=== PATIENT | female | born 1980 | race Caucasian/White ===

== ENCOUNTER 2019-12-29 12:13 | Emergency (ER) | payer OTHER, SELFPAY ==
[2019-12-29 12:30] VITALS: BP 132/90; PULSE 103; RESP 16; TEMP 37.4; O2SAT 98
--- NOTE | 2019-12-29 13:23 | ED.GENADULT ---
HPI - General Adult General Chief complaint: Upper Respiratory Infection Stated complaint: Body Aches/Sore Throat/Cough/Chills Time Seen by Provider: 12/29/19 13:23 Source: patient Mode of arrival: ambulatory Limitations: no limitations History of Present Illness HPI narrative: 39-year-old female patient presents to the [facility] care with complaints of cold symptoms that started this morning. Patient states that she did not get a flu shot this year. 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 Patient denies any fevers that she is aware of but states that she is just woke up today not feeling well with some body aches and a cough as well as a sore throat when to come and get it checked out. Patient denies taking anything for symptoms so far. Related Data Home Medications Medication Instructions Recorded Confirmed No Home Medications 12/29/19 12/29/19 Allergies Allergy/AdvReac Type Severity Reaction Status Date / Time meperidine Allergy Unknown Verified 04/13/16 08:19 Penicillins Allergy Unknown Verified 04/13/16 08:19 prednisone Allergy Unknown HIVES Verified 08/19/18 14:23 Sulfa (Sulfonamide Allergy Unknown Unknown Verified 08/19/18 14:23 Antibiotics) Review of Systems Review of Systems: Narrative: CONSTITUTIONAL: Denies fever, positive body aches, chills, began sweats. EYES: Denies visual changes, redness, or discharge. ENT: Positive rhinorrhea, congestion, sore throat, denies otalgia. CARDIOVASCULAR: Denies chest pain, palpitations, or edema. RESPIRATORY: Denies cough or dyspnea. GASTROINTESTINAL: Denies abdominal pain, nausea, vomiting, or diarrhea. GENITOURINARY: Denies dysuria or hematuria. SKIN: Denies rash or itching. MUSCULOSKELETAL: Denies back pain, joint pain, or myalgia. NEUROLOGIC: Denies headache, numbness, or weakness. PSYCHIATRIC: Denies anxiety or depression. [facility] Family History Family History Other Family history of cardiovascular disease Family history of kidney disease Family history of primary malignant neoplasm of liver Malignant neoplasm of prostate Social History Social History Smoking status: Never smoker Alcohol intake: never Comments At the time of my signature I agree with nursing past medical history, surgical, social, and family history. There is no relevant family history pertinent to the presenting complaint. Exam Narrative: Exam Narrative: GENERAL: Well-appearing, well-nourished, and in no acute distress. HEAD: Normocephalic, atraumatic. No tenderness noted to frontal and maxillary sinuses on palpation. EYES: PERRLA and EOMI. ENT: Nares with erythema and edema noted bilaterally, no rhinorrhea or epistaxis. Mucous membranes moist. Posterior pharynx with erythema and some slight swelling but no tonsil enlargement. No exudates or lesions. Bilateral TMs are clear no erythema or foreign bodies in the canal. NECK: Supple. No lymphadenopathy CHEST: Clear to auscultation. No respiratory distress. HEART: Regular rate and rhythm. No murmur heard. Normal peripheral pulses. ABDOMEN: Soft, nontender, nondistended, normal active bowel sounds. EXTREMITIES: Normal range of motion. No edema. SKIN: Warm, dry, no rash. NEURO: No focal deficits. Alert and oriented x3. Course Reevaluation(s) Reevaluation #1: Notify patient she is negative today for influenza and strep. Discussed with her this is most likely some type of virus that is causing her symptoms. Discussed with her that she can take [id number] Tylenol, ibuprofen, cough syrup and get plenty of rest and increase her fluids. Patient verbalized understanding denies any other questions or concerns at this time. Date: 12/29/19 Time: 13:49 Vital Signs Vital signs: Vital Signs Temperature 37.4 C 12/29/19 12:30 Pulse Rate 103 H 02
== END 2019-12-29 14:00 | disposition home or self-care (01) ==
PROVIDERS: Emergency Provider Nurse Practitioner Family; PCP Internal Medicine Nephrology
DX: J06.9 Acute upper respiratory infection, unspecified (principal); J02.9 Acute pharyngitis, unspecified; R05 Cough
CPT/HCPCS: 87081; 87804; 87880; 99213; G0463

== ENCOUNTER 2020-03-26 09:08 | Outpatient (CLI) | payer OTHER, SELFPAY ==
[2020-03-26 09:56] LABS: Basophils Percent Auto 0.4 % (0.2-1.2); Eosinophils Absolute Auto 0.1 K/mm3 (0-0.3); Eosinophils Percent Auto 1.5 % (0-4.4); Hematocrit 38.1 % (37.0-47.0); Hemoglobin 12.1 g/dL (12.0-15.0); Immature Granulocyte Absolute 0.07 K/mm3 (0.00-0.031); Immature Granulocyte Percent A 0.8 % (0-0.5); Lymphocytes Absolute Auto 2.35 K/mm3 (0.9-3.2); Lymphocytes Percent Auto 25.3 % (18.3-44.2); Mean Corpuscular HGB Conc 31.8 g/dl (32-36); Mean Corpuscular Hemoglobin 24.6 pg (26-34); Mean Corpuscular Volume 77.6 fl (80-100); Mean Platelet Volume 10.4 fl (7.4-10.4); Monocytes Absolute Auto 0.9 K/mm3 (0.1-0.6); Monocytes Percent Auto 9.6 % (2.6-8.5); Neutrophils Absolute Auto 5.8 K/mm3 (1.3-6.7); Neutrophils Percent Auto 62.4 % (45.5-73.1); Platelet Count Result 321 k/mm3 (150-375); Red Blood Count 4.91 M/mm3 (4.2-5.4); Red Cell Distribution Width 15.4 % (11.5-14.5); White Blood Count 9.3 K/mm3 (4.5-10.0)
[2020-03-26 10:04] LABS: Hemoglobin A1C 6.2 % (<5.7)
[2020-03-26 10:08] LABS: Add Urine Microscopic? YES; Appearance Urine Clear (Clear); Bilirubin Urine Negative (Negative); Blood Urine Negative (Negative); Color Urine Yellow (Yellow); Glucose Urine UA Negative (Negative); Ketones Urine Negative (Negative); Leukocyte Esterase Ur Trace LEU/UL (Negative); Mucus Urine Rare /lpf; Nitrate Urine Negative (Negative); Protein Urine Negative (Negative); RBC Urine 0-2 /hpf (0-2); Squamous Epithelial Cell Urine Moderate /hpf (Few); Urobilinogen Urine Negative mg/dL (<2.0); WBC Urine 0-3 /hpf
[2020-03-26 10:47] LABS: Free T4 Free Thyroxine 0.79 ng/mL (0.78-2.19)
== END 2020-03-26 09:09 | disposition home or self-care (01) ==
PROVIDERS: PCP Internal Medicine Nephrology; Visit Provider Internal Medicine Nephrology
DX: E78.5 Hyperlipidemia, unspecified (principal); D63.1 Anemia in chronic kidney disease; E11.9 Type 2 diabetes mellitus without complications; N39.0 Urinary tract infection, site not specified; E55.9 Vitamin D deficiency, unspecified; E66.01 Morbid (severe) obesity due to excess calories; E04.1 Nontoxic single thyroid nodule
CPT/HCPCS: 36415; 81001; 82306; 83036; 84439; 85025

== ENCOUNTER 2020-05-08 13:12 | Emergency (ER) | payer OTHER, SELFPAY ==
[2020-05-08 13:24] VITALS: BP 142/89; PULSE 111; RESP 16; TEMP 37.3; O2SAT 98
--- NOTE | 2020-05-08 13:32 | ED.EXTPRO ---
HPI - Extremity Problem General Chief complaint: Extremity Problem,Nontraumatic Stated complaint: left leg pain Time Seen by Provider: 05/08/20 13:33 Source: patient Mode of arrival: ambulatory Limitations: no limitations History of Present Illness HPI Narrative: Maribell Rosas is a 39 yo female with R calf tightness and pain after walking- denies any injury, family hx of PE. 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 EYES: Denies visual changes, redness, discharge. ENT: Denies rhinorrhea, congestion, sore throat, otalgia. CARDIOVASCULAR: Denies chest pain, palpitations, edema. RESPIRATORY: Denies dyspnea, wheezing, cough GASTROINTESTINAL: Denies abdominal pain, nausea, vomiting, diarrhea. GENITOURINARY: Denies dysuria, hematuria, abnormal discharge SKIN: Denies rash or itching. NEUROLOGIC: Denies numbness, or focal weakness. PSYCHIATRIC: Denies anxiety or depression. Left calf pain PMFSH Family History Family History (Updated 05/08/20 @ 13:42 by Josy Leiva CNP) Other Family history of cardiovascular disease Family history of kidney disease Family history of primary malignant neoplasm of liver Malignant neoplasm of prostate Pulmonary emboli Social History Social History Smoking status: Never smoker Alcohol intake: never Gender identity (if verbalized by the patient): Female Comments At time of signature, I agree with nursing past medical, surgical, social and family history. There is no relevant family history pertinent to the presenting complaint. Patients BP is elevated, should follow up with pcp within 1 week Exam Narrative: Exam Narrative: GENERAL: This is a well-nourished, well-developed patient, in mild distress. HEAD: normocephalic, atraumatic. EYES: PERRL. Sclera clear/white. Vision is grossly intact. EARS: External ears normal. Hearing grossly intact. NOSE: External nose normal without nasal discharge, nares without redness, no rhinorrhea. THROAT: Mucous membranes moist, NECK: Neck supple, non-tender CARDIOVASCULAR: Regular rate and rhythm without murmurs, gallops, or rubs. RESPIRATORY: Clear to auscultation. Breath sounds equal bilaterally. No wheezes, rales, or rhonchi. GASTROINTESTINAL: Abdomen soft, non-tender, SKIN: warm, intact with no suspicious lesions or rash, good texture and turgor. NEURO: awake, alert, and oriented to person, place and time. There were no obvious focal neurologic abnormalities. Steady gait EXTREMITIES: Normal range of motion. L calf tenderness, no increased swelling on L but pt states is tight BACK: Nontender without deformity Course Course Emergency Course: needs vascular doppler - referred to [facility] Vital Signs Vital signs: Vital Signs Temperature 99.2 F 05/08/20 13:24 Pulse Rate 111 H 05/08/20 13:24 Respiratory Rate 16 05/08/20 13:24 Blood Pressure 142/89 H 05/08/20 13:24 Pulse Oximetry 98 05/08/20 13:24 Temperature 99.2 F 05/08/20 13:24 Pulse Rate 111 H 05/08/20 13:24 Respiratory Rate 16 05/08/20 13:24 Blood Pressure 142/89 H 05/08/20 13:24 Pulse Oximetry 98 05/08/20 13:24 MDM - Extremity (Nontraumatic) Differential Diagnosis Differential diagnosis: Likely cellulitis, deep vein thrombosis of lower extremity and other Discharge Pl
== END 2020-05-08 13:50 | disposition short-term general hospital (02) ==
PROVIDERS: Emergency Provider Nurse Practitioner; PCP Internal Medicine Nephrology
DX: M79.662 Pain in left lower leg (principal)
CPT/HCPCS: 99212; G0463

== ENCOUNTER 2020-05-08 14:10 | Emergency (ER) | payer OTHER, SELFPAY ==
--- NOTE | ~2020-05-08 | US_ITS ---
EXAMINATION: US venous doppler [facility] DATE: 05/08/2020 15:41 INDICATION: Left lower limb pain TECHNIQUE: Byrd scale images without and with compression and Doppler images of the left lower extrem ity veins were obtained. COMPARISON: None FINDINGS: The left common femoral vein, profunda femoral vein, femoral vein, popliteal vein, peroneal trunk, posterior tibial veins, and greater saphenous vein are patent. IMPRESSION: 1. Patent left lower extremity veins. No evidence of deep venous thrombosis. Reviewed, dictated and finalized at location A.
[2020-05-08 14:31] VITALS: BP 128/84; PULSE 100; RESP 18; TEMP 37.2; O2SAT 100
--- NOTE | 2020-05-08 14:58 | ED.GENADULT ---
HPI - General Adult General Chief complaint: Extremity Problem,Nontraumatic Stated complaint: r/o DVT sent from [facility] Time Seen by Provider: 05/08/20 14:43 Source: patient Mode of arrival: ambulatory Limitations: no limitations History of Present Illness HPI narrative: 39-year-old female patient presents to the [facility] with complaints of left calf pain since Tuesday. Patient states that she was walking into the holes and states that the pain came out all of a sudden. Denies any injury that she is aware of. Patient states that she feels that her left calf is more swollen than the right one. Patient states she has been taking ibuprofen as well as using muscle rub and it has not gotten any better. Patient states she was seen at the [facility] today and they recommended to have her come over for a Doppler to rule out blood clot. Patient states that they did not x-ray at the time. Patient denies any chest pain or shortness of breath. Denies any history of blood clots before in the past Related Data Home Medications Medication Instructions Recorded Confirmed No Home Medications 05/08/20 05/08/20 Allergies Allergy/AdvReac Type Severity Reaction Status Date / Time meperidine Allergy Mild Hives Verified 05/08/20 14:36 Penicillins Allergy Unknown Hives Verified 05/08/20 14:36 prednisone Allergy Unknown HIVES Verified 05/08/20 14:36 Sulfa (Sulfonamide Allergy Unknown Hives Verified 05/08/20 14:36 Antibiotics) Review of Systems Review of Systems: Narrative: CONSTITUTIONAL: Denies fever, chills, or sweats. EYES: Denies visual changes, redness, or discharge. ENT: Denies rhinorrhea, congestion, sore throat, or otalgia. CARDIOVASCULAR: Denies chest pain, palpitations, or edema. RESPIRATORY: Denies cough or dyspnea. GASTROINTESTINAL: Denies abdominal pain, nausea, vomiting, or diarrhea. GENITOURINARY: Denies dysuria or hematuria. SKIN: Denies rash or itching. MUSCULOSKELETAL: Denies back pain, joint pain, or myalgia. Positive left calf pain x4 to 5 days NEUROLOGIC: Denies headache, numbness, or weakness. PSYCHIATRIC: Denies anxiety or depression. [facility] Family History Family History Other Family history of cardiovascular disease Family history of kidney disease Family history of primary malignant neoplasm of liver Malignant neoplasm of prostate Pulmonary emboli Social History Social History Smoking status: Never smoker Alcohol intake: never Gender identity (if verbalized by the patient): Female Comments At the time of my signature I agree with nursing past medical history, surgical, social, and family history. There is no relevant family history pertinent to the presenting complaint. Exam Narrative: Exam Narrative: GENERAL: Well-appearing, well-nourished, and in no acute distress. HEAD: Normocephalic, atraumatic. EYES: PERRLA and EOMI. ENT: Nares clear, no rhinorrhea or epistaxis. Mucous membranes moist. NECK: Supple. No lymphadenopathy CHEST: Clear to auscultation. No respiratory distress. HEART: Regular rate and rhythm. No murmur heard. Normal peripheral pulses. ABDOMEN: Soft, nontender, nondistended, normal active bowel sounds. EXTREMITIES: Normal range of motion. Patient has very slight swelling noted to the left calf area as compared to the right calf.. There is no obvious warmth noted. No discoloration. It is tender on palpation to the left calf area. SKIN: Warm, dry, no rash. NEURO: No focal deficits. Alert and oriented x3. Course Reevaluation(s) Reevaluation #1: Reevaluated patient after her Doppler had resulted. Discussed with her that that her Doppler is negative for any deep vein thrombosis to the left leg. Discussed with her that her blood work all looks good too. Discussed with her we will go ahead and discharge her and she can follow-up with her primary do
[2020-05-08 15:20] LABS: Basophils Absolute Auto 0.1 K/mm3 (0.0-0.1); Basophils Percent Auto 0.5 % (0.2-1.2); Eosinophils Absolute Auto 0.1 K/mm3 (0-0.3); Eosinophils Percent Auto 1.4 % (0-4.4); Hematocrit 33.5 % (37.0-47.0); Hemoglobin 10.9 g/dL (12.0-15.0); Immature Granulocyte Absolute 0.04 K/mm3 (0.00-0.031); Immature Granulocyte Percent A 0.4 % (0-0.5); Lymphocytes Absolute Auto 2.24 K/mm3 (0.9-3.2); Mean Corpuscular HGB Conc 32.5 g/dl (32-36); Mean Corpuscular Hemoglobin 24.8 pg (26-34); Mean Corpuscular Volume 76.1 fl (80-100); Mean Platelet Volume 9.9 fl (7.4-10.4); Monocytes Absolute Auto 0.7 K/mm3 (0.1-0.6); Monocytes Percent Auto 7.2 % (2.6-8.5); Neutrophils Absolute Auto 6.2 K/mm3 (1.3-6.7); Neutrophils Percent Auto 66.5 % (45.5-73.1); Platelet Count Result 305 k/mm3 (150-375); Red Cell Distribution Width 15.3 % (11.5-14.5); White Blood Count 9.4 K/mm3 (4.5-10.0)
[2020-05-08 15:26] LABS: INR 1.2; Prothrombin Time 14.5 Seconds (11.1-14.7)
[2020-05-08 15:27] LABS: Partial Thromboplastin Time 30.2 SECONDS (22.3-36.8)
[2020-05-08 15:29] LABS: Alanine Aminotransferase 24 U/L (4-35); Albumin Level 4.6 g/dL (3.5-5.1); Alkaline Phosphatase 62 U/L (38-126); Aspartate Amino Transferase 23 U/L (14-36); Bilirubin,Total < 0.1 mg/dL (0.2-1.3); Blood Urea Nitrogen 11 mg/dL (7-17); Calcium 9.5 mg/dL (8.4-10.2); Carbon Dioxide 27 mmol/L (22-30); Chloride 102 mmol/L (98-107); Estimated CRCL calculation 108 ml/min; Estimated Glomerular Filt Rate > 60; Glucose 132 mg/dL (65-105); Potassium 3.6 mmol/L (3.4-5.0); Sodium 137 mmol/L (137-145)
--- NOTE | 2020-05-08 16:12 | PC.NURSE ---
Patient found to not be in room at time of discharge, patient left ED without discharge instructions or follow up care instructions.
== END 2020-05-08 16:12 | disposition home or self-care (01) ==
PROVIDERS: Emergency Provider Nurse Practitioner Family; PCP Internal Medicine Nephrology
DX: S86.912A Strain of unspecified muscle(s) and tendon(s) at lower leg level, left leg, initial encounter (principal); X58.XXXA Exposure to other specified factors, initial encounter
CPT/HCPCS: 36415; 80053; 85025; 85610; 85730; 93971; 99284

== ENCOUNTER 2020-12-20 07:50 | Outpatient (CLI) | payer OTHER, SELFPAY ==
[2020-12-20 08:22] LABS: Basophils Percent Auto 0.5 % (0.2-1.2); Eosinophils Absolute Auto 0.1 K/mm3 (0-0.3); Eosinophils Percent Auto 1.4 % (0-4.4); Hematocrit 34.9 % (37.0-47.0); Hemoglobin 10.7 g/dL (12.0-15.0); Immature Granulocyte Absolute 0.03 K/mm3 (0.00-0.031); Immature Granulocyte Percent A 0.4 % (0-0.5); Lymphocytes Absolute Auto 2.32 K/mm3 (0.9-3.2); Lymphocytes Percent Auto 27.6 % (18.3-44.2); Mean Corpuscular HGB Conc 30.7 g/dl (32-36); Mean Corpuscular Hemoglobin 21.9 pg (26-34); Mean Corpuscular Volume 71.4 fl (80-100); Mean Platelet Volume 9.7 fl (7.4-10.4); Monocytes Absolute Auto 0.7 K/mm3 (0.1-0.6); Monocytes Percent Auto 8.3 % (2.6-8.5); Neutrophils Absolute Auto 5.2 K/mm3 (1.3-6.7); Neutrophils Percent Auto 61.8 % (45.5-73.1); Platelet Count Result 313 k/mm3 (150-375); Red Blood Count 4.89 M/mm3 (4.2-5.4); Red Cell Distribution Width 18.6 % (11.5-14.5); White Blood Count 8.4 K/mm3 (4.5-10.0)
[2020-12-20 08:55] LABS: Creatinine Urine 174.2 mg/dL
[2020-12-20 08:57] LABS: MALB Creatinine Ratio 8.3 mg/g (0-30); Microalbumin Urine Random 14.4 mg/L (0-16.7)
[2020-12-20 09:10] LABS: Vitamin D 25 Hydroxy 43.2 ng/mL
[2020-12-20 12:13] LABS: Alanine Aminotransferase 20 U/L (4-35); Albumin Level 4.5 g/dL (3.5-5.1); Alkaline Phosphatase 61 U/L (38-126); Anion Gap 7 mmol/L (8-16); Aspartate Amino Transferase 23 U/L (14-36); Bilirubin,Total 0.3 mg/dL (0.2-1.3); Blood Urea Nitrogen 16 mg/dL (7-17); Calcium 9.1 mg/dL (8.4-10.2); Carbon Dioxide 28 mmol/L (22-30); Chloride 107 mmol/L (98-107); Cholesterol 125 mg/dL (0-200); Estimated Glomerular Filt Rate > 60; Glucose 111 mg/dL (65-105); HDL Direct 43 mg/dL; Potassium 4.5 mmol/L (3.4-5.0); Sodium 142 mmol/L (137-145); Triglycerides 77 mg/dL (<150)
[2020-12-20 12:26] LABS: LDL Cholesterol Direct 60 mg/dL
[2020-12-20 12:45] LABS: Thyroid Stimulating Hormone 0.778 uIU/mL (0.465-4.680); Total Triiodothyronine (T3) 1.17 NG/ML (0.97-1.69)
[2020-12-20 13:38] LABS: Folic Acid > 20.0 ng/mL (2.76->20)
[2020-12-20 13:56] LABS: Hemoglobin A1C 5.7 % (<5.7)
[2020-12-20 15:18] LABS: Iron 28 ug/dL (37-170)
[2020-12-20 15:36] LABS: Free T4 Free Thyroxine 0.83 ng/mL (0.78-2.19)
[2020-12-20 15:55] LABS: Ferritin 6.92 ng/mL (6.24-137)
[2020-12-20 16:42] LABS: Percent Iron Saturation 7 % (20-50)
== END 2020-12-20 07:51 | disposition home or self-care (01) ==
LOC: ANHLAB 07:53
PROVIDERS: PCP Internal Medicine Nephrology; Visit Provider Internal Medicine Nephrology
DX: D63.1 Anemia in chronic kidney disease (principal); D50.9 Iron deficiency anemia, unspecified; E04.1 Nontoxic single thyroid nodule; E78.5 Hyperlipidemia, unspecified; E11.9 Type 2 diabetes mellitus without complications
CPT/HCPCS: 36415; 80053; 80061; 82043; 82306; 82607; 82728; 82746; 83036; 83540; 83550; 83735; 84439; 84443; 84480; 85025

== ENCOUNTER 2021-01-14 16:16 | Outpatient (CLI) | payer OTHER, SELFPAY ==
--- NOTE | ~2021-01-14 | MM_ITS ---
EXAMINATION: MM screening zoltan BI w nilo HISTORY: Screening TECHNIQUE: Craniocaudal and mediolateral oblique 3-D tomosynthesis images were obtained and synthetic 2-D images were generated. CAD analysis was submitted and interpreted. COMPARISON: 06/21/2019 BREAST PARENCHYMAL COMPOSITION: The breasts are heterogeneously dense, which may obscure small masses . FINDINGS: There are developing bilateral breast masses which are obscured by fibroglandular tissue. T here are scattered benign-appearing bilateral breast calcifications. IMPRESSION: 1. Developing bilateral breast masses. 2. Additional mammographic views and possible breast ultrasound are recommended. BI-RADS Category 0: Incomplete: Needs additional imaging evaluation. Reviewed, dictated and finalized at location A. ENT RELATIONS COORDINATOR IMPRESSION: 1. Developing bilateral breast masses. 2. Additional mammographic views and possible breast ultrasound are recommended . BI-RADS Category 0: Incomplete: Needs additional imaging evaluation.
== END 2021-01-14 16:17 | disposition home or self-care (01) ==
LOC: ANHIMG 16:19
PROVIDERS: PCP Internal Medicine Nephrology; Visit Provider Obstetrics & Gynecology
DX: Z12.31 Encounter for screening mammogram for malignant neoplasm of breast (principal); R92.8 Other abnormal and inconclusive findings on diagnostic imaging of breast
CPT/HCPCS: 77063; 77067

== ENCOUNTER 2021-02-09 11:16 | Outpatient (CLI) | payer OTHER, SELFPAY ==
--- NOTE | ~2021-02-09 | MMUS_ITS ---
EXAMINATION: MM diagnostic mammo BI, US breast BI limited HISTORY: Possible breast masses on screening mammogram TECHNIQUE: Additional 3-D tomosynthesis images of the breasts were performed and synthetic 2-D images were generated. CAD analysis was submitted and interpreted. High resolution limited bilateral breast ultrasound was performed. COMPARISON: 01/14/2021, 06/21/2019 FINDINGS: MAMMOGRAPHIC FINDINGS: Right breast: There is 11 mm an obscured low density mass in the middle third of the upper outer quad rant of the breast at the 10:00 location 6 cm from the nipple. Left breast: There is an approximately 10 mm oval, obscured, equal density mass in the middle third o f the upper breast at the 12:00 location 10 cm from the nipple. ULTRASOUND: Right breast: There is an approximately 11 mm oval, parallel, hypoechoic mass at the 10:00 location 7 cm from the nipple with posterior acoustic enhancement and no internal vascularity. Left breast: There is a 1.4 x 0.7 cm oval, parallel, complex cystic and solid mass with no posterior features or internal vascularity at the 12:00 location 5 cm from the nipple which could reflect a clu ster of microcysts. IMPRESSION: 1. Probably benign bilateral breast masses. 2. Recommend 6 month follow-up bilateral diagnostic mammogram and ultrasound. BI-RADS category 3, probably benign findings. Reviewed, dictated and finalized at location A. IMPRESSION: 1. Probably benign bilateral breast masses. 2. Recommend 6 month follow-up bilateral diagnostic mammogram and ultrasound. BI-RADS category 3, probably benign findings.
== END 2021-02-09 11:17 | disposition home or self-care (01) ==
LOC: ANHIMG 11:17
PROVIDERS: PCP Internal Medicine Nephrology; Visit Provider Obstetrics & Gynecology
DX: R92.8 Other abnormal and inconclusive findings on diagnostic imaging of breast (principal)
CPT/HCPCS: 76642; 77066

== ENCOUNTER 2021-07-12 11:19 | Emergency (ER) | payer OTHER, SELFPAY ==
--- NOTE | 2021-07-12 11:20 | ED.EAR ---
HPI - Ear Problem General Chief complaint: Ear Stated complaint: ear pain Time Seen by Provider: 07/12/21 11:21 Source: patient and RN notes reviewed History of Present Illness HPI Narrative: Patient is a 41-year-old female who presents to the urgent care with complaints of bilateral ear pain and intermittent dizziness. Patient currently denies of any dizziness. States that she was sitting in scientology and started to feel dizzy with bilateral ear pain and jitteriness . Patient states that she did eat this morning as well as drink a glass of orange juice. Patient denies of any sick contacts and denies of any other upper respiratory complaints. Patient has not taken anything for her symptoms. Patient was able to drive herself to the facility. No other acute complaints. No acute distress noted. Patient read the plan of care. Some parts of this dictation were generated by voice recognition software and may contain typographical and/or grammatical inaccuracies. Related Data Home Medications Medication Instructions Recorded Confirmed No Home Medications 05/08/20 07/12/21 Allergies Allergy/AdvReac Type Severity Reaction Status Date / Time meperidine Allergy Mild Hives Verified 07/12/21 11:29 Penicillins Allergy Unknown Hives Verified 07/12/21 11:29 prednisone Allergy Unknown HIVES Verified 07/12/21 11:29 Sulfa (Sulfonamide Allergy Unknown Hives Verified 07/12/21 11:29 Antibiotics) Review of Systems Review of Systems: CONSTITUTIONAL: Denies fever, chills, or sweats. EYES: Denies visual changes, redness, or discharge. ENT: Denies rhinorrhea, congestion, sore throat. Reports bilateral otalgia CARDIOVASCULAR: Denies chest pain, palpitations, or edema. RESPIRATORY: Denies cough or dyspnea. GASTROINTESTINAL: Denies abdominal pain, nausea, vomiting, or diarrhea. GENITOURINARY: Denies dysuria or hematuria. SKIN: Denies rash or itching. MUSCULOSKELETAL: Denies back pain, joint pain, or myalgia. NEUROLOGIC: Denies headache, numbness, or weakness. Reports of a bout of dizziness All other systems reviewed are negative, except as documented in HPI. [facility] Family History Family History Other Family history of cardiovascular disease Family history of kidney disease Family history of primary malignant neoplasm of liver Malignant neoplasm of prostate Pulmonary emboli Social History Social History Smoking status: Never smoker Alcohol intake: never Gender identity (if verbalized by the patient): Female Comments At the time of my signature, I reviewed and agree with the nursing past medical, surgical, social, and family history. There is no relevant family history pertinent to the patient complaint. Exam Narrative: GENERAL: This is a well-nourished, well-developed patient, in no apparent distress. HEAD: normocephalic, atraumatic. EYES: PERRL. Sclera clear/white. Vision is grossly intact. EARS: External ears normal, auditory canals clear and without drainage, TMs normal without perforation. Hearing grossly intact. NOSE: External nose normal with no obvious nasal discharge, nares without redness, no rhinorrhea. THROAT: Mucous membranes moist, posterior pharynx clear. NECK: Neck supple CARDIOVASCULAR: Regular rate and rhythm without murmurs, gallops, or rubs. RESPIRATORY: Clear to auscultation. Breath sounds equal bilaterally. No wheezes, rales, or rhonchi. SKIN: warm, intact with no suspicious lesions or rash, good texture and turgor. NEURO: awake, alert, and oriented to person, place and time. There were no obvious focal neurologic abnormalities. No neurological defects noted EXTREMITIES: No clubbing, cyanosis, or edema. Course Vital Signs Vital signs: Vital Signs Temperature 98.0 F 07/12/21 11:29 Pulse Rate 104 H 07/12/21 11:29 Respiratory Rate 18 07/12/21 11:29 Blood Pressure 136/88 07/12/21
[2021-07-12 11:29] VITALS: BP 136/88; PULSE 104; RESP 18; TEMP 36.7; O2SAT 100
== END 2021-07-12 11:50 | disposition home or self-care (01) ==
PROVIDERS: Emergency Provider Nurse Practitioner Family; PCP Internal Medicine Nephrology
DX: H92.03 Otalgia, bilateral (principal)
CPT/HCPCS: 99211; G0463

== ENCOUNTER 2021-07-18 08:06 | Outpatient (CLI) | payer OTHER, SELFPAY ==
[2021-07-18 08:57] LABS: Basophils Percent Auto 0.5 % (0.2-1.2); Eosinophils Absolute Auto 0.1 K/mm3 (0-0.3); Eosinophils Percent Auto 1.6 % (0-4.4); Hematocrit 32.4 % (37.0-47.0); Hemoglobin 9.7 g/dL (12.0-15.0); Immature Granulocyte Absolute 0.05 K/mm3 (0.00-0.031); Immature Granulocyte Percent A 0.6 % (0-0.5); Lymphocytes Absolute Auto 2.28 K/mm3 (0.9-3.2); Lymphocytes Percent Auto 27.9 % (18.3-44.2); Mean Corpuscular HGB Conc 29.9 g/dl (32-36); Mean Corpuscular Hemoglobin 20.9 pg (26-34); Mean Corpuscular Volume 69.7 fl (80-100); Mean Platelet Volume 9.9 fl (7.4-10.4); Monocytes Absolute Auto 0.7 K/mm3 (0.1-0.6); Monocytes Percent Auto 8.7 % (2.6-8.5); Neutrophils Percent Auto 60.7 % (45.5-73.1); Platelet Count Result 333 k/mm3 (150-375); Red Blood Count 4.65 M/mm3 (4.2-5.4); Red Cell Distribution Width 18.2 % (11.5-14.5); White Blood Count 8.2 K/mm3 (4.5-10.0)
[2021-07-18 09:08] LABS: Alanine Aminotransferase 20 U/L (4-35); Albumin Level 4.4 g/dL (3.5-5.1); Alkaline Phosphatase 62 U/L (38-126); Anion Gap 7 mmol/L (8-16); Aspartate Amino Transferase 21 U/L (14-36); Bilirubin,Total 0.2 mg/dL (0.2-1.3); Blood Urea Nitrogen 12 mg/dL (7-17); Calcium 9.2 mg/dL (8.4-10.2); Carbon Dioxide 26 mmol/L (22-30); Chloride 105 mmol/L (98-107); Estimated Glomerular Filt Rate > 60; Glucose 121 mg/dL (65-110); Sodium 138 mmol/L (137-145)
[2021-07-18 09:57] LABS: Iron 19 ug/dL (37-170)
[2021-07-18 10:07] LABS: Percent Iron Saturation 5 % (20-50)
== END 2021-07-18 08:07 | disposition home or self-care (01) ==
PROVIDERS: PCP Internal Medicine Nephrology; Visit Provider Internal Medicine Nephrology
DX: N18.9 Chronic kidney disease, unspecified (principal); D63.1 Anemia in chronic kidney disease; D50.9 Iron deficiency anemia, unspecified; E66.01 Morbid (severe) obesity due to excess calories; E04.1 Nontoxic single thyroid nodule
CPT/HCPCS: 36415; 80053; 82728; 83036; 83540; 83550; 85025

== ENCOUNTER 2021-10-07 09:03 | Outpatient (CLI) | payer OTHER, SELFPAY ==
[2021-10-07 09:45] LABS: Hematocrit 38.9 % (37.0-47.0); Hemoglobin 12.8 g/dL (12.0-15.0); Immature Reticulocyte Fraction 7.9 % (3.0-15.9); Mean Corpuscular HGB Conc 32.9 g/dl (32-36); Mean Corpuscular Volume 79.1 fl (80-100); Mean Platelet Volume 9.7 fl (7.4-10.4); Platelet Count Result 264 k/mm3 (150-375); Red Blood Count 4.92 M/mm3 (4.2-5.4); Red Cell Distribution Width 18.9 % (11.5-14.5); Reticulocyte Hemoglobin Conten 32.1 pg (28.2-35.7); Reticulocyte Percent 1.56 % (0.7-4.3); Reticulocytes Absolute 0.08 B/L (32.2-175.7); White Blood Count 8.7 K/mm3 (4.5-10.0)
[2021-10-07 10:03] LABS: Iron 44 ug/dL (37-170)
[2021-10-07 10:13] LABS: Percent Iron Saturation 11 % (20-50)
[2021-10-07 11:11] LABS: Folic Acid 18.8 ng/mL (2.76->20); Vitamin B12 > 1000.0 pg/mL (239-931)
== END 2021-10-07 09:04 | disposition home or self-care (01) ==
LOC: ANHLAB 09:06
PROVIDERS: PCP Internal Medicine Nephrology; Visit Provider Internal Medicine Nephrology
DX: C73 Malignant neoplasm of thyroid gland (principal); D50.9 Iron deficiency anemia, unspecified
CPT/HCPCS: 36415; 82607; 82728; 82746; 83540; 83550; 84443; 85027; 85046

== ENCOUNTER 2021-10-16 06:32 | Emergency (ER) | payer OTHER, SELFPAY ==
--- NOTE | ~2021-10-16 | XR_ITS ---
XR chest 1V portable 10/16/2021 08:32 Indication: Shortness of breath. Covid Infection. Procedure: AP portable chest Comparison: 04/28/2011 Findings: Patchy bilateral airspace disease, compatible with pneumonia. No pleural effusion or pneumo thorax. Heart size normal. No acute osseous abnormality. Impression: 1: Patchy bilateral airspace disease, compatible with pneumonia. Reviewed, dictated and finalized at location A. [employer] Impression: 1: Patchy bilateral airspace disease, compatible with pneumonia.
[2021-10-16 06:45] VITALS: BP 120/71; PULSE 119; RESP 17; TEMP 37.4; O2SAT 95
[2021-10-16 08:29] LABS: Alveolar/Arterial O2 Gradient 45.4 mmHg; Base Excess ABG -0.1 mEq/l (+/-2.0); Fractional Inspired Oxygen 21 %; HCO3 ABG 23.3 mEq/l (22.0-26.0); Oxygen Saturation ABG 93.6 % (95.0-100.0); Oxyhemoglobin 91.8 % THb (90.0-100.0); PCO2 ABG 33.8 mmHg (35.0-45.0); PO2 ABG 63.9 mmHg (80.0-100.0); PO2 FiO2 Ratio Arterial Blood 3.04 %; Total Hemoglobin 11.6 g/dL (12.0-18.0); pH ABG 7.457 (7.350-7.450)
[2021-10-16 08:30] LABS: Device ROOM AIR; Modified Allen's Test Pass; Site Drawn LEFT RADIAL
[2021-10-16 09:08] VITALS: BP 88/64; PULSE 80; RESP 23; O2SAT 93
[2021-10-16] MEDS: SODIUM CHLORIDE 0.9% IV 1,000 ML 999 ML IV CONT (09:11)
[2021-10-16 09:19] LABS: Hematocrit 34.3 % (37.0-47.0); Hemoglobin 11.3 g/dL (12.0-15.0); Immature Granulocyte Absolute 0.02 K/mm3 (0.00-0.031); Immature Granulocyte Percent A 0.5 % (0-0.5); Lymphocytes Percent Auto 18.5 % (18.3-44.2); Mean Corpuscular HGB Conc 32.9 g/dl (32-36); Mean Corpuscular Hemoglobin 25.7 pg (26-34); Mean Corpuscular Volume 78.1 fl (80-100); Mean Platelet Volume 10.1 fl (7.4-10.4); Monocytes Absolute Auto 0.3 K/mm3 (0.1-0.6); Monocytes Percent Auto 6.5 % (2.6-8.5); Neutrophils Absolute Auto 3.2 K/mm3 (1.3-6.7); Neutrophils Percent Auto 74.5 % (45.5-73.1); Platelet Count Result 186 k/mm3 (150-375); Red Blood Count 4.39 M/mm3 (4.2-5.4); Red Cell Distribution Width 18.1 % (11.5-14.5); White Blood Count 4.3 K/mm3 (4.5-10.0)
[2021-10-16] MEDS: ONDANSETRON INJ 4 MG/2 ML VIAL IV PUSH (09:24)
--- NOTE | 2021-10-16 09:40 | ED.NAVMDI ---
HPI - Nausea/Vomiting/Diarrhea General Chief complaint: Nausea/Vomiting/Diarrhea Stated complaint: Covid +, SOB, N/V Time Seen by Provider: 10/16/21 07:53 Source: patient and RN notes reviewed Mode of arrival: ambulatory Limitations: no limitations History of Present Illness HPI Narrative: Patient started having Covid symptoms 7 days ago, tested positive for COVID-19 5 days ago. Currently complaining of poor appetite, nausea, shortness of breath with exertion. Patient is not vaccinated for COVID-19. Related Data Allergies Allergy/AdvReac Type Severity Reaction Status Date / Time meperidine Allergy Mild Hives Verified 10/16/21 06:48 Penicillins Allergy Unknown Hives Verified 10/16/21 06:48 prednisone Allergy Unknown HIVES Verified 10/16/21 06:48 Sulfa (Sulfonamide Allergy Unknown Hives Verified 10/16/21 06:48 Antibiotics) Review of Systems Review of Systems: CONSTITUTIONAL: Denies fever, chills, or sweats. EYES: Denies visual changes, redness, or discharge. ENT: Denies rhinorrhea, congestion, sore throat, or otalgia. CARDIOVASCULAR: Denies chest pain, palpitations, or edema. RESPIRATORY: Denies cough or dyspnea. GASTROINTESTINAL: Denies abdominal pain, nausea, vomiting, or diarrhea. GENITOURINARY: Denies dysuria or hematuria. SKIN: Denies rash or itching. MUSCULOSKELETAL: Denies back pain, joint pain, or myalgia. NEUROLOGIC: Denies headache, numbness, or weakness. PSYCHIATRIC: Denies anxiety or depression. [facility] Family History Family History Other Family history of cardiovascular disease Family history of kidney disease Family history of primary malignant neoplasm of liver Malignant neoplasm of prostate Pulmonary emboli Social History Social History Smoking status: Never smoker Alcohol intake: never Gender identity (if verbalized by the patient): Female Exam Narrative: General appearance: Well-developed, well-nourished Skin: Normal color Head: Normocephalic, nontraumatic Eyes: Clear conjunctiva ENT: Oropharynx normal, ears normal, nose normal Neck: Supple, nontender Chest and respiratory: Airway patent, no respiratory distress, no accessory muscle use Heart: Regular rate/rhythm Abdomen: Soft, nontender, no organomegaly, quiet bowel sounds Vascular: Normal peripheral pulses, normal capillary refill. Musculoskeletal: Normal range of motion, nontender back Neurologic: Alert and oriented ?3, SCRAP PILER is normal as tested, no gross motor deficit Course Course Emergency Course: Stable, Consultations Consultation #1: DR RAMOS Patient is not qualified to be admitted, her saturation is 93.6, although having bilateral basal pneumonia which is consistent with Covid infection. Patient can go home and can return if her symptoms are worsening. Date: 10/16/21 Time: 10:01 Vital Signs Vital signs: Vital Signs Temperature 37.4 C 10/16/21 06:45 Pulse Rate 119 H 10/16/21 06:45 Respiratory Rate 17 10/16/21 06:45 Blood Pressure 120/71 10/16/21 06:45 Pulse Oximetry 95 10/16/21 06:45 Temperature 37.4 C 10/16/21 06:45 Pulse Rate 80 10/16/21 09:08 Respiratory Rate 23 H 10/16/21 09:08 Blood Pressure 88/64 L 10/16/21 09:08 Pulse Oximetry 93 10/16/21 09:08 MDM - Nausea/Vomiting/Diarrhea MDM Narrative Medical decision making narrative: Covid infection Work-up showed slight hypoxia, patient has not qualified to be admitted for remdesivir and dexamethasone treatment. Patient is allergic to prednisone. Patient will be discharged on Kerri Alamoon, to follow-up with her family physician. Discussed with
[2021-10-16 10:07] LABS: Alanine Aminotransferase 19 U/L (4-35); Albumin Level 4.1 g/dL (3.5-5.1); Alkaline Phosphatase 47 U/L (38-126); Anion Gap 8 mmol/L (8-16); Aspartate Amino Transferase 28 U/L (14-36); Bilirubin,Total 0.2 mg/dL (0.2-1.3); Blood Urea Nitrogen 13 mg/dL (7-17); Calcium 8.2 mg/dL (8.4-10.2); Carbon Dioxide 27 mmol/L (22-30); Chloride 98 mmol/L (98-107); Estimated CRCL calculation 110 ml/min; Estimated Glomerular Filt Rate > 60; Glucose 102 mg/dL (65-110); Potassium 4.2 mmol/L (3.4-5.0); Sodium 133 mmol/L (137-145)
[2021-10-16 10:30] LABS: Alanine Aminotransferase 18 U/L (4-35); Estimated CRCL calculation 110 ml/min; Estimated Glomerular Filt Rate > 60
[2021-10-16 10:31] LABS: Prothrombin Time 13.3 Seconds (11.1-14.7)
[2021-10-16 11:08] VITALS: BP 114/56; PULSE 88; RESP 20; O2SAT 98
== END 2021-10-16 11:10 | disposition home or self-care (01) ==
PROVIDERS: Emergency Provider Emergency Medicine; PCP Internal Medicine Nephrology
DX: U07.1 COVID-19 (principal); J12.82 Pneumonia due to coronavirus disease 2019; A08.39 Other viral enteritis
CPT/HCPCS: 36415; 36600; 71045; 80053; 82565; 82805; 84460; 85025; 85610; 96361; 96374; 99284; J2405; J7030

== ENCOUNTER 2022-02-13 08:25 | Outpatient (CLI) | payer OTHER, SELFPAY ==
[2022-02-13 08:59] LABS: Basophils Percent Auto 0.4 % (0.2-1.2); Eosinophils Absolute Auto 0.2 K/mm3 (0-0.3); Eosinophils Percent Auto 1.8 % (0-4.4); Hematocrit 39.1 % (37.0-47.0); Hemoglobin 12.3 g/dL (12.0-15.0); Immature Granulocyte Absolute 0.04 K/mm3 (0.00-0.031); Immature Granulocyte Percent A 0.5 % (0-0.5); Immature Reticulocyte Fraction 12.3 % (3.0-15.9); Lymphocytes Absolute Auto 2.68 K/mm3 (0.9-3.2); Lymphocytes Percent Auto 31.8 % (18.3-44.2); Mean Corpuscular HGB Conc 31.5 g/dl (32-36); Mean Corpuscular Hemoglobin 24.8 pg (26-34); Mean Platelet Volume 9.7 fl (7.4-10.4); Monocytes Absolute Auto 0.8 K/mm3 (0.1-0.6); Monocytes Percent Auto 8.9 % (2.6-8.5); Neutrophils Absolute Auto 4.8 K/mm3 (1.3-6.7); Neutrophils Percent Auto 56.6 % (45.5-73.1); Platelet Count Result 270 k/mm3 (150-375); Red Blood Count 4.95 M/mm3 (4.2-5.4); Red Cell Distribution Width 17.5 % (11.5-14.5); Reticulocyte Hemoglobin Conten 31.1 pg (28.2-35.7); Reticulocyte Percent 2.21 % (0.7-4.3); Reticulocytes Absolute 0.11 B/L (32.2-175.7); White Blood Count 8.4 K/mm3 (4.5-10.0)
[2022-02-13 09:20] LABS: Add Urine Microscopic? YES; Appearance Urine Clear (Clear); Bilirubin Urine Negative (Negative); Blood Urine Negative (Negative); Color Urine Straw (Yellow); Glucose Urine UA Negative (Negative); Ketones Urine Negative (Negative); Leukocyte Esterase Ur 1+ LEU/UL (NEGATIVE); Mucus Urine Rare /lpf; Nitrate Urine Negative (Negative); Protein Urine Negative (Negative); RBC Urine 0-2 /hpf (0-2); Specific Grav Ur 1.011 (1.001-1.035); Squamous Epithelial Cell Urine Few /hpf (Few); Urobilinogen Urine Negative mg/dL (<2.0)
[2022-02-13 09:29] LABS: Alanine Aminotransferase 27 U/L (4-35); Albumin Level 4.6 g/dL (3.5-5.1); Alkaline Phosphatase 59 U/L (38-126); Anion Gap 7 mmol/L (8-16); Aspartate Amino Transferase 27 U/L (14-36); Bilirubin,Total 0.2 mg/dL (0.2-1.3); Blood Urea Nitrogen 13 mg/dL (7-17); Calcium 8.9 mg/dL (8.4-10.2); Carbon Dioxide 28 mmol/L (22-30); Chloride 103 mmol/L (98-107); Cholesterol 126 mg/dL (0-200); Estimated Glomerular Filt Rate > 60; Glucose 124 mg/dL (65-110); HDL Direct 37 mg/dL; Sodium 138 mmol/L (137-145); Triglycerides 164 mg/dL (<150)
[2022-02-13 09:45] LABS: LDL Cholesterol Direct 52 mg/dL
[2022-02-13 09:47] LABS: Hemoglobin A1C 5.7 % (<5.7)
[2022-02-13 09:58] LABS: Vitamin D 25 Hydroxy 48.9 ng/mL
[2022-02-13 10:01] LABS: Iron 60 ug/dL (37-170)
[2022-02-13 10:12] LABS: Percent Iron Saturation 16 % (20-50)
[2022-02-17 06:35] LABS: FSH 2.5 mIU/mL (***); Progesterone 6.3 ng/mL (***)
[2022-02-18 20:27] LABS: Estradiol, Ultrasensitive 117 pg/mL
== END 2022-02-13 08:26 | disposition home or self-care (01) ==
PROVIDERS: PCP Internal Medicine Nephrology; Referring Provider Internal Medicine Nephrology; Visit Provider Obstetrics & Gynecology
DX: C73 Malignant neoplasm of thyroid gland (principal); Z86.2 Personal history of diseases of the blood and blood-forming organs and certain disorders involving the immune mechanism
CPT/HCPCS: 36415; 80053; 80061; 81001; 82306; 82607; 82670; 82728; 83001; 83036; 83540; 83550; 83735; 84100; 84144; 84443; 85025; 85046

== ENCOUNTER 2022-10-06 09:07 | Outpatient (CLI) | payer OTHER, SELFPAY ==
[2022-10-06 09:36] LABS: Hemoglobin 12.5 g/dL (12.0-15.0); Mean Corpuscular HGB Conc 32.9 g/dl (32-36); Mean Corpuscular Hemoglobin 27.5 pg (26-34); Mean Corpuscular Volume 83.7 fl (80-100); Mean Platelet Volume 9.9 fl (7.4-10.4); Platelet Count Result 244 k/mm3 (150-375); Red Blood Count 4.54 M/mm3 (4.2-5.4); Red Cell Distribution Width 13.2 % (11.5-14.5)
[2022-10-06 09:46] LABS: Creatine Kinase 46 U/L (30-135)
[2022-10-06 09:56] LABS: Iron 39 ug/dL (37-170)
[2022-10-06 10:07] LABS: Percent Iron Saturation 8 % (20-50)
[2022-10-06 10:15] LABS: Free T4 Free Thyroxine 0.79 ng/mL (0.78-2.19)
[2022-10-06 10:28] LABS: Hepatitis B Surface Antigen Negative (Negative)
[2022-10-06 10:34] LABS: Ferritin 9.02 ng/mL (6.24-137)
[2022-10-06 10:45] LABS: Hepatitis B Surface Anti Res Negative; Hepatitis C Virus Antibody Negative (Negative)
[2022-10-11 07:42] LABS: NIL 0.06
[2022-10-11 07:43] LABS: Quantiferon TB Plus, 1T Negative
== END 2022-10-06 09:08 | disposition home or self-care (01) ==
LOC: ANHLAB 09:10
PROVIDERS: PCP Internal Medicine Nephrology; Visit Provider Internal Medicine Nephrology
DX: Z86.2 Personal history of diseases of the blood and blood-forming organs and certain disorders involving the immune mechanism (principal); C73 Malignant neoplasm of thyroid gland; R55 Syncope and collapse; R53.83 Other fatigue
CPT/HCPCS: 36415; 82550; 82728; 83540; 83550; 84439; 84443; 85027; 86038; 86480; 86706; 86803; 87340

== ENCOUNTER 2022-11-12 16:07 | Emergency (ER) | payer OTHER, SELFPAY ==
[2022-11-12 16:14] VITALS: BP 141/87; PULSE 103; RESP 20; TEMP 37.6; O2SAT 100
--- NOTE | 2022-11-12 16:36 | ED.EAR ---
HPI - Ear Problem General Chief complaint: Ear Stated complaint: Both Ears Irritation Time Seen by Provider: 11/12/22 16:36 Source: patient Mode of arrival: ambulatory Limitations: no limitations History of Present Illness HPI Narrative: 42-year-old female presents with complaint of irritation to both ears, worse to left ear. Also reports itching to bilateral ear canals. Reports history of several ear problems. Is not able to see her ENT until January. Her primary care physician was also not able to get her in for an appointment. Afebrile. Reports mild nausea. No vomiting or dizziness. All systems reviewed and negative except as noted above. Related Data Home Medications Medication Instructions Recorded Confirmed ferrous sulfate 325 mg (65 mg 325 mg PO DAILY 07/06/22 07/06/22 iron) tablet Allergies Allergy/AdvReac Type Severity Reaction Status Date / Time meperidine Allergy Mild Hives Verified 11/12/22 16:09 Penicillins Allergy Unknown Hives Verified 11/12/22 16:09 prednisone Allergy Unknown HIVES Verified 11/12/22 16:09 Sulfa (Sulfonamide Allergy Unknown Hives Verified 11/12/22 16:09 Antibiotics) Review of Systems Review of Systems: CONSTITUTIONAL: Denies fever, chills, or sweats. EYES: Denies visual changes, redness, or discharge. ENT: Denies rhinorrhea, congestion, sore throat . Reports bilateral ear pain, ear itching. CARDIOVASCULAR: Denies chest pain, palpitations, or edema. RESPIRATORY: Denies cough or dyspnea. GASTROINTESTINAL: Denies abdominal pain, nausea, vomiting, or diarrhea. GENITOURINARY: Denies dysuria or hematuria. SKIN: Denies rash or itching. MUSCULOSKELETAL: Denies back pain, joint pain, or myalgia. NEUROLOGIC: Denies headache, numbness, or weakness. PSYCHIATRIC: Denies anxiety or depression. All other systems reviewed are negative, except as documented in HPI. [facility] Past Medical History Medical History (Updated 11/12/22 @ 16:48 by Debbie Serrano NP) [place] Iron infusions when needed / Taking iron POTS (postural orthostatic tachycardia syndrome) Screening mammogram, encounter for Family History Family History Father Family history of primary malignant neoplasm of liver Carcinoma of colon Malignant tumor of stomach Mother Diabetes mellitus Family history of cardiovascular disease Hypertension Renal failure syndrome Other Malignant neoplasm of prostate Pulmonary emboli Social History Social History (Updated 07/06/22 @ 15:45 by Latoya Domínguez [facility]) Smoking status: Never smoker Alcohol intake: never Substance use: never Substance use type: does not use Additional living arrangements comments: 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 There is no relevant family history pertinent to the presenting complaint. Exam Narrative: GENERAL: This is a well-nourished, well-developed patient, in no apparent distress. HEAD: normocephalic, atraumatic. EYES: PERRL. Sclera clear/white. Vision is grossly intact. EARS:, auditory canals clear and without drainage, Fluid to left TM with mild erythema. No perforation. There is erythema and scaling rate at opening to bilateral ear canals consistent with eczema. NOSE: External nose normal with no obvious nasal discharge, nares without redness, no rhinorrhea. NECK: Neck supple, non-tender without lymphadenopathy, masses or thyromegaly. CARDIOVASCULAR: Regular rate and rhythm without murmurs, gallops, or rubs. RESPIRATORY: Clear to auscultation. Breath sounds equal bilaterally. No wheezes, rales, or rhonchi. SKIN: warm, Dry, intact with no suspicious lesions or rash, good texture and turgor. JERMAINE
== END 2022-11-12 16:50 | disposition home or self-care (01) ==
PROVIDERS: Emergency Provider Nurse Practitioner Family; PCP Internal Medicine Nephrology
DX: H65.02 Acute serous otitis media, left ear (principal); L30.9 Dermatitis, unspecified; D64.9 Anemia, unspecified
CPT/HCPCS: 99213; G0463

== ENCOUNTER 2022-11-17 15:50 | Outpatient (CLI) | payer OTHER, SELFPAY ==
--- NOTE | ~2022-11-17 | MM_ITS ---
EXAMINATION: MM screening [facility] BI w nilo HISTORY: Screening mammogram TECHNIQUE: Craniocaudal and mediolateral oblique 3-D tomosynthesis images were obtained and synthetic 2-D images were generated. CAD analysis was submitted and interpreted. COMPARISON: 02/09/2021, 01/14/2021, 06/21/2019 BREAST PARENCHYMAL COMPOSITION: The breasts are heterogeneously dense, which may obscure small masses . FINDINGS: No suspicious mass, calcification, or architectural distortion are identified in either jia ast to suggest malignancy. There has been no suspicious interval change. IMPRESSION: 1. No mammographic evidence of malignancy. 2. Recommend routine screening mammography in one year. BI-RADS Category 1: Negative Reviewed, dictated and finalized at location A. UAGE ASST
== END 2022-11-17 15:51 | disposition home or self-care (01) ==
LOC: ANHIMG 15:54
PROVIDERS: PCP Internal Medicine Nephrology; Visit Provider Obstetrics & Gynecology
DX: Z12.31 Encounter for screening mammogram for malignant neoplasm of breast (principal)
CPT/HCPCS: 77063; 77067

== ENCOUNTER 2022-12-12 18:44 | Emergency (ER) | payer OTHER, SELFPAY ==
--- NOTE | 2022-12-12 18:51 | ED.EAR ---
HPI - Ear Problem General Chief complaint: Ear Stated complaint: ear pain Time Seen by Provider: 12/12/22 18:51 Source: patient, RN notes reviewed and old records reviewed Mode of arrival: ambulatory Limitations: no limitations History of Present Illness HPI Narrative: 42-year-old female presents to the [facility] with complaints of left ear pain that started today. Took a Tylenol and states it is not better. Has a history ear issues and sees Dr. Dorantes Patient denies any other symptoms. Denies fevers, chest pain, abdominal pain. No sinus congestion. Has been using Q-tips that are ears Related Data Home Medications Medication Instructions Recorded Confirmed ferrous sulfate 325 mg (65 mg 325 mg PO DAILY 07/06/22 12/12/22 iron) tablet Allergies Allergy/AdvReac Type Severity Reaction Status Date / Time meperidine Allergy Mild Hives Verified 12/12/22 18:48 Penicillins Allergy Unknown Hives Verified 12/12/22 18:48 prednisone Allergy Unknown HIVES Verified 12/12/22 18:48 Sulfa (Sulfonamide Allergy Unknown Hives Verified 12/12/22 18:48 Antibiotics) Review of Systems Review of Systems: All systems reviewed & are unremarkable except as noted in HPI and below Constitutional: Constitutional: Reports no additional constitutional complaints Eyes: Eyes: Reports no additional eye complaints ENT: Reports as per HPI and Reports otalgia Cardiovascular: Cardiovascular: Reports no additional cardiovascular complaints, Denies chest pain and Denies dyspnea Respiratory: Respiratory: Reports no additional respiratory complaints, Denies chest congestion, Denies cough and Denies dyspnea Gastrointestinal: Gastrointestinal: Reports no additional gastrointestinal complaints, Denies abdominal pain, Denies nausea and Denies vomiting Musculoskeletal: Musculoskeletal: Reports no additional musculoskeletal complaints Integumentary/Breasts: Skin/Breast: Reports system reviewed and no additional complaints, except as docu Neurologic: Reports system reviewed and no additional complaints, except as documented Psychiatric: Psychiatric: Reports no additional psychiatric complaints Allergic/Immunologic: Allergic/Immunologic: Reports no additional allergic/immunologic complaints PMFSH Past Medical History Medical History [place] Iron infusions when needed / Taking iron POTS (postural orthostatic tachycardia syndrome) Screening mammogram, encounter for Family History Family History Father Family history of primary malignant neoplasm of liver Carcinoma of colon Malignant tumor of stomach Mother Diabetes mellitus Family history of cardiovascular disease Hypertension Renal failure syndrome Other Malignant neoplasm of prostate Pulmonary emboli Social History Social History Smoking status: Never smoker Alcohol intake: never Substance use: never Substance use type: does not use Living arrangements: other Additional living arrangements comments: 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 There is no relevant family history pertinent to the patient complaint. Exam Const: General: cooperative, healthy appearing, comfortable, no acute distress, well developed, alert and well nourished Nutritional Appearance: well nourished Orientation/consciousness: patient oriented x3 Limitations: no limitations HENMT: Head: normal to inspection Ears: hearing grossly normal bilaterally, external ears normal, Abnormal EAC present cerumen impaction on the
[2022-12-12 18:52] VITALS: BP 146/86; PULSE 93; RESP 16; TEMP 37.2; O2SAT 99
== END 2022-12-12 19:11 | disposition home or self-care (01) ==
PROVIDERS: Emergency Provider Nurse Practitioner; PCP Internal Medicine Nephrology
DX: H65.02 Acute serous otitis media, left ear (principal); H61.21 Impacted cerumen, right ear; D64.9 Anemia, unspecified
CPT/HCPCS: 99211; G0463

== ENCOUNTER 2023-01-08 15:13 | Inpatient (IN) | payer OTHER, SELFPAY ==
--- NOTE | ~2023-01-08 | US_ITS ---
EXAMINATION: US renal BI DATE: 01/10/2023 18:04 INDICATION: right flank pain, h/o kidney stones TECHNIQUE: Multiple grayscale and Doppler ultrasound images of the kidneys were obtained. COMPARISON: CT abdomen and pelvis 01/08/2023 FINDINGS: The right kidney measures 11.9 x 4.5 x 6.0 cm. The left kidney measures 11.8 x 5.6 x 6.4 cm. The kidn eys demonstrate normal parenchymal echogenicity. Subcentimeter simple left midpole cyst. There is no hydronephrosis. The bladder is incompletely distended and therefore not well evaluated. IMPRESSION: Unremarkable renal sonogram findings. Reviewed, dictated and finalized at location K. [employer]
--- NOTE | ~2023-01-08 | NM_ITS ---
EXAMINATION: NM hepatobiliary wo pharm DATE: 01/10/2023 13:20 PREVENTION COORDINATOR INDICATION: Right upper quadrant abdominal pain COMPARISON: None. TECHNIQUE: 5.2 mCi Tc-99m mebrofenin (Choletec) was administered intravenously. Scintigraphic images of the abdomen were obtained for one hour. At the 1 hour time point, the patient drank 8 oz Ensure, and imaging was continued for 60 minutes. Gallbladder ejection fraction was calculated by the technol ogist. FINDINGS: There is normal clearance of radiotracer from the blood pool. There is homogeneous tracer u ptake by the liver. Activity progresses to the bowel and gallbladder. The gallbladder ejection fract ion is 9%. Note that with this technique, normal GBEF >= 33%. IMPRESSION: 1. Diminished gallbladder ejection fraction measuring 9%. Reviewed, dictated and finalized at location B. ENTION COORDINATOR
--- NOTE | ~2023-01-08 | US_ITS ---
US abdomen limited DATE: 01/09/2023 09:32 INDICATION: Epigastric abdominal pain, bloating, elevated lipase. Pancreatitis. TECHNIQUE: Real-time imaging and Doppler analysis of liver, pancreas, gallbladder COMPARISON: January 08, 2023 CT abdomen pelvis FINDINGS: Hyperechoic 2.9 x 2.5 x 2.4 cm right hepatic lesion consistent with hemangioma. Approximately 1.5 cm right hepatic cyst. Normal hepatopedal portal venous flow direction. No pancreatic mass lesion or pancreatic duct dilatation. There are 2 small gallbladder polyps, measuring 5 mm or less. No gallstones or gallbladder wall thick ening. Negative sonographic Leonardo's sign. The common bile duct measures 3.5 mm, normal. IMPRESSION: 2.9 cm right hepatic hemangioma 1.5 similar right hepatic cyst 2. Small gallbladder polyps The pancreas appears normal Reviewed, dictated and finalized at Location A. Reviewed, dictated and finalized at location A. S TEAM MANAGER
--- NOTE | ~2023-01-08 | CT_ITS ---
EXAMINATION: CT abdomen pelvis w con DATE: 01/08/2023 18:30 INDICATION: epigastric abd pain, bloating, elevated lipase TECHNIQUE: Computed tomography (CT) of the abdomen and pelvis was performed with 100 mL Omnipaque-350 intravenous contrast. Automated exposure control and iterative reconstruction technique were employe d. The dose-length product was 1191.70 mGy-cm. COMPARISON: None. FINDINGS: Lower thorax: Unremarkable Liver: Hepatomegaly. Right lobe hemangioma. Right lobe cyst. Additional hypodensities that are too sm all to characterize but most likely represent cysts. Biliary/Gallbladder: Gallbladder is normal. No bile duct dilation. Pancreas: Mild peripancreatic fat stranding at the junction of the body and tail. Spleen: Normal. Adrenals:No mass. Kidneys: Left midpole simple cyst. No suspicious mass, stone, or hydronephrosis. GI tract: Moderate distal esophageal and gastric wall edema No small or large bowel dilation. Appendi colith, otherwise normal appendix. Mesentery/Peritoneum: No ascites, mass, or free air. Retroperitoneum: No mass. Pelvis: Pelvic organs are within normal limits. Soft Tissues: Soft tissues and body wall unremarkable. Bones: No acute osseous finding. IMPRESSION: Esophagitis/gastritis. Mild pancreatic inflammatory change may represent pancreatitis in the appropri ate clinical context. Reviewed, dictated and finalized at location K. BAKER IMPRESSION: Esophagitis/gastritis. Mild pancreatic inflammatory change may represent pancre atitis in the appropriate clinical context.
--- NOTE | ~2023-01-08 | CT_ITS ---
EXAMINATION: CT abdomen pelvis wo con DATE: 01/11/2023 12:43 INDICATION: Abdominal pain, nausea, vomiting, diarrhea, and bloating. TECHNIQUE: Computed tomography (CT) of the abdomen and pelvis was performed without intravenous contr ast. Automated exposure control and iterative reconstruction technique were employed. The dose-length product was 1161.48 mGy-cm. COMPARISON: CT abdomen and pelvis 01/08/2023, abdomen ultrasound 01/09/2023 FINDINGS: The visualized portions of the lung bases demonstrate mild atelectasis. No pleural effusion . The heart size is normal. No pericardial effusion. There is a 1.6 cm cyst in the liver. There is a 2.6 cm hypodense mass in right hepatic lobe that was hyperechoic on ultrasound, likely a benign lesio n such as a hemangioma. The gallbladder, spleen, pancreas, adrenal glands, and kidneys are normal. Th ere is no urolithiasis. There are no dilated loops of bowel. The appendix is normal. There are no pat hologically enlarged lymph nodes. There is no free intraperitoneal fluid. There is mild lumbar spondy losis. IMPRESSION: 1. Normal pancreas. Reviewed, dictated and finalized at location A. OUT WORKER IMPRESSION: 1. Normal pancreas.
[2023-01-08 15:26] VITALS: BP 154/112; PULSE 98; RESP 18; TEMP 36.6; O2SAT 99
[2023-01-08 16:03] LABS: Basophils Percent Auto 0.3 % (0.2-1.2); Eosinophils Absolute Auto 0.1 K/mm3 (0-0.3); Eosinophils Percent Auto 1.1 % (0-4.4); Hematocrit 37.8 % (37.0-47.0); Hemoglobin 12.7 g/dL (12.0-15.0); Immature Granulocyte Absolute 0.05 K/mm3 (0.00-0.031); Immature Granulocyte Percent A 0.5 % (0-0.5); Lymphocytes Absolute Auto 2.63 K/mm3 (0.9-3.2); Lymphocytes Percent Auto 27.3 % (18.3-44.2); Mean Corpuscular HGB Conc 33.6 g/dl (32-36); Mean Corpuscular Hemoglobin 27.8 pg (26-34); Mean Corpuscular Volume 82.7 fl (80-100); Mean Platelet Volume 9.5 fl (7.4-10.4); Monocytes Absolute Auto 0.7 K/mm3 (0.1-0.6); Monocytes Percent Auto 6.7 % (2.6-8.5); Neutrophils Absolute Auto 6.2 K/mm3 (1.3-6.7); Neutrophils Percent Auto 64.1 % (45.5-73.1); Platelet Count Result 349 k/mm3 (150-375); Red Blood Count 4.57 M/mm3 (4.2-5.4); Red Cell Distribution Width 13.6 % (11.5-14.5); White Blood Count 9.6 K/mm3 (4.5-10.0)
[2023-01-08 16:13] LABS: Alanine Aminotransferase 20 U/L (6-35); Albumin Level 4.7 g/dL (3.5-5.1); Alkaline Phosphatase 58 U/L (38-126); Anion Gap 6 mmol/L (8-16); Aspartate Amino Transferase 22 U/L (14-36); Bilirubin,Total 0.3 mg/dL (0.2-1.3); Blood Urea Nitrogen 8 mg/dL (7-17); Calcium 9.4 mg/dL (8.4-10.2); Carbon Dioxide 30 mmol/L (22-30); Chloride 100 mmol/L (98-107); Estimated Glomerular Filt Rate > 60; Glucose 93 mg/dL (65-110); Lipase 716 U/L (23-300); Potassium 4.1 mmol/L (3.4-5.0); Sodium 136 mmol/L (137-145)
[2023-01-08 16:21] LABS: Appearance Urine Slightly Cloudy (Clear); Bilirubin Urine Negative (Negative); Blood Urine Negative (Negative); Color Urine Yellow (Yellow); Glucose Urine UA Negative (Negative); Ketones Urine Negative (Negative); Leukocyte Esterase Ur Negative LEU/UL (Negative); Nitrate Urine Negative (Negative); Protein Urine Negative (Negative); Specific Grav Ur 1.015 (1.001-1.035); Urobilinogen Urine 0.2 mg/dL (<2.0)
[2023-01-08 16:24] LABS: Add Urine Microscopic? YES; Mucus Urine Rare /lpf; RBC Urine 0-2 /hpf (0-2); Squamous Epithelial Cell Urine Occasional /hpf (Few); WBC Urine 0-3 /hpf
[2023-01-08 17:31] VITALS: BP 140/99; PULSE 104; RESP 20; O2SAT 99
--- NOTE | 2023-01-08 17:42 | ED.ABDPAIN ---
HPI - Abdominal Pain General Chief Complaint: Abdominal Pain Stated Complaint: Abd pain for 6 days, bloating, R kidney Pain Time Seen by Provider: 01/08/23 17:30 History of Present Illness HPI narrative: Patient is a 42-year-old female with a history of kidney stones here for evaluation of epigastric and right flank pain over the past 6 days. Patient states the pain is severe in nature, coming in waves, described as a severe cramping. The majority of her pain is in her epigastric region but she states several days ago she developed a pain in her right flank that she likens to previous kidney stone pain. She also reports numerous episodes of vomiting nonbloody/nonbilious emesis and numerous episodes of nonbloody diarrhea. States that she feels bloated and has had decreased appetite since her pain came on. No fevers or chills. 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 She had a colonoscopy 3 years ago that was normal. She is scheduled for an EGD on Tuesday after she contacted her PCP about her pain. Related Data Home Medications Medication Instructions Recorded Confirmed ferrous sulfate 325 mg (65 mg 325 mg PO DAILY 07/06/22 01/08/23 iron) tablet Adults Multivitamin 1 tab-cap PO DAILY 01/08/23 01/08/23 Allergies Allergy/AdvReac Type Severity Reaction Status Date / Time meperidine Allergy Mild Hives Verified 01/08/23 17:35 Penicillins Allergy Unknown Hives Verified 01/08/23 17:35 prednisone Allergy Unknown HIVES Verified 01/08/23 17:35 Sulfa (Sulfonamide Allergy Unknown Hives Verified 01/08/23 17:35 Antibiotics) ondansetron [From Zofran] AdvReac Vomiting Verified 01/08/23 17:35 Review of Systems Review of Systems: Gen.: Denies fevers or chills Eyes: Denies eye pain or visual change ENT: Denies congestion Respiratory: Denies shortness of breath or cough CV: Denies chest pain or palpitations GI: Reports abdominal pain, nausea, vomiting, diarrhea, bloating denies burning, urgency, frequency or hematuria Musculoskeletal: Denies back pain or muscle pain Neuro: Denies numbness, tingling, weakness or focal weakness Skin: Denies rash Except as documented, all other systems reviewed and negative PMFSH Past Medical History Medical History (Updated 01/08/23 @ 22:32 by Douglas Haq MD) [place] Iron infusions when needed / Taking iron POTS (postural orthostatic tachycardia syndrome) Screening mammogram, encounter for Family History Family History Father Family history of primary malignant neoplasm of liver Carcinoma of colon Malignant tumor of stomach Mother Diabetes mellitus Family history of cardiovascular disease Hypertension Renal failure syndrome Other Malignant neoplasm of prostate Pulmonary emboli Social History Social History Smoking status: Never smoker Alcohol intake: never Substance use: never Substance use type: does not use Lack of Transportation: No Lack of Food: Never True Current Housing: I Have Housing Concerned About Future Housing: No Difficulty Paying Gas/Electric Bills: No Difficulty Paying for Meds: No Currently Unemployed: No Education: Master's Degree or Higher Difficulty w/ Childcare or Family Care: No Living arrangements: other Additional living arrangements comments: 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 EYES: PERRLA/EOMI, conjunctivae clear NOSE: No nasal drainage EARS: External ear normal in appearance THROAT: Oropharynx is clear. Mucous membranes are moist.
[2023-01-08] MEDS: HYDROmorphone HCL INJ (*CRX) 1 MG/ML SYR 0.5 MG IV PUSH ×2 (18:01→22:23)
[2023-01-08] MEDS: METOCLOPRAMIDE HCL INJ 10 MG/2 ML VIAL IV PUSH (18:01)
[2023-01-08] MEDS: LACTATED RINGERS 1,000 ML 999 ML IV CONT ×2 (18:01→19:08)
[2023-01-08] MEDS: FAMOTIDINE 20 MG/2 ML VIAL IV PUSH (19:09)
[2023-01-08 19:24] VITALS: BP 107/69; PULSE 89; RESP 16; O2SAT 96
[2023-01-08 19:36] LABS: Triglycerides 220 mg/dL (<150)
[2023-01-08 20:37] LABS: Influenza A QL RT-PCR Negative (Negative); Influenza B QL RT-PCR Negative (Negative); SARS-CoV-2 RNA PCR Negative
--- NOTE | 2023-01-08 20:41 | PM.IMHP ---
H&P: HPI History of Present Illness Date/Time: 01/08/23 20:41 Chief Complaint: Abdominal pain Narrative: This is a 42-year-old female with significant past medical history for postural orthostatic tachycardia syndrome, chronic anemia iron deficiency. Patient presents to the emergency room due to 1 week of abdominal pain diffusely localized now radiating to the back it burning in quality, she is rates it at 8/10 in intensity, patient try Gas-X and Tylenol to help but no relieve it got worse over the course of 1 week, accompanied by nausea, vomiting, diarrhea, bloating, poor appetite, poor oral intake. Patient denies any fevers, rigors, chills, hematemesis, coffee-ground emesis, melena. Preliminary workup was significant for CT abdomen and pelvis was reported as: FINDINGS: Lower thorax: Unremarkable Liver: Hepatomegaly. Right lobe hemangioma. Right lobe cyst. Additional hypodensities that are too small to characterize but most likely represent cysts.? Biliary/Gallbladder: Gallbladder is normal. No bile duct dilation. Pancreas: Mild peripancreatic fat stranding at the junction of the body and tail. Spleen: Normal. Adrenals:No mass. Kidneys: Left midpole simple cyst. No suspicious mass, stone, or hydronephrosis. GI tract: Moderate distal esophageal and gastric wall edema No small or large bowel dilation. Appendicolith, otherwise normal appendix. Mesentery/Peritoneum: No ascites, mass, or free air. Retroperitoneum: No mass. Pelvis: Pelvic organs are within normal limits. Soft Tissues: Soft tissues and body wall unremarkable. Bones:? No acute osseous finding. IMPRESSION: Esophagitis/gastritis. Mild pancreatic inflammatory change may represent pancreatitis in the appropriate clinical context. Patient tested negative for influenza type A influenza type B and COVID-19 Review of Systems Review of Systems: Abdominal pain, nausea, vomiting, diarrhea, poor per orally intake, poor appetite. Constitutional: Constitutional: Denies chills, Denies fatigue, Denies fever(s), Denies lethargy, Denies malaise, Reports poor appetite and Denies weakness Eyes: Eyes: Denies change in vision ENT: Denies dysphagia and Denies odynophagia Cardiovascular: Cardiovascular: Denies chest pain, Denies leg edema and Denies palpitations Respiratory: Respiratory: Denies chest congestion, Denies cough, Denies pain on inspiration, Denies dyspnea and Denies dyspnea on exertion Gastrointestinal: Gastrointestinal: Reports abdominal pain, Denies melena, Reports bloating, Denies hematochezia, Denies coffee ground emesis, Denies dyspepsia, Denies heartburn, Reports diarrhea, Reports nausea and Reports vomiting Genitourinary: Genitourinary: Denies dysuria Musculoskeletal: Musculoskeletal: Reports back pain, Denies muscle cramps and Denies neck pain Integumentary/Breasts: Skin/Breast: Denies rash Neurologic: Denies vertigo, Denies dizziness and Denies focal weakness Psychiatric: Psychiatric: Reports no additional psychiatric complaints and Reports as per HPI Endocrine: Endocrine: Denies cold intolerance, Denies flushing, Denies heat intolerance, Denies polyphagia, Denies polydipsia and Denies palpitations Hematologic/Lymphatic: Hematologic/Lymphatic: Reports no additional hematologic/lymphatic complaints and Reports as per HPI Allergic/Immunologic: Allergic/Immunologic: Reports no additional allergic/immunologic complaints and Reports as per HPI PMFSH Past Medical History Medical History (Updated 01/08/23 @ 22:32 by Douglas Haq MD) [place] Iron infusions when needed / Taking iron POTS (postural orthostatic tachycardia syndrome) Screening mammogram, encounter for Family History Family History Father Family history of primary malignant neoplasm of liver Carcinoma of colon Malignant tumor of stomach Mother Diabetes mellitus Family history of cardiovascular disease Hypertension Renal failure syn
[2023-01-08] MEDS: LACTATED RINGERS 1,000 ML 150 ML IV CONT (21:33)
[2023-01-08 21:46] VITALS: BMI 35.2
[2023-01-08 22:00] VITALS: BP 140/86; PULSE 89; RESP 18; TEMP 36.4; O2SAT 96
[2023-01-09 06:00] VITALS: BP 135/85; PULSE 89; RESP 20; TEMP 36.4; O2SAT 97
[2023-01-09] MEDS: HYDROmorphone HCL INJ (*CRX) 1 MG/ML SYR 0.5 MG IV PUSH ×2 (07:48→12:09)
[2023-01-09] MEDS: PANTOPRAZOLE SODIUM IV 40 MG VIAL IV PUSH ×2 (08:04→20:26)
[2023-01-09] MEDS: ENOXAPARIN 40 MG/0.4 ML SYRINGE SUB-Q (08:04)
[2023-01-09] MEDS: SODIUM CHLORIDE 0.9% IV 1,000 ML 100 ML IV CONT ×2 (09:51→20:26)
[2023-01-09 09:55] LABS: Alanine Aminotransferase 19 U/L (6-35); Albumin Level 4.4 g/dL (3.5-5.1); Alkaline Phosphatase 53 U/L (38-126); Anion Gap 6 mmol/L (8-16); Aspartate Amino Transferase 20 U/L (14-36); Bilirubin,Total 0.4 mg/dL (0.2-1.3); Blood Urea Nitrogen 9 mg/dL (7-17); Calcium 8.7 mg/dL (8.4-10.2); Carbon Dioxide 26 mmol/L (22-30); Chloride 101 mmol/L (98-107); Estimated CRCL calculation 149 ml/min; Estimated Glomerular Filt Rate > 60; Glucose 116 mg/dL (65-110); Lipase 215 U/L (23-300); Potassium 3.8 mmol/L (3.4-5.0); Sodium 133 mmol/L (137-145)
--- NOTE | 2023-01-09 13:27 | PM.IMPN ---
Progress Note: A&P Assessment and Plan (1) Pancreatitis: Code(s): K85.90 - Acute pancreatitis without necrosis or infection, unspecified Status: Acute Assessment and Plan: Patient presented with c/o abdominal pain and CT scan suggested mild peripancreatic fat stranding. Lipase 716 on admission, down to 215 today NPO except for ice chips until pain is better controlled IV fluids Right upper quadrant ultrasound- normal pancreas, no gallstones or gallbladder wall thickening, normal common bile duct, 2 small gallbladder polyps < 5 mm noted. Triglycerides 220, but not significantly elevated. No recent ERCP and patient is not on any medications known to contribute to pancreatitis. Question biliary colic. Will check HIDA scan in am. May need to consult GI and/or general surgery pending results. (2) Intractable nausea and vomiting: Code(s): R11.2 - Nausea with vomiting, unspecified Status: Acute Assessment and Plan: likely secondary to 1 and gastritis/esophagitis noted on CT scan. Continue Supportive care and PPI (3) Abdominal pain: Code(s): R10.9 - Unspecified abdominal pain Status: Acute Assessment and Plan: Likely secondary to pancreatitis versus biliary colic. HIDA scan in am. (4) POTS (postural orthostatic tachycardia syndrome): Code(s): I49.8 - Other specified cardiac arrhythmias Status: Chronic Assessment and Plan: change positions slowly and fall precautions. (5) Gastritis: Code(s): K29.70 - Gastritis, unspecified, without bleeding Status: Acute Assessment and Plan: Moderate distal esophageal/gastric wall edema noted on CT scan. Continue IV PPI therapy. NPO due to acute pancreatitis. Plan CODE STATUS: FULL CODE Disposition: from home. No discharge needs at this time. Time Spent With Patient Time: 35 minutes time spent reviewing medical chart, nursing documentation, labs, vitals, and patient assessment.?All patient and family questions answered to the best of my ability. Subjective Date/time seen: 01/09/23 13:27 Interval history: Patient is a 42-year-old female with? significant past medical history for postural orthostatic tachycardia syndrome and chronic iron deficiency anemia from dysmenorrhea, who presented to the ED for evaluation of abdominal pain x1 week. CT scan was concerning for acute pancreatitis. She reports persistent abdominal pain that radiates to her back. She has nausea, but no emesis. She has been taking dilaudid for pain that is somewhat helpful. She endorses some bloating after eating prior to this episode. No new medications and she reports rare alcohol intake. ? Review of Systems Review of Systems: All systems reviewed & are unremarkable except as noted in HPI and below Exam Narrative: General: No acute distress.? Well-developed adult female sitting up in bed. Mental Status/Psych: Awake, alert and oriented x3 with clear speech. Neutral mood and affect. Pleasant and cooperative. Skin: Skin fair, warm, dry and intact without rashes or lesions. No open wounds. Good turgor.? HEENT: Normocephalic. Sclera is non-icteric. EOM intact. PERRL. Grossly normal hearing. Oral mucosa pink and moist. Neck: Supple. No JVD. Heart: S1 and S2 regular rate and rhythm. No murmurs, gallops, or rubs auscultated. Chest: Respirations even and unlabored. Lung sounds are clear to auscultation in all lobes bilaterally without wheezes, rhonchi, or rales. Abdomen: Soft, round and tender to palpation RUQ, LUQ, epigastric, RLQ regions.? Bowel sounds present in all 4 quadrants. Extremities:? Grossly normal ROM all extremities. No edema, erythema or calf tenderness. Radial and dorsalis pedis pulses +2 bilaterally. Neurological: No focal deficits. Cranial nerves 2-12 grossly intact.? Objective Data Vital Signs Vital Signs: Vital Signs - 24 hr 01/08/23 15:26 01/08/23 17:31 01/08/23 19:24 Temperature 97.8 F
[2023-01-09 14:00] VITALS: BP 148/92; PULSE 103; RESP 18; TEMP 35.9; O2SAT 98
[2023-01-09 21:05] VITALS: BP 147/94; PULSE 94; RESP 16; TEMP 36.7; O2SAT 98
[2023-01-10 05:33] VITALS: BP 116/62; PULSE 89; RESP 16; TEMP 36.6; O2SAT 96
[2023-01-10] MEDS: SODIUM CHLORIDE 0.9% IV 1,000 ML 100 ML IV CONT ×2 (05:46→20:37)
[2023-01-10 06:15] LABS: Hematocrit 34.7 % (37.0-47.0); Hemoglobin 11.5 g/dL (12.0-15.0); Mean Corpuscular HGB Conc 33.1 g/dl (32-36); Mean Corpuscular Volume 84.4 fl (80-100); Mean Platelet Volume 9.8 fl (7.4-10.4); Platelet Count Result 276 k/mm3 (150-375); Red Blood Count 4.11 M/mm3 (4.2-5.4); Red Cell Distribution Width 13.3 % (11.5-14.5); White Blood Count 7.3 K/mm3 (4.5-10.0)
[2023-01-10 06:54] LABS: Alanine Aminotransferase 18 U/L (6-35); Alkaline Phosphatase 50 U/L (38-126); Anion Gap 5 mmol/L (8-16); Aspartate Amino Transferase 20 U/L (14-36); Bilirubin,Total 0.4 mg/dL (0.2-1.3); Blood Urea Nitrogen 6 mg/dL (7-17); Calcium 8.3 mg/dL (8.4-10.2); Carbon Dioxide 24 mmol/L (22-30); Chloride 103 mmol/L (98-107); Estimated CRCL calculation 149 ml/min; Estimated Glomerular Filt Rate > 60; Glucose 116 mg/dL (65-110); Potassium 3.6 mmol/L (3.4-5.0); Sodium 132 mmol/L (137-145)
[2023-01-10] MEDS: PANTOPRAZOLE SODIUM IV 40 MG VIAL IV PUSH ×2 (08:22→20:33)
[2023-01-10] MEDS: ENOXAPARIN 40 MG/0.4 ML SYRINGE SUB-Q (08:22)
--- NOTE | 2023-01-10 09:55 | PM.IMPN ---
Progress Note: A&P Assessment and Plan (1) Pancreatitis: Code(s): K85.90 - Acute pancreatitis without necrosis or infection, unspecified Status: Acute Assessment and Plan: Patient presented with c/o abdominal pain and CT scan suggested mild peripancreatic fat stranding. Lipase 716 on admission, down to 215 today NPO except for ice chips until pain is better controlled IV fluids Right upper quadrant ultrasound- normal pancreas, no gallstones or gallbladder wall thickening, normal common bile duct, 2 small gallbladder polyps < 5 mm noted. Triglycerides 220, but not significantly elevated. No recent ERCP and patient is not on any medications known to contribute to pancreatitis. Question biliary colic. HIDA scan pending. (2) Intractable nausea and vomiting: Code(s): R11.2 - Nausea with vomiting, unspecified Status: Acute Assessment and Plan: likely secondary to 1 and gastritis/esophagitis noted on CT scan. Continue Supportive care and PPI Improved (3) Abdominal pain: Qualifiers: Abdominal location: epigastric Qualified Code(s): R10.13 - Epigastric pain Code(s): R10.9 - Unspecified abdominal pain Status: Acute Assessment and Plan: Likely secondary to pancreatitis versus biliary colic. HIDA scan pending (4) POTS (postural orthostatic tachycardia syndrome): Code(s): I49.8 - Other specified cardiac arrhythmias Status: Chronic Assessment and Plan: change positions slowly and fall precautions. (5) Gastritis: Code(s): K29.70 - Gastritis, unspecified, without bleeding Status: Acute Assessment and Plan: Moderate distal esophageal/gastric wall edema noted on CT scan. Continue IV PPI therapy. Consult GI for persistent epigastric pain Plan CODE STATUS: FULL CODE Disposition: from home. No discharge needs at this time. Time Spent With Patient Time: 30 minutes time spent reviewing medical chart, nursing documentation, labs, vitals, and patient assessment.?All patient and family questions answered to the best of my ability. Subjective Date/time seen: 01/10/23 09:55 Interval history: Patient is a 42-year-old female with? significant past medical history for postural orthostatic tachycardia syndrome and chronic iron deficiency anemia from dysmenorrhea, who presented to the ED for evaluation of abdominal pain x1 week. CT scan was concerning for acute pancreatitis. She still has right sided back pain. Urinary frequency has resolved. She reports her abdominal pain is a little better and she was able to eat jello last night without symptoms. She is NPO for HIDA scan. She states that she is scheduled for Endoscopy and MRI at [facility] this upcoming week due to her abdominal issues prior to admission. Review of Systems Review of Systems: All systems reviewed & are unremarkable except as noted in HPI and below Exam Narrative: General: No acute distress.? Well-developed adult female sitting up in bed. Mental Status/Psych: Awake, alert and oriented x3 with clear speech. Neutral mood and affect. Pleasant and cooperative. Skin: Skin fair, warm, dry and intact without rashes or lesions. HEENT: Normocephalic. Sclera is non-icteric. Oral mucosa pink and moist. Neck: unremarkable. Heart: S1 and S2 regular rate and rhythm. No murmurs, gallops, or rubs auscultated. Chest: Respirations even and unlabored. Lung sounds are clear to auscultation in all lobes bilaterally without wheezes, rhonchi, or rales. Abdomen: Soft, round and tender to palpation RUQ and epigastric region.? Bowel sounds present in all 4 quadrants. No suprapubic tenderness. Extremities:? Grossly normal ROM all extremities. No edema, erythema or calf tenderness. dorsalis pedis pulses +2 bilaterally. Neurological: No focal deficits. Objective Data Vital Signs Vital Signs: Vital Signs - 24 hr 01/09/23 14:00 01/09/23 19:54 01/09/23 21:05
[2023-01-10] MEDS: HYDROmorphone HCL INJ (*CRX) 1 MG/ML SYR 0.5 MG IV PUSH ×2 (13:06→20:29)
[2023-01-10 13:40] VITALS: BP 140/93; PULSE 96; RESP 16; TEMP 35.7; O2SAT 99
[2023-01-10 13:55] VITALS: BMI 35.2
--- NOTE | 2023-01-10 14:21 | WPDGICN ---
Assessment and Plan Assessment and plan (1) Pancreatitis: Code(s): K85.90 - Acute pancreatitis without necrosis or infection, unspecified Status: Acute Assessment and Plan: new presentation denies alcohol, TG level 200 she also has been having what it seems to be biliary colic, will ask surgery to evaluate HIDA scan also showed low EF (2) Biliary colic: Code(s): K80.50 - Calculus of bile duct without cholangitis or cholecystitis without obstruction Status: Acute (3) Intractable nausea and vomiting: Code(s): R11.2 - Nausea with vomiting, unspecified Status: Acute Assessment and Plan: improved from pancreatitis (4) Abdominal pain: Qualifiers: Abdominal location: epigastric Qualified Code(s): R10.13 - Epigastric pain Code(s): R10.9 - Unspecified abdominal pain Status: Acute (5) POTS (postural orthostatic tachycardia syndrome): Code(s): I49.8 - Other specified cardiac arrhythmias Status: Chronic (6) Gastritis: Code(s): K29.70 - Gastritis, unspecified, without bleeding Status: Acute Assessment and Plan: ppi for now n/v and pain now probably from pancreatitis (7) Polyp of gallbladder: Code(s): K82.4 - Cholesterolosis of gallbladder Status: Acute Assessment and Plan: surgery to see GI Consult Note Consult date/time: 01/10/23 14:21 Reason for consult: pancreatitis, biliary colic HPI: Maribell Nayak is a 42 year old female with history of POTS syndrome, kidney stones s/p stent who for last 4 months has been experiencing bloating and dyspepsia after eating fatty meals to the point that her doctor referred to see GI for an EGD in few more days. She came to the hospital with severe upper abdominal pain radiating to her back, also nausea and vomiting- this started after eating fatty food. ER evaluation showed mild pancreatitis and esophagitis in CT scan, ultrasound showed small polyps in GB without cholecystitis, HIDA scan with low EF. She had colonoscopy 3 years ago because family history, had EGD but years ago. Review of Systems Constitutional: Constitutional: Denies chills Eyes: Eyes: Denies blurry vision ENT: Reports Normal hearing present Cardiovascular: Cardiovascular: Denies chest pain Respiratory: Respiratory: Denies chest congestion Gastrointestinal: Gastrointestinal: Reports abdominal pain, Reports nausea and Reports vomiting Genitourinary: Genitourinary: Denies hematuria Musculoskeletal: Musculoskeletal: Denies arthralgias Integumentary/Breasts: Skin/Breast: Denies rash Neurologic: Denies Abnormal speech present Psychiatric: Psychiatric: Denies behavioral changes [facility] Past Medical History Medical History (Updated 01/10/23 @ 14:26 by Chris Modi MD) [place] Iron infusions when needed / Taking iron Biliary colic Polyp of gallbladder POTS (postural orthostatic tachycardia syndrome) Screening mammogram, encounter for Family History Family History Father Family history of primary malignant neoplasm of liver Carcinoma of colon Malignant tumor of stomach Mother Diabetes mellitus Family history of cardiovascular disease Hypertension Renal failure syndrome Other Malignant neoplasm of prostate Pulmonary emboli Social History Social History Smoking status: Never smoker Alcohol intake: never Substance use: never Substance use type: does not use Lack of Transportation: No Lack of Food: Never True Current Housing: I Have Housing Concerned About Future Housing: No Difficulty Paying Gas/Electric Bills: No Difficulty Paying for Meds: No Currently Unemployed: No Education: Master's Degree or Higher Difficulty w/ Childcare or Family Care: No Living arrangements: other Additional living arrangements
--- NOTE | 2023-01-10 16:33 | PM.CNGS ---
Assessment and Plan Assessment and plan (1) Dysfunctional gallbladder: Code(s): K82.8 - Other specified diseases of gallbladder Status: Acute Assessment and Plan: Patient presented acute pancreatitis and gastritis. Her generalized abdominal pain and nausea have been improving with medical management, but her right flank pain is persistent. Abdominal US showed two small GB polyps, no cholelithiasis or other abnormal findings of the gallbladder. HIDA showed GB EF 9%. Her abdominal pain and exam are atypical for gallbladder disease. Given her presentation with acute pancreatitis as well, it is difficult to decipher if her gallbladder is contributing to any of her acute symptoms. I discussed the case with Dr. Zayas. There is no indication for urgent surgical intervention. I discussed the imaging findings with the patient and other potential etiologies for her abdominal pain. GI has also been consulted and is following along. We will start her on a clear liquid diet and re-evaluate tomorrow. (2) Polyp of gallbladder: Code(s): K82.4 - Cholesterolosis of gallbladder Status: Acute Assessment and Plan: Two small < 5 mm gallbladder polyps noted on ultrasound. Unlikely to be contributing to her acute issues. See plan above. (3) Pancreatitis: Code(s): K85.90 - Acute pancreatitis without necrosis or infection, unspecified Status: Acute Assessment and Plan: Presented with new onset acute pancreatitis. Unclear etiology. Denies alcohol use. No gallstones/sludge noted on imaging. Triglycerides only mildly elevated, which you would not expect to be an etiology. Abdominal pain and bloating seems to be improving. Lipase has normalized. She is no longer having any nausea. Will start clear liquids. GI also consulted. Continue with medical management and monitor labs. (4) Gastritis: Code(s): K29.70 - Gastritis, unspecified, without bleeding Status: Acute (5) Right flank pain: Code(s): R10.9 - Unspecified abdominal pain Status: Acute Assessment and Plan: Presented with right flank pain x 1 week. Patient feels this is similar to previous kidney stone, which was not seen on CT. Discussed with Hospitalist who may consider renal US. The location of her pain does not seem to be related to her gallbladder. (6) Obesity (BMI 30-39.9): Code(s): E66.9 - Obesity, unspecified Status: Acute Plan I have discussed the patient's case and plan of care with Dr. Zayas. Thank you for allowing us to see the patient in consultation and we will continue to follow along with you. History of Present Illness Consult details Consult date: 01/10/23 Reason for consult: other (Pancreatitis, gallbladder polyps) Requesting physician: Jordyn Yanes APRN Narrative: This is a 42-year-old woman who presented to the ER 2 days ago with abdominal pain, right flank pain, nausea, and diarrhea x 1 week. She reports generalized abdominal pain, right flank pain, and bloating starting about a week ago. She had associated nausea, diarrhea, and a few episodes of vomiting. She tried taking Gas-X and Tums without any relief. She denies fever or chills. She reports having a kidney stone a few months ago and was hospitalized and required stent placement. Her right flank pain feels the same as when she had a kidney stone. Due to her persistent pain, she came to the ER for evaluation. Labs were significant for a lipase of 716, normal LFTs, and normal WBC count. CT scan of the abdomen and pelvis showed esophagitis/gastritis and mild pancreatic inflammatory change. Abdominal ultrasound showed two small < 5 mm gallbladder polyps, 1.5 cm right hepatic cyst, and 2.0 cm right hepatic hemangioma. No gallstones and common bile duct is normal at 3.5 mm. She was admitted and treated for the pancreatitis with bowel rest, IV fluids, and analgesics. Repeat labs show the lipase has normalized. She continues to have abdominal pain a
[2023-01-10 20:00] VITALS: PULSE 96; RESP 16; O2SAT 99
[2023-01-10] MEDS: LORazepam INJ (*CRX) 2 MG/ML VIAL 0.5 MG IV PUSH (20:28)
[2023-01-10 22:00] VITALS: BP 119/77; PULSE 105; RESP 18; TEMP 36.6; O2SAT 96
[2023-01-11] MEDS: HYDROmorphone HCL INJ (*CRX) 1 MG/ML SYR 0.5 MG IV PUSH ×2 (04:50→20:36)
[2023-01-11] MEDS: ARTIFICIAL TEARS OPHTH SOLN 15 ML BOTTLE 1 DROP EACH EYE ×2 (05:37→20:31)
[2023-01-11] MEDS: SODIUM CHLORIDE 0.9% IV 1,000 ML 100 ML IV CONT ×2 (05:41→16:58)
[2023-01-11 05:53] VITALS: BP 141/84; PULSE 88; RESP 18; TEMP 36.9; O2SAT 97
[2023-01-11 06:00] VITALS: BP 141/86; PULSE 88; RESP 18; TEMP 36.9; O2SAT 97
[2023-01-11] MEDS: PROCHLORPERAZINE EDISYLATE 10 MG/2 ML VIAL IV PUSH (06:19)
[2023-01-11 06:23] LABS: Hematocrit 35.9 % (37.0-47.0); Hemoglobin 11.7 g/dL (12.0-15.0); Mean Corpuscular HGB Conc 32.6 g/dl (32-36); Mean Corpuscular Hemoglobin 27.3 pg (26-34); Mean Corpuscular Volume 83.7 fl (80-100); Platelet Count Result 297 k/mm3 (150-375); Red Blood Count 4.29 M/mm3 (4.2-5.4); Red Cell Distribution Width 13.4 % (11.5-14.5); White Blood Count 7.6 K/mm3 (4.5-10.0)
[2023-01-11 06:43] LABS: Anion Gap 9 mmol/L (8-16); Blood Urea Nitrogen 7 mg/dL (7-17); Calcium 8.4 mg/dL (8.4-10.2); Carbon Dioxide 22 mmol/L (22-30); Chloride 103 mmol/L (98-107); Estimated CRCL calculation 149 ml/min; Estimated Glomerular Filt Rate > 60; Glucose 135 mg/dL (65-110); Potassium 3.9 mmol/L (3.4-5.0); Sodium 134 mmol/L (137-145)
--- NOTE | 2023-01-11 07:50 | PM.IMPN ---
Progress Note: A&P Assessment and Plan (1) Pancreatitis: Code(s): K85.90 - Acute pancreatitis without necrosis or infection, unspecified Status: Acute Assessment and Plan: Patient presented with c/o abdominal pain and CT scan suggested mild peripancreatic fat stranding. Lipase 716 to 215 to 243 today NPO IV fluids Right upper quadrant ultrasound- normal pancreas, no gallstones or gallbladder wall thickening, normal common bile duct, 2 small gallbladder polyps < 5 mm noted. Triglycerides 220, but not significantly elevated. No recent ERCP and patient is not on any medications known to contribute to pancreatitis. Question biliary colic. HIDA scan with reduced function 9% (2) Intractable nausea and vomiting: Code(s): R11.2 - Nausea with vomiting, unspecified Status: Acute Assessment and Plan: likely secondary to 1 and gastritis/esophagitis noted on CT scan. Continue Supportive care with antiemetics and PPI (3) Abdominal pain: Qualifiers: Abdominal location: epigastric Qualified Code(s): R10.13 - Epigastric pain Code(s): R10.9 - Unspecified abdominal pain Status: Acute Assessment and Plan: Likely secondary to pancreatitis versus biliary colic. Repeat UA Repeat CT abd/pelvis (4) POTS (postural orthostatic tachycardia syndrome): Code(s): I49.8 - Other specified cardiac arrhythmias Status: Chronic Assessment and Plan: change positions slowly and fall precautions. (5) Gastritis: Code(s): K29.70 - Gastritis, unspecified, without bleeding Status: Acute Assessment and Plan: Moderate distal esophageal/gastric wall edema noted on CT scan. Continue IV PPI therapy. Consulted GI and appreciate recommendations. (6) Biliary colic: Code(s): K80.50 - Calculus of bile duct without cholangitis or cholecystitis without obstruction Status: Acute Assessment and Plan: HIDA scan with dysfunction, EF 9% General surgery consulted. +emesis today. Plan for lap jeremías in am. NPO after midnight. (7) Dysfunctional gallbladder: Code(s): K82.8 - Other specified diseases of gallbladder Status: Acute Assessment and Plan: as above (8) Right flank pain: Code(s): R10.9 - Unspecified abdominal pain Status: Acute Assessment and Plan: Pain with palpation, suggesting musculoskeletal pain. Trial Lidoderm patch 5% PRN analgesics continued. Repeat UA She reports prior kidney stones and ureteral stent placement in the past. Renal US negative. (9) Polyp of gallbladder: Code(s): K82.4 - Cholesterolosis of gallbladder Status: Acute Assessment and Plan: Noted on RUQ US. Management as above. (10) Obesity (BMI 30-39.9): Code(s): E66.9 - Obesity, unspecified Status: Chronic Assessment and Plan: Recommend weight loss with lifestyle modification of diet and exercise. Plan CODE STATUS: FULL CODE Disposition: from home. No discharge needs at this time. Subjective Date/time seen: 01/11/23 07:51 Interval history: Patient is a 42-year-old female with? significant past medical history for postural orthostatic tachycardia syndrome and chronic iron deficiency anemia from dysmenorrhea, who presented to the ED for evaluation of abdominal pain x1 week. CT scan was concerning for acute pancreatitis. She complains of persistent right lower back/flank pain, right and left lower abdominal pain. She had multiple episodes of vomiting last night. She also reports she was given a medication last night that made her very anxious. She states the medication was IV and given around 8pm last night. She has some dysuria. Review of Systems Review of Systems: All systems reviewed & are unremarkable except as noted in HPI and below Exam Narrative: General: No acute distress.? Well-developed adult female sitting up in bed. Ment
[2023-01-11] MEDS: LORazepam INJ (*CRX) 2 MG/ML VIAL 0.5 MG IV PUSH (08:45)
[2023-01-11] MEDS: PANTOPRAZOLE SODIUM IV 40 MG VIAL IV PUSH ×2 (08:50→20:27)
[2023-01-11] MEDS: ENOXAPARIN 40 MG/0.4 ML SYRINGE SUB-Q (08:51)
--- NOTE | 2023-01-11 11:30 | PM.PNGS ---
Progress Note: A&P Assessment and Plan (1) Biliary colic: Code(s): K80.50 - Calculus of bile duct without cholangitis or cholecystitis without obstruction Status: Acute Assessment and Plan: long d/w pt and family, decision to proceed c cholecystectomy during this hospitalization provided pancreatitis resolving, ok to have clears today and plan for OR tomorrow am (2) Pancreatitis: Code(s): K85.90 - Acute pancreatitis without necrosis or infection, unspecified Status: Acute Assessment and Plan: resolving but recurrent, worsening pain yesterday, will repeat labs, imaging Subjective Subjective Date/Time Seen: 01/11/23 11:30 worsening pain overnight, had N/V c clears Review of Systems Review of Systems: All systems reviewed & are unremarkable except as noted in HPI and below Exam Const: General: cooperative, comfortable, no acute distress and obese Resp: Auscultation: clear to auscultation bilaterally Cardio: Rate: regular rate Rhythm: regular rhythm GI: Inspection: normal to inspection and distended GI Palp: Yes abdominal tenderness, Yes Soft to palpation, Yes Tenderness to palpation present (GI), No Guarding due to palpation present (GI) and No Rigid due to palpation Objective Data Vital Signs Vital Signs: Vital Signs - 24 hr 01/10/23 13:40 01/10/23 20:00 01/10/23 22:00 Temperature 35.7 C L 36.6 C Pulse Rate 96 96 105 H Respiratory Rate 16 16 18 Blood Pressure 140/93 H 119/77 Pulse Oximetry 99 99 96 Oxygen Delivery Room Air 01/11/23 05:53 01/11/23 06:00 01/11/23 08:50 Temperature 36.9 C 36.9 C Pulse Rate 88 88 Respiratory Rate 18 18 Blood Pressure 141/84 H 141/86 H Pulse Oximetry 97 97 Oxygen Delivery Room Air Room Air Intake/Output Intake/Output: Intake & Output 01/08/23 01/09/23 01/10/23 01/11/23 23:59 23:59 23:59 23:59 Intake Total 1120 1999 1250 Balance 1120 1999 1250 Meds/Results Medications: Active Medications Generic Name Dose Route Start Last Admin Trade Name Freq PRN Reason Stop Dose Admin Artificial Tears 1 drop 01/11/23 05:13 01/11/23 05:37 Artificial Tears Ophth Soln 15 Ml Bottle EACH EYE 1 drop Q4H PRN Administration Dry Eye(s) Enoxaparin Sodium 40 mg 01/09/23 09:00 01/11/23 08:51 Enoxaparin 40 Mg/0.4 Ml Syringe SUB-Q 40 mg DAILY NELLY Administration Hydromorphone HCl 0.5 mg 01/09/23 16:13 01/11/23 04:50 Hydromorphone Hcl Inj (*Crx) 1 Mg/Ml Syr IV PUSH 0.5 mg Q2HR PRN Administration Pain Rated 6 or Greater Sodium Chloride 1,000 mls @ 100 mls/hr 01/09/23 09:20 01/11/23 05:41 Normal Saline Iv IV CONT 100 mls/hr .Q10H NELLY Administration Lidocaine 1 patch 01/11/23 11:25 Lidocaine 5% Patch TRANSDERM DAILY NELLY Lorazepam 0.5 mg 01/09/23 16:12 01/11/23 08:45 Lorazepam Inj (*Crx) 2 Mg/Ml Vial IV PUSH 0.5 mg Q6H PRN Administration Anxiety Pantoprazole Sodium 40 mg 01/09/23 09:00 01/11/23 08:50 Pantoprazole Sodium Iv 40 Mg Vial IV PUSH 40 mg Q12HR NELLY Administration Prochlorperazine Edisylate 10 mg 01/11/23 07:50 Prochlorperazine Edisylate 10 Mg/2 Ml Vial IV PUSH Q6H PRN Nausea And Vomiting Radiology Results: ITS Impressions Abdomen/Pelvis CT 01/08/23 18:39 IMPRESSION: Esophagitis/gastritis. Mild pancreatic inflammatory change may represent pancreatitis in the appropriate clinical context. Abdomen Ultrasound 01/09/23 09:33 IMPRESSION: 2.9 cm right hepatic hemangioma 1.5 similar right hepatic cyst 2. Small gallbladder polyps The pancreas appears normal Hepatobiliary Scan Nuclear Medicine 01/10/23 13:20 IMPRESSION: 1. Diminished gallbladder ejection fraction measuring 9%. Renal Ultrasound 01/10/23 18:39 IMPRESSION: Unremarkable renal sonogram findings. Labs Labs: Laboratory Results - last 24 hr 01/11/23 01/11/23 05:54 05:54 WBC 7.6 RBC 4.29 Hgb 11.7
[2023-01-11 11:34] LABS: Amylase 86 U/L (30-110); Lipase 243 U/L (23-300)
[2023-01-11] MEDS: LIDOCAINE 5% PATCH 1 PATCH TRANSDERM (11:59)
[2023-01-11 12:02] LABS: Lactic Acid Reflex 0.6 mmol/L (0.7-2.0)
[2023-01-11 12:06] LABS: CRP 2.4 mg/dL (<1.0)
[2023-01-11 13:46] VITALS: BP 144/89; PULSE 109; RESP 16; TEMP 36.2; O2SAT 98
[2023-01-11] MEDS: diphenhydrAMINE HCl INJ 50 MG/ML VIAL 25 MG IV PUSH (13:59)
[2023-01-11 14:30] LABS: Appearance Urine Clear (Clear); Bilirubin Urine Negative (Negative); Blood Urine Trace-intact (Negative); Color Urine Yellow (Yellow); Glucose Urine UA Negative (Negative); Ketones Urine 1+ mg/dL (Negative); Leukocyte Esterase Ur Trace LEU/UL (Negative); Nitrate Urine Negative (Negative); Protein Urine Negative (Negative); Specific Grav Ur 1.015 (1.001-1.035); Urobilinogen Urine 0.2 mg/dL (<2.0)
[2023-01-11 14:36] LABS: RBC Urine 0-2 /hpf (0-2); Squamous Epithelial Cell Urine Few /hpf (Few); WBC Urine 0-3 /hpf
[2023-01-11 14:38] LABS: Add Urine Microscopic? YES
--- NOTE | 2023-01-11 17:10 | WPDGIPROGNO ---
Progress Note: A&P Assessment and Plan (1) Dysfunctional gallbladder: Code(s): K82.8 - Other specified diseases of gallbladder Status: Acute Assessment and Plan: cholecystectomy tomorrow (2) Right flank pain: Code(s): R10.9 - Unspecified abdominal pain Status: Acute (3) Pancreatitis: Code(s): K85.90 - Acute pancreatitis without necrosis or infection, unspecified Status: Acute Assessment and Plan: resolving, feeling better wonder if related to gb (4) Intractable nausea and vomiting: Code(s): R11.2 - Nausea with vomiting, unspecified Status: Acute Assessment and Plan: improved (5) Gastritis: Code(s): K29.70 - Gastritis, unspecified, without bleeding Status: Acute Assessment and Plan: hold off on endoscopic evaluation for now (6) POTS (postural orthostatic tachycardia syndrome): Code(s): I49.8 - Other specified cardiac arrhythmias Status: Chronic Subjective Date/time seen: 01/11/23 17:10 Interval history: still with some pain, no major changes Review of Systems Review of Systems: All systems reviewed & are unremarkable except as noted in HPI and below Exam Const: General: cooperative, comfortable, no acute distress and obese HENMT: Face/Nose/Sinus: Normal nares present Eyes: General: appearance normal, both eyes and all related structures Neck: Neck: supple Resp: Auscultation: clear to auscultation bilaterally Cardio: Rate: regular rate Rhythm: regular rhythm GI: Inspection: normal to inspection and distended GI Palp: Yes abdominal tenderness, Yes Soft to palpation, Yes Tenderness to palpation present (GI), No Guarding due to palpation present (GI) and No Rigid due to palpation Auscultation: normal bowel sounds Skin: General skin exam: normal color Neuro: Speech: normal speech Motor exam (neuro): 5/5 motor strength present throughout Extrem: General: normal to inspection Psych: Mental Status: mental status grossly normal Objective Data Vital Signs Vital Signs: Vital Signs - 24 hr 01/10/23 20:00 01/10/23 22:00 01/11/23 05:53 Temperature 97.8 F 98.5 F Pulse Rate 96 105 H 88 Respiratory Rate 16 18 18 Blood Pressure 119/77 141/84 H Pulse Oximetry 99 96 97 Oxygen Delivery Room Air Room Air 01/11/23 06:00 01/11/23 08:50 01/11/23 13:46 Temperature 98.5 F 97.2 F L Pulse Rate 88 109 H Respiratory Rate 18 16 Blood Pressure 141/86 H 144/89 H Pulse Oximetry 97 98 Oxygen Delivery Room Air Intake/Output Intake/Output: Intake & Output 01/08/23 01/09/23 01/10/23 01/11/23 23:59 23:59 23:59 23:59 Intake Total 1120 1999 2249 Balance 1120 1999 2249 Meds/Results Medications: Active Medications Generic Name Dose Route Start Last Admin Trade Name Freq PRN Reason Stop Dose Admin Artificial Tears 1 drop 01/11/23 05:13 01/11/23 05:37 Artificial Tears Ophth Soln 15 Ml Bottle EACH EYE 1 drop Q4H PRN Administration Dry Eye(s) Enoxaparin Sodium 40 mg 01/09/23 09:00 01/11/23 08:51 Enoxaparin 40 Mg/0.4 Ml Syringe SUB-Q 40 mg DAILY NELLY Administration Hydromorphone HCl 0.5 mg 01/09/23 16:13 01/11/23 04:50 Hydromorphone Hcl Inj (*Crx) 1 Mg/Ml Syr IV PUSH 0.5 mg Q2HR PRN Administration Pain Rated 6 or Greater Sodium Chloride 1,000 mls @ 100 mls/hr 01/09/23 09:20 01/11/23 16:58 Normal Saline Iv IV CONT 100 mls/hr .Q10H NELLY Administration Lidocaine 1 patch 01/11/23 11:25 01/11/23 11:59 Lidocaine 5% Patch TRANSDERM 1 patch DAILY NELLY Administration Lorazepam 0.5 mg 01/09/23 16:12 01/11/23 08:45 Lorazepam Inj (*Crx) 2 Mg/Ml Vial IV PUSH 0.5 mg Q6H PRN Administration Anxiety Pantoprazole Sodium 40 mg 01/09/23 09:00 01/11/23 08:50 Pantoprazole Sodium Iv 40 Mg Vial IV PUSH 40 mg Q12HR NELLY Administration Prochlorperazine Edisylate 10 mg 01/11/23 07:50 Prochlorperazine Edisyla
[2023-01-11 20:00] VITALS: PULSE 94; RESP 18; O2SAT 97
[2023-01-11 22:00] VITALS: BP 133/82; PULSE 94; RESP 18; TEMP 36.7; O2SAT 97
[2023-01-12] VITALS (11 sets, daily range): BP systolic 122–152; BP diastolic 75–95; PULSE 73–103; RESP 16–32; TEMP 36.3–37.2; O2SAT 92–99
[2023-01-12] MEDS: SODIUM CHLORIDE 0.9% IV 1,000 ML 100 ML IV CONT ×3 (05:29→20:31)
[2023-01-12 06:36] LABS: Hematocrit 34.6 % (37.0-47.0); Hemoglobin 11.6 g/dL (12.0-15.0); Mean Corpuscular HGB Conc 33.5 g/dl (32-36); Mean Corpuscular Hemoglobin 27.8 pg (26-34); Mean Corpuscular Volume 82.8 fl (80-100); Mean Platelet Volume 9.8 fl (7.4-10.4); Platelet Count Result 291 k/mm3 (150-375); Red Blood Count 4.18 M/mm3 (4.2-5.4); Red Cell Distribution Width 13.3 % (11.5-14.5); White Blood Count 6.6 K/mm3 (4.5-10.0)
[2023-01-12 06:39] LABS: INR 1.1; Prothrombin Time 13.4 Seconds (11.1-14.7)
[2023-01-12 06:40] LABS: Partial Thromboplastin Time 31.4 SECONDS (22.3-36.8)
[2023-01-12 06:50] LABS: Alanine Aminotransferase 24 U/L (6-35); Albumin Level 4.2 g/dL (3.5-5.1); Alkaline Phosphatase 54 U/L (38-126); Anion Gap 7 mmol/L (8-16); Aspartate Amino Transferase 33 U/L (14-36); Bilirubin,Total 0.4 mg/dL (0.2-1.3); Blood Urea Nitrogen 6 mg/dL (7-17); Calcium 8.4 mg/dL (8.4-10.2); Carbon Dioxide 23 mmol/L (22-30); Chloride 103 mmol/L (98-107); Estimated CRCL calculation 126 ml/min; Estimated Glomerular Filt Rate > 60; Glucose 119 mg/dL (65-110); Potassium 3.6 mmol/L (3.4-5.0); Sodium 133 mmol/L (137-145)
--- NOTE | 2023-01-12 07:32 | PC.NURSE ---
To OR via stretcher at 0730. at bedside.
--- NOTE | 2023-01-12 08:17 | WPDANESEPPF ---
Anes - Initial Pre Proc Eval Procedure: Operation Date: 01/12/23 08:30 Proposed Procedures p Laparoscopic Cholecystectomy - Mary Zayas MD Date/Time: 01/12/23 08:17 Surgeon: Douglas Haq MD Pre Op Diagnosis: pancreatitis Patient Data Age: 42 Gender: F Height: 1.7 m Weight: 102.2 kg Last Vital Signs Temp 37.2 C 01/12/23 07:49 Pulse 80 01/12/23 07:49 Resp 18 01/12/23 07:49 BP 129/78 01/12/23 07:49 Pulse Ox 97 01/12/23 07:49 O2 Del Method Room Air 01/12/23 07:49 Allergies Allergy/AdvReac Type Severity Reaction Status Date / Time meperidine Allergy Mild Hives Verified 01/08/23 17:35 Penicillins Allergy Unknown Hives Verified 01/08/23 17:35 prednisone Allergy Unknown HIVES Verified 01/08/23 17:35 Sulfa (Sulfonamide Allergy Unknown Hives Verified 01/08/23 17:35 Antibiotics) ondansetron [From Zofran] AdvReac Vomiting Verified 01/08/23 17:35 Home Medications Medication Instructions Recorded Confirmed Type ferrous sulfate 325 mg (65 mg 325 mg PO DAILY 07/06/22 01/08/23 History iron) tablet norgestimate 0.25 mg-ethinyl 1 tablet PO DAILY #84 tabs 09/15/22 01/08/23 Rx estradiol 35 mcg tablet (Sprintec (28)) Adults Multivitamin 1 tab-cap PO DAILY 01/08/23 01/08/23 History Laboratory Tests 01/11/23 01/11/23 01/11/23 05:51 11:40 11:40 WBC RBC Hgb Hct MCV MCH MCHC RDW Plt Count MPV PT INR APTT Sodium Potassium Chloride Carbon Dioxide Anion Gap BUN Creatinine Estim Creat Clear Calc Estimated GFR Glucose Lactic Acid 0.6 mmol/L L mmol/L (0.7-2.0) Calcium Total Bilirubin AST ALT Alkaline Phosphatase C-Reactive Protein 2.4 mg/dL H mg/dL (<1.0) Total Protein Albumin Amylase 86 U/L U/L (30-110) Lipase 243 U/L U/L (23-300) Procalcitonin Urine Color Urine Appearance Urine pH Ur Specific [place] Urine Protein Urine Glucose (UA) Urine Ketones Ur Blood (Man) Urine Nitrate Urine Bilirubin Urine Urobilinogen Leukocyte Esterase Rfl Urine RBC Urine WBC Ur Squamous Epith Cells 01/11/23 01/11/23 01/12/23 11:40 14:05 05:54 WBC 6.6 K/mm3 K/mm3 (4.5-10.0) RBC 4.18 M/mm3 L M/mm3 (4.2-5.4) Hgb 11.6 g/dL L g/dL (12.0-15.0) Hct 34.6 % L % (37.0-47.0) MCV 82.8 fl fl (80-100) MCH 27.8 pg pg (26-34) MCHC 33.5 g/dl g/dl (32-36) RDW 13.3 % % (11.5-14.5) Plt Count 291 k/mm3 k/mm3 (150-375) MPV 9.8 fl fl (7.4-10.4) PT INR APTT Sodium Potassium Chloride Carbon Dioxide Anion Gap BUN Creatinine Estim Creat Clear Calc Estimated GFR Glucose Lactic Acid Calcium Total Bilirubin AST ALT Alkaline Phosphatase C-Reactive Protein Total Protein Albumin Amylase Lipase Procalcitonin 0.0 ng/mL ng/mL Urine Color Yellow (Yellow) Urine Appearance Clear (Clear) Urine pH 7.0 (5.0-9.0) Ur Specific [place] 1.015 (1.001-1.035) Urine Protein Negative mg/dL mg/dL (Negative) Urine Glucose (UA) Negative mg/
[2023-01-12] MEDS: LACTATED RINGERS 1,000 ML 30 ML IV CONT (08:20)
--- NOTE | 2023-01-12 08:22 | WPDHPUPDATE1 ---
History and Physical Update Update Date/Time: 01/12/23 08:22 History and Physical has been reviewed, including an updated exam of the patient. There are NO changes in the patient's condition. Risks, benefits, and alternatives have been discussed and questions answered. Patient agrees to proceed with procedure.
[2023-01-12] MEDS: ceFAZolin 2 GM/D5W 50 ML 2 GM/50 ML BAG IVPB (08:31)
[2023-01-12] MEDS: BUPIVACAINE/EPINEPHRINE 0.5% 50 ML VIAL INFILTRATE (08:50)
[2023-01-12] MEDS: fentaNYL CITRATE INJ (*CRX) 100 MCG/2 ML VIAL 25 MCG IV PUSH ×6 (09:31→09:47)
--- NOTE | 2023-01-12 09:35 | P.OP_ITS ---
Procedure Note - Detailed Date of Procedure 01/12/23 Pre-op Diagnosis biliary colic Post-op Diagnosis Same Procedure Performed Laparoscopic cholecystectomy Surgeon Mary Zayas MD Anesthesia General Indications 42-year-old female presented to the hospital complaining of upper abdominal pain associated with nausea and vomiting. Workup including imaging significant for pancreatitis, biliary colic. Findings distended gallbladder Description of Procedure The patient was taken to the operating room placed in the supine position. After adequate induction of general anesthesia, the patient was prepped and desi ped in normal sterile fashion. A time-out was then performed to verify the patient's identity as well as the procedure being performed. I then made a 5 mm incision in the infraumbilical region. Through this, a Veress needle was placed into the peritoneal cavity and CO2 gas was then insufflated. After adequate pneumoperitoneum was achieved, the Veress needle was removed and a 5 mm optiview trocar was placed through this incision under direct visualization. I then placed the laparoscope through this trocar site and under direct visualization placed a further 12 mm subxiphoid port as well as 2 additional 5 mm ports in the right upper abdomen. The gallbladder was then identified and was noted to be moderately distended. I was able to place a grasper at the dome of the gallbladder and this was retracted anterior and cephalad up over the liver. A 2nd retractor was then placed at the infundibulum and retracted laterally, this allowed visualization of the triangle of Calot. I then was able to visualize the cystic duct in its entirety from its proximal insertion into the gallbladder, to its distal junction with the common hepatic/common bile duct junction. At this point, I carefully skeletonized the proximal cystic duct with the [place] dissector. I then clipped and transected the proximal cystic duct. Next I visualized the cystic artery. Again the artery was skeletonized, clipped, and transected. I then used the Bovie cautery to take down the peritoneal attachments of the gallbladder off the liver bed. This was somewhat difficult given the amount of inflammation in the posterior space. Once the gallbladder specimen was completely detached, an endo-pouch was placed through the 12 mm port site. I then placed the gallbladder specimen into the Endo pouch and removed the endo-pouch from the 12 mm port site. The specimen will now be sent to pathology for further review. I then copiously irrigated the right upper quadrant. Hemostasis was noted in the liver bed, the clips were noted to be in good position on both the cystic duct stump and the cystic artery stump. No other pathology was noted in the right upper quadrant. I then moved the laparoscope to the subxiphoid port. No iatrogenic injury or other pathology was noted in the lower abdomen. I then closed the 12 mm trocar site under direct visualization using the Gregory cone and 0 Vicryl suture. At this point, the abdomen was desufflated and all ports removed. All port sites were then closed with 4.O Monocryl subcuticular sutures. Dermabond was placed on each incision. The patient tolerated the procedure well, was extubated in the operating room postoperative and will be transferred to the recovery room in stable condition Estimated Blood Loss 5 Drains No Packing No Pathology Yes Complications No immediate complications Condition Stable Disposition PACU [facility] Billing Surgery - Charge Forward: Surgery Billing
[2023-01-12] MEDS: HYDROmorphone HCL INJ (*CRX) 1 MG/ML SYR IV PUSH (09:54)
--- NOTE | 2023-01-12 10:34 | PC.NURSE ---
Pt. returned from OR at 1027
[2023-01-12] MEDS: HYDROcodone/acetaminophen (*CRX) 5-325 MG TABLET 1 TAB PO ×3 (10:57→22:16)
[2023-01-12] MEDS: PROCHLORPERAZINE EDISYLATE 10 MG/2 ML VIAL IV PUSH (10:58)
[2023-01-12] MEDS: LIDOCAINE 5% PATCH 1 PATCH TRANSDERM (11:02)
[2023-01-12] MEDS: PANTOPRAZOLE SODIUM IV 40 MG VIAL IV PUSH ×2 (11:02→20:30)
[2023-01-12] MEDS: MULTIVITAMINS THERAPEUTIC TAB (*BKC) 1 TABLET PO (11:57)
[2023-01-12] MEDS: FERROUS SULFATE 324 MG TABLET PO (11:57)
--- NOTE | 2023-01-12 13:49 | PM.IMPN ---
Progress Note: A&P Assessment and Plan (1) Pancreatitis: Code(s): K85.90 - Acute pancreatitis without necrosis or infection, unspecified Status: Acute Assessment and Plan: Patient presented with c/o abdominal pain and CT scan suggested mild peripancreatic fat stranding. Lipase 716 to 215 to 243 IV fluids Right upper quadrant ultrasound- normal pancreas, no gallstones or gallbladder wall thickening, normal common bile duct, 2 small gallbladder polyps < 5 mm noted. Triglycerides 220, but not significantly elevated. No recent ERCP and patient is not on any medications known to contribute to pancreatitis. Question biliary colic. HIDA scan with reduced function 9% Cholecystectomy performed on 01/11/2023. 01/12/2023 postop day 1 Cholecystectomy. Pain controlled, advance diet as tolerated. (2) Biliary colic: Code(s): K80.50 - Calculus of bile duct without cholangitis or cholecystitis without obstruction Status: Acute Assessment and Plan: HIDA scan with dysfunction, EF 9% General surgery consulted. +emesis today. Plan for lap jeremías on 01/11/2023 01/12/23 postop day 1 and patient doing well, advance diet as tolerated (3) Intractable nausea and vomiting: Code(s): R11.2 - Nausea with vomiting, unspecified Status: Acute Assessment and Plan: likely secondary to 1 and gastritis/esophagitis noted on CT scan. Continue Supportive care with antiemetics and PPI (4) Gastritis: Code(s): K29.70 - Gastritis, unspecified, without bleeding Status: Acute Assessment and Plan: Moderate distal esophageal/gastric wall edema noted on CT scan. Continue IV PPI therapy. Consulted GI and appreciate recommendations. (5) Dysfunctional gallbladder: Code(s): K82.8 - Other specified diseases of gallbladder Status: Acute Assessment and Plan: as above (6) Abdominal pain: Qualifiers: Abdominal location: epigastric Qualified Code(s): R10.13 - Epigastric pain Code(s): R10.9 - Unspecified abdominal pain Status: Acute Assessment and Plan: Likely secondary to pancreatitis versus biliary colic. Repeat UA negative Repeat CT abd/pelvis normal (7) POTS (postural orthostatic tachycardia syndrome): Code(s): I49.8 - Other specified cardiac arrhythmias Status: Chronic Assessment and Plan: change positions slowly and fall precautions. Plan CODE STATUS: FULL CODE Disposition: from home. No discharge needs at this time. Subjective Date/time seen: 01/12/23 13:49 Interval history: Patient sitting up in bed in good mood. Patient's only complaint at this time is surgical incision pain. Review of Systems Review of Systems: All systems reviewed & are unremarkable except as noted in HPI and below Exam Narrative: GENERAL: Comfortable, no acute distress HENMT: moist mucous membranes EYES: EOM intact b/l NECK: no lymphadenopathy RESPIRATORY: clear to auscultation CARDIO: RRR GI: soft, Right upper quadrant tenderness, bowel sounds present, dressings dry and intact SKIN: no rashes EXTREMITIES: no edema, redness or tenderness Objective Data Vital Signs Vital Signs: Vital Signs - 24 hr 01/11/23 22:00 01/11/23 20:00 01/12/23 06:00 Temperature 98.1 F 97.6 F Pulse Rate 94 94 93 Respiratory Rate 18 18 18 Blood Pressure 133/82 122/77 Pulse Oximetry 97 97 98 Oxygen Delivery Room Air Oxygen Flow Rate 01/12/23 07:49 01/12/23 09:13 01/12/23 09:25 Temperature 99.0 F 97.6 F Pulse Rate 80 80 73 Respiratory Rate 18 32 H 23 H Blood Pressure 129/78 123/75 130/76 Pulse Oximetry 97 97 99 Oxygen Delivery Room Air Simple Face Mask Simple Face Mask Oxygen Flow Rate 6 6 01/12/23 09:40 01/12/23 09:55 01/12/23 10:10 Temperature Pulse Rate 78 84 86 Respiratory Rate 22 H 18 16 Blood Pressure 134/79 149/95 H 136/85 Pulse Oximet
--- NOTE | 2023-01-12 14:25 | WPDGIPROGNO ---
Progress Note: A&P Assessment and Plan (1) Dysfunctional gallbladder: Code(s): K82.8 - Other specified diseases of gallbladder Status: Acute Assessment and Plan: s/p cholecystectomy advance diet per surgery (2) Pancreatitis: Code(s): K85.90 - Acute pancreatitis without necrosis or infection, unspecified Status: Acute Assessment and Plan: resolving, post cholecystectomy (3) Intractable nausea and vomiting: Code(s): R11.2 - Nausea with vomiting, unspecified Status: Acute Assessment and Plan: improved (4) Gastritis: Code(s): K29.70 - Gastritis, unspecified, without bleeding Status: Acute Assessment and Plan: medical treatment (5) POTS (postural orthostatic tachycardia syndrome): Code(s): I49.8 - Other specified cardiac arrhythmias Status: Chronic Subjective Date/time seen: 01/12/23 14:25 Interval history: lap jeremías today, had distended GB. She is just recovering from surgery, she is comfortable. Review of Systems Review of Systems: All systems reviewed & are unremarkable except as noted in HPI and below Exam Const: General: comfortable and no acute distress HENMT: Face/Nose/Sinus: Normal nares present Eyes: Sclera: sclerae normal Neck: Neck: supple Resp: Auscultation: clear to auscultation bilaterally Cardio: Rate: regular rate GI: GI Palp: Yes Soft to palpation and Yes Tenderness to palpation present (GI) (normal tenderness from recent surgery) Auscultation: normal bowel sounds Skin: General skin exam: normal color Neuro: Speech: normal speech Motor exam (neuro): 5/5 motor strength present throughout Extrem: General: normal to inspection Psych: Mental Status: mental status grossly normal Objective Data Vital Signs Vital Signs: Vital Signs - 24 hr 01/11/23 22:00 01/11/23 20:00 01/12/23 06:00 Temperature 98.1 F 97.6 F Pulse Rate 94 94 93 Respiratory Rate 18 18 18 Blood Pressure 133/82 122/77 Pulse Oximetry 97 97 98 Oxygen Delivery Room Air Oxygen Flow Rate 01/12/23 07:49 01/12/23 09:13 01/12/23 09:25 Temperature 99.0 F 97.6 F Pulse Rate 80 80 73 Respiratory Rate 18 32 H 23 H Blood Pressure 129/78 123/75 130/76 Pulse Oximetry 97 97 99 Oxygen Delivery Room Air Simple Face Mask Simple Face Mask Oxygen Flow Rate 6 6 01/12/23 09:40 01/12/23 09:55 01/12/23 10:10 Temperature Pulse Rate 78 84 86 Respiratory Rate 22 H 18 16 Blood Pressure 134/79 149/95 H 136/85 Pulse Oximetry 93 94 92 Oxygen Delivery Room Air Room Air Room Air Oxygen Flow Rate 01/12/23 10:50 Temperature 98.3 F Pulse Rate 101 H Respiratory Rate 18 Blood Pressure 145/92 H Pulse Oximetry 97 Oxygen Delivery Oxygen Flow Rate Intake/Output Intake/Output: Intake & Output 01/09/23 01/10/23 01/11/23 01/12/23 23:59 23:59 23:59 23:59 Intake Total 1120 1999 2490 1250 Output Total 300 Balance 1120 1999 2190 1250 Meds/Results Medications: Active Medications Generic Name Dose Route Start Last Admin Trade Name Freq PRN Reason Stop Dose Admin Hydrocodone Bitart/Acetaminophen 1 tab 01/12/23 10:16 01/12/23 10:57 Hydrocodone/Acetaminophen (*Crx) 5-325 Mg Tablet PO 1 tab Q4H PRN Administration Pain Rated 4-6 Artificial Tears 1 drop 01/11/23 05:13 01/11/23 20:31 Artificial Tears Ophth Soln 15 Ml Bottle EACH EYE 1 drop Q4H PRN Administration Dry Eye(s) Enoxaparin Sodium 40 mg 01/09/23 09:00 01/12/23 11:01 Enoxaparin 40 Mg/0.4 Ml Syringe SUB-Q Not Given DAILY [facility] Ferrous Sulfate 324 mg 01/12/23 10:20 01/12/23 11:57 Ferrous Sulfate 324 Mg Tablet PO 324 mg DAILY@0800 [facility] Administration Hydromorphone HCl 0.5 mg 01/09/23 16:13 01/11/23 20:36 Hydromorphone Hcl Inj (*Crx) 1 Mg/Ml Syr IV PUSH 0.5 mg Q2HR PRN Administration Pain Rated 7 or Greater Sodium Chloride 1,000 mls @ 100 mls/hr 01/09/23 09:20 01/12/23 11:04 Norm
--- NOTE | 2023-01-12 18:04 | ECG_ITS ---
Measurements Intervals [place] Rate: 101 P: 49 SC: 162 QRS: 69 QRSD: 87 T: 27 QT: 343 QTc: 445 Interpretive Statements SINUS TACHYCARDIA BASELINE WANDER- V2 BORDERLINE ECG COMPARISON TO PRIOR ECG 08-02-19 15:08 HEART RATE HAS INCREASED Electronically Signed On 01-14-2023 8:24:59 [employer]K [employer]IST by Cristi Kim D.O.
[2023-01-12] MEDS: HYDROmorphone HCL INJ (*CRX) 1 MG/ML SYR 0.5 MG IV PUSH ×2 (18:36→22:58)
[2023-01-12 22:17] LABS: Troponin I < 0.012 ng/mL (0.000-0.034)
[2023-01-12] MEDS: SIMETHICONE 80 MG TAB.CHEW PO (23:01)
[2023-01-13] MEDS: SODIUM CHLORIDE 0.9% IV 1,000 ML 100 ML IV CONT (03:58)
[2023-01-13 06:00] VITALS: BP 131/76; PULSE 86; RESP 18; TEMP 36.2; O2SAT 97
[2023-01-13] MEDS: HYDROcodone/acetaminophen (*CRX) 5-325 MG TABLET 1 TAB PO (06:18)
[2023-01-13 06:43] LABS: Hematocrit 37.4 % (37.0-47.0); Hemoglobin 12.3 g/dL (12.0-15.0); Mean Corpuscular HGB Conc 32.9 g/dl (32-36); Mean Corpuscular Hemoglobin 27.6 pg (26-34); Mean Corpuscular Volume 83.9 fl (80-100); Mean Platelet Volume 9.6 fl (7.4-10.4); Platelet Count Result 329 k/mm3 (150-375); Red Blood Count 4.46 M/mm3 (4.2-5.4); Red Cell Distribution Width 13.4 % (11.5-14.5); White Blood Count 9.7 K/mm3 (4.5-10.0)
[2023-01-13 06:57] LABS: Alanine Aminotransferase 35 U/L (6-35); Albumin Level 4.4 g/dL (3.5-5.1); Alkaline Phosphatase 54 U/L (38-126); Anion Gap 7 mmol/L (8-16); Aspartate Amino Transferase 33 U/L (14-36); Bilirubin,Total 0.4 mg/dL (0.2-1.3); Blood Urea Nitrogen 4 mg/dL (7-17); Calcium 8.8 mg/dL (8.4-10.2); Carbon Dioxide 25 mmol/L (22-30); Chloride 103 mmol/L (98-107); Estimated CRCL calculation 126 ml/min; Estimated Glomerular Filt Rate > 60; Glucose 130 mg/dL (65-110); Potassium 3.8 mmol/L (3.4-5.0); Sodium 135 mmol/L (137-145)
--- NOTE | 2023-01-13 08:55 | PM.PNGS ---
Progress Note: A&P Assessment and Plan (1) Biliary colic: Code(s): K80.50 - Calculus of bile duct without cholangitis or cholecystitis without obstruction Status: Acute Assessment and Plan: s/p lap jeremías, doing well, cont routine postop care, home c po analgesia, f/u 2 wks Subjective Subjective Date/Time Seen: 01/13/23 08:55 feels good, no c/o, mynor diet Review of Systems Review of Systems: All systems reviewed & are unremarkable except as noted in HPI and below Exam Const: General: cooperative, comfortable and no acute distress GI: Inspection: normal to inspection, distended and incision GI Palp: Yes abdominal tenderness, Yes Soft to palpation, Yes Tenderness to palpation present (GI), No Guarding due to palpation present (GI) and No Rigid due to palpation Objective Data Vital Signs Vital Signs: Vital Signs - 24 hr 01/12/23 09:13 01/12/23 09:25 01/12/23 09:40 Temperature 36.4 C Pulse Rate 80 73 78 Respiratory Rate 32 H 23 H 22 H Blood Pressure 123/75 130/76 134/79 Pulse Oximetry 97 99 93 Oxygen Delivery Simple Face Mask Simple Face Mask Room Air Oxygen Flow Rate 6 6 01/12/23 09:55 01/12/23 10:10 01/12/23 10:50 Temperature 36.8 C Pulse Rate 84 86 101 H Respiratory Rate 18 16 18 Blood Pressure 149/95 H 136/85 145/92 H Pulse Oximetry 94 92 97 Oxygen Delivery Room Air Room Air Oxygen Flow Rate 01/12/23 14:00 01/12/23 20:00 01/12/23 22:00 Temperature 36.9 C 36.3 C L Pulse Rate 103 H 98 Respiratory Rate 20 18 Blood Pressure 152/84 H 146/93 H Pulse Oximetry 95 98 Oxygen Delivery Room Air Oxygen Flow Rate 01/13/23 06:00 Temperature 36.2 C L Pulse Rate 86 Respiratory Rate 18 Blood Pressure 131/76 Pulse Oximetry 97 Oxygen Delivery Oxygen Flow Rate Intake/Output Intake/Output: Intake & Output 01/10/23 01/11/23 01/12/23 01/13/23 23:59 23:59 23:59 23:59 Intake Total 1999 2490 4350 1000 Output Total 300 Balance 1999 2190 4350 1000 Meds/Results Medications: Active Medications Generic Name Dose Route Start Last Admin Trade Name Freq PRN Reason Stop Dose Admin Hydrocodone Bitart/Acetaminophen 1 tab 01/12/23 10:16 01/13/23 06:18 Hydrocodone/Acetaminophen (*Crx) 5-325 Mg Tablet PO 1 tab Q4H PRN Administration Pain Rated 4-6 Artificial Tears 1 drop 01/11/23 05:13 01/11/23 20:31 Artificial Tears Ophth Soln 15 Ml Bottle EACH EYE 1 drop Q4H PRN Administration Dry Eye(s) Enoxaparin Sodium 40 mg 01/09/23 09:00 01/12/23 11:01 Enoxaparin 40 Mg/0.4 Ml Syringe SUB-Q Not Given DAILY [facility] Ferrous Sulfate 324 mg 01/12/23 10:20 01/12/23 11:57 Ferrous Sulfate 324 Mg Tablet PO 324 mg DAILY@0800 NELLY Administration Hydromorphone HCl 0.5 mg 01/09/23 16:13 01/12/23 22:58 Hydromorphone Hcl Inj (*Crx) 1 Mg/Ml Syr IV PUSH 0.5 mg Q2HR PRN Administration Pain Rated 7 or Greater Sodium Chloride 1,000 mls @ 100 mls/hr 01/09/23 09:20 01/13/23 03:58 Normal Saline Iv IV CONT 100 mls/hr .Q10H NELLY Administration Lidocaine 1 patch 01/11/23 11:25 01/12/23 11:02 Lidocaine 5% Patch TRANSDERM 1 patch DAILY NELLY Administration Lorazepam 0.5 mg 01/09/23 16:12 01/11/23 08:45 Lorazepam Inj (*Crx) 2 Mg/Ml Vial IV PUSH 0.5 mg Q6H PRN Administration Anxiety Miscellaneous Information 0 each 01/12/23 00:01 Control Is Nonformulary - Can Patient Bring From Home? XX 02/11/23 00:00 CLARIFY [facility] Multivitamins Therapeutic 1 tablet 01/12/23 10:20 01/12/23 11:57 Multivitamins Therapeutic Tab (*Bkc) PO 02/12/23 10:19 1 tablet DAILY NELLY Administration Non-Formulary Medication 1 tablet 01/13/23 09:00 Norgestimate-Ethinyl Estradiol [Sprintec (28)] PO 02/12/23 08:59 DAILY [facility] Pantoprazole Sodium 40 mg 01/09/23 09:00 01/12/23 20:30 Pantoprazole Sodium Iv 40 Mg Vial IV PUSH 40 mg Q12HR NELLY Administration Prochlorperazine Edisylate 10 m
[2023-01-13] MEDS: MULTIVITAMINS THERAPEUTIC TAB (*BKC) 1 TABLET PO (09:38)
[2023-01-13] MEDS: PANTOPRAZOLE SODIUM IV 40 MG VIAL IV PUSH (09:38)
[2023-01-13] MEDS: ENOXAPARIN 40 MG/0.4 ML SYRINGE SUB-Q (09:38)
[2023-01-13] MEDS: FERROUS SULFATE 324 MG TABLET PO (09:38)
--- NOTE | 2023-01-13 09:59 | PM.DS ---
DS: Admitting Diagnosis Discharge Date 01/13/23 Admitting Diagnosis acute cholecystitis DS: Discharge Diagnosis Discharge Diagnosis (1) Pancreatitis: Code(s): K85.90 - Acute pancreatitis without necrosis or infection, unspecified Status: Acute Assessment and Plan: Patient presented with c/o abdominal pain and CT scan suggested mild peripancreatic fat stranding. Lipase 716 to 215 to 243 IV fluids Right upper quadrant ultrasound- normal pancreas, no gallstones or gallbladder wall thickening, normal common bile duct, 2 small gallbladder polyps < 5 mm noted. Triglycerides 220, but not significantly elevated. No recent ERCP and patient is not on any medications known to contribute to pancreatitis. Question biliary colic. HIDA scan with reduced function 9% Cholecystectomy performed on 01/11/2023. 01/12/2023 postop day 1 Cholecystectomy. Pain controlled, advance diet as tolerated. patient tolerated diet well and having minimal pain. She has been cleared to discharge from (2) Biliary colic: Code(s): K80.50 - Calculus of bile duct without cholangitis or cholecystitis without obstruction Status: Acute Assessment and Plan: HIDA scan with dysfunction, EF 9% General surgery consulted. +emesis today. Plan for lap jeremías on 01/11/2023 01/12/23 postop day 1 and patient doing well, advance diet as tolerated (3) Intractable nausea and vomiting: Code(s): R11.2 - Nausea with vomiting, unspecified Status: Acute Assessment and Plan: likely secondary to 1 and gastritis/esophagitis noted on CT scan. Continue Supportive care with antiemetics and PPI (4) Gastritis: Code(s): K29.70 - Gastritis, unspecified, without bleeding Status: Acute Assessment and Plan: Moderate distal esophageal/gastric wall edema noted on CT scan. Continue IV PPI therapy. Consulted GI and appreciate recommendations. (5) Dysfunctional gallbladder: Code(s): K82.8 - Other specified diseases of gallbladder Status: Acute Assessment and Plan: as above (6) Abdominal pain: Qualifiers: Abdominal location: epigastric Qualified Code(s): R10.13 - Epigastric pain Code(s): R10.9 - Unspecified abdominal pain Status: Acute Assessment and Plan: Likely secondary to pancreatitis versus biliary colic. Repeat UA negative Repeat CT abd/pelvis normal (7) POTS (postural orthostatic tachycardia syndrome): Code(s): I49.8 - Other specified cardiac arrhythmias Status: Chronic Assessment and Plan: change positions slowly and fall precautions. Plan CODE STATUS: FULL CODE Disposition: from home. No discharge needs at this time. DS: Summary Hospital Course Reason for hospitalization: acute cholecystitis Hospital Course: This is a 42-year-old female with past medical history of POTS and chronic iron deficiency anemia the presented to the ED due to 1 week of abdominal pain that radiates to the back. CT abdomen pelvis revealed a peripancreatic fat stranding. Patient's lipase is elevated to 716 on admission. Lipase trended down during hospital stay. Patient received analgesics as needed and IV fluids. Patient underwent right upper quadrant ultrasound that showed gallbladder wall thickening, 2 small gallbladder polyps less than 5 mm. GI consulted. Patient underwent HIDA scan that showed low EF Of 9%. It is presumed that patient had some biliary colic General surgery consulted due to possible Need for cholecystectomy. General surgery consult inpatient and patient decided to proceed with cholecystectomy On 01/12/2023. Patient did well postoperatively and her pain is well controlled. patient's diet advanced as tolerated. Patient doing well postoperatively and handling diet well. She has been cleared to discharge by both hospitalist and General surgery. Time Spent with
== END 2023-01-13 11:10 | disposition home or self-care (01) | DRG 418 ==
LOC: ANHED 19:11 → ANH3MEDSUR 20:06
PROVIDERS: Nurse Practitioner; Nurse Practitioner Family; Physician Assistant; Surgery; Admitting Provider Internal Medicine; Emergency Provider Physician Assistant; PCP Internal Medicine Nephrology; Visit Provider Internal Medicine Critical Care Medicine
PROC: 0FT44ZZ Resection of Gallbladder, Percutaneous Endoscopic Approach (ICD-10-PCS; CPT 47562; principal; 2023-01-12 08:30)
DX: K85.10 Biliary acute pancreatitis without necrosis or infection (principal); K80.44 Calculus of bile duct with chronic cholecystitis without obstruction; K29.70 Gastritis, unspecified, without bleeding; K20.90 Esophagitis, unspecified without bleeding; G90.A Postural orthostatic tachycardia syndrome [POTS]; D50.9 Iron deficiency anemia, unspecified; Z20.822 Contact with and (suspected) exposure to COVID-19; N94.6 Dysmenorrhea, unspecified; E66.9 Obesity, unspecified; Z68.35 Body mass index [BMI] 35.0-35.9, adult; Z87.442 Personal history of urinary calculi
CPT/HCPCS: 36415; 74176; 74177; 76705; 76775; 78226; 80048; 80053; 81001; 81025; 82150; 83605; 83690; 84145; 84478; 84484; 85025; 85027; 85610; 85730; 86140; 87636; 88304; 93005; 96365; 96374; 96375; 96376; 99285; A9270; A9537; C9113; G0378; J0131; J0690; J0780; J1100; J1170; J1200; J1650; J2060; J2250; J2704; J2710; J2765; J3010; J7030; J7120; Q9967

== ENCOUNTER 2023-02-12 09:34 | Outpatient (CLI) | payer OTHER, SELFPAY ==
[2023-02-12 10:05] LABS: Hemoglobin 10.3 g/dL (12.0-15.0); Mean Corpuscular HGB Conc 31.2 g/dl (32-36); Mean Corpuscular Hemoglobin 26.5 pg (26-34); Mean Corpuscular Volume 85.1 fl (80-100); Mean Platelet Volume 9.9 fl (7.4-10.4); Platelet Count Result 308 k/mm3 (150-375); Red Blood Count 3.88 M/mm3 (4.2-5.4); White Blood Count 8.8 K/mm3 (4.5-10.0)
[2023-02-12 10:17] LABS: Alanine Aminotransferase 20 U/L (6-35); Albumin Level 4.5 g/dL (3.5-5.1); Alkaline Phosphatase 67 U/L (38-126); Anion Gap 7 mmol/L (8-16); Aspartate Amino Transferase 18 U/L (14-36); Bilirubin,Total 0.4 mg/dL (0.2-1.3); Blood Urea Nitrogen 11 mg/dL (7-17); Calcium 9.3 mg/dL (8.4-10.2); Carbon Dioxide 26 mmol/L (22-30); Chloride 104 mmol/L (98-107); Estimated Glomerular Filt Rate > 60; Glucose 101 mg/dL (65-110); Magnesium 1.9 mg/dL (1.6-2.3); Phosphorus 3.4 mg/dL (2.5-4.5); Potassium 4.5 mmol/L (3.4-5.0); Sodium 137 mmol/L (137-145)
[2023-02-12 10:24] LABS: Hemoglobin A1C 5.3 % (<5.7)
[2023-02-12 10:28] LABS: Parathyroid Intact 15.7 pg/mL (7.5-53.5)
[2023-02-12 10:38] LABS: Iron 17 ug/dL (37-170)
[2023-02-12 10:48] LABS: Percent Iron Saturation 4 % (20-50)
[2023-02-12 10:49] LABS: Creatinine Urine 93.8 mg/dL
[2023-02-12 10:53] LABS: Microalbumin Urine Random 7.5 mg/L (0-16.7)
[2023-02-12 10:55] LABS: Vitamin D 25 Hydroxy 50.4 ng/mL
[2023-02-12 11:47] LABS: Ferritin 6.03 ng/mL (6.24-137)
[2023-02-15 04:10] LABS: Total Protein Urine Random < 5 mg/dL
== END 2023-02-12 09:35 | disposition home or self-care (01) ==
PROVIDERS: PCP Internal Medicine Nephrology; Visit Provider Internal Medicine Nephrology
DX: N30.01 Acute cystitis with hematuria (principal); J12.82 Pneumonia due to coronavirus disease 2019; N20.0 Calculus of kidney; R16.0 Hepatomegaly, not elsewhere classified; Z86.2 Personal history of diseases of the blood and blood-forming organs and certain disorders involving the immune mechanism
CPT/HCPCS: 36415; 80053; 81002; 81050; 82043; 82306; 82728; 83036; 83540; 83550; 83735; 83970; 84100; 84156; 85027

== ENCOUNTER 2023-04-12 11:47 | Emergency (ER) | payer OTHER, SELFPAY ==
--- NOTE | ~2023-04-12 | CT_ITS ---
EXAMINATION: CT abdomen pelvis w con DATE: 04/12/2023 14:11 INDICATION: Epigastric abdominal pain. Periumbilical abdominal pain. TECHNIQUE: Computed tomography (CT) of the abdomen and pelvis was performed with 100 mL Omnipaque 350 intravenous contrast. Automated exposure control and iterative reconstruction technique were employe d. The dose-length product was 889.79 mGy-cm. COMPARISON: CT abdomen and pelvis 01/11/2023, 01/08/2023 FINDINGS: The visualized portions of the lung bases are clear without pneumonia or pleural effusion. The heart size is normal. No pericardial effusion. There is a 2.6 cm hypodense mass with interrupted peripheral puddling of contrast in right hepatic lobe, stable from 01/08/2023, consistent with a heman gioma. There is a 15 mm cyst in the liver. There are changes of cholecystectomy. The spleen, pancreas , and adrenal glands, and right kidney are normal. There is a 10 mm cyst in left kidney. There are no dilated loops of bowel. The appendix is normal. There are no pathologically enlarged lymph nodes. Th ere is no free intraperitoneal fluid. There is mild lumbar spondylosis. IMPRESSION: 1. No etiology for the patient's symptoms. Reviewed, dictated and finalized at location L.
[2023-04-12 11:59] VITALS: BP 139/75; PULSE 96; RESP 16; TEMP 36.2; O2SAT 100
[2023-04-12 12:25] LABS: Basophils Percent Auto 0.4 % (0.2-1.2); Eosinophils Absolute Auto 0.1 K/mm3 (0-0.3); Eosinophils Percent Auto 0.9 % (0-4.4); Hematocrit 38.6 % (37.0-47.0); Hemoglobin 12.3 g/dL (12.0-15.0); Immature Granulocyte Absolute 0.03 K/mm3 (0.00-0.031); Immature Granulocyte Percent A 0.4 % (0-0.5); Lymphocytes Absolute Auto 2.18 K/mm3 (0.9-3.2); Lymphocytes Percent Auto 25.5 % (18.3-44.2); Mean Corpuscular HGB Conc 31.9 g/dl (32-36); Mean Corpuscular Hemoglobin 24.9 pg (26-34); Mean Corpuscular Volume 78.1 fl (80-100); Monocytes Absolute Auto 0.5 K/mm3 (0.1-0.6); Monocytes Percent Auto 6.1 % (2.6-8.5); Neutrophils Absolute Auto 5.7 K/mm3 (1.3-6.7); Neutrophils Percent Auto 66.7 % (45.5-73.1); Platelet Count Result 358 k/mm3 (150-375); Red Blood Count 4.94 M/mm3 (4.2-5.4); Red Cell Distribution Width 13.9 % (11.5-14.5); White Blood Count 8.5 K/mm3 (4.5-10.0)
[2023-04-12 12:31] LABS: Alanine Aminotransferase 21 U/L (6-35); Albumin Level 4.6 g/dL (3.5-5.1); Alkaline Phosphatase 61 U/L (38-126); Anion Gap 9 mmol/L (8-16); Aspartate Amino Transferase 20 U/L (14-36); Bilirubin,Total 0.3 mg/dL (0.2-1.3); Blood Urea Nitrogen 9 mg/dL (7-17); Calcium 9.2 mg/dL (8.4-10.2); Carbon Dioxide 25 mmol/L (22-30); Chloride 103 mmol/L (98-107); Estimated CRCL calculation 122 ml/min; Estimated Glomerular Filt Rate > 60; Glucose 138 mg/dL (65-110); Lipase 112 U/L (23-300); Potassium 3.9 mmol/L (3.4-5.0); Sodium 137 mmol/L (137-145)
[2023-04-12 12:44] LABS: Appearance Urine Clear (Clear); Bacteria Urine None Seen /hpf; Bilirubin Urine Negative (Negative); Blood Urine Trace (Negative); Color Urine Yellow (Yellow); Glucose Urine UA Negative (Negative); Ketones Urine Negative (Negative); Leukocyte Esterase Ur 1+ LEU/UL (Negative); Need Manual Microscopic Reviewed; Nitrate Urine Negative (Negative); Non Pathogenic Casts 0-2; Protein Urine Negative (Negative); RBC Urine 0-2 /hpf (0-2); Specific Grav Ur 1.004 (1.001-1.035); Squamous Epithelial Cell Urine Occasional /hpf (Few); Urobilinogen Urine 0.2 mg/dL (<2.0); WBC Urine 0-5 /hpf
[2023-04-12 12:55] LABS: Add Urine Microscopic? YES
--- NOTE | 2023-04-12 14:04 | ED.ABDPAIN ---
HPI - Abdominal Pain General Chief Complaint: Abdominal Pain Stated Complaint: SHARP ABD PAIN X4D Time Seen by Provider: 04/12/23 12:49 Source: patient Mode of arrival: ambulatory Limitations: no limitations History of Present Illness HPI narrative: This is a 42-year-old female presents to the ED with chief complaint of epigastric pain x3 days. Patient states that she had a recent bout of pancreatitis and cholecystectomy almost 2 months ago. States the pain is very similar to then. Reports a sharp, stabbing pain in the epigastrium to the back. She is unsure of any specific triggers, however states she has been eating a lot of fried food over the past holiday weekend and feels like that may be making things worse. Denies any smoking or alcohol use. Denies fevers, chills, vomiting, nausea, diarrhea, problems with bowel movements, urinary problems, chest pain, shortness of breath, sweats. PSHx of cholecystectomy Related Data Home Medications Medication Instructions Recorded Confirmed ferrous sulfate 325 mg (65 mg 325 mg PO DAILY 07/06/22 02/14/23 iron) tablet Adults Multivitamin 1 tab-cap PO DAILY 01/08/23 02/14/23 Allergies Allergy/AdvReac Type Severity Reaction Status Date / Time meperidine Allergy Mild Hives Verified 04/12/23 12:07 Penicillins Allergy Unknown Hives Verified 04/12/23 12:07 prednisone Allergy Unknown HIVES Verified 04/12/23 12:07 Sulfa (Sulfonamide Allergy Unknown Hives Verified 04/12/23 12:07 Antibiotics) ondansetron [From Zofran] AdvReac Vomiting Verified 04/12/23 12:07 Review of Systems Review of Systems: CONSTITUTIONAL: Denies fever, chills, or sweats. EYES: Denies visual changes, redness, or discharge. ENT: Denies rhinorrhea, congestion, sore throat, or otalgia. CARDIOVASCULAR: Denies chest pain, palpitations, or edema. RESPIRATORY: Denies cough or dyspnea. GASTROINTESTINAL: See HPI GENITOURINARY: Denies dysuria or hematuria. SKIN: Denies rash or itching. MUSCULOSKELETAL: Denies back pain, joint pain, or myalgia. NEUROLOGIC: Denies headache, numbness, dizziness, or weakness. PSYCHIATRIC: Denies anxiety or depression. [facility] Past Medical History Medical History [place] infusions when needed / Taking iron Biliary colic History of gastric ulcer History of kidney stones Polyp of gallbladder POTS (postural orthostatic tachycardia syndrome) Screening mammogram, encounter for Surgical History Surgical History History of thyroid surgery Mass removed from thyroid History of ureter stent S/P laparoscopic cholecystectomy 01/12/23 Family History Family History Father Family history of primary malignant neoplasm of liver Carcinoma of colon Malignant tumor of stomach Mother Diabetes mellitus Family history of cardiovascular disease Hypertension Renal failure syndrome Other Malignant neoplasm of prostate Pulmonary emboli Social History Social History Smoking status: Never smoker Alcohol intake: never Substance use: never Substance use type: does not use Lack of Transportation: No Lack of Food: Never True Current Housing: I Have Housing Concerned About Future Housing: No Difficulty Paying Gas/Electric Bills: No Difficulty Paying for Meds: No Currently Unemployed: No Education: Master's Degree or Higher Difficulty w/ Childcare or Family Care: No Living arrangements: other Additional living arrangements comments: 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
[2023-04-12] MEDS: HYDROmorphone HCL INJ (*CRX) 1 MG/ML SYR 0.5 MG IV PUSH ×2 (14:20→15:28)
[2023-04-12] MEDS: SODIUM CHLORIDE 0.9% IV 1,000 ML 999 ML IV CONT (15:27)
[2023-04-12] MEDS: BELLADONNA ALK/PHENOB ELIX 10 ML, MAG HYDROX/ALUMINUM HYD/SIMETH 30 ML, LIDOCAINE HCL 2... PO (15:27)
[2023-04-12] MEDS: FAMOTIDINE 20 MG/2 ML VIAL IV PUSH (15:28)
[2023-04-12] MEDS: KETOROLAC 15 MG/ML VIAL (*BKC) IV PUSH (15:28)
[2023-04-12 16:45] VITALS: BP 131/70; PULSE 91; RESP 17; O2SAT 100
== END 2023-04-12 16:55 | disposition home or self-care (01) ==
PROVIDERS: Emergency Medicine; Emergency Provider Physician Assistant; PCP Internal Medicine Nephrology
DX: R10.13 Epigastric pain (principal); D50.9 Iron deficiency anemia, unspecified; G90.A Postural orthostatic tachycardia syndrome [POTS]; Z87.442 Personal history of urinary calculi; Z90.49 Acquired absence of other specified parts of digestive tract
CPT/HCPCS: 36415; 74177; 80053; 81001; 81025; 83690; 85025; 96361; 96374; 96375; 96376; 99284; A9270; J1170; J1885; J7030; Q9967

== ENCOUNTER 2023-04-25 09:47 | Emergency (ER) | payer OTHER, SELFPAY ==
--- NOTE | 2023-04-25 09:53 | ED.EAR ---
HPI - Ear Problem General Chief complaint: Ear Stated complaint: Ear ache Time Seen by Provider: 04/25/23 09:53 Source: patient Mode of arrival: ambulatory Limitations: no limitations History of Present Illness HPI Narrative: Maribell is a 42-year-old female patient presenting to the clinic today with complaints of an earache x1 day. She reports no known fever or chills. States was having some pain in the right ear however that has resolved but now is having pain in the left ear. Denies any sore throat, nasal congestion, or fever Related Data Home Medications Medication Instructions Recorded Confirmed ferrous sulfate 325 mg (65 mg 325 mg PO DAILY 07/06/22 04/25/23 iron) tablet Allergies Allergy/AdvReac Type Severity Reaction Status Date / Time meperidine Allergy Mild Hives Verified 04/25/23 09:54 Penicillins Allergy Mild Hives Verified 04/25/23 09:54 prednisone Allergy Mild HIVES Verified 04/25/23 09:54 Sulfa (Sulfonamide Allergy Mild Hives Verified 04/25/23 09:54 Antibiotics) ondansetron [From Zofran] AdvReac Mild Vomiting Verified 04/25/23 09:54 Review of Systems Review of Systems: Pertinent positives per HPI. Patient denies any fever, chills, rash, headache, visual changes, dizziness, cough, shortness of breath, chest pain, palpitations, nausea, vomiting, diarrhea, constipation, abdominal pain, or any urinary issues. [facility] Past Medical History Medical History [place] Iron infusions when needed / Taking iron Biliary colic History of gastric ulcer History of kidney stones Polyp of gallbladder POTS (postural orthostatic tachycardia syndrome) Screening mammogram, encounter for Surgical History Surgical History History of thyroid surgery Mass removed from thyroid History of ureter stent S/P laparoscopic cholecystectomy 01/12/23 Family History Family History Father Family history of primary malignant neoplasm of liver Carcinoma of colon Malignant tumor of stomach Mother Diabetes mellitus Family history of cardiovascular disease Hypertension Renal failure syndrome Other Malignant neoplasm of prostate Pulmonary emboli Social History Social History Smoking status: Never smoker Alcohol intake: never Substance use: never Substance use type: does not use Lack of Transportation: No Lack of Food: Never True Current Housing: I Have Housing Concerned About Future Housing: No Difficulty Paying Gas/Electric Bills: No Difficulty Paying for Meds: No Currently Unemployed: No Education: Master's Degree or Higher Difficulty w/ Childcare or Family Care: No Living arrangements: other Additional living arrangements comments: 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 There is no relevant family history pertinent to the patient complaint. Exam Narrative: General: Well-developed, well nourished, in no apparent distress Head: Normocephalic, atraumatic Eyes: Pupils equally round and reactive to light bilaterally, EOM intact, sclera and conjunctive clear, no discharge, lids normal Ears: Right TM intact and clear, Left TM intact, mild bulging, clear, ear canals clear, no drainage, grossly hearing normal. Nose: Nares patent, no discharge, no inflammation, no sinus tenderness. Mouth: Oral pharynx without lesions or masses, good dentition, MMM. Neck: Supple, trachea midline, no enla
[2023-04-25 09:57] VITALS: BP 146/89; PULSE 90; RESP 14; TEMP 36.8; O2SAT 99
[2023-04-25 10:02] VITALS: BP 146/89; PULSE 90; RESP 14; TEMP 36.8; O2SAT 99
== END 2023-04-25 10:15 | disposition home or self-care (01) ==
PROVIDERS: Emergency Provider Nurse Practitioner Family; PCP Internal Medicine Nephrology
DX: H69.92 Unspecified Eustachian tube disorder, left ear (principal); D64.9 Anemia, unspecified
CPT/HCPCS: 99211; G0463

== ENCOUNTER 2023-05-06 07:46 | Outpatient (CLI) | payer OTHER, SELFPAY ==
[2023-05-06 08:53] LABS: Hemoglobin 12.6 g/dL (12.0-15.0); Mean Corpuscular HGB Conc 32.3 g/dl (32-36); Mean Corpuscular Hemoglobin 25.5 pg (26-34); Mean Corpuscular Volume 78.8 fl (80-100); Mean Platelet Volume 10.2 fl (7.4-10.4); Platelet Count Result 373 k/mm3 (150-375); Red Blood Count 4.95 M/mm3 (4.2-5.4); Red Cell Distribution Width 15.8 % (11.5-14.5); White Blood Count 11.3 K/mm3 (4.5-10.0)
[2023-05-06 09:28] LABS: Iron 53 ug/dL (37-170)
[2023-05-06 09:37] LABS: Percent Iron Saturation 10 % (20-50)
[2023-05-06 12:16] LABS: Alanine Aminotransferase 21 U/L (6-35); Albumin Level 4.6 g/dL (3.5-5.1); Alkaline Phosphatase 56 U/L (38-126); Anion Gap 8 mmol/L (8-16); Aspartate Amino Transferase 21 U/L (14-36); Bilirubin,Total 0.3 mg/dL (0.2-1.3); Blood Urea Nitrogen 15 mg/dL (7-17); Calcium 9.3 mg/dL (8.4-10.2); Carbon Dioxide 28 mmol/L (22-30); Chloride 101 mmol/L (98-107); Estimated Glomerular Filt Rate > 60; Glucose 116 mg/dL (65-110); Magnesium 2.1 mg/dL (1.6-2.3); Sodium 137 mmol/L (137-145)
[2023-05-06 13:10] LABS: Appearance Urine Clear (Clear); Bacteria Urine None Seen /hpf; Bilirubin Urine Negative (Negative); Blood Urine Negative (Negative); Color Urine Yellow (Yellow); Glucose Urine UA Negative (Negative); Ketones Urine Negative (Negative); Leukocyte Esterase Ur Trace LEU/UL (NEGATIVE); Nitrate Urine Negative (Negative); Non Pathogenic Casts 0-2; Protein Urine Negative (Negative); RBC Urine 0-2 /hpf (0-2); Specific Grav Ur 1.009 (1.001-1.035); Squamous Epithelial Cell Urine Occasional /hpf (Few); Urobilinogen Urine 0.2 mg/dL (<2.0); WBC Urine 0-5 /hpf (0-3)
[2023-05-06 13:17] LABS: Add Urine Microscopic? YES
[2023-05-06 13:22] LABS: Folic Acid 7.3 ng/mL (2.76->20)
== END 2023-05-06 07:47 | disposition home or self-care (01) ==
LOC: ANHLAB 07:49
PROVIDERS: PCP Internal Medicine Nephrology; Visit Provider Internal Medicine Nephrology
DX: C73 Malignant neoplasm of thyroid gland (principal); N20.0 Calculus of kidney; N30.01 Acute cystitis with hematuria; R53.83 Other fatigue; Z86.2 Personal history of diseases of the blood and blood-forming organs and certain disorders involving the immune mechanism
CPT/HCPCS: 36415; 80053; 81001; 82607; 82728; 82746; 83540; 83550; 83735; 84443; 85027; 87086

== ENCOUNTER 2023-05-26 08:00 | Outpatient (NON) | payer OTHER, SELFPAY | END 2023-05-26 08:01 | disposition home or self-care (01) | LOC: ANHLAB 05-27 07:53 | PROVIDERS: PCP Internal Medicine Nephrology; Visit Provider Internal Medicine Gastroenterology | DX: R10.9 Unspecified abdominal pain (principal) | CPT/HCPCS: 88305 ==

== ENCOUNTER 2023-05-26 09:16 | Day surgery (SDC) | payer OTHER, SELFPAY ==
[2023-05-06 10:32] VITALS: BMI 34.4
--- NOTE | 2023-05-25 15:34 | WPDANESEPPF ---
Anes - Initial Pre Proc Eval Procedure: Operation Date: 05/26/23 11:00 Proposed Procedures p Esophagogastroduodenoscopy - Chris Modi MD s Diagnostic Colonoscopy - Chris Modi MD Date/Time: 05/25/23 15:34 Surgeon: Chris Modi MD Pre Op Diagnosis: Gatritis wo Bleeding, FM.HX. Colon Cancer Patient Data Age: 43 Gender: F Height: 1.68 m Weight: 97 kg Allergies Allergy/AdvReac Type Severity Reaction Status Date / Time meperidine Allergy Mild Hives Verified 05/26/23 09:48 Sulfa (Sulfonamide Allergy Mild Hives Verified 05/26/23 09:48 Antibiotics) ondansetron [From Zofran] AdvReac Mild Vomiting Verified 05/26/23 09:48 Home Medications Medication Instructions Recorded Confirmed Type ferrous sulfate 325 mg (65 mg 325 mg PO DAILY 07/06/22 05/26/23 History iron) tablet norgestimate 0.25 mg-ethinyl 1 tablet PO DAILY #84 tabs 09/15/22 05/26/23 Rx estradiol 35 mcg tablet (Sprintec (28)) omeprazole 20 mg capsule,delayed 20 mg PO DAILY #30 caps 04/28/23 05/26/23 Rx release fluconazole 150 mg tablet 150 mg PO DAILY #2 tabs 05/10/23 05/26/23 Rx (Diflucan) Patient hx anesthesia problems: none Family hx anesthesia problems: none Results Review: All pre-operative results and documents have been reviewed as part of the pre-operative evaluation. COUNT INCLUDES THE [facility] Past Medical History Medical History (Updated 05/25/23 @ 15:35 by Rios Oliver MD) [place] infusions when needed / Taking iron Biliary colic Dyspepsia Family history of colon cancer in father History of gastric ulcer History of kidney stones Loose stools Obesity Polyp of gallbladder POTS (postural orthostatic tachycardia syndrome) Screening mammogram, encounter for Surgical History Surgical History History of thyroid surgery Mass removed from thyroid History of ureter stent S/P laparoscopic cholecystectomy 01/12/23 Family History Family History Father Family history of primary malignant neoplasm of liver Carcinoma of colon Malignant tumor of stomach Mother Diabetes mellitus Family history of cardiovascular disease Hypertension Renal failure syndrome Other Malignant neoplasm of prostate Pulmonary emboli Social History Social History Smoking status: Never smoker Alcohol intake: never Substance use: never Substance use type: does not use Lack of Transportation: No Lack of Food: Never True Current Housing: I Have Housing Concerned About Future Housing: No Difficulty Paying Gas/Electric Bills: No Difficulty Paying for Meds: No Currently Unemployed: No Education: Master's Degree or Higher Difficulty w/ Childcare or Family Care: No Living arrangements: with family Additional living arrangements comments: 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eterosexual Spiritual care concerns: No Anes - Eval Final PreProcedure Day of Procedure 05/25/23 15:34 Patient weight: obese Heart: regular rate and rhythm Lungs: clear to auscultation Airway: Mallampati scale class II Neurological: alert and oriented Last oral intake: >/= 8 hours ASA classification: II Emergent: no Anesthetic plan: proceed Anesthesia type and monitoring: general GIVS and standard monitoring Results Review: All pre-operative results and documents have been reviewed as part of the pre-operative evaluation. Informed Consent: The patient's anesthetic plan and its attendant risks and benefits were discussed with the patient/family/POA. Questions were solicited and answers provided to the satisfaction of the patient/family/POA.
[2023-05-26 09:50] VITALS: BP 135/85; PULSE 83; RESP 16; TEMP 37; O2SAT 100
[2023-05-26] MEDS: LACTATED RINGERS 1,000 ML 150 ML IV CONT (09:59)
--- NOTE | 2023-05-26 11:07 | WPDHPUPDATE1 ---
History and Physical Update Update Date/Time: 05/26/23 11:07 History and Physical has been reviewed, including an updated exam of the patient. There are NO changes in the patient's condition. Risks, benefits, and alternatives have been discussed and questions answered. Patient agrees to proceed with procedure.
[2023-05-26 11:35] VITALS: BP 101/65; PULSE 80; RESP 18; O2SAT 99
[2023-05-26 11:45] VITALS: BP 102/73; PULSE 85; RESP 16; O2SAT 95
[2023-05-26 11:55] VITALS: BP 123/87; PULSE 77; RESP 16; O2SAT 96
--- NOTE | 2023-05-26 12:09 | WPDANESPN ---
Anes - Prog Note Post-Op Date/Time: 05/26/23 12:09 Cardiovascular status: normal Respiratory status: normal Airway patency: baseline Mental status: baseline Post-Op hydration status: normal Vital Signs: Last Vital Signs Temp 37.0 C 05/26/23 09:50 Pulse 77 05/26/23 11:55 Resp 16 05/26/23 11:55 BP 123/87 05/26/23 11:55 Pulse Ox 96 05/26/23 11:55 O2 Del Method Room Air 05/26/23 11:55 Pain Score (VAS): 0 I/O: Intake & Output 05/25/23 05/26/23 05/26/23 23:59 07:59 15:59 Intake Total 750 Balance 750 Post-procedural complaints: none Patient Feedback: Patient satisfied with anesthetic care.
== END 2023-05-26 12:08 | disposition home or self-care (01) ==
PROVIDERS: PCP Internal Medicine Nephrology; Visit Provider Internal Medicine Gastroenterology
PROC: 0DJ08ZZ Inspection of Upper Intestinal Tract, Via Natural or Artificial Opening Endoscopic (ICD-10-PCS; CPT 43235; principal; 2023-05-26 11:00)
PROC: 0DJD8ZZ Inspection of Lower Intestinal Tract, Via Natural or Artificial Opening Endoscopic (ICD-10-PCS; CPT 45378; 2023-05-26 11:00)
DX: R10.9 Unspecified abdominal pain (principal)
CPT/HCPCS: 45380; 43239

== ENCOUNTER 2023-06-03 18:15 | Emergency (ER) | payer OTHER, SELFPAY ==
[2023-06-03 18:24] VITALS: BP 141/82; PULSE 89; RESP 16; TEMP 37.1; O2SAT 100
--- NOTE | 2023-06-03 18:52 | ED.FEMALEGU ---
HPI - Female Genitourinary General Chief complaint: Urogenital-Female Stated complaint: UTI Time Seen by Provider: 06/03/23 18:48 Source: patient and RN notes reviewed Mode of arrival: ambulatory Limitations: no limitations History of Present Illness HPI Narrative: Patient presents today complaining of lower abdominal discomfort, urgency, fatigue, frequency, and low back pain since yesterday. Denies fever, dysuria, hematuria. She has been taking ibuprofen with some mild relief. LMP was May 23. Related Data Home Medications Medication Instructions Recorded Confirmed ferrous sulfate 325 mg (65 mg 325 mg PO DAILY 07/06/22 06/03/23 iron) tablet Allergies Allergy/AdvReac Type Severity Reaction Status Date / Time meperidine Allergy Mild Hives Verified 06/03/23 18:25 Sulfa (Sulfonamide Allergy Mild Hives Verified 06/03/23 18:25 Antibiotics) ondansetron [From Zofran] AdvReac Mild Vomiting Verified 06/03/23 18:25 Review of Systems Review of Systems: CONSTITUTIONAL: Denies body aches, fever, chills, or sweats. EYES: Denies visual changes, redness, or discharge. ENT: Denies rhinorrhea, congestion, sore throat, or otalgia. CARDIOVASCULAR: Denies chest pain, palpitations, or edema. RESPIRATORY: Denies cough or dyspnea. GASTROINTESTINAL: Denies nausea, vomiting, or diarrhea. GENITOURINARY: Denies dysuria or hematuria.+ frequency, urgency, suprapubic pain SKIN: Denies rash, itching, or wounds. MUSCULOSKELETAL: Denies joint pain, or myalgia.+ low back pain NEUROLOGIC: Denies headache, numbness, tingling, or weakness. PSYCH: Denies depression or anxiety. [facility] Past Medical History Medical History [place] Iron infusions when needed / Taking iron Biliary colic Dyspepsia Family history of colon cancer in father History of gastric ulcer History of kidney stones Loose stools Obesity Polyp of gallbladder POTS (postural orthostatic tachycardia syndrome) Screening mammogram, encounter for Surgical History Surgical History History of thyroid surgery Mass removed from thyroid History of ureter stent S/P laparoscopic cholecystectomy 01/12/23 Family History Family History Father Family history of primary malignant neoplasm of liver Carcinoma of colon Malignant tumor of stomach Mother Diabetes mellitus Family history of cardiovascular disease Hypertension Renal failure syndrome Other Malignant neoplasm of prostate Pulmonary emboli Social History Social History Smoking status: Never smoker Alcohol intake: never Substance use: never Substance use type: does not use Lack of Transportation: No Lack of Food: Never True Current Housing: I Have Housing Concerned About Future Housing: No Difficulty Paying Gas/Electric Bills: No Difficulty Paying for Meds: No Currently Unemployed: No Education: Master's Degree or Higher Difficulty w/ Childcare or Family Care: No Living arrangements: with family Additional living arrangements comments: 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 Please see nursing chart for further information. There is no relevant family history pertinent to the presenting complaint Exam Narrative: GENERAL: Well-appearing, well-nourished, and in no acute distress. HEAD: Normocephalic, atraumatic. EYES: EOMI. No redness or drainage. Conjunctivae normal.
== END 2023-06-03 18:58 | disposition home or self-care (01) ==
PROVIDERS: Emergency Provider Nurse Practitioner; PCP Internal Medicine Nephrology
DX: N30.01 Acute cystitis with hematuria (principal); E66.9 Obesity, unspecified; Z68.33 Body mass index [BMI] 33.0-33.9, adult; D64.9 Anemia, unspecified
CPT/HCPCS: 81003; 87086; 87088; 99213; G0463

== ENCOUNTER 2023-06-09 16:03 | Emergency (ER) | payer OTHER, SELFPAY ==
--- NOTE | ~2023-06-09 | CT_ITS ---
EXAMINATION: CT abdomen pelvis wo con DATE: 06/09/2023 17:59 INDICATION: Urinary frequency. History of kidney stones. TECHNIQUE: Computed tomography (CT) of the abdomen and pelvis was performed without intravenous contr ast. The dose-length product was 873.48 mGy-cm. Automated exposure control and iterative reconstructi on technique were employed. COMPARISON: CT dated 04/12/2023. FINDINGS: Lower abdominal pain. Urinary frequency. History of kidney stones. Lung bases are unremarka ble. Heart size normal. No significant pleural or pericardial effusion. Small low-density lesion righ t hepatic lobe, most likely benign cyst. There is a subtle hypodense mass right hepatic lobe, previou sly characterized cyst or hemangioma by CT. No free air or free fluid. Nonobstructive bowel pattern. No acute osseous abnormality. Status post cholecystectomy. The spleen, pancreas, adrenal glands and k idneys are unremarkable. No hydronephrosis. There is a left pelvic phlebolith. No ureteral stones or hydronephrosis. IMPRESSION: 1. No acute abdominal abnormality. Reviewed, dictated and finalized at location A.
[2023-06-09 16:07] VITALS: BP 156/97; PULSE 90; RESP 20; TEMP 37.3; O2SAT 100
[2023-06-09 16:16] LABS: Basophils Percent Auto 0.4 % (0.2-1.2); Eosinophils Absolute Auto 0.1 K/mm3 (0-0.3); Eosinophils Percent Auto 1.7 % (0-4.4); Hematocrit 37.1 % (37.0-47.0); Hemoglobin 12.1 g/dL (12.0-15.0); Immature Granulocyte Absolute 0.02 K/mm3 (0.00-0.031); Immature Granulocyte Percent A 0.2 % (0-0.5); Lymphocytes Absolute Auto 2.15 K/mm3 (0.9-3.2); Lymphocytes Percent Auto 25.4 % (18.3-44.2); Mean Corpuscular HGB Conc 32.6 g/dl (32-36); Mean Corpuscular Hemoglobin 25.4 pg (26-34); Mean Corpuscular Volume 77.9 fl (80-100); Mean Platelet Volume 9.7 fl (7.4-10.4); Monocytes Absolute Auto 0.6 K/mm3 (0.1-0.6); Monocytes Percent Auto 6.8 % (2.6-8.5); Neutrophils Absolute Auto 5.6 K/mm3 (1.3-6.7); Neutrophils Percent Auto 65.5 % (45.5-73.1); Platelet Count Result 352 k/mm3 (150-375); Red Blood Count 4.76 M/mm3 (4.2-5.4); Red Cell Distribution Width 14.3 % (11.5-14.5); White Blood Count 8.5 K/mm3 (4.5-10.0)
[2023-06-09 16:24] LABS: Appearance Urine Clear (Clear); Bacteria Urine None Seen /hpf; Bilirubin Urine Negative (Negative); Blood Urine Negative (Negative); Color Urine Yellow (Yellow); Glucose Urine UA Negative (Negative); Ketones Urine Negative (Negative); Leukocyte Esterase Ur Trace LEU/UL (Negative); Nitrate Urine Negative (Negative); Non Pathogenic Casts 0-2; Protein Urine Negative (Negative); RBC Urine 0-2 /hpf (0-2); Specific Grav Ur 1.006 (1.001-1.035); Squamous Epithelial Cell Urine None seen /hpf (Few); Urobilinogen Urine 0.2 mg/dL (<2.0); WBC Urine 0-5 /hpf
[2023-06-09 16:25] LABS: Add Urine Microscopic? YES
[2023-06-09 16:26] LABS: Alanine Aminotransferase 21 U/L (6-35); Albumin Level 4.5 g/dL (3.5-5.1); Alkaline Phosphatase 58 U/L (38-126); Anion Gap 13 mmol/L (8-16); Aspartate Amino Transferase 23 U/L (14-36); Bilirubin,Total 0.2 mg/dL (0.2-1.3); Blood Urea Nitrogen 8 mg/dL (7-17); Calcium 9.7 mg/dL (8.4-10.2); Carbon Dioxide 25 mmol/L (22-30); Chloride 102 mmol/L (98-107); Estimated CRCL calculation 103 ml/min; Estimated Glomerular Filt Rate > 60; Glucose 108 mg/dL (65-110); Lipase 178 U/L (23-300); Potassium 4.1 mmol/L (3.4-5.0); Sodium 140 mmol/L (137-145)
--- NOTE | 2023-06-09 17:44 | ED.FEMALEGU ---
HPI - Female Genitourinary General Chief complaint: Urogenital-Female Stated complaint: abdominal pain;urinary urgency Time Seen by Provider: 06/09/23 17:09 Source: patient Mode of arrival: ambulatory Limitations: no limitations History of Present Illness HPI Narrative: This is a 43 year old female that presents to the ER lower abdominal pain present over the last 6 days. Associated with urinary frequency. She was evaluated at our Urgent at beginning of symptoms and diagnosed with UTI. Has been taking Keflex with little relief. Denies fever, vomiting or hematuria. Related Data Home Medications Medication Instructions Recorded Confirmed ferrous sulfate 325 mg (65 mg 325 mg PO DAILY 07/06/22 06/03/23 iron) tablet Allergies Allergy/AdvReac Type Severity Reaction Status Date / Time meperidine Allergy Mild Hives Verified 06/09/23 16:11 Sulfa (Sulfonamide Allergy Mild Hives Verified 06/09/23 16:11 Antibiotics) ondansetron [From Zofran] AdvReac Mild Vomiting Verified 06/09/23 16:11 Review of Systems Review of Systems: CONSTITUTIONAL: Denies fever GASTROINTESTINAL: Reports abdominal pain. Denies nausea, vomiting, or diarrhea. GENITOURINARY: Reports dysuria. Denies hematuria. All systems reviewed & are unremarkable except as noted in HPI and below PMFSH Past Medical History Medical History [place] Iron infusions when needed / Taking iron Biliary colic Dyspepsia Family history of colon cancer in father History of gastric ulcer History of kidney stones Loose stools Obesity Polyp of gallbladder POTS (postural orthostatic tachycardia syndrome) Screening mammogram, encounter for Surgical History Surgical History History of thyroid surgery Mass removed from thyroid History of ureter stent S/P laparoscopic cholecystectomy 01/12/23 Family History Family History Father Family history of primary malignant neoplasm of liver Carcinoma of colon Malignant tumor of stomach Mother Diabetes mellitus Family history of cardiovascular disease Hypertension Renal failure syndrome Other Malignant neoplasm of prostate Pulmonary emboli Social History Social History Smoking status: Never smoker Alcohol intake: never Substance use: never Substance use type: does not use Lack of Transportation: No Lack of Food: Never True Current Housing: I Have Housing Concerned About Future Housing: No Difficulty Paying Gas/Electric Bills: No Difficulty Paying for Meds: No Currently Unemployed: No Education: Master's Degree or Higher Difficulty w/ Childcare or Family Care: No Living arrangements: with family Additional living arrangements comments: 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 HEAD: Normocephalic, atraumatic. EYES: EOMI. CHEST: Clear to auscultation. No respiratory distress. No wheezes rales or rhonchi HEART: Regular rate and rhythm. No murmur heard. Normal peripheral pulses. ABDOMEN: Soft, nondistended, normal active bowel sounds. Mild tenderness to palpation throughout the lower abdomen, without guarding. No CVA tenderness EXTREMITIES: Normal range of motion. No edema. SKIN: Warm, dry, no rash. NEURO: No focal deficits. Alert and oriented x3. PSYCH: Normal mood and affect Course Course Emergency Course: Patient was updated on workup and agrees with plan of care Vital Signs Vital signs: Vital Signs Temperature 99.1 F
[2023-06-09 19:32] VITALS: BP 152/86; PULSE 65; O2SAT 99
== END 2023-06-09 19:34 | disposition home or self-care (01) ==
PROVIDERS: Emergency Medicine; Emergency Provider Physician Assistant; PCP Internal Medicine Nephrology
DX: R30.0 Dysuria (principal); D50.9 Iron deficiency anemia, unspecified; G90.A Postural orthostatic tachycardia syndrome [POTS]; E66.9 Obesity, unspecified; Z68.34 Body mass index [BMI] 34.0-34.9, adult; Z87.442 Personal history of urinary calculi; Z90.49 Acquired absence of other specified parts of digestive tract
CPT/HCPCS: 36415; 74176; 80053; 81001; 81025; 83690; 85025; 99284

== ENCOUNTER 2023-07-23 11:25 | Emergency (ER) | payer OTHER, SELFPAY ==
[2023-07-23 11:51] VITALS: BP 150/85; PULSE 83; RESP 16; TEMP 37.2; O2SAT 99
--- NOTE | 2023-07-23 12:26 | ED.FEMALEGU ---
HPI - Female Genitourinary General Chief complaint: Urogenital-Female Stated complaint: Urogenital Female, Upper Back Irritation Time Seen by Provider: 07/23/23 11:55 Source: patient Mode of arrival: ambulatory Limitations: no limitations History of Present Illness HPI Narrative: Maribell is a 43-year-old female patient presenting to the clinic today with complaints of right flank pain and bilateral lower abdominal pain. She reports this has been going on for approximately 4 days. She denies any known fever or chills. States she is having a pressure feeling in the lower abdomen. History of kidney stones in the past. Related Data Home Medications Medication Instructions Recorded Confirmed vitamin B complex (B 1 tablet PO DAILY 06/16/23 07/12/23 Complex-Vitamin B12 tablet) Allergies Allergy/AdvReac Type Severity Reaction Status Date / Time meperidine Allergy Mild Hives Verified 07/12/23 15:48 Sulfa (Sulfonamide Allergy Mild Hives Verified 07/12/23 15:48 Antibiotics) ondansetron [From Zofran] AdvReac Mild Vomiting Verified 07/12/23 15:48 Review of Systems Review of Systems: Pertinent positives per HPI. Patient denies any fever, chills, rash, headache, visual changes, dizziness, cough, runny nose, sore throat, shortness of breath, chest pain, palpitations, nausea, vomiting, diarrhea, constipation PMFSH Past Medical History Medical History [place] Iron infusions when needed / Taking iron Biliary colic Bloating Dyspepsia Family history of colon cancer in father History of gastric ulcer History of kidney stones Irritable bowel syndrome with constipation Loose stools Obesity Polyp of gallbladder POTS (postural orthostatic tachycardia syndrome) Screening mammogram, encounter for Surgical History Surgical History History of thyroid surgery Mass removed from thyroid History of ureter stent S/P laparoscopic cholecystectomy (01/12/23) 01/12/23 Family History Family History Father Family history of primary malignant neoplasm of liver Carcinoma of colon Malignant tumor of stomach Mother Diabetes mellitus Family history of cardiovascular disease Hypertension Renal failure syndrome Other Malignant neoplasm of prostate Pulmonary emboli Social History Social History Smoking status: Never smoker Second hand tobacco smoke exposure: No Alcohol intake: never Substance use: never Substance use type: does not use Lack of Transportation: No Lack of Food: Never True Current Housing: I Have Housing Concerned About Future Housing: No Difficulty Paying Gas/Electric Bills: No Difficulty Paying for Meds: No Currently Unemployed: No Education: Master's Degree or Higher Difficulty w/ Childcare or Family Care: No Living arrangements: with family Additional living arrangements comments: 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 There is no relevant family history pertinent to the patient complaint. Exam Narrative: General: Well-developed, well nourished, in no apparent distress. Head: Normocephalic, atraumatic. Cardio: Regular rate and rhythm, s1 and s2 normal, no murmur appreciated. Resp: Clear to auscultation bilaterally, no rhonchi, rales, wheezing or rubs. Abdomen: Soft, pliable, bowel sounds present in all quadrants, tender to palpation over the pelvic area, no organomegly, positive right CV
== END 2023-07-23 12:39 | disposition short-term general hospital (02) ==
PROVIDERS: Emergency Provider Nurse Practitioner Family; PCP Internal Medicine Nephrology
DX: R10.32 Left lower quadrant pain (principal); R10.31 Right lower quadrant pain; R31.0 Gross hematuria
CPT/HCPCS: 81003; 99212; G0463

== ENCOUNTER 2023-07-23 12:58 | Emergency (ER) | payer OTHER, SELFPAY ==
--- NOTE | ~2023-07-23 | CT_ITS ---
EXAMINATION: CT abdomen pelvis w con DATE: 07/23/2023 15:42 INDICATION: R flank pain, RLQ pain, hx of stones TECHNIQUE: Computed tomography (CT) of the abdomen and pelvis was performed with 100 mL Omnipaque-350 intravenous contrast. Automated exposure control and iterative reconstruction technique were employe d. The dose-length product was 1179.32 mGy-cm. COMPARISON: 06/09/2023. FINDINGS: Lower thorax: Unremarkable Liver: Right lobe hemangioma. Simple right lobe cyst. Biliary/Gallbladder: Gallbladder is absent. No bile duct dilation. Pancreas: No mass or duct dilation. Spleen: Normal. Adrenals:No mass. Kidneys: Left midpole simple cyst. No suspicious mass, stone, or hydronephrosis. GI tract: Mild distal esophageal and gastric wall edema. No small or large bowel dilation. Normal aria endix. Mesentery/Peritoneum: No ascites, mass, or free air. Retroperitoneum: No mass. Pelvis: Mild bladder wall thickening in a partially distended urinary bladder. Pelvic organs are othe rwise within normal limits. Soft Tissues: Soft tissues and body wall unremarkable. Bones: No acute osseous finding. IMPRESSION: Esophagitis/gastritis. Mild bladder wall thickening may be secondary to cystitis or incomplete distention. Otherwise, no acute abdominopelvic process detected. Specifically, there is no evidence of nephrolith iasis or obstructive uropathy. Reviewed, dictated and finalized at location K. IMPRESSION: Esophagitis/gastritis. Mild bladder wall thickening may be secondary to cystitis or incomplete distent ion. Otherwise, no acute abdominopelvic process detected. Specifically, there is no evidence of nephrolithiasis or obstructive uropathy.
[2023-07-23 12:59] VITALS: BP 148/86; PULSE 88; RESP 16; TEMP 36.3; O2SAT 100
[2023-07-23 13:13] LABS: Basophils Percent Auto 0.3 % (0.2-1.2); Eosinophils Absolute Auto 0.1 K/mm3 (0-0.3); Eosinophils Percent Auto 0.9 % (0-4.4); Hematocrit 34.2 % (37.0-47.0); Hemoglobin 10.8 g/dL (12.0-15.0); Immature Granulocyte Absolute 0.04 K/mm3 (0.00-0.031); Immature Granulocyte Percent A 0.4 % (0-0.5); Lymphocytes Absolute Auto 2.35 K/mm3 (0.9-3.2); Lymphocytes Percent Auto 25.6 % (18.3-44.2); Mean Corpuscular HGB Conc 31.6 g/dl (32-36); Mean Corpuscular Hemoglobin 24.3 pg (26-34); Mean Platelet Volume 10.1 fl (7.4-10.4); Monocytes Absolute Auto 0.8 K/mm3 (0.1-0.6); Monocytes Percent Auto 8.2 % (2.6-8.5); Neutrophils Absolute Auto 5.9 K/mm3 (1.3-6.7); Neutrophils Percent Auto 64.6 % (45.5-73.1); Platelet Count Result 348 k/mm3 (150-375); Red Blood Count 4.44 M/mm3 (4.2-5.4); Red Cell Distribution Width 13.2 % (11.5-14.5); White Blood Count 9.2 K/mm3 (4.5-10.0)
[2023-07-23 13:35] LABS: Appearance Urine Clear (Clear); Bacteria Urine None Seen /hpf; Bilirubin Urine Negative (Negative); Blood Urine Negative (Negative); Color Urine Yellow (Yellow); Glucose Urine UA Negative (Negative); Ketones Urine Negative (Negative); Leukocyte Esterase Ur Trace LEU/UL (Negative); Need Manual Microscopic Reviewed; Nitrate Urine Negative (Negative); Non Pathogenic Casts 0-2; Protein Urine Negative (Negative); RBC Urine 0-2 /hpf (0-2); Specific Grav Ur 1.004 (1.001-1.035); Squamous Epithelial Cell Urine None seen /hpf (Few); Urobilinogen Urine 0.2 mg/dL (<2.0); WBC Urine 0-5 /hpf; pH Urine 7.5 (5.0-9.0)
[2023-07-23 13:45] LABS: Anion Gap 9 mmol/L (8-16); Aspartate Amino Transferase 21 U/L (14-36); Bilirubin,Total 0.2 mg/dL (0.2-1.3); Blood Urea Nitrogen 11 mg/dL (7-17); Calcium 9.6 mg/dL (8.4-10.2); Carbon Dioxide 29 mmol/L (22-30); Chloride 101 mmol/L (98-107); Estimated Glomerular Filt Rate > 60; Glucose 96 mg/dL (65-110); Potassium 4.3 mmol/L (3.4-5.0); Sodium 139 mmol/L (137-145)
[2023-07-23 13:46] LABS: Alanine Aminotransferase 16 U/L (6-35); Albumin Level 4.4 g/dL (3.5-5.1); Alkaline Phosphatase 65 U/L (38-126); Lipase 139 U/L (23-300)
[2023-07-23 13:55] LABS: Add Urine Microscopic? YES
--- NOTE | 2023-07-23 14:21 | ED.ABDPAIN ---
HPI - Abdominal Pain General Chief Complaint: Abdominal Pain Stated Complaint: blood in urine, pelvic pain Time Seen by Provider: 07/23/23 14:10 History of Present Illness HPI narrative: 43-year-old female with a history of IBS, cholecystectomy, pancreatitis, ureterolithiasis reports for evaluation for right flank pain and right lower abdominal pain x4 days. Patient states she went to urgent care thinking she had a urinary tract infection, but they found blood in her urine and sent her to the ER to receive a CAT scan. She is also reporting a burning sensation to her left trapezius x3 days. States she is never had anything like this before. She denies recent injury or trauma. Denies difficulty with range of motion, paresthesias, neck pain. Patient states she had a fever of 101 at urgent care, she did not take any antipyretics and came straight here. Her temperature currently is 97.3. She denies nausea or vomiting, diarrhea, vaginal discharge or concern for STDs, dysuria. Her last bowel movement was today and normal. Related Data Home Medications Medication Instructions Recorded Confirmed vitamin B complex (B 1 tablet PO DAILY 06/16/23 07/12/23 Complex-Vitamin B12 tablet) Allergies Allergy/AdvReac Type Severity Reaction Status Date / Time meperidine Allergy Mild Hives Verified 07/12/23 15:48 Sulfa (Sulfonamide Allergy Mild Hives Verified 07/12/23 15:48 Antibiotics) ondansetron [From Zofran] AdvReac Mild Vomiting Verified 07/12/23 15:48 Review of Systems Review of Systems: CONSTITUTIONAL: Denies fever, chills EYES: Denies visual changes, redness, or discharge. ENT: Denies rhinorrhea, congestion, sore throat, or otalgia. CARDIOVASCULAR: Denies chest pain, palpitations, or edema. RESPIRATORY: Denies cough or dyspnea. GASTROINTESTINAL: See HPI GENITOURINARY: Denies dysuria or hematuria. SKIN: Denies rash or itching. MUSCULOSKELETAL: See HPI NEUROLOGIC: Denies headache, numbness, dizziness, or weakness. PSYCHIATRIC: Denies anxiety or depression. [facility] Past Medical History Medical History [place] Iron infusions when needed / Taking iron Biliary colic Bloating Dyspepsia Family history of colon cancer in father History of gastric ulcer History of kidney stones Irritable bowel syndrome with constipation Loose stools Obesity Polyp of gallbladder POTS (postural orthostatic tachycardia syndrome) Screening mammogram, encounter for Surgical History Surgical History History of thyroid surgery Mass removed from thyroid History of ureter stent S/P laparoscopic cholecystectomy (01/12/23) 01/12/23 Family History Family History Father Family history of primary malignant neoplasm of liver Carcinoma of colon Malignant tumor of stomach Mother Diabetes mellitus Family history of cardiovascular disease Hypertension Renal failure syndrome Other Malignant neoplasm of prostate Pulmonary emboli Social History Social History Smoking status: Never smoker Second hand tobacco smoke exposure: No Alcohol intake: never Substance use: never Substance use type: does not use Lack of Transportation: No Lack of Food: Never True Current Housing: I Have Housing Concerned About Future Housing: No Difficulty Paying Gas/Electric Bills: No Difficulty Paying for Meds: No Currently Unemployed: No Education: Master's Degree or Higher Difficulty w/ Childcare or Family Care: No Living arrangements: with family Additional living arrangements comments: 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
[2023-07-23] MEDS: ACETAMINOPHEN 500 MG TABLET 1000 MG PO (14:59)
[2023-07-23] MEDS: SODIUM CHLORIDE 0.9% IV 1,000 ML 999 ML IV CONT (15:00)
[2023-07-23 15:01] LABS: Pregnancy On Board Control Positive; Urine Pregnancy Test Negative
[2023-07-23 16:08] VITALS: BP 139/97; PULSE 86; RESP 20; O2SAT 100
[2023-07-23] MEDS: CYCLOBENZAPRINE HCL 10 MG TABLET PO (17:04)
[2023-07-23] MEDS: KETOROLAC 30 MG/ML VIAL (*BKC) IM (17:13)
[2023-07-23 17:14] VITALS: BP 142/78; PULSE 88; RESP 16; O2SAT 99
== END 2023-07-23 17:15 | disposition home or self-care (01) ==
PROVIDERS: Emergency Medicine; Emergency Provider Physician Assistant; PCP Internal Medicine Nephrology
DX: R10.31 Right lower quadrant pain (principal); S46.812A Strain of other muscles, fascia and tendons at shoulder and upper arm level, left arm, initial encounter; K58.1 Irritable bowel syndrome with constipation; G90.A Postural orthostatic tachycardia syndrome [POTS]; E66.9 Obesity, unspecified; Z87.442 Personal history of urinary calculi; Z90.49 Acquired absence of other specified parts of digestive tract; K20.90 Esophagitis, unspecified without bleeding; K29.70 Gastritis, unspecified, without bleeding; R93.41 Abnormal radiologic findings on diagnostic imaging of renal pelvis, ureter, or bladder; X58.XXXA Exposure to other specified factors, initial encounter
CPT/HCPCS: 36415; 74177; 80053; 81001; 81003; 81025; 83690; 85025; 96360; 96372; 99284; A9270; J1885; J7030; Q9967

== ENCOUNTER 2023-08-06 09:58 | Outpatient (CLI) | payer OTHER, SELFPAY ==
[2023-08-06 10:55] LABS: Basophils Percent Auto 0.5 % (0.2-1.2); Eosinophils Absolute Auto 0.1 K/mm3 (0-0.3); Eosinophils Percent Auto 1.1 % (0-4.4); Hematocrit 34.4 % (37.0-47.0); Hemoglobin 10.8 g/dL (12.0-15.0); Immature Granulocyte Absolute 0.05 K/mm3 (0.00-0.031); Immature Granulocyte Percent A 0.6 % (0-0.5); Lymphocytes Absolute Auto 1.74 K/mm3 (0.9-3.2); Lymphocytes Percent Auto 20.5 % (18.3-44.2); Mean Corpuscular HGB Conc 31.4 g/dl (32-36); Mean Corpuscular Volume 76.4 fl (80-100); Mean Platelet Volume 10.1 fl (7.4-10.4); Monocytes Absolute Auto 0.7 K/mm3 (0.1-0.6); Monocytes Percent Auto 8.5 % (2.6-8.5); Neutrophils Absolute Auto 5.9 K/mm3 (1.3-6.7); Neutrophils Percent Auto 68.8 % (45.5-73.1); Platelet Count Result 370 k/mm3 (150-375); Red Cell Distribution Width 13.7 % (11.5-14.5); White Blood Count 8.5 K/mm3 (4.5-10.0)
[2023-08-06 11:21] LABS: Alanine Aminotransferase 16 U/L (6-35); Albumin Level 4.2 g/dL (3.5-5.1); Alkaline Phosphatase 67 U/L (38-126); Anion Gap 9 mmol/L (8-16); Aspartate Amino Transferase 21 U/L (14-36); Bilirubin,Total 0.4 mg/dL (0.2-1.3); Blood Urea Nitrogen 9 mg/dL (7-17); CRP 2.1 mg/dL (<1.0); Calcium 8.9 mg/dL (8.4-10.2); Carbon Dioxide 25 mmol/L (22-30); Chloride 102 mmol/L (98-107); Cholesterol 153 mg/dL (0-200); Estimated Glomerular Filt Rate > 60; Glucose 108 mg/dL (65-110); HDL Direct 59 mg/dL; Lipase 171 U/L (23-300); Potassium 4.1 mmol/L (3.4-5.0); Sodium 136 mmol/L (137-145); Triglycerides 206 mg/dL (<150)
[2023-08-06 11:30] LABS: LDL Cholesterol Direct 73 mg/dL
[2023-08-06 12:02] LABS: Hemoglobin A1C 5.9 % (<5.7)
[2023-08-06 12:34] LABS: Erythrocyte Sedimentation Rate 27 mm/hr (0-20)
== END 2023-08-06 09:59 | disposition home or self-care (01) ==
PROVIDERS: PCP Internal Medicine Nephrology; Visit Provider Internal Medicine Nephrology
DX: R53.83 Other fatigue (principal); R10.13 Epigastric pain; Z87.19 Personal history of other diseases of the digestive system; Z86.2 Personal history of diseases of the blood and blood-forming organs and certain disorders involving the immune mechanism
CPT/HCPCS: 36415; 80053; 80061; 82607; 83036; 83690; 83735; 85025; 85652; 86140

== ENCOUNTER 2023-09-25 08:18 | Emergency (ER) | payer OTHER, SELFPAY ==
[2023-09-25 08:27] VITALS: BP 134/79; PULSE 89; RESP 16; TEMP 36.9; O2SAT 100
--- NOTE | 2023-09-25 08:49 | ED.GENADULT ---
HPI - General Adult General Chief complaint: Upper Respiratory Infection Stated complaint: Cough Source: patient Mode of arrival: ambulatory Limitations: no limitations History of Present Illness HPI narrative: Patient presents for evaluation of sick symptoms for last two days. Symptoms include sinus congestion, thick yellow nasal discharge, muffled hearing, scratchy throat, and productive cough of yellow sputum. No fever, chills, nausea, vomiting or diarrhea. 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 She has been taking mucinex for her symptoms. She does not smoke. Related Data Home Medications Medication Instructions Recorded Confirmed vitamin B complex (B 1 tablet PO DAILY 06/16/23 09/25/23 Complex-Vitamin B12 tablet) Allergies Allergy/AdvReac Type Severity Reaction Status Date / Time meperidine Allergy Mild Hives Verified 09/25/23 08:24 Sulfa (Sulfonamide Allergy Mild Hives Verified 09/25/23 08:24 Antibiotics) ondansetron [From Zofran] AdvReac Mild Vomiting Verified 09/25/23 08:24 Review of Systems Review of Systems: CONSTITUTIONAL: Denies fever, chills, or sweats. EYES: Denies visual changes, redness, or discharge. ENT: Reports scratchy throat, muffled hearing, sinus congestion and thick yellow nasal discharge CARDIOVASCULAR: Denies chest pain, palpitations, or edema. RESPIRATORY: Reports productive cough of yellow sputum. Denies SOB GASTROINTESTINAL: Denies abdominal pain, nausea, vomiting, or diarrhea. GENITOURINARY: Denies dysuria or hematuria. SKIN: Denies rash or itching. MUSCULOSKELETAL: Denies back pain, joint pain, or myalgia. NEUROLOGIC: Denies headache, numbness, dizziness, or weakness. PSYCHIATRIC: Denies anxiety or depression. [facility] Past Medical History Medical History [place] Iron infusions when needed / Taking iron Biliary colic Bloating Dyspepsia Family history of colon cancer in father History of gastric ulcer History of kidney stones Irritable bowel syndrome with constipation Loose stools Obesity Polyp of gallbladder POTS (postural orthostatic tachycardia syndrome) Screening mammogram, encounter for Surgical History Surgical History History of thyroid surgery Mass removed from thyroid History of ureter stent S/P laparoscopic cholecystectomy (01/12/23) 01/12/23 Family History Family History Father Family history of primary malignant neoplasm of liver Carcinoma of colon Malignant tumor of stomach Mother Diabetes mellitus Family history of cardiovascular disease Hypertension Renal failure syndrome Other Malignant neoplasm of prostate Pulmonary emboli Social History Social History Smoking status: Never smoker Second hand tobacco smoke exposure: No Alcohol intake: never Substance use: never Substance use type: does not use Lack of Transportation: No Lack of Food: Never True Current Housing: I Have Housing Concerned About Future Housing: No Difficulty Paying Gas/Electric Bills: No Difficulty Paying for Meds: No Currently Unemployed: No Education: Master's Degree or Higher Difficulty w/ Childcare or Family Care: No Living arrangements: with family Additional living arrangements comments: 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 HEAD: Normocephalic, atraumatic. EYES: PERRLA and EOMI. ENT: There is thick yellow nasal discharge. Frontal and bilateral maxillary sinus t
== END 2023-09-25 09:25 | disposition home or self-care (01) ==
PROVIDERS: Emergency Provider Nurse Practitioner; PCP Internal Medicine Nephrology
DX: J06.9 Acute upper respiratory infection, unspecified (principal); Z20.822 Contact with and (suspected) exposure to COVID-19; E66.9 Obesity, unspecified; Z68.33 Body mass index [BMI] 33.0-33.9, adult; D64.9 Anemia, unspecified
CPT/HCPCS: 87081; 87426; 87804; 87880; 99213; C9803; G0463

== ENCOUNTER 2023-12-07 17:24 | Outpatient (CLI) | payer OTHER, SELFPAY ==
--- NOTE | ~2023-12-07 | XR_ITS ---
EXAMINATION: XR abdomen/kub 1V DATE: 12/07/2023 17:57 INDICATION: Right kidney stone. TECHNIQUE: A supine view of the abdomen on 2 radiographs was obtained. COMPARISON: CT abdomen and pelvis 07/23/2023 FINDINGS: There are no dilated loops of bowel. There is a moderate volume of stool in the colon. Ther e is a phlebolith in left pelvis. Surgical clips in the right upper quadrant are likely from cholecys tectomy. IMPRESSION: 1. No visible urolithiasis. Reviewed, dictated and finalized at location E. [employer] IMPRESSION: 1. No visible urolithiasis.
== END 2023-12-07 17:25 | disposition home or self-care (01) ==
LOC: ANHIMG 17:27
PROVIDERS: PCP Internal Medicine Nephrology; Visit Provider Urology
DX: N20.0 Calculus of kidney (principal)
CPT/HCPCS: 74018

== ENCOUNTER 2023-12-10 08:37 | Outpatient (CLI) | payer OTHER, SELFPAY ==
[2023-12-10 09:19] LABS: Hematocrit 28.1 % (37.0-47.0); Hemoglobin 7.8 g/dL (12.0-15.0); Mean Corpuscular HGB Conc 27.8 g/dl (32-36); Mean Corpuscular Hemoglobin 17.9 pg (26-34); Mean Corpuscular Volume 64.6 fl (80-100); Mean Platelet Volume 9.8 fl (7.4-10.4); Platelet Count Result 367 k/mm3 (150-375); Red Blood Count 4.35 M/mm3 (4.2-5.4); Red Cell Distribution Width 18.1 % (11.5-14.5); White Blood Count 8.8 K/mm3 (4.5-10.0)
[2023-12-10 09:27] LABS: Appearance Urine Cloudy (Clear); Bacteria Urine Rare /hpf; Bilirubin Urine Negative (Negative); Blood Urine Negative (Negative); Color Urine Yellow (Yellow); Glucose Urine UA Negative (Negative); Ketones Urine Negative (Negative); Leukocyte Esterase Ur 2+ LEU/UL (NEGATIVE); Nitrate Urine Negative (Negative); Non Pathogenic Casts 0-2; Protein Urine Negative (Negative); RBC Urine 0-2 /hpf (0-2); Specific Grav Ur 1.022 (1.001-1.035); Squamous Epithelial Cell Urine Moderate /hpf (Few); Urobilinogen Urine 0.2 mg/dL (<2.0)
[2023-12-10 09:33] LABS: Alanine Aminotransferase 20 U/L (6-35); Albumin Level 3.9 g/dL (3.5-5.1); Alkaline Phosphatase 69 U/L (38-126); Anion Gap 7 mmol/L (8-16); Aspartate Amino Transferase 19 U/L (14-36); Bilirubin,Total 0.2 mg/dL (0.2-1.3); Blood Urea Nitrogen 17 mg/dL (7-17); Calcium 9.1 mg/dL (8.4-10.2); Carbon Dioxide 26 mmol/L (22-30); Chloride 103 mmol/L (98-107); Cholesterol 154 mg/dL (0-200); Estimated Glomerular Filt Rate > 60; Glucose 135 mg/dL (65-110); HDL Direct 51 mg/dL; Magnesium 1.9 mg/dL (1.6-2.3); Sodium 136 mmol/L (137-145); Triglycerides 228 mg/dL (<150)
[2023-12-10 09:39] LABS: Add Urine Microscopic? YES
[2023-12-10 09:44] LABS: LDL Cholesterol Direct 78 mg/dL
[2023-12-10 10:31] LABS: Iron 24 ug/dL (37-170)
[2023-12-10 10:41] LABS: Percent Iron Saturation 5 % (20-50)
[2023-12-10 11:08] LABS: Ferritin 3.74 ng/mL (6.24-137)
[2023-12-10 11:18] LABS: Hemoglobin A1C 6.1 % (<5.7)
[2023-12-10 11:41] LABS: Vitamin D 25 Hydroxy 35.6 ng/mL
[2023-12-10 12:00] LABS: Creatinine Urine 101.6 mg/dL; Total Protein Urine Random 7 mg/dL; Ur Ttl Prot Creatinine Ratio 0.07 mg/mg (0-0.20)
[2023-12-10 12:04] LABS: MALB Creatinine Ratio 16.5 mg/g (0-30); Microalbumin Urine Random 16.8 mg/L (0-16.7)
== END 2023-12-10 08:38 | disposition home or self-care (01) ==
PROVIDERS: PCP Internal Medicine Nephrology; Visit Provider Internal Medicine Nephrology
DX: N20.0 Calculus of kidney (principal); R53.83 Other fatigue; K58.9 Irritable bowel syndrome, unspecified; G47.33 Obstructive sleep apnea (adult) (pediatric); Z86.2 Personal history of diseases of the blood and blood-forming organs and certain disorders involving the immune mechanism
CPT/HCPCS: 36415; 80053; 80061; 81001; 82043; 82306; 82570; 82607; 82728; 83036; 83540; 83550; 83735; 84156; 84443; 85027

== ENCOUNTER 2023-12-10 12:38 | Emergency (ER) | payer OTHER, SELFPAY ==
[2023-12-10 13:00] VITALS: BP 135/87; PULSE 107; RESP 16; TEMP 37.2; O2SAT 99
--- NOTE | 2023-12-10 13:15 | ED.FEMALEGU ---
HPI - Female Genitourinary General Chief complaint: Urogenital-Female Stated complaint: urinary issue Time Seen by Provider: 12/10/23 13:15 Source: patient, RN notes reviewed and old records reviewed Mode of arrival: ambulatory Limitations: no limitations History of Present Illness HPI Narrative: 43-year-old female presents to the [facility] with 2-3 days of a urgency, discomfort in lower abdomen, states she feels like she has a UTI. Gave blood and urine sample at [facility] this morning. Reviewed labs from [place] Ordered culture Onset (ago): day(s) (2-3) Related Data Home Medications Medication Instructions Recorded Confirmed norgestimate 0.25 mg-ethinyl 1 tablet PO DAILY 12/10/23 12/10/23 estradiol 35 mcg tablet (Estarylla) polyethylene glycol 3350 17 17 g PO DAILY 12/10/23 12/10/23 gram/dose oral powder vitamin B complex-vitamin C-folic 1 tablet PO DAILY 12/10/23 12/10/23 acid 400 mcg tablet Allergies Allergy/AdvReac Type Severity Reaction Status Date / Time meperidine Allergy Mild Hives Verified 12/10/23 13:21 Sulfa (Sulfonamide Allergy Mild Hives Verified 12/10/23 13:21 Antibiotics) ondansetron [From Zofran] AdvReac Mild Vomiting Verified 12/10/23 13:21 Review of Systems Review of Systems: All systems reviewed & are unremarkable except as noted in HPI and below Constitutional: Constitutional: Reports no additional constitutional complaints Eyes: Eyes: Reports no additional eye complaints ENT: Reports system reviewed and no additional complaints, except as documented Cardiovascular: Cardiovascular: Reports no additional cardiovascular complaints, Denies chest pain and Denies dyspnea Respiratory: Respiratory: Reports no additional respiratory complaints, Denies chest congestion, Denies cough and Denies dyspnea Gastrointestinal: Gastrointestinal: Reports no additional gastrointestinal complaints, Denies abdominal pain, Denies nausea and Denies vomiting Genitourinary: Genitourinary: Reports as per HPI Musculoskeletal: Musculoskeletal: Reports no additional musculoskeletal complaints Integumentary/Breasts: Skin/Breast: Reports system reviewed and no additional complaints, except as docu Neurologic: Reports system reviewed and no additional complaints, except as documented Psychiatric: Psychiatric: Reports no additional psychiatric complaints Allergic/Immunologic: Allergic/Immunologic: Reports no additional allergic/immunologic complaints PMFSH Past Medical History Medical History [place] Iron infusions when needed / Taking iron Biliary colic Bloating Dyspepsia Family history of colon cancer in father History of gastric ulcer History of kidney stones Irritable bowel syndrome with constipation Loose stools Obesity Polyp of gallbladder POTS (postural orthostatic tachycardia syndrome) Screening mammogram, encounter for Surgical History Surgical History History of thyroid surgery Mass removed from thyroid History of ureter stent S/P laparoscopic cholecystectomy (01/12/23) 01/12/23 Family History Family History Father Family history of primary malignant neoplasm of liver Carcinoma of colon Malignant tumor of stomach Mother Diabetes mellitus Family history of cardiovascular disease Hypertension Renal failure syndrome Other Malignant neoplasm of prostate Pulmonary emboli Social History Social History Smoking status: Never smoker Second hand tobacco smoke exposure: No Alcohol intake: never Substance use: never Substance use type: does not use Lack of Transportation: No Lack of Food: Never True Current Housing: I Have Housing Concerned About Future Housing: No Difficulty Paying Gas/Electric Bills: No Difficulty Payin
== END 2023-12-10 13:31 | disposition home or self-care (01) ==
PROVIDERS: Emergency Provider Nurse Practitioner; PCP Internal Medicine Nephrology
DX: N30.00 Acute cystitis without hematuria (principal); E66.9 Obesity, unspecified; Z68.32 Body mass index [BMI] 32.0-32.9, adult; D64.9 Anemia, unspecified
CPT/HCPCS: 36415; 80053; 80061; 81001; 82043; 82306; 82570; 82607; 82728; 83036; 83540; 83550; 83735; 84156; 84443; 85027; 87086; 99213; G0463

== ENCOUNTER 2023-12-20 17:03 | Outpatient (CLI) | payer OTHER, SELFPAY ==
--- NOTE | ~2023-12-20 | XR_ITS ---
EXAM: XR knee RT 3V DATE: 12/20/2023 17:33 HISTORY: ANEMIA, IRON DEFICIENT . COMPARISON: None available. FINDINGS: Normal mineralization. No fracture or dislocation. No lytic or blastic lesion. Mild medial joint space narrowing. Mild tricompartmental osteophytosis. No erosion or periosteal change. Soft ti ssues within normal limits. IMPRESSION: Mild tricompartmental right knee osteoarthritis. Reviewed, dictated and finalized at location K. [employer]
== END 2023-12-20 17:04 | disposition home or self-care (01) ==
LOC: ANHIMG 17:06
PROVIDERS: PCP Internal Medicine Nephrology; Visit Provider Internal Medicine Nephrology
DX: G47.33 Obstructive sleep apnea (adult) (pediatric) (principal); K29.70 Gastritis, unspecified, without bleeding; K58.9 Irritable bowel syndrome, unspecified; N20.0 Calculus of kidney; Z86.2 Personal history of diseases of the blood and blood-forming organs and certain disorders involving the immune mechanism; N18.1 Chronic kidney disease, stage 1; N12 Tubulo-interstitial nephritis, not specified as acute or chronic; D64.9 Anemia, unspecified; E55.9 Vitamin D deficiency, unspecified; M17.11 Unilateral primary osteoarthritis, right knee
CPT/HCPCS: 73562

== ENCOUNTER 2024-02-17 07:54 | Outpatient (CLI) | payer OTHER, SELFPAY ==
--- NOTE | ~2024-02-17 | MM_ITS ---
EXAMINATION: MM screening zoltan BI w nilo HISTORY: Screening TECHNIQUE: Craniocaudal and mediolateral oblique 3-D tomosynthesis images were obtained and synthetic 2-D images were generated. CAD analysis was submitted and interpreted. COMPARISON: Comparison to multiple prior studies sequentially, with oldest reviewed study dated 06/21/2019. BREAST PARENCHYMAL COMPOSITION: The breasts are heterogeneously dense, which may obscure small masses . FINDINGS: There is no evidence of suspicious mass, calcification, or architectural distortion to sugg est malignancy in either breast. There has been no suspicious interval change. IMPRESSION: 1. No mammographic evidence of malignancy. 2. Recommend routine screening mammography in one year. BI-RADS Category 1: Negative Reviewed, dictated and finalized at location A.
== END 2024-02-17 07:55 | disposition home or self-care (01) ==
LOC: ANHIMG 07:56
PROVIDERS: PCP Internal Medicine Nephrology; Visit Provider Obstetrics & Gynecology
DX: Z12.31 Encounter for screening mammogram for malignant neoplasm of breast (principal)
CPT/HCPCS: 77063; 77067

== ENCOUNTER 2024-04-16 09:25 | Outpatient (CLI) | payer OTHER, SELFPAY ==
[2024-04-16 09:52] LABS: Hematocrit 39.2 % (37.0-47.0); Hemoglobin 12.6 g/dL (12.0-15.0); Mean Corpuscular HGB Conc 32.1 g/dl (32-36); Mean Corpuscular Hemoglobin 25.8 pg (26-34); Mean Corpuscular Volume 80.3 fl (80-100); Mean Platelet Volume 10.2 fl (7.4-10.4); Platelet Count Result 306 k/mm3 (150-375); Red Blood Count 4.88 M/mm3 (4.2-5.4); Red Cell Distribution Width 12.9 % (11.5-14.5); White Blood Count 8.4 K/mm3 (4.5-10.0)
[2024-04-16 10:23] LABS: Iron 51 ug/dL (37-170)
[2024-04-16 10:38] LABS: Vitamin D 25 Hydroxy 29.2 ng/mL
[2024-04-16 10:40] LABS: Percent Iron Saturation 10 % (20-50)
[2024-04-16 11:18] LABS: Ferritin 7.34 ng/mL (6.24-137)
[2024-04-16 11:19] LABS: Folic Acid 12.7 ng/mL (2.76->20)
== END 2024-04-16 09:26 | disposition home or self-care (01) ==
LOC: ANHLAB 09:28
PROVIDERS: PCP Internal Medicine Nephrology; Visit Provider Internal Medicine Nephrology
DX: N20.0 Calculus of kidney (principal); K58.9 Irritable bowel syndrome, unspecified; K29.70 Gastritis, unspecified, without bleeding; G47.33 Obstructive sleep apnea (adult) (pediatric); Z86.2 Personal history of diseases of the blood and blood-forming organs and certain disorders involving the immune mechanism
CPT/HCPCS: 36415; 82306; 82607; 82728; 82746; 83540; 83550; 84443; 85027

== ENCOUNTER 2024-08-03 09:08 | Emergency (ER) | payer OTHER, SELFPAY ==
[2024-08-03] VITALS (7 sets, daily range): BP systolic 143–149; BP diastolic 83–88; PULSE 95–107; RESP 16–20; TEMP 36.6–36.7; O2SAT 94–99
--- NOTE | ~2024-08-03 | CT_ITS ---
CT abdomen pelvis w con Ordering provider: Steve Caban MD History: 44 years Female with . Genaralized abd pain . Comparison: July 23, 2023 Technique: CT abdomen and pelvis with IV and without oral contrast. Automated exposure control and it erative reconstruction technique were employed. The dose-length product was 1338.99 mGy-cm. 100 mL Om nipaque 350 was given IV. Findings: VISUALIZED LOWER CHEST: Scattered Peripheral patchy opacification seen in the middle lobe and lingula and right lower lobe which may be dependent atelectatic changes or focal atelectasis versus pneumoni tis. UPPER ABDOMINAL ORGANS: Liver: Fat infiltration. Hepatomegaly. Enhancing lesions seen in the right lower lobe segment #6. This area measures 1.8 x 1.1 cm. Hepatocel lular carcinoma should be considered. Follow-up and further evaluation advised. Other differential in clude hemangioma although less likely. This lesion is not seen in the previous study. Hypodensity seen in segment #7 measuring 1.2 cm most likely a cyst. Unchanged from previous examinati on. Another lesion seen in segment #7 with peripheral enhancement suggestive of a hemangioma measuring 2. 7 cm. Unchanged from previous examination. Another small enhancing lesions seen in the left lobe of the liver measuring 2.7 cm. Follow-up advise d. This lesion is not seen in the previous study. Gallbladder: Status post cholecystectomy. Spleen: Normal. Stomach/duodenum: Normal. Pancreas: Normal. Adrenals: Normal. Kidneys: Small cyst in the left kidney lower pole. PELVIC ORGANS: The bladder is normal. Uterus: Retroverted. Small enhancing lesions seen anteriorly which may be a small fibroid. BOWEL AND MESENTERY: Colon: No evidence of diverticulitis. Appendix is not demonstrated. Small Bowel: Normal. No obstruction. Peritoneum/mesentery: No free air or free fluid. No mesenteric lymphadenopathy. RETROPERITONEUM: Normal aorta. No retroperitoneal lymphadenopathy. Small para-aortic lymph nodes ar e noted. MUSCULOSKELETAL: Superficial soft tissues: The superficial soft tissues are normal. Bones: Normal the spine. IMPRESSION: 1. Enhancing lesions in the liver which are not seen in the previous study. Differential include hep atocellular carcinoma, hemangioma, adenoma and FNH. Further evaluation and follow-up advised. 2. Other lesions in the liver which aren't hemangioma in the cyst or stable. 3. Fat infiltration of the liver with hepatomegaly. 4. Possible small fibroid seen in the anterior wall of the uterus measuring 16 mm. Reviewed, dictated and finalized at location A. IMPRESSION: 1. Enhancing lesions in the liver which are not seen in the previous study. Di fferential include hepatocellular carcinoma, hemangioma, adenoma and FNH. Furth er evaluation and follow-up advised. 2. Other lesions in the liver which aren't hemangioma in the cyst or stable. 3. Fat infiltration of the liver with hepatomegaly. 4. Possible small fibroid seen in the anterior wall of the uterus measuring 16 mm.
--- NOTE | ~2024-08-03 | US_ITS ---
EXAMINATION: US renal BI DATE: 08/03/2024 17:01 INDICATION: Right flank pain TECHNIQUE: Multiple ultrasound grayscale images of the kidneys were obtained. COMPARISON: CT dated 08/03/2024 FINDINGS: The right kidney measures 12.4 x 5.1 x 5.2 cm. The left kidney measures 13.2 x 5.1 x 6.3 cm. The kidn eys demonstrate normal echogenicity. There is no hydronephrosis in either kidney. No stones identifi ed. The bladder is normal. IMPRESSION: 1. Normal kidneys without hydronephrosis. Reviewed, dictated and finalized at location B.
--- NOTE | 2024-08-03 13:40 | ED.ABDPAIN ---
HPI - Abdominal Pain General Chief Complaint: Abdominal Pain Stated Complaint: lower back pain, N/V/D Time Seen by Provider: 08/03/24 13:21 History of Present Illness HPI narrative: Patient is a 44-year-old female who presents to the emergency department this afternoon complaining of right-sided flank pain and right upper quadrant abdominal pain since earlier today. Patient states that she does have a history of pancreatitis and kidney stones states that this pain feels similar to both episodes. Patient pancreatitis was precipitated by gallstones and patient states that secondary to this she has had her gallbladder removed. Patient denies any hematuria or dysuria at this time. Denies any fevers or chills at home but states that she has been having some upper respiratory infection symptoms including cough and nasal congestion. No additional symptoms or concerns at this time. Related Data Home Medications Medication Instructions Recorded Confirmed polyethylene glycol 3350 17 17 g PO DAILY 12/10/23 04/17/24 gram/dose oral powder vitamin B complex-vitamin C-folic 1 tablet PO DAILY 12/10/23 04/17/24 acid 400 mcg tablet ferrous sulfate 325 mg (65 mg 325 mg PO DAILY 04/17/24 04/17/24 iron) tablet Allergies Allergy/AdvReac Type Severity Reaction Status Date / Time meperidine Allergy Mild Hives Verified 08/03/24 14:26 Sulfa (Sulfonamide Allergy Mild Hives Verified 08/03/24 14:26 Antibiotics) ondansetron [From Zofran] AdvReac Mild Vomiting Verified 08/03/24 14:26 Review of Systems Review of Systems: All systems are reviewed and are negative unless stated otherwise in the HPI. PMFSH Past Medical History Medical History [place] Iron infusions when needed / Taking iron Biliary colic Bloating Dyspepsia Family history of colon cancer in father History of gastric ulcer History of kidney stones Irritable bowel syndrome with constipation Loose stools Obesity Polyp of gallbladder POTS (postural orthostatic tachycardia syndrome) Screening mammogram, encounter for Surgical History Surgical History History of thyroid surgery Mass removed from thyroid History of ureter stent S/P laparoscopic cholecystectomy (01/12/23) 01/12/23 Family History Family History Father Family history of primary malignant neoplasm of liver Carcinoma of colon Malignant tumor of stomach Mother Diabetes mellitus Family history of cardiovascular disease Hypertension Renal failure syndrome Other Malignant neoplasm of prostate Pulmonary emboli Social History Social History Social History: Caffeine-coffee Smoking status: Never smoker Second hand tobacco smoke exposure: No Alcohol intake: current Alcohol use details: occasionally Substance use: never Substance use type: does not use Do You Feel Safe in your Home?: Yes Lack of Transportation: No Lack of Food: Never True Current Housing: I Have Housing Concerned About Future Housing: No Difficulty Paying Gas/Electric Bills: No Difficulty Paying for Meds: No Currently Unemployed: No Education: Master's Degree or Higher Difficulty w/ Childcare or Family Care: No Living arrangements: with family Additional living arrangements comments: 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 HEENT: PERRL, no rhinorrhea, no post nasal drip, oropharynx clear. Cardiovascular: Regular rate and rhythm, no murmurs, rubs or gallops, no peripheral aliza
[2024-08-03 13:51] LABS: Basophils Percent Auto 0.3 % (0.2-1.2); Eosinophils Absolute Auto 0.2 K/mm3 (0-0.3); Eosinophils Percent Auto 2.1 % (0-4.4); Hematocrit 36.5 % (37.0-47.0); Hemoglobin 11.7 g/dL (12.0-15.0); Immature Granulocyte Absolute 0.09 K/mm3 (0.00-0.031); Immature Granulocyte Percent A 0.8 % (0-0.5); Lymphocytes Absolute Auto 1.67 K/mm3 (0.9-3.2); Lymphocytes Percent Auto 15.6 % (18.3-44.2); Mean Corpuscular HGB Conc 32.1 g/dl (32-36); Mean Corpuscular Hemoglobin 24.8 pg (26-34); Mean Corpuscular Volume 77.3 fl (80-100); Mean Platelet Volume 9.8 fl (7.4-10.4); Monocytes Absolute Auto 0.8 K/mm3 (0.1-0.6); Monocytes Percent Auto 7.5 % (2.6-8.5); Neutrophils Absolute Auto 7.9 K/mm3 (1.3-6.7); Neutrophils Percent Auto 73.7 % (45.5-73.1); Platelet Count Result 326 k/mm3 (150-375); Red Blood Count 4.72 M/mm3 (4.2-5.4); Red Cell Distribution Width 14.4 % (11.5-14.5); White Blood Count 10.7 K/mm3 (4.5-10.0)
[2024-08-03 13:57] LABS: Add Urine Microscopic? YES; Appearance Urine Clear (Clear); Bacteria Urine None Seen /hpf; Bilirubin Urine Negative (Negative); Blood Urine Negative (Negative); Color Urine Yellow (Yellow); Glucose Urine UA Negative (Negative); Ketones Urine Negative (Negative); Leukocyte Esterase Ur 2+ LEU/UL (Negative); Nitrate Urine Negative (Negative); Non Pathogenic Casts 0-2; Protein Urine Negative (Negative); RBC Urine 0-2 /hpf (0-2); Specific Grav Ur 1.004 (1.001-1.035); Squamous Epithelial Cell Urine None Seen /hpf (Few); Urobilinogen Urine 0.2 mg/dL (<2.0); pH Urine 6.5 (5.0-9.0)
[2024-08-03 13:59] LABS: Lactic Acid Reflex 1.4 mmol/L (0.7-2.0)
[2024-08-03 14:01] LABS: Estimated Glomerular Filt Rate > 60
[2024-08-03 14:06] LABS: Alanine Aminotransferase 25 U/L (6-35); Albumin Level 4.3 g/dL (3.5-5.1); Alkaline Phosphatase 84 U/L (38-126); Anion Gap 12 mmol/L (4-12); Aspartate Amino Transferase 40 U/L (14-36); Bilirubin,Total 0.3 mg/dL (0.2-1.3); Blood Urea Nitrogen 8 mg/dL (7-17); Calcium 9.3 mg/dL (8.4-10.2); Carbon Dioxide 26 mmol/L (22-30); Chloride 96 mmol/L (98-107); Estimated CRCL calculation 148 ml/min; Glucose 124 mg/dL (65-110); Magnesium 1.7 mg/dL (1.6-2.3); Potassium 3.9 mmol/L (3.4-5.0); Sodium 134 mmol/L (137-145)
[2024-08-03 14:25] LABS: Influenza A QL RT-PCR Negative (Negative); Influenza B QL RT-PCR Negative (Negative); SARS-CoV-2 RNA PCR Negative (Negative)
[2024-08-03] MEDS: KETOROLAC 15 MG/ML VIAL (*BKC) IV PUSH (14:28)
[2024-08-03 15:03] LABS: SPREG INTERNAL CONTROL Positive; Serum Qual hCG Negative
[2024-08-03] MEDS: SODIUM CHLORIDE 0.9% IV 1,000 ML 999 ML IV CONT (17:05)
[2024-08-03] MEDS: HYDROmorphone HCL INJ (*CRX) 1 MG/ML SYR 0.5 MG IV PUSH (17:06)
[2024-08-03] MEDS: PROCHLORPERAZINE EDISYLATE 10 MG/2 ML VIAL IV PUSH (17:07)
== END 2024-08-03 18:42 | disposition home or self-care (01) ==
PROVIDERS: Emergency Provider Emergency Medicine; PCP Internal Medicine Nephrology
DX: R10.11 Right upper quadrant pain (principal); K76.9 Liver disease, unspecified; J06.9 Acute upper respiratory infection, unspecified; Z20.822 Contact with and (suspected) exposure to COVID-19; D64.9 Anemia, unspecified; K58.1 Irritable bowel syndrome with constipation; E66.9 Obesity, unspecified; Z68.38 Body mass index [BMI] 38.0-38.9, adult; G90.A Postural orthostatic tachycardia syndrome [POTS]; Z87.442 Personal history of urinary calculi; Z90.49 Acquired absence of other specified parts of digestive tract; Z79.3 Long term (current) use of hormonal contraceptives; K76.0 Fatty (change of) liver, not elsewhere classified; R93.89 Abnormal findings on diagnostic imaging of other specified body structures
CPT/HCPCS: 36415; 74177; 76775; 80053; 81001; 82248; 83605; 83735; 84703; 85025; 87086; 87088; 87636; 96361; 96374; 96375; 99284; J0780; J1170; J1885; J7030; Q9967

== ENCOUNTER 2024-09-03 18:37 | Emergency (ER) | payer OTHER, SELFPAY ==
--- NOTE | ~2024-09-03 | XR_ITS ---
EXAMINATION: XR lumbar spine 2-3V DATE: 09/03/2024 20:17 INDICATION: Low back pain TECHNIQUE: Anteroposterior and lateral views of the lumbar spine, and cone-down lateral view of the l umbosacral junction were obtained. COMPARISON: None. FINDINGS: Slight reversal of the normal lumbar lordosis which could be positional. No spondylolisthesis. Verteb ral body heights are normal. Mild to moderate disc height loss at L4-L5 and mild disc height loss at L3-L4 and L5-S1. Cholecystectomy clips in right upper quadrant. Posterior sulci of the lungs are jon r with no pleural effusion. IMPRESSION: 1. Mild to moderate lower lumbar spondylosis. Reviewed, dictated and finalized at location A.
[2024-09-03 18:40] VITALS: BP 147/83; PULSE 100; RESP 18; TEMP 36.6; O2SAT 98
--- NOTE | 2024-09-03 19:40 | PC.NURSE ---
Aleve 220mg at 1530, 3 Ibuprofen at 0700 this morning.
--- NOTE | 2024-09-03 19:43 | PC.NURSE ---
Pt currently being treated for UTI at this time.
--- NOTE | 2024-09-03 20:06 | ED.BACK ---
HPI - Back Pain/Injury General Chief Complaint: Back Pain/Injury Stated Complaint: back pain Time Seen by Provider: 09/03/24 19:24 History of Present Illness HPI Narrative: Patient is a 44-year-old female who presents ER with low back pain. Was lifting a case of water when she felt a twinge in her back. It has worsened throughout the day. Occasional radiation into her thighs bilaterally. No difficulty with urination / defecation. She is able ambulate. She has tried heat and ice as well as Tylenol and ibuprofen without improvement. Related Data Home Medications Medication Instructions Recorded Confirmed polyethylene glycol 3350 17 17 g PO DAILY 12/10/23 04/17/24 gram/dose oral powder vitamin B complex-vitamin C-folic 1 tablet PO DAILY 12/10/23 04/17/24 acid 400 mcg tablet ferrous sulfate 325 mg (65 mg 325 mg PO DAILY 04/17/24 04/17/24 iron) tablet Allergies Allergy/AdvReac Type Severity Reaction Status Date / Time meperidine Allergy Mild Hives Verified 08/03/24 14:26 Sulfa (Sulfonamide Allergy Mild Hives Verified 08/03/24 14:26 Antibiotics) ondansetron [From Zofran] AdvReac Mild Vomiting Verified 08/03/24 14:26 Review of Systems Constitutional: Constitutional: Reports no additional constitutional complaints Genitourinary: Genitourinary: Reports no additional female genitourinary complaints Musculoskeletal: Musculoskeletal: Reports back pain, Denies arthralgias, Denies joint swelling and Denies muscle cramps Integumentary/Breasts: Skin/Breast: Reports system reviewed and no additional complaints, except as docu PMFSH Past Medical History Medical History [place] Iron infusions when needed / Taking iron Biliary colic Bloating Dyspepsia Family history of colon cancer in father History of gastric ulcer History of kidney stones Irritable bowel syndrome with constipation Loose stools Obesity Polyp of gallbladder POTS (postural orthostatic tachycardia syndrome) Screening mammogram, encounter for Surgical History Surgical History History of thyroid surgery Mass removed from thyroid History of ureter stent S/P laparoscopic cholecystectomy (01/12/23) 01/12/23 Family History Family History Father Family history of primary malignant neoplasm of liver Carcinoma of colon Malignant tumor of stomach Mother Diabetes mellitus Family history of cardiovascular disease Hypertension Renal failure syndrome Other Malignant neoplasm of prostate Pulmonary emboli Social History Social History Social History: Caffeine-coffee Smoking status: Never smoker Second hand tobacco smoke exposure: No Alcohol intake: current Alcohol use details: occasionally Substance use: never Substance use type: does not use Do You Feel Safe in your Home?: Yes Lack of Transportation: No Lack of Food: Never True Current Housing: I Have Housing Concerned About Future Housing: No Difficulty Paying Gas/Electric Bills: No Difficulty Paying for Meds: No Currently Unemployed: No Education: Master's Degree or Higher Difficulty w/ Childcare or Family Care: No Living arrangements: with family Additional living arrangements comments: 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 HEAD: Normocephalic, atraumatic. ENT: Mucous membranes moist. CHEST: Clear to auscultation. No respiratory distress. HEART: Regular rate and rhythm. Normal peripheral pulses. Back: Mild tenderness o
[2024-09-03] MEDS: CYCLOBENZAPRINE HCL 10 MG TABLET PO (20:22)
[2024-09-03] MEDS: KETOROLAC 30 MG/ML VIAL (*BKC) IM (20:23)
[2024-09-03 20:58] VITALS: BP 132/91; PULSE 107; RESP 20; O2SAT 97
== END 2024-09-03 21:07 | disposition home or self-care (01) ==
LOC: ANHED 20:27
PROVIDERS: Emergency Provider Emergency Medicine; PCP Internal Medicine Nephrology
DX: S39.012A Strain of muscle, fascia and tendon of lower back, initial encounter (principal); D64.9 Anemia, unspecified; Z87.442 Personal history of urinary calculi; G90.A Postural orthostatic tachycardia syndrome [POTS]; X50.0XXA Overexertion from strenuous movement or load, initial encounter
CPT/HCPCS: 72100; 96372; 99283; A9270; J1885

== ENCOUNTER 2024-09-16 10:02 | Emergency (ER) | payer OTHER, SELFPAY ==
--- NOTE | ~2024-09-16 | CT_ITS ---
EXAMINATION: CT abdomen pelvis w con DATE: 09/16/2024 12:06 INDICATION: Right lower quadrant abdominal pain TECHNIQUE: Computed tomography (CT) of the abdomen and pelvis was performed with 100 mL Omnipaque-350 intravenous contrast. Automated exposure control and iterative reconstruction technique were employe d. The dose-length product was 1283.53 mGy-cm. COMPARISON: 08/03/2024 and 04/12/2023 FINDINGS: Again seen are small region of subtle groundglass and mild reticular opacities at the periphery of th e right middle and the adjacent right lower lobes, in the posterior right lower lobe and at the lingu la which given lack of guide changer one month favors chronic interstitial lung disease in a [place]am[place] ve interstitial pneumonia (DIP) or nonspecific interstitial pneumonia (NSIP) pattern. Heart size norm al. No pericardial effusion. Cholecystectomy clips at gallbladder fossa. Hepatomegaly with diffuse hepatic steatosis. No significa nt change in a 2.5 cm hemangioma in the right hepatic lobe with characteristic peripheral discontiguo us puddling of contrast and progressive stage of enhancement on the prior imaging. Unchanged 1.5 cm l ow-attenuation hepatic cyst in the more caudal right hepatic lobe. Finally get further caudal in the right hepatic lobe is indeterminate poorly defined 1.9 cm subcutaneous enhancing lesion which is seen only on the most recent study from 08/03/2024. Mild splenomegaly measuring 13.8 cm craniocaudally this may be related to body habitus. The pancreas, bilateral adrenal glands and kidneys are normal. Decompressed bladder, retroverted uterus and bilate ral adnexa are unremarkable. A couple small appendicoliths along the normal appearing appendix with n o periappendiceal inflammatory stranding to suggest acute appendicitis. Bowels are unremarkable with no evident wall thickening or obstruction. Decompressed bladder and bilateral adnexa are unremarkable . Suggestion of a possible 3-3.5 cm fibroid in the anterior wall of the retroverted uterus. No free i ntraperitoneal gas or fluid. No pathologically enlarged abdominal or pelvic lymphadenopathy. Minimal lumbar spondylosis. IMPRESSION: 1. No acute intra-abdominal/pelvic process. 2. Hepatomegaly with diffuse hepatic steatosis and indeterminate 1.9 cm enhancing lesion in the cauda l right hepatic lobe for which differential would include focal fatty sparing, hepatic adenoma, focal nodular hyperplasia or less likely malignancy either primary or metastatic. Recommend further evalua tion with pre and postcontrast MRI. 3. Persistent subtle peripheral groundglass and reticular opacities at the bilateral lung bases sugge stive of either UIP or NSIP pattern chronic interstitial lung disease. 4. Possible uterine fibroid. Reviewed, dictated and finalized at location A. OGRAPHIC AIDE IMPRESSION: 1. No acute intra-abdominal/pelvic process. 2. Hepatomegaly with diffuse hepatic steatosis and indeterminate 1.9 cm enhanci ng lesion in the caudal right hepatic lobe for which differential would include focal fatty sparing, hepatic adenoma, focal nodular hyperplasia or less likely malignancy either primary or metastatic. Recommend further evaluation with pre and postcontrast MRI. 3. Persistent subtle peripheral groundglass and reticular opacities at the bila teral lung bases suggestive of either UIP or NSIP pattern chronic interstitial lung disease. 4. Possible uterine fibroid.
--- NOTE | ~2024-09-16 | US_ITS ---
EXAMINATION: US pelvic complete w TV DATE: 09/16/2024 13:12 INDICATION: Right lower quadrant abdominal pain TECHNIQUE: Multiple transabdominal and endovaginal sonographic images of the pelvis were obtained. COMPARISON: CT dated 09/16/2024 FINDINGS: The uterus measures 9.5 x 5.4 x 7.3 cm. The endometrial complex measures 4 mm in thickness. There ar e a few subcentimeter anechoic nabothian cysts at the cervix. The right ovary measures 2.5 x 2.3 x 1. 6 cm. The left ovary measures 3.2 x 2.2 x 1.2 cm. There are a couple subcentimeter anechoic cysts/fol licles at the left ovary. 1.6 cm dominant cyst/follicle at the left ovary. Vascular flow identified o n color Doppler at both ovaries. There is no free fluid in the pelvis. IMPRESSION: 1. Normal pelvic ultrasound but with 1.5 cm dominant follicle/cyst at the right ovary which is unrema rkable aside from there being no evident correlate on the CT from one hour prior suggesting a possibl e acute hemorrhagic cyst. Reviewed, dictated and finalized at location A. FACTURING WEAVER IMPRESSION: 1. Normal pelvic ultrasound but with 1.5 cm dominant follicle/cyst at the right ovary which is unremarkable aside from there being no evident correlate on the CT from one hour prior suggesting a possible acute hemorrhagic cyst.
[2024-09-16 11:01] LABS: BEDSIDEPREGUCG Negative (Negative)
[2024-09-16 11:10] LABS: Basophils Percent Auto 0.5 % (0.2-1.2); Eosinophils Absolute Auto 0.2 K/mm3 (0-0.3); Eosinophils Percent Auto 2.1 % (0-4.4); Hematocrit 34.9 % (37.0-47.0); Hemoglobin 11.2 g/dL (12.0-15.0); Immature Granulocyte Absolute 0.06 K/mm3 (0.00-0.031); Immature Granulocyte Percent A 0.7 % (0-0.5); Lymphocytes Absolute Auto 1.98 K/mm3 (0.9-3.2); Mean Corpuscular HGB Conc 32.1 g/dl (32-36); Mean Corpuscular Hemoglobin 23.8 pg (26-34); Mean Corpuscular Volume 74.3 fl (80-100); Mean Platelet Volume 10.3 fl (7.4-10.4); Monocytes Absolute Auto 0.7 K/mm3 (0.1-0.6); Monocytes Percent Auto 8.5 % (2.6-8.5); Neutrophils Absolute Auto 5.6 K/mm3 (1.3-6.7); Neutrophils Percent Auto 65.2 % (45.5-73.1); Platelet Count Result 281 k/mm3 (150-375); Red Cell Distribution Width 14.6 % (11.5-14.5); White Blood Count 8.6 K/mm3 (4.5-10.0)
--- NOTE | 2024-09-16 11:10 | ED_ITS ---
HPI - General Adult General Chief complaint: Unspecified Stated complaint: pubic pain Time Seen by Provider: 09/16/24 10:42 History of Present Illness HPI narrative: 44-year-old female presenting to the emergency department for evaluation for multiple days of right lower quadrant pain. Patient does have a history of kidney stones and history of urinary tract infection along with history of constipation. Patient denies any prior history of ovarian cyst and still has her appendix. Patient states that over the last few days she has had worsening right lower quadrant pain and right flank pain. Patient states the pain has been aching and nagging Related Data Home Medications Medication Instructions Recorded Confirmed polyethylene glycol 3350 17 17 g PO DAILY 12/10/23 04/17/24 gram/dose oral powder vitamin B complex-vitamin C-folic 1 tablet PO DAILY 12/10/23 04/17/24 acid 400 mcg tablet ferrous sulfate 325 mg (65 mg 325 mg PO DAILY 04/17/24 04/17/24 iron) tablet Allergies Allergy/AdvReac Type Severity Reaction Status Date / Time meperidine Allergy Mild Hives Verified 09/16/24 10:41 Sulfa (Sulfonamide Allergy Mild Hives Verified 09/16/24 10:41 Antibiotics) ondansetron [From Zofran] AdvReac Mild Vomiting Verified 09/16/24 10:41 Review of Systems Review of Systems: All systems reviewed & are unremarkable except as noted in HPI and below PMFSH Past Medical History Medical History [place] infusions when needed / Taking iron Biliary colic Bloating Dyspepsia Family history of colon cancer in father History of gastric ulcer History of kidney stones Irritable bowel syndrome with constipation Loose stools Obesity Polyp of gallbladder POTS (postural orthostatic tachycardia syndrome) Screening mammogram, encounter for Surgical History Surgical History History of thyroid surgery Mass removed from thyroid History of ureter stent S/P laparoscopic cholecystectomy (01/12/23) 01/12/23 Family History Family History Father Family history of primary malignant neoplasm of liver Carcinoma of colon Malignant tumor of stomach Mother Diabetes mellitus Family history of cardiovascular disease Hypertension Renal failure syndrome Other Malignant neoplasm of prostate Pulmonary emboli Social History Social History Social History: Caffeine-coffee Smoking status: Never smoker Second hand tobacco smoke exposure: No Alcohol intake: current Alcohol use details: occasionally Substance use: never Substance use type: does not use Do You Feel Safe in your Home?: Yes Lack of Transportation: No Lack of Food: Never True Current Housing: I Have Housing Concerned About Future Housing: No Difficulty Paying Gas/Electric Bills: No Difficulty Paying for Meds: No Currently Unemployed: No Education: Master's Degree or Higher Difficulty w/ Childcare or Family Care: No Living arrangements: with family Additional living arrangements comments: 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 HEAD: normocephalic, atraumatic. EYES: PERRLA/EOMI, conjunctivae clear. NOSE: Normal no drainage NECK: Supple. No adenopathy, no masses. RESPIRATORY: Airway patent, respirations nonlabored. Clear to auscultation bilaterally, no rales, rhonchi, wheezing. CARDIOVASCULAR: Regular rate and rhythm without murmurs rubs or gallops. ABDOMINAL: Right CVA and right lower quadrant and suprapubic tenderness to palpation MUSCULOSKELETAL: Moves all extremities. Strength/ROM intact, No edema, No calf tenderness. NEURO: Alert. Cranial nerves II through XII intact. Grossly intact SKIN: Warm, dry. Normal Color Course Vital Signs Vital signs: Vital Signs Pulse Rate 100 09/16/24 14:30 Respiratory Rate 18 09/16/24 14:30 Blood Pressure 156/89 H 09/16/24 14:30 Pulse Oximetry 99 09/16/24 14:30 Pulse Rate 100 09/16/24 14:30 Respiratory Rate 18 09/16/24 14:30 Blood Pressure 156/89 H 09/16/24 14:30 Pulse Oximetry 99 09/16/24 14:30 Medical Decision Making MDM Narrative Medical decision making narrative: 54-year-old female presented emergency department for evaluation for lower abdominal pain. Patient is afebrile with no leukocytosis and a stable hemoglobin 11.2. Patient no significant abnormalities on her CMP UA was negative for infection. CT showed no evidence of ureteral calculi or appendect maggie. CT did show evidence hepatic steatosis chronic interstitial lung disease. Also showed evidence of a possible fibroid. Ultrasound was ordered showed no evidence torsion or hemorrhagic cyst. Patient was updated results of her workup. Patient was encouraged of close follow-up with her primary care physician. Differential Diagnosis Differential Diagnosis: Constipation, colitis, diverticulitis, kidney stones, urinary tract infection, torsed ovary, ovarian cyst Vital Signs Vital Signs: Vital Signs Pulse Rate 100 09/16/24 14:30 Respiratory Rate 18 09/16/24 14:30 Blood Pressure 156/89 H 09/16/24 14:30 Pulse Oximetry 99 09/16/24 14:30 Pulse Rate 100 09/16/24 14:30 Respiratory Rate 18 09/16/24 14:30 Blood Pressure 156/89 H 09/16/24 14:30 Pulse Oximetry 99 09/16/24 14:30 Lab Data Lab results reviewed: Yes I reviewed the patient's lab results. 09/16/24 11:03 09/16/24 11:03 Labs: Lab Results 09/16/24 09/16/24 Range/Units 10:59 11:03 WBC 8.6 (4.5-10.0) K/mm3 RBC 4.70 (4.2-5.4) M/mm3 Hgb 11.2 L (12.0-15.0) g/dL Hct 34.9 L (37.0-47.0) % MCV 74.3 L (80-100) fl MCH 23.8 L (26-34) pg MCHC 32.1 (32-36) g/dl RDW 14.6 H (11.5-14.5) % Plt Count 281 (150-375) k/mm3 MPV 10.3 (7.4-10.4) fl Immature Gran % (Auto) 0.7 H (0-0.5) % Neut % (Auto) 65.2 (45.5-73.1) % Lymph % (Auto) 23.0 (18.3-44.2) % [place] % (Auto) 8.5 (2.6-8.5) % Eos % (Auto) 2.1 (0-4.4) % Baso % (Auto) 0.5 (0.2-1.2) % Lymph # (Auto) 1.98 (0.9-3.2) K/mm3 [place] # (Auto) 0.7 H (0.1-0.6) K/mm3 Eos # (Auto) 0.2 (0-0.3) K/mm3 Baso # (Auto) 0.0 (0.0-0.1) K/mm3 Abs Immat Gran (auto) 0.06 H (0.00-0.031) K/mm3 Absolute Neuts (auto) 5.6 (1.3-6.7) K/mm3 Absolute Nucleated RBC 0.000 (0.0-0.012) K/mm3 Nucleated RBC % 0.0 (0.0-0.2) % Platelet Estimate Adequate (Adequate) Microcytosis 1+ (NORMAL) Schistocytes None seen Sodium 135 L (137-145) mmol/L Potassium 3.9 (3.4-5.0) mmol/L Chloride 99 (98-107) mmol/L Carbon Dioxide 24 (22-30) mmol/L Anion Gap 12 (4-12) mmol/L BUN 10 (7-17) mg/dL Creatinine 0.50 L (0.7-1.0) mg/dL Estim Creat Clear Calc 139 ml/min Estimated GFR > 60 (59 - ) Glucose 175 H (65-110) mg/dL Calcium 9.2 (8.4-10.2) mg/dL Total Bilirubin 0.3 (0.2-1.3) mg/dL AST 25 (14-36) U/L ALT 24 (6-35) U/L Alkaline Phosphatase 89 (38-126) U/L Total Protein 8.0 (6.3-8.2) g/dL Albumin 4.3 (3.5-5.1) g/dL Urine Color Yellow (Yellow) Urine Appearance Clear (Clear) Urine pH 6.5 (5.0-9.0) Ur Specific [place] 1.005 (1.001-1.035) Urine Protein Negative (Negative) mg/dL Urine Glucose (UA) Negative (Negative) mg/dL Urine Ketones Negative (Negative) mg/dL Ur Blood (Man) Negative (Negative) Urine Nitrate Negative (Negative) Urine Bilirubin Negative (Negative) Urine Urobilinogen 0.2 (<2.0) mg/dL Leukocyte Esterase Rfl Trace H (Negative) DAPHNEY/UL Urine RBC 0-2 (0-2) /hpf Urine WBC 0-5 (0-3) /hpf Ur Squamous Epith Cells None seen (Few) /hpf Urine Bacteria None seen /hpf Urine Casts 0-2 POC Urine HCG, Qual Negative (Negative) Imaging Data Radiologist's impression: Impressions Abdomen/Pelvis CT 09/16/24 12:13 IMPRESSION: 1. No acute intra-abdominal/pelvic process. 2. Hepatomegaly with diffuse hepatic steatosis and indeterminate 1.9 cm enhancing lesion in the caudal right hepatic lobe for which differential would include focal fatty sparing, hepatic adenoma, focal nodular hyperplasia or less likely malignancy either primary or metastatic. Recommend further evaluation with pre and postcontrast MRI. 3. Persistent subtle peripheral groundglass and reticular opacities at the bilateral lung bases suggestive of either UIP or NSIP pattern chronic interstitial lung disease. 4. Possible uterine fibroid. Pelvic/Transvag US 09/16/24 13:16 IMPRESSION: 1. Normal pelvic ultrasound but with 1.5 cm dominant follicle/cyst at the right ovary which is unremarkable aside from there being no evident correlate on the CT from one hour prior suggesting a possible acute hemorrhagic cyst. Discharge Plan Discharge Clinical Impression: Right sided abdominal pain Patient Disposition: Home, Self-Care Condition: Stable Instructions: Antibiotic Form, Abdominal Pain (ED) Additional Instructions: Have close follow-up with your primary care physician. CT scan did show some stool within the colon but no wiley evidence of constipation. Prescriptions: New hydrocodone-acetaminophen 5-325 mg tablet 1 tablet PO Q12H PRN (Reason: pain) Qty: 14 0RF No Action polyethylene glycol 3350 17 gram/dose powder 17 g PO DAILY B complex-vitamin C-folic acid 400 mcg tablet 1 tablet PO DAILY mupirocin 2 % ointment 1 applic topical BID Qty: 15 1RF omeprazole 20 mg capsule,delayed release(DR/EC) 20 mg PO DAILY Qty: 90 3RF ferrous sulfate 325 mg (65 mg iron) tablet 325 mg PO DAILY hydrocortisone butyr-emollient [Locoid Lipocream] 0.1 % cream 1 applic topical QHS MDD b.i.d. PRN (Reason: rash) Qty: 45 1RF Rx Instructions: apply to rash and itching skin b.i.d. for 2 weeks at a time with a 1 week break after cyclobenzaprine 10 mg tablet 10 mg PO TID PRN (Reason: muscle spasm) Qty: 20 0RF naproxen 375 mg tablet 375 mg PO BID Qty: 14 0RF hydrocortisone butyr-emollient [Locoid Lipocream] 0.1 % cream 1 applic topical QHS PRN (Reason: itching) Qty: 45 3RF Rx Instructions: apply the cream once or twice daily p.r.n. itching betamethasone valerate 0.1 % cream 1 applic topical BID PRN (Reason: itching) Qty: 15 3RF Rx Instructions: apply to area of itching b.i.d. omeprazole 40 mg capsule,delayed release(DR/EC) 40 mg PO DAILY Qty: 30 5RF norgestimate-ethinyl estradiol [Estarylla] 0.25-35 mg-mcg tablet 1 tablet PO DAILY Qty: 84 0RF Follow-up/Referrals: Del,Lisandro Jha DO [Primary Care Provider] -
[2024-09-16 11:15] LABS: Add Urine Microscopic? YES; Appearance Urine Clear (Clear); Bacteria Urine None Seen /hpf; Bilirubin Urine Negative (Negative); Blood Urine Negative (Negative); Color Urine Yellow (Yellow); Glucose Urine UA Negative (Negative); Ketones Urine Negative (Negative); Leukocyte Esterase Ur Trace LEU/UL (Negative); Nitrate Urine Negative (Negative); Non Pathogenic Casts 0-2; Protein Urine Negative (Negative); RBC Urine 0-2 /hpf (0-2); Specific Grav Ur 1.005 (1.001-1.035); Squamous Epithelial Cell Urine None Seen /hpf (Few); Urobilinogen Urine 0.2 mg/dL (<2.0); WBC Urine 0-5 /hpf (0-3); pH Urine 6.5 (5.0-9.0)
[2024-09-16] MEDS: SODIUM CHLORIDE 0.9% IV 1,000 ML 999 ML IV CONT (11:21)
[2024-09-16] MEDS: HYDROmorphone HCL INJ (*CRX) 1 MG/ML SYR 0.5 MG IV PUSH (11:21)
[2024-09-16 11:23] LABS: Alanine Aminotransferase 24 U/L (6-35); Albumin Level 4.3 g/dL (3.5-5.1); Alkaline Phosphatase 89 U/L (38-126); Anion Gap 12 mmol/L (4-12); Aspartate Amino Transferase 25 U/L (14-36); Bilirubin,Total 0.3 mg/dL (0.2-1.3); Blood Urea Nitrogen 10 mg/dL (7-17); Calcium 9.2 mg/dL (8.4-10.2); Carbon Dioxide 24 mmol/L (22-30); Chloride 99 mmol/L (98-107); Estimated CRCL calculation 139 ml/min; Estimated Glomerular Filt Rate > 60; Glucose 175 mg/dL (65-110); Potassium 3.9 mmol/L (3.4-5.0); Sodium 135 mmol/L (137-145)
[2024-09-16 11:25] LABS: Microcytosis 1+ (NORMAL); Platelet Estimate Adequate (Adequate); Schistocytes None Seen
[2024-09-16 14:30] VITALS: BP 156/89; PULSE 100; RESP 18; O2SAT 99
[2024-09-16] MEDS: HYDROcodone/acetaminophen (*CRX) 5-325 MG TABLET 1 TAB PO (14:39)
== END 2024-09-16 14:44 | disposition home or self-care (01) ==
PROVIDERS: Emergency Provider Emergency Medicine; PCP Internal Medicine Nephrology
DX: R10.31 Right lower quadrant pain (principal); E66.9 Obesity, unspecified; Z68.32 Body mass index [BMI] 32.0-32.9, adult; G90.A Postural orthostatic tachycardia syndrome [POTS]; K58.1 Irritable bowel syndrome with constipation; D50.9 Iron deficiency anemia, unspecified; Z87.442 Personal history of urinary calculi; Z90.49 Acquired absence of other specified parts of digestive tract; Z79.3 Long term (current) use of hormonal contraceptives; K76.0 Fatty (change of) liver, not elsewhere classified; K76.9 Liver disease, unspecified; R91.8 Other nonspecific abnormal finding of lung field; N83.201 Unspecified ovarian cyst, right side
CPT/HCPCS: 36415; 74177; 76830; 76856; 80053; 81001; 81025; 85025; 96361; 96374; 99284; A9270; J1171; J7030; Q9967

== ENCOUNTER 2024-10-04 16:07 | Outpatient (CLI) | payer OTHER, SELFPAY ==
[2024-10-04 16:53] LABS: Prothrombin Time 13.3 Seconds (11.1-14.7)
[2024-10-04 17:36] LABS: Immunoglobulin G 828 mg/dL (700-1600); Immunoglobulin M 180 mg/dL (40-230)
[2024-10-04 17:55] LABS: Iron 34 ug/dL (37-170)
[2024-10-04 18:05] LABS: Percent Iron Saturation 7 % (20-50)
[2024-10-04 18:31] LABS: Ferritin 6.13 ng/mL (6.24-137)
[2024-10-05 13:58] LABS: Ceruloplasmin 43 mg/dL (14-48)
[2024-10-08 08:59] LABS: Alpha Fetoprotein Tumor Marker 3.8 ng/mL
[2024-10-10 05:59] LABS: LKM 1 Antibody <=20.0 U (<=20.0)
== END 2024-10-04 16:08 | disposition home or self-care (01) ==
LOC: ANHLAB 16:08
PROVIDERS: PCP Internal Medicine Nephrology; Visit Provider Nurse Practitioner
DX: D50.9 Iron deficiency anemia, unspecified (principal); K75.81 Nonalcoholic steatohepatitis (NASH); K76.9 Liver disease, unspecified; K58.1 Irritable bowel syndrome with constipation; Z80.0 Family history of malignant neoplasm of digestive organs; K74.60 Unspecified cirrhosis of liver
CPT/HCPCS: 36415; 81596; 82105; 82390; 82607; 82728; 82746; 82784; 83520; 83540; 83550; 85610; 86038; 86039; 86364; 86376

== ENCOUNTER 2024-10-09 16:09 | Outpatient (CLI) | payer OTHER, SELFPAY | END 2024-10-09 16:10 | disposition home or self-care (01) | LOC: ANHLAB 16:12 | PROVIDERS: PCP Internal Medicine Nephrology; Visit Provider Student in an Organized Health Care Education/Training Program | DX: R23.2 Flushing (principal) | CPT/HCPCS: 36415; 84443 ==

== ENCOUNTER 2024-10-16 15:17 | Outpatient (CLI) | payer OTHER, SELFPAY ==
--- NOTE | ~2024-10-16 | MR_ITS ---
EXAMINATION: MR abdomen wo/w con DATE: 10/16/2024 16:10 INDICATION: Liver mass. TECHNIQUE: Magnetic resonance imaging (MRI) of the abdomen was performed without and with 20 mL Multi [place] intravenous contrast. COMPARISON: CT abdomen and pelvis 09/16/2024 FINDINGS: There is diffuse hepatic steatosis. There is a 2.4 cm mass in right hepatic lobe with interrupted per ipheral puddling of contrast, consistent with a hemangioma. There is a 1.5 cm cyst in right hepatic l obe. There is a 7 mm cyst in right hepatic lobe. The spleen, pancreas, adrenal glands, and right kidn ey are normal. There is a 10 mm cyst in left kidney. There are no dilated loops of bowel. IMPRESSION: 1. Benign cyst in the liver correlating with the CT abnormality. 2. Diffuse hepatic steatosis. Reviewed, dictated and finalized at location A. [place] SALES TEAMMATE
== END 2024-10-16 15:18 | disposition home or self-care (01) ==
PROVIDERS: PCP Internal Medicine Nephrology; Visit Provider Nurse Practitioner
DX: R93.2 Abnormal findings on diagnostic imaging of liver and biliary tract (principal); K76.9 Liver disease, unspecified
CPT/HCPCS: 74183; A9577

== ENCOUNTER 2024-11-24 20:29 | Emergency (ER) | payer OTHER, SELFPAY ==
--- NOTE | ~2024-11-24 | XR_ITS ---
XR foot LT min 3V DATE: 11/25/2024 03:12 INDICATION: Foreign body/glass in foot TECHNIQUE: 3 views COMPARISON: None FINDINGS: No obvious radio opaque foreign body or subcutaneous emphysema. No fracture, dislocation, periosteal reaction or bone destruction. IMPRESSION: Negative Reviewed, dictated and finalized at location A. SITE ENGINEER IMPRESSION: Negative
[2024-11-24 20:44] VITALS: BP 149/88; PULSE 98; RESP 15; TEMP 36.8; O2SAT 100
[2024-11-25 01:37] VITALS: BP 148/99; PULSE 97; RESP 19; TEMP 36.6; O2SAT 100
[2024-11-25 02:44] VITALS: BP 159/97; PULSE 98; RESP 16; O2SAT 99
--- NOTE | 2024-11-25 03:16 | PC.NURSE ---
edp dr. payton at bedside and able to remove glass piece from patient heel.
--- NOTE | 2024-11-25 03:17 | ED.GENADULT ---
HPI - General Adult General Chief complaint: Skin/Abscess/Foreign Body Stated complaint: Glass stuck in left footx5 days Time Seen by Provider: 11/25/24 02:46 History of Present Illness HPI narrative: 44-year-old female presenting to the emergency department for evaluation for glass in the bottom of her left foot. Patient reports approximately 5 days ago she dropped some pickles in her kitchen and then later stepped on an unseen piece of glass. Patient does report pain in the bottom of her left foot. Related Data Home Medications ?Medication ?Instructions ?Recorded ?Confirmed ?Last Taken ?Type polyethylene glycol 3350 17 17 g PO DAILY 12/10/23 10/09/24 Unknown History gram/dose oral powder Allergies Allergy/AdvReac Type Severity Reaction Status Date / Time meperidine Allergy Mild Hives Verified 11/24/24 20:47 Sulfa (Sulfonamide Allergy Mild Hives Verified 11/24/24 20:47 Antibiotics) ondansetron (From Zofran) AdvReac Mild Vomiting Verified 11/24/24 20:47 Review of Systems Review of Systems: All systems reviewed & are unremarkable except as noted in HPI and below PMFSH Past Medical History Medical History [place] infusions when needed / Taking iron Biliary colic Bloating Dyspepsia Family history of colon cancer in father History of gastric ulcer History of kidney stones Irritable bowel syndrome with constipation Loose stools Obesity Polyp of gallbladder POTS (postural orthostatic tachycardia syndrome) Screening mammogram, encounter for Surgical History Surgical History History of thyroid surgery Mass removed from thyroid History of ureter stent S/P laparoscopic cholecystectomy (01/12/23) 01/12/23 Family History Family History Father Family history of primary malignant neoplasm of liver Carcinoma of colon Malignant tumor of stomach Mother Diabetes mellitus Family history of cardiovascular disease Hypertension Renal failure syndrome Other Malignant neoplasm of prostate Pulmonary emboli Social History Social History Social History: Caffeine-coffee Smoking status: Never smoker Second hand tobacco smoke exposure: No Alcohol intake: current Alcohol use details: occasionally Substance use: never Substance use type: does not use Do You Feel Safe in your Home?: Yes Lack of Transportation: No Lack of Food: Never True Current Housing: I Have Housing Concerned About Future Housing: No Difficulty Paying Gas/Electric Bills: No Difficulty Paying for Meds: No Currently Unemployed: No Education: Master's Degree or Higher Difficulty w/ Childcare or Family Care: No Living arrangements: with family Additional living arrangements comments: 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 HEAD: normocephalic, atraumatic. EYES: PERRLA/EOMI, conjunctivae clear. NOSE: Normal no drainage EARS:TMS clear with good light reflex. THROAT: Pharynx clear, no exudate. NECK: Supple. No adenopathy, no masses. RESPIRATORY: Airway patent, respirations nonlabored. Clear to auscultation bilaterally, no rales, rhonchi, wheezing. CARDIOVASCULAR: Regular rate and rhythm without murmurs rubs or gallops. ABDOMINAL: Soft, nontender, nondistended, normal bowel sounds MUSCULOSKELETAL: Moves all extremities. Strength/ROM intact, No edema, No calf tenderness. NEURO: Alert. Cranial nerves II through XII intact. Good gait. Good coordination SKIN: Small healed wound bottom left heel Course Vital Signs Vital signs: Vital Signs Temperature 98.3 F 11/24/24 20:44 Pulse Rate 98 11/24/24 20:44 Respiratory Rate 15 11/24/24 20:44 Blood Pressure 149/88 H 11/24/24 20:44 Pulse Oximetry 100 11/24/24 20:44 Oxygen Delivery Room Air 11/24/24 20:44 Temperature 97.9 F 11/25/24 01:37 Pulse Rate 98 11/25/24 02:44 Respiratory Rate 16 11/25/24 02:44 Blood Pressure 159/97 H 11/25/24 02:44 Pulse Oximetry 99 11/25/24 02:44 Oxygen Delivery Room Air 11/24/24 20:44 Procedures Foreign Body Removal Foreign Body #1: Foreign Body Removal Date: 11/25/24 Foreign Body Removal Time: 03:20 Site: left and foot Description of foreign body: other (shard of glass) Sedation/Analgesia: none Technique: manual removal Confirmed by:: direct visualization Complications: none Post-procedure exam: awake, alert Neurovascular: normal distal pulse and normal capillary fill Medical Decision Making MDM Narrative Medical decision making narrative: X-ray showed no acute abnormality. Area of concern was anesthetized and explored and a small piece of glass approximately 1 mm x 3 mm was removed. Differential Diagnosis Differential Diagnosis: Abscess, foreign body Vital Signs Vital Signs: Vital Signs Temperature 98.3 F 11/24/24 20:44 Pulse Rate 98 11/24/24 20:44 Respiratory Rate 15 11/24/24 20:44 Blood Pressure 149/88 H 11/24/24 20:44 Pulse Oximetry 100 11/24/24 20:44 Oxygen Delivery Room Air 11/24/24 20:44 Temperature 97.9 F 11/25/24 01:37 Pulse Rate 98 11/25/24 02:44 Respiratory Rate 16 11/25/24 02:44 Blood Pressure 159/97 H 11/25/24 02:44 Pulse Oximetry 99 11/25/24 02:44 Oxygen Delivery Room Air 11/24/24 20:44 Discharge Plan Discharge Clinical Impression: Foreign body in foot Patient Disposition: Home, Self-Care Condition: Stable Instructions: Antibiotic Form Additional Instructions: Wound care as directed. Have close follow-up with your primary care physician. Patient Language: Citizen Of [place] Prescriptions: No Action polyethylene glycol 3350 17 gram/dose powder 17 g PO DAILY naproxen 375 mg tablet 375 mg PO BID Qty: 14 0RF dicyclomine 20 mg tablet 20 mg PO TID PRN (Reason: abdominal pain) Qty: 10 0RF omeprazole 40 mg capsule,delayed release(DR/EC) 40 mg PO DAILY Qty: 30 5RF norgestimate-ethinyl estradiol [Estarylla] 0.25-35 mg-mcg tablet 1 tablet PO DAILY Qty: 84 0RF nystatin 100,000 unit/gram powder 1 applic topical BID Qty: 15 1RF Follow-up/Referrals: Del,Lisandro Jha DO [Primary Care Provider] -
== END 2024-11-25 03:34 | disposition home or self-care (01) ==
PROVIDERS: Emergency Provider Emergency Medicine; PCP Internal Medicine Nephrology
DX: S90.852A Superficial foreign body, left foot, initial encounter (principal); W45.8XXA Other foreign body or object entering through skin, initial encounter; W25.XXXA Contact with sharp glass, initial encounter
CPT/HCPCS: 28190; 73630; 99283; J2004

== ENCOUNTER 2025-03-01 10:09 | Outpatient (CLI) | payer OTHER, SELFPAY ==
--- OUTSIDE RECORDS SUMMARY | 2025-03-01 10:24 | XMS_ITS | Clinical Summary ---
Author Organization [facility] Facility Address [address] [place] [address] Care Team Providers Care Health Information Clerk Name Role Phone Unavailable Primary Care Provider Unavailabl e Medications cholestyramine (QUESTRAN) 4 GM/DOSE powder Take 1 packet (4 g total) by mouth in the morning and 1 packet (4 g total) at noon and 1 packet (4 g total) in the evening. Take with meals. 270 packet 1 3 Active B Complex-C (B complex-vitamin C) tablet Take 1 tablet by mouth 1 (one) time each day 90 tablet 3 3 Active gabapentin (NEURONTIN) 100 MG capsule Take 1 capsule (100 mg total) by mouth 1 (one) time each day 30 capsule 4 Active sucralfate (CARAFATE) 1 g tablet Take 1 tablet (1 g total) by mouth in the morning and 1 tablet (1 g total) at noon and 1 tablet (1 g total) in the evening. 270 tablet 1 4 Active ferrous sulfate 325 (65 Fe) MG tablet Take 1 tablet (325 mg total) by mouth every afternoon 90 tablet 1 4 Active famotidine (PEPCID) 20 MG tablet Take 1 tablet (20 mg total) by mouth every night 90 tablet 1 4 Active Encounters Date Type Department Care Team Description 01/11/2025 Office Communication [facility], [address] [address] Mathis, Lisandro J, DO from Last 3 Months Social History Tobacco Use Types Packs/Day Years Used Date Smoking Tobacco: Never Alcohol Use Standard Drinks/Week Comments No 0 (1 standard drink = 0.6 oz pur e alcohol) Comments Unknown Sex and Gender Information Value Date Recorded Sex Assigned at Not on file Legal Sex Female 2:50 PM EDT Gender Identity Not on file Sexual Orientation Not on file Last Filed Vital Signs Vital Sign Reading Time Taken Comments Blood Pressure 138/80 04/17/2024 1:11 PM CDT Pulse 88 04/17/2024 1:11 PM CDT Temperature 36.1 C (97 F) 04/17/2024 1:11 PM CDT Respiratory Rate 18 04/17/2024 1:11 PM CDT Oxygen Saturation 99% 04/17/2024 1:11 PM CDT Inhaled Oxygen Concentration - - Weight 107 kg (235 lb) 04/17/2024 1:11 PM CDT Height 170.2 cm (5' 7 ) 10/12/2022 3:05 PM ELECTRO MECHANICAL SOLAR TECHNICIAN Body Mass Index 36.81 10/12/2022 3:05 PM ELECTRO MECHANICAL SOLAR TECHNICIAN Plan of Treatment Upcoming Encounters Date Type Department Care Team (Late st Contact Info) Description 03/26/2025 3:15 PM CDT Office Visit [facility], [facility] [address] [facility] [address] [place] [address] Lisandro Mathis, [address] [facility] 1 [place] [address] Health Maintenance Due Date Last Done Comments Hepatitis B Vaccine (1 of 3 - 19+ 3-dose series) 05/20 Pneumococcal Vaccine: Peds ( 0 to 5 Years) and At-Risk Patients (6 to 49 Years) (1 of 2 - PCV) 1998 Influenza Vaccine (Season Ended) 2025 Insurance [facility]
--- OUTSIDE RECORDS SUMMARY | 2025-03-01 10:24 | XMS_ITS | Clinical Summary ---
Author Organization [facility] Address [address] [place] [address] Care Team Providers Care Plastics Fitter Name Role Phone Lisandro Mathis DO Primary Care Provider Allergies Active Allergy Reactions Criticality Noted Date Comments Meperidine Other (See comments) Low 12/26/2023 Difficulty breathing Sulfa Rash Medium 12/26/2023 Ondansetron Nausea & Vomiting Low 12/26/2023 Medications omeprazole (PriLOSEC) 20 mg capsule Take 1 capsule (20 mg total) by mouth daily Active vitamin B complex capsule Take 1 capsule by mouth daily Active vitamin E (AQUASOL E) 400 unit capsuleIndications: Metabolic dysfunction-associa meggan steatohepatitis (MASH) Take 2 capsules (800 Units total) by mouth daily 60 capsule 11 4 Active Active Problems Problem Noted Date Diagnosed Date Hepatic steatosis 10/18/2024 Assessment & Plan (10/18/2024 4:38 PM SEQUINS STRINGER): Patient with hepatic steatosis and liver cyst noted on imaging. She has normal liver tests, platelet count. No fibrosis was seen on imaging. I will have patient get updated labs today and rule out causes of chronic liver disease. Patient to get FibroScan today to evaluate degree of steatosis and if any fibrosis is present. Will have MRI get re-read here to ensure there are no concerning findings and that liver lesion is benign. I explained to patient that she may need additional imaging like an MR with elastography and/or liver biopsy. We discussed the importance of weight loss and stress management. She is to work on eating healthier diet. Referral to nutrition placed. Patient to increase physical activity. We discussed the possibility of pharmacologic therapy if fibrosis is seen. Can consider vitamin E, GLP-1 agonist, and/or rezdiffra. We have discussed the natural history of metabolic dysfunction-associated steatotic liver disease (MASLD), formerly known as NAFLD. We discussed the risks of progression to cirrhosis, association with hepatocellular carcinoma and potential future need for liver transplantation. We have discussed that the main mortality risks are primarily due to cardiovascular diseases, non-hepatic malignancies or cancers and only thirdly, from complications of liver disease. We recommend weight loss through diet and exercise. We recommend weight loss of 10% of current body weight over a period of a year. Lifestyle modification consisting of diet, exercise, and weight loss is necessary to treat patients with MASLD. The data shows that overall weight loss is the frost to improvement in the histopathological features of MASH. A combination of a low calorie diet (daily reduction by 500-1,000 kcal) and moderate-intensity exercise provides the best chances of achieving and maintaining weight loss over time. Weight loss of at least 3%-5% of body weight appears necessary to improve steatosis, but a greater weight loss (7%-10%) is needed to improve the majority of the histopathological features of MASH, including fibrosis. She will return to clinic in 1 year. Chronic abdominal pain 10/18/2024 Assessment & Plan (10/18/2024 4:39 PM SEQUINS STRINGER): Referral to GI placed. Pain appears to be more pelvic related, recommend she see INSTRUCTIONAL SUPPORT TECHNICIAN. Due to dysuria, will obtain UA and urine culture to r/o UTI. In the meantime, she is to f/u with local GI. Recommended she work on stress management, try OTC medications like lidocaine patches, and to not exceed the recommended maximum amount of ibuprofen. Chronic kidney disease, stage I 12/21/2023 Iron deficiency anemia, unspecified 12/21/2023 Encounters Date Type Department Care Team Description 02/14/2025 Telephone [facility] Gastroenterology [address] [facility] 12th [place] [address] [place] [address] Wai Walton RN 12/31/2024 Telephone [facility] G[facility]enterology [address] [facility] 12th [place] [address] [place] [address] Jocelyn Saldana Lab due early January from Last 3 Months Social History Tobacco Use Types Packs/Day Years Used Date Smoking Tobacco: Never Assessed Comments Unknown Sex and Gender Information Value Date Recorded Sex Assigned at Not on file Legal Sex Female 9:08 AM CDT Gender Identity Not on file Sexual Orientation Not on file Obstetrics History Last Filed Vital Signs Vital Sign Reading Time Taken Comments Blood Pressure 131/88 10/18/2024 1:55 PM SEQUINS STRINGER Pulse 115 10/18/2024 1:55 PM SEQUINS STRINGER Temperature 36.1 C (97 F) 10/18/2024 1:55 PM SEQUINS STRINGER Respiratory Rate 20 01/09/2024 2:15 PM SEQUINS STRINGER Oxygen Saturation 98% 10/18/2024 1:55 PM SEQUINS STRINGER Inhaled Oxygen Concentration - - Weight 108.9 kg (240 lb) 10/18/2024 1:55 PM SEQUINS STRINGER Height 170.2 cm (5' 7 ) 10/18/2024 1:55 PM SEQUINS STRINGER Body Mass Index 37.59 10/18/2024 1:55 PM SEQUINS STRINGER Plan of Treatment Health Maintenance Due Date Last Done Comments Breast Cancer Screening-Mammogram 1979 Cervical Cancer Screening 1979 Colon Cancer Screening-Colonoscopy 1979 Depression Screening 1979 DTaP/Tdap/Td Vaccine (1 - Tdap) 1990 Regular Well Visit/Exam 18-64 1997 Influenza Vaccine (Season Ended) 2025 Hepatitis B Screening Completed 10/18/2024 Hepatitis C Screening Completed 10/18/2024 HPV Vaccines Aged Out No longer eligi ble based on patient's age to complete this topic Pneumococcal vaccine <65 Aged Out No longer eligible based on patient's age to complete this topic Procedures Procedure Name Priority Date/Time Associated Diagnosis Comments HEPATITIS C ANTIBODY Routine 10/18/2024 3:05 PM SEQUINS STRINGER Hepatic steatosis from Last 3 Months or Most Recently Relevant to Health Maintenance Results * Hepatitis C antibody Blood (10/18/2024 3:05 PM SEQUINS STRINGER) Hep C Ab Nonreactive Nonreactive Comment:Antibodies to HCV no t detected. Does NOT exclude the possibility of recent exposure to HCV. Current interpretive data was last revised on 22 Blood 10/18/2024 3:05 PM SEQUINS STRINGER 10/18/2024 3:41 PM SEQUINS STRINGER Narcisa Quinones NP LAB MICROBIOLOGY - GENER AL ORDERABLES Final Result [facility] [address] [facility] Department [place] [address] from Last 3 Months or Most Recently Relevant to Health Maintenance Insurance [facility] CHOICE PLUS [place] [id number] [facility] CHOICE PLUS [place] [phone] Care Teams Plastics Fitter Relationship Specialty Start Date End Date Lisandro Mathis DO [address] [place] [address] PCP - General Nephrology 10/18/24
--- OUTSIDE RECORDS SUMMARY | 2025-03-01 10:24 | XMS_ITS | Referral Summary ---
Author Organization [facility] Address [address] [place] [address] Care Team Providers Care Implementation Technician Name Role Phone Lisandro Mathis DO Primary Care Provider Encounters Date Type Department Care Team Description 02/14/2025 Telephone [facility] Gastroenterology [facility] 12th [place] [address] [place] [address] Wai Walton, CARSON 12/31/2024 Telephone [facility] Gastroenterology [address] [facility] 12th [place] [address] [place] [address] Jocelyn Saldana Lab due early January from Last 3 Months Allergies Active Allergy Reactions Criticality Noted Date [...] 10/18/2024 Assessment & Plan (10/18/2024 4:38 PM COMPLAINT CLERK): Patient with hepatic steatosis and liver cyst [...] 10/18/2024 Assessment & Plan (10/18/2024 4:39 PM COMPLAINT CLERK): Referral to GI placed. Pain appears to be more pelvic related, recommend she see QUICK SKETCH ARTIST. Due to dysuria, will obtain UA and urine culture to r/o UTI. In the meantime, she is to f/u with local GI. Recommended she work on stress management, try OTC medications like lidocaine patches, and to not exceed the recommended maximum amount of ibuprofen. Chronic kidney disease, stage I 12/21/2023 Iron deficiency anemia, unspecified 12/21/2023 Social History Tobacco Use Types Packs/Day Years Used Date Smoking Tobacco: Never Assessed Comments Unknown Sex and Gender Information Value Date Recorded Sex Assigned at Not on file Legal Sex Female 9:08 AM CDT Gender Identity Not on file Sexual Orientation Not on file Last Filed Vital Signs Vital Sign Reading Time Taken Comments Blood Pressure 131/88 10/18/2024 1:55 PM COMPLAINT CLERK Pulse 115 10/18/2024 1:55 PM COMPLAINT CLERK Temperature 36.1 C (97 F) 10/18/2024 1:55 PM COMPLAINT CLERK Respiratory Rate 20 01/09/2024 2:15 PM COMPLAINT CLERK Oxygen Saturation 98% 10/18/2024 1:55 PM COMPLAINT CLERK Inhaled Oxygen Concentration - - Weight 108.9 kg (240 lb) 10/18/2024 1:55 PM COMPLAINT CLERK Height 170.2 cm (5' 7 ) 10/18/2024 1:55 PM COMPLAINT CLERK Body Mass Index 37.59 10/18/2024 1:55 PM COMPLAINT CLERK Plan of Treatment Not on file Procedures Procedure Name Priority Date/Time Associated Diagnosis Comments HEPATITIS C ANTIBODY Routine 10/18/2024 3:05 PM COMPLAINT CLERK Hepatic steatosis from Last 3 Months or Most Recently Relevant to Health Maintenance Results * Hepatitis C antibody Blood (10/18/2024 3:05 PM COMPLAINT CLERK) Hep C Ab Nonreactive Nonreactive Comment:Antibodies to HCV no t detected. Does NOT exclude the possibility of recent exposure to HCV. Current interpretive data was last revised on 22 Blood 10/18/2024 3:05 PM COMPLAINT CLERK 10/18/2024 3:41 PM COMPLAINT CLERK Narcisa Quinones NP LAB MICROBIOLOGY - GENER AL ORDERABLES Final Result [facility] [address] [facility] Department [place] [address] from Last 3 Months or Most Recently Relevant to Health Maintenance Insurance [facility] CHOICE PLUS [facility] CHOICE PLUS [place] [phone] Care Teams Implementation Technician Relationship Specialty Start Date End Date Lisandro Mathis DO [address] [facility] 1 [place] [address] PCP - General Nephrology 10/18/24
--- OUTSIDE RECORDS SUMMARY | 2025-03-01 10:25 | XMS_ITS | Encounter Summary ---
Author Organization [facility] [employer] [facility] , [facility] Address [address] [facility] [place] [address] Phone Care Team Providers Care Air Hammer Stripper Name Role Phone Lashon Carrion MD Primary Care Provider +1- [phone] Reason for Visit * Reason Comments Med Refill Encounter Details Date Type Department Care Team (Late st Contact Info) Description 08/04/2022 Refill [place] [employer] [facility], [facility] [address] [facility] [address] [place] [address] Lisandro Mathis DO [address] [facility] 1 [place] [address] Social History Tobacco Use Types Packs/Day Years Used Date Smoking Tobacco: Never Alcohol Use Standard Drinks/Week Comments No 0 (1 standard drink = 0.6 oz pur e alcohol) Comments Unknown Sex and Gender Information Value Date Recorded Sex Assigned at Not on file Legal Sex Female 2:50 PM EDT Gender Identity Not on file Sexual Orientation Not on file documented as of this encounter Miscellaneous Notes * Telephone Encounter - Domonique Campbell CMA - 08/04/2022 2:10 PM CDT Pt needs to be seen in our office documented in this encounter Plan of Treatment Upcoming Encounters Date Type Department Care Team (Late st Contact Info) Description 03/26/2025 3:15 PM CDT Office Visit [facility] Care, [facility] [address] [facility] [address] [place] [address] Lisandro Mathis DO [address] [facility] 1 [place] [address] documented as of this encounter Visit Diagnoses Not on filedocumented in this encounter Care Teams Air Hammer Stripper Relationship Specialty [place] [address] [facility] [address] [place] [address] PCP - General Gastroenterology 10/12/22 04/16/24 documented as of this encounter
--- OUTSIDE RECORDS SUMMARY | 2025-03-01 10:25 | XMS_ITS | Encounter Summary ---
Author Organization [facility] [employer] [facility] [employer] [facility] Address [address] [facility] [place] [address] Phone Care Team Providers Care Inspector Filters Name Role Phone Lashon Carrion MD Primary Care Provider +1- [phone] Reason for Visit * Reason Comments Med Refill Encounter Details Date Type Department Care Team (Late st Contact Info) Description 08/25/2022 [facility]ill [place] [facility] [address] [facility] [address] [place] [address] Lisandro Mathis DO [address] [facility] 1 [place] [address] Social History Tobacco Use Types [...] on file documented as of this encounter Plan of Treatment Upcoming Encounters Date Type Department Care Team (Late st Contact Info) Description 03/26/2025 3:15 PM CDT Office Visit [facility] [address] [facility] [address] [place] [address] Lisandro Mathis DO [address] [facility] 1 [place] [address] documented as of this encounter Visit Diagnoses Not on filedocumented in this encounter Care Teams Inspector Filters Relationship Specialty [place] [address] [address] PCP - General Gastroenterology 10/12/22 04/16/24 documented as of this encounter
--- OUTSIDE RECORDS SUMMARY | 2025-03-01 10:25 | XMS_ITS | Clinical Summary ---
Author Organization [facility] Address [address], [address] [address] Phone Care Team Providers Care Electrical Supervisor Name Role Phone Unavailable Primary Care Provider Unavailabl e Social History Tobacco Use Types Packs/Day Years Used Date Smoking Tobacco: Never Assessed Comments Unknown Sex and Gender Information Value Date Recorded Sex Assigned at Not on file Legal Sex Female 7:18 AM CDT Gender Identity Not on file Sexual Orientation Not on file Plan of Treatment Health Maintenance Due Date Last Done Comments Hepatitis C Virus (HCV) Screening 1979 TdaP Immunization 1979 Hepatitis B Immunization (1 of 3 - 19+ 3-dose series) 1998 Pap Smear 2000 Cervical Cancer Screening (CCS) 2009 HPV/Cotest 2009 Discussion re Starting/Frequ ency of Mammograms 2019 Colonoscopy 2024 Colorectal Cancer Screening 2024 Influenza Immunization (#1) 2024 SARS-COV-2 Immunization ( season) 2024 Respiratory Syncytial Virus (RSV) Immunization (Adult) (1 - 1-dose 75+ series) 2054 Meningococcal Immunization (ACWY) Aged Out No longer eligible based on patient's age to complete this topic Pneumococcal Immunization Combined Aged Out No longer eligible based on patient's age to complete this topic Rotavirus Immunization Aged Out No lo nger eligible based on patient's age to complete this topic
--- OUTSIDE RECORDS SUMMARY | 2025-03-01 10:25 | XMS_ITS | Clinical Summary ---
Author Organization [facility] Address [address] [place] [address] Care Team Providers Care Die Press Operator Name Role Phone Lashon Carrion MD Primary Care Provider +1- [phone] Source Comments [facility],non-owned Affiliates and Associated Physician Practices is amultiple site organization consisting of ambulatory clinics and hospital sitesin [place], [place], [place] and [place]. This disclosure is being madepursuant to the Care Everywhere program and may not contain all information available regarding this patient. Last updated 18.[facility] Allergies Active Allergy Reactions Criticality Noted Date Comments Demerol Anaphylaxis High 04/02/2010 Can't breath Penicillins Anaphylaxis High 05/03/2022 Pt becomes SOB and gets hives Medications * Be aware that medications may not be up to date on this document. Alwaysverify current medications with the patient. ferrous sulfate 325 (65 FE) MG tablet Take 325 mg by mouth once daily Active Active Problems Problem Noted Date Diagnosed Date Chronic kidney disease, stage III (moderate) Anemia in stage 3 chronic kidney disease 022 Social History Tobacco Use Types Packs/Day Years Used Date Smoking Tobacco: Never Smokeless Tobacco: Never Alcohol Use Standard Drinks/Week Comments Never 0 (1 standard drink = 0.6 oz pur e alcohol) PHQ-2 Answer Date Recorded PHQ2 TOTAL SCORE 0 05/24/2022 Comments Unknown Sex and Gender Information Value Date Recorded Sex Assigned at Not on file Legal Sex Female 8:53 AM GARMENT SEWER HAND Gender Identity Not on file Sexual Orientation Not on file Last Filed Vital Signs Vital Sign Reading Time Taken Comments Blood Pressure 124/71 06/16/2022 8:32 AM CDT Pulse 70 06/16/2022 8:32 AM CDT Temperature 36.3 C (97.3 F) 06/16/2022 8:32 AM CDT Respiratory Rate 18 06/16/2022 8:32 AM CDT Oxygen Saturation 99% 06/16/2022 8:00 AM CDT Inhaled Oxygen Concentration - - Weight 59 kg (130 lb) 04/02/2010 8:51 AM CDT Height 170.2 cm (5' 7 ) 04/02/2010 8:51 AM CDT Body Mass Index 20.36 04/02/2010 8:51 AM CDT Plan of Treatment Health Maintenance Due Date Last Done Comments COLOGUARD (AGES 45-75) - COL ON CA SCREENING 1979 COLON MONITORING 1979 COLONOSCOPY - COLON CA SCREENING 1979 CT COLONOGRAPHY - COLON CA SCREENING 1979 Colorectal Cancer Screening 1979 FIT - COLON CA SCREENING 1979 FLEX SIG - COLON CA SCREENING 1979 LIPID TESTING 1979 MAMMOGRAM 1979 PAP SMEAR 1979 HIV SCREENING 1994 HEPATITIS C SCREENING 05/15/1997 DTAP/TDAP/TD VACCINES (1 - Tdap) 1998 HEPATITIS B VACCINE (1 of 3 - 19+ 3-dose series) 1998 COVID-19 VACCINE ( - 2023-2 5 season) 2024 DEPRESSION SCREENING 11/14/2024 05/24/2022 INFLUENZA VACCINE (Season Ended) 2025 ZOSTER VACCINE (1 of 2) 2029 HIB VACCINE Aged Out No longer eligi ble based on patient's age to complete this topic HPV VACCINE Aged Out No longer eligi ble based on patient's age to complete this topic MENINGOCOCCAL (Group B) VACC INE SHARED DECISION-MAKING Aged Out No longer eligibl e based on patient's age to complete this topic MENINGOCOCCAL GROUPS A/C/Y/W VACCINE Aged Out No longer eligible b ased on patient's age to complete this topic PNEUMOCOCCAL VACCINE Aged Out No long er eligible based on patient's age to complete this topic Insurance [facility] * Guarantor: ROSENDO COELHO Account Type Relation to Patient Date of Phone Billing Address Personal/Family [address] [place] [address] Care Teams Die Press Operator Relationship Specialty Start Date End Date Lashon Carrion MD [address] [place] [address] PCP - General 04/02/10
[2025-03-01 10:55] LABS: Hematocrit 30.8 % (37.0-47.0); Hemoglobin 8.8 g/dL (12.0-15.0); Mean Corpuscular HGB Conc 28.6 g/dl (32-36); Mean Corpuscular Hemoglobin 17.8 pg (26-34); Mean Corpuscular Volume 62.5 fl (80-100); Platelet Count Result 357 k/mm3 (150-375); Red Blood Count 4.93 M/mm3 (4.2-5.4); Red Cell Distribution Width 17.5 % (11.5-14.5)
[2025-03-01 11:00] LABS: Add Urine Microscopic? YES; Appearance Urine Cloudy (Clear); Bacteria Urine 3+ /hpf; Bilirubin Urine Negative (Negative); Blood Urine Negative (Negative); Color Urine Yellow (Yellow); Glucose Urine UA 2+ mg/dL (Negative); Ketones Urine 1+ mg/dL (Negative); Leukocyte Esterase Ur 2+ LEU/UL (Negative); Nitrate Urine Negative (Negative); Non Pathogenic Casts 0-2; Protein Urine Trace mg/dL (Negative); RBC Urine 0-2 /hpf (0-2); Specific Grav Ur 1.026 (1.001-1.035); Squamous Epithelial Cell Urine Moderate /hpf (Few); Urobilinogen Urine 0.2 mg/dL (<2.0); WBC Urine 21-50 /hpf (0-3); pH Urine 6.5 (5.0-9.0)
[2025-03-01 11:07] LABS: Alanine Aminotransferase 25 U/L (6-35); Albumin Level 4.3 g/dL (3.5-5.1); Alkaline Phosphatase 97 U/L (38-126); Anion Gap 13 mmol/L (4-12); Aspartate Amino Transferase 23 U/L (14-36); Bilirubin Indirect 0.2 mg/dL (0-1.1); Bilirubin,Total 0.3 mg/dL (0.2-1.3); Blood Urea Nitrogen 13 mg/dL (7-17); Calcium 8.9 mg/dL (8.4-10.2); Carbon Dioxide 23 mmol/L (22-30); Chloride 98 mmol/L (98-107); Cholesterol 158 mg/dL (0-200); Estimated Glomerular Filt Rate > 60; Glucose 258 mg/dL (65-110); HDL Direct 48 mg/dL; Magnesium 1.8 mg/dL (1.6-2.3); Potassium 4.4 mmol/L (3.4-5.0); Sodium 134 mmol/L (137-145); Triglycerides 349 mg/dL (<150)
[2025-03-01 11:15] LABS: Iron 28 ug/dL (37-170)
[2025-03-01 11:19] LABS: LDL Cholesterol Direct 55 mg/dL
[2025-03-01 11:25] LABS: Percent Iron Saturation 5 % (20-50)
[2025-03-01 11:32] LABS: Vitamin D 25 Hydroxy 35.9 ng/mL
[2025-03-01 11:38] LABS: Creatinine Urine 121.9 mg/dL
[2025-03-01 11:40] LABS: Total Protein Urine Random < 5 mg/dL; Ur Ttl Prot Creatinine Ratio < 0.04 mg/mg (0-0.20)
[2025-03-01 11:46] LABS: MALB Creatinine Ratio 32.4 mg/g (0-30); Microalbumin Urine Random 39.2 mg/L (0-16.7)
[2025-03-01 11:53] LABS: Ferritin 4.54 ng/mL (6.24-137)
[2025-03-01 12:18] LABS: Hemoglobin A1C 9.2 % (<5.7)
== END 2025-03-01 10:10 | disposition home or self-care (01) ==
PROVIDERS: PCP Internal Medicine Nephrology; Referring Provider Nurse Practitioner; Visit Provider Internal Medicine Nephrology
DX: K29.70 Gastritis, unspecified, without bleeding (principal); K76.0 Fatty (change of) liver, not elsewhere classified; K58.9 Irritable bowel syndrome, unspecified; N18.1 Chronic kidney disease, stage 1; G47.33 Obstructive sleep apnea (adult) (pediatric); Z87.19 Personal history of other diseases of the digestive system; Z86.2 Personal history of diseases of the blood and blood-forming organs and certain disorders involving the immune mechanism
CPT/HCPCS: 36415; 80053; 80061; 81001; 82043; 82248; 82306; 82570; 82607; 82728; 83036; 83540; 83550; 83735; 84156; 84443; 85027

== ENCOUNTER 2025-04-03 15:17 | Outpatient (CLI) | payer OTHER, SELFPAY ==
--- OUTSIDE RECORDS SUMMARY | 2025-04-03 15:21 | XMS_ITS | Clinical Summary ---
Author Organization [facility] Address [address], [address] [address] Phone Care Team Providers Care Communications Systems Engineer Name Role Phone Unavailable Primary Care Provider [...]
--- OUTSIDE RECORDS SUMMARY | 2025-04-03 15:21 | XMS_ITS | Encounter Summary ---
Author Organization [facility] [employer] [facility] [employer] [facility] Address [address] [facility] [place] [address] Phone Care Team Providers Care Librarian School Name Role Phone Lashon Carrion MD Primary Care Provider +1- [phone] Reason for Visit * Reason Comments Med Refill Encounter Details Date Type Department Care Team (Late st Contact Info) Description 08/25/2022 Refill [place] [facility] [address] [facility] [address] [place] [address] Lisandro Mathis DO [address] [facility] 1 [place] [address] Social History Tobacco Use Types [...] Care Team (Late st Contact Info) Description 04/23/2025 4:15 PM CDT Office Visit [place] [facility] [address] [facility] [address] [place] [address] Lisandro Mathis DO [address] [facility] 1 [place] [address] documented as of this encounter Visit Diagnoses Not on filedocumented in this encounter Care Teams Librarian School Relationship Specialty [place] [address] [address] PCP - General Gastroenterology 10/12/22 04/16/24 documented as of this encounter
--- OUTSIDE RECORDS SUMMARY | 2025-04-03 15:21 | XMS_ITS | Referral Summary ---
Author Organization [facility] Address [address] [place] [address] Care Team Providers Care School Bus Monitor Name Role Phone Lisandro Mathis DO Primary Care Provider Encounters Date Type Department Care Team Description 03/28/[address] [place] [phone] Katt Swanson, CARSON 03/28/[address] [place] [address] Katt Swanson, CARSON 03/27/2025 Orders Only [address] [place] [address] Oleg Euceda MD 03/05/2025 Telephone [facility] Gasteroenterology [address] [place] [address] Advanced Medicine 12th [place] [address] [place] [address] Narcisa Quinones NP 03/05/2025 Documentation [facility] Gastroenterology [address] [facility] Medicine 12th [place] [address] [place] [address] Wai Walton, CARSON 03/04/2025 Telephone [facility] Gasteroenterology [facility] Medicine 12th [place] [address] [place] [address] Narcisa Quinones, KENDRA 03/01/2025 Orders Only [facility] Scanning, Provider 02/14/2025 Telephone [facility] Gastroenterology [address] [facility] 12th [place] [address] [place] [address] Wai Walton, CARSON from Last 3 Months Allergies Active Allergy [...] total) by mouth daily 60 capsule 11 03/05/20 25 Active vitamin E (AQUASOL E) 400 unit capsuleIndications: Metabolic dysfunction-associa meggan steatohepatitis (MASH) Take 2 capsules (800 Units total) by mouth daily 60 capsule 11 10/22/20 24 025 Discontin ued(Reord er) Active Problems Problem Noted Date Diagnosed Date Hepatic steatosis 10/18/2024 Assessment & Plan (10/18/2024 4:38 PM DUMP OPERATOR): Patient with hepatic steatosis and liver cyst [...] 10/18/2024 Assessment & Plan (10/18/2024 4:39 PM DUMP OPERATOR): Referral to GI placed. Pain appears to be more pelvic related, recommend she see GLASS RIB[place]ON MACHINE OPERATOR. Due to dysuria, will obtain UA and [...] Comments Blood Pressure 131/88 10/18/2024 1:55 PM DUMP OPERATOR Pulse 115 10/18/2024 1:55 PM DUMP OPERATOR Temperature 36.1 C (97 F) 10/18/2024 1:55 PM DUMP OPERATOR Respiratory Rate 20 01/09/2024 2:15 PM DUMP OPERATOR Oxygen Saturation 98% 10/18/2024 1:55 PM DUMP OPERATOR Inhaled Oxygen Concentration - - Weight 108.9 kg (240 lb) 10/18/2024 1:55 PM DUMP OPERATOR Height 170.2 cm (5' 7 ) 10/18/2024 1:55 PM DUMP OPERATOR Body Mass Index 37.59 10/18/2024 1:55 PM DUMP OPERATOR Plan of Treatment Not on file Procedures Procedure Name Priority Date/Time Associated Diagnosis Comments SCAN - LABS 03/01/2025 HEPATITIS C ANTIBODY Routine 10/18/2024 3:05 PM DUMP OPERATOR Hepatic steatosis from Last 3 Months or Most Recently Relevant to Health Maintenance Results * SCAN - LABS (03/01/2025) us Provider Scanning Final Result * Hepatitis C antibody Blood (10/18/2024 3:05 PM DUMP OPERATOR) Hep C Ab Nonreactive Nonreactive Comment:Antibodies to HCV no t detected. Does NOT exclude the possibility of recent exposure to HCV. Current interpretive data was last revised on 22 Blood 10/18/2024 3:05 PM DUMP OPERATOR 10/18/2024 3:41 PM DUMP OPERATOR Narcisa Quinones NP LAB MICROBIOLOGY - GENER AL ORDERABLES Final Result [facility] [place] [address] from Last 3 Months or Most Recently Relevant to Health Maintenance Insurance [facility] [place] [address] [facility] [place] [id number] Care Teams School Bus Monitor Relationship Specialty Start Date End Date Lisandro Mathis DO [address] [facility] 1 [place] [address] PCP - General Nephrology 10/18/24
--- OUTSIDE RECORDS SUMMARY | 2025-04-03 15:21 | XMS_ITS | Encounter Summary ---
Author Organization [facility] , [facility] Address [address] [facility] [place] [address] Phone Care Team Providers Care Shipyard Painting Supervisor Name Role Phone Lashon Carrion MD Primary Care Provider +1- [phone] Reason for Visit * Reason Comments Med Refill Encounter Details Date Type Department Care Team (Late st Contact Info) Description 08/04/2022 Refill [place] [employer] [facility], [facility] 20[address] [facility] 15 [place] [phone] Lisandro Mathis DO 12[address] [facility] 1 [place] [address] Social History Tobacco Use Types [...] Description 04/23/2025 4:15 PM CDT Office Visit [facility] Care, [facility] 2043 [facility] [address] [place] [address] Lisandro Mathis DO [address] [facility] 1 [place] [address] documented as of this encounter Visit Diagnoses Not on filedocumented in this encounter Care Teams Shipyard Painting Supervisor Relationship Specialty [place] [address] [facility] [address] [place] [address] PCP - General Gastroenterology 10/12/22 04/16/24 documented as of this encounter
--- OUTSIDE RECORDS SUMMARY | 2025-04-03 15:21 | XMS_ITS | Clinical Summary ---
Author Organization [facility] Address [address] [place] [address] Care Team Providers Care Atm Mechanic Name Role Phone Lisandro Mathis DO Primary [...] 10/18/2024 Assessment & Plan (10/18/2024 4:38 PM DIFFUSION OPERATOR): Patient with hepatic steatosis and liver [...] 10/18/2024 Assessment & Plan (10/18/2024 4:39 PM DIFFUSION OPERATOR): Referral to GI placed. Pain appears to be more pelvic related, recommend she see FIELD KILN BURNER. Due to dysuria, will obtain UA and [...] Type Department Care Team Description 03/28/2025 Telephone [facility] [address] [facility] [address] [place] [address] Katt Swanson, CARSON 03/28/2025 Telephone [facility] 4 [facility] [address] [place] [address] Katt Swanson RN 03/27/2025 Orders Only [facility] 4 [facility] [address] [place] [address] Oleg Euceda MD 03/05/[address] [facility] Gasteroenterology [address] [facility] Advanced Medicine [facility] [place] [address] [place] [address] Narcisa Quinones NP 03/05/[address] [facility] Gastroenterology 49[address] [facility] Medicine [facility] [place] [address] [place] [address] Wai Walton, CARSON 03/04/[address] [facility] Gasteroenterology 49[address] [facility] Medicine 12th [place] [address] [place] [address] Narcisa Quinones, KENDRA 03/01/2025 Orders Only [facility] GASTR[facility]ENTEROLOGY Scanning, Provider 02/14/[address] [facility] Gastroenterology [facility] Medicine 12th [place] [address] [place] [address] Wai Walton, RN from Last 3 Months Social History Tobacco [...] Comments Blood Pressure 131/88 10/18/2024 1:55 PM DIFFUSION OPERATOR Pulse 115 10/18/2024 1:55 PM DIFFUSION OPERATOR Temperature 36.1 C (97 F) 10/18/2024 1:55 PM DIFFUSION OPERATOR Respiratory Rate 20 01/09/2024 2:15 PM DIFFUSION OPERATOR Oxygen Saturation 98% 10/18/2024 1:55 PM DIFFUSION OPERATOR Inhaled Oxygen Concentration - - Weight 108.9 kg (240 lb) 10/18/2024 1:55 PM DIFFUSION OPERATOR Height 170.2 cm (5' 7 ) 10/18/2024 1:55 PM DIFFUSION OPERATOR Body Mass Index 37.59 10/18/2024 1:55 PM DIFFUSION OPERATOR Plan of Treatment Health Maintenance Due Date Last Done Comments Breast Cancer Screening-Mammogram 1979 Cervical Cancer Screening 1979 Colon Cancer Screening-Colonoscopy 1979 Depression Screening 1979 DTaP/Tdap/Td Vaccine (1 - Tdap) 1990 Regular Well Visit/Exam 18-64 1997 Pneumococcal vaccine <65 (1 of 2 - PCV) 1998 Influenza Vaccine (Season Ended) 2025 Hepatitis B Screening Completed 10/18/2024 Hepatitis C Screening Completed 10/18/2024 HPV Vaccines Aged Out No longer eligi ble based on patient's age to complete this topic Procedures Procedure Name Priority Date/Time Associated Diagnosis Comments SCAN - LABS 03/01/2025 HEPATITIS C ANTIBODY Routine 10/18/2024 3:05 PM DIFFUSION OPERATOR Hepatic steatosis from Last 3 Months or Most Recently Relevant to Health Maintenance Results * SCAN - LABS (03/01/2025) us Provider Scanning Final Result * Hepatitis C antibody Blood (10/18/2024 3:05 PM DIFFUSION OPERATOR) Hep C Ab Nonreactive Nonreactive Comment:Antibodies to HCV no t detected. Does NOT exclude the possibility of recent exposure to HCV. Current interpretive data was last revised on 22 Blood 10/18/2024 3:05 PM DIFFUSION OPERATOR 10/18/2024 3:41 PM DIFFUSION OPERATOR Narcisa Quinones NP LAB MICROBIOLOGY - GENER AL ORDERABLES Final Result [facility] Department [place] [address] from Last 3 Months or Most Recently Relevant to Health Maintenance Insurance [facility] CHOICE PL[place] [id number] [facility] CHOICE [place] [address] Care Teams Atm Mechanic Relationship Specialty Start Date End Date Lisandro Mathis DO [address] [facility] [address] [place] [address] PCP - General Nephrology 10/18/24
--- OUTSIDE RECORDS SUMMARY | 2025-04-03 15:21 | XMS_ITS | Clinical Summary ---
Author Organization [facility] Address [address] [place] [address] Care Team Providers Care Wholesale Account Manager Name Role Phone Unavailable Primary Care Provider [...] every night 90 tablet 1 4 Active metFORMIN (GLUCOPHAGE) 500 MG tablet Take 1 tablet (500 mg total) by mouth 1 (one) time each day in the morning 90 tablet 1 5 Active Semaglutide,0.2 5 or 0.5MG/DOS, (Ozempic, 0.25 or 0.5 MG/DOSE,) 2 MG/1.5ML solution pen-injector Inject 0.25 mg under the skin per week 6 mL 1 5 Active hydrOXYzine (ATARAX) 25 MG tablet Take 1 tablet (25 mg total) by mouth 3 (three) times a day if needed for itching 90 tablet 1 5 Active metFORMIN (GLUCOPHAGE) 500 MG tablet Take 500 mg by mouth in the morning and 500 mg in the evening. Take with meals. 03/26/20 Discontinu ed(Reorder (does not appear on AVS)) Semaglutide,0.2 5 or 0.5MG/DOS, (Ozempic, 0.25 or 0.5 MG/DOSE,) 2 MG/1.5ML solution pen-injector Inject 0.25 mg under the skin per week 03/26/20 25 Discontinu ed(Reorder (does not appear on AVS)) hydrOXYzine (ATARAX) 25 MG tablet Take 25 mg by mouth 3 (three) times a day if needed for itching 03/26/20 Discontinu ed(Reorder (does not appear on AVS)) Encounters Date Type Department Care Team Description 03/26/2025 3:15 PM CDT Office Visit [facility] [address] [address] Lisandro Mathis DO Stage 1 chronic kidney disease (Primary Dx); Interstitial nephritis; Persistent proteinuria; Nephrolithiasis; Obstructive sleep apnea syndrome; H/O: anemia - iron deficient; Gastritis 03/26/2025 Refill [facility], [facility] [address] [address] Domonique Campbell CMA 03/04/2025 Documentation Only [facility], [address] [address] Lisandro Mathis DO 03/04/2025 Documentation Only [facility], [address] [address] Lisandro Mathis DO 01/11/2025 Office Communication [facility], [facility] [address] [place] [address] 1 [place] [address] Lisandro Mathis DO from Last 3 Months Social History [...] Sign Reading Time Taken Comments Blood Pressure 130/80 03/26/2025 2:47 PM CDT Pulse 68 03/26/2025 2:47 PM CDT Temperature 36.7 C (98 F) 03/26/2025 2:47 PM CDT Respiratory Rate 18 03/26/2025 2:47 PM CDT Oxygen Saturation 99% 03/26/2025 2:47 PM CDT Inhaled Oxygen Concentration - - Weight 107 kg (235 lb) 03/26/2025 2:47 PM CDT Height 170.2 cm (5' 7 ) 10/12/2022 3:05 PM AVIATION PROJECT MANAGER Body Mass Index 36.81 10/12/2022 3:05 PM AVIATION PROJECT MANAGER Plan of Treatment Upcoming Encounters Date Type Department Care Team (Late st Contact Info) Description 04/23/2025 4:15 PM CDT Office Visit [facility], [facility] [address] [phone] Lisandro Mathis DO [address] [place] [phone] Health Maintenance Due Date Last Done Comments Hepatitis B Vaccine (1 of 3 - 19+ 3-dose series) 05/20 Pneumococcal Vaccine: Peds ( 0 to 5 Years) and At-Risk Patients (6 to 49 Years) (1 of 2 - PCV) 1998 Influenza Vaccine (Season Ended) 2025 Insurance [facility] Address: [facility] [address] [place] [address]
--- OUTSIDE RECORDS SUMMARY | 2025-04-03 15:21 | XMS_ITS | Clinical Summary ---
Author Organization [facility] [employer] Address [address] [place] [address] Care Team Providers Care Treasury Director Name Role Phone Lashon Carrion MD Primary Care Provider +1- [phone] Source Comments [facility],non-owned Affiliates and Associated Physician Practices is amultiple site organization consisting of ambulatory clinics and hospital sitesin [place], [place], [place] and [place]. This disclosure is being madepursuant to the Care Everywhere program and may not contain all information available regarding this patient. Last updated 18.[facility] [employer] Allergies Active Allergy Reactions Criticality Noted Date [...] on file Legal Sex Female 8:53 AM PHOTOGRAPH TINTER Gender Identity Not on file Sexual Orientation [...] patient's age to complete this topic Insurance [facility] * Guarantor: ROSENDO COELHO Account Type Relation to Patient Date of Phone Billing Address Personal/Family [address] [place] [address] Care Teams Treasury Director Relationship Specialty Start Date End Date Lashon Carrion MD [address] [place] [address] PCP - General 04/02/10
== END 2025-04-03 15:18 | disposition home or self-care (01) ==
LOC: ANHLAB 15:19
PROVIDERS: PCP Internal Medicine Nephrology; Visit Provider Student in an Organized Health Care Education/Training Program
DX: R10.2 Pelvic and perineal pain (principal)
CPT/HCPCS: 87086

== ENCOUNTER 2025-04-07 15:32 | Emergency (ER) | payer OTHER, SELFPAY ==
--- NOTE | ~2025-04-07 | CT_ITS ---
CT abdomen pelvis w con Ordering provider: Juli Evangelista APRN History: 44 years Female with . RLQ pain . Comparison: November 20, 2024 Technique: CT abdomen and pelvis with IV and without oral contrast. Automated exposure control and it erative reconstruction technique were employed. The dose-length product was 1146.33 mGy-cm. 100 mL Om nipaque 350 was given IV. Findings: VISUALIZED LOWER CHEST: Normal. UPPER ABDOMINAL ORGANS: Liver: Fat infiltration. Hypodensity seen in the right lobe of the liver with peripheral enhancement suggestive of a hemangioma unchanged. Another smaller lesion is seen in the liver segment #6 most lik eric a meningioma. Small cyst is seen in the right lobe. Hepatomegaly. Gallbladder: Status post cholecystectomy. Spleen: Normal. Stomach/duodenum: Normal. Pancreas: Normal. Adrenals: Normal. Kidneys: Small cyst in the left kidney lower pole. PELVIC ORGANS: The bladder is underfilled with slightly thickened wall. Retroverted uterus. BOWEL AND MESENTERY: Colon: No evidence of diverticulitis. Normal appendix. Small Bowel: Normal. No obstruction. Peritoneum/mesentery: No free air or free fluid. No mesenteric lymphadenopathy. RETROPERITONEUM: Normal aorta. No retroperitoneal lymphadenopathy. MUSCULOSKELETAL: Superficial soft tissues: The superficial soft tissues are normal. Bones: Normal spine. IMPRESSION: 1. No evidence of appendicitis, diverticulitis or intestinal obstruction. 2. Hemangiomas in the liver unchanged from previous examination. 3. Hepatomegaly with fat infiltration. Reviewed, dictated and finalized at location A.
--- OUTSIDE RECORDS SUMMARY | 2025-04-07 15:35 | XMS_ITS | Clinical Summary ---
Author Organization [facility] Address [address], [address] [address] Phone Care Team Providers Care Chief Knowledge Officer Name Role Phone Unavailable Primary Care Provider [...]
--- OUTSIDE RECORDS SUMMARY | 2025-04-07 15:35 | XMS_ITS | Encounter Summary ---
Author Organization [facility] [employer] [facility] , [facility] Address [address] [facility] [place] [address] Phone Care Team Providers Care Doctor Naturopathic Name Role Phone Lashon Carrion MD Primary Care Provider +1- [phone] Reason for Visit * Reason Comments Med Refill Encounter Details Date Type Department Care Team (Late st Contact Info) Description 08/04/2022 Refill [facility], [facility] 2043 [facility] 15 [place] [phone] Lisandro Mathis DO 12[address] [facility] 1 [place] [address] Social History Tobacco Use Types [...] Description 04/23/2025 4:15 PM CDT Office Visit [facility] Care, [facility] [address] [facility] [address] [place] [address] Lisandro Mathis DO [address] [facility] 1 [place] [address] documented as of this encounter Visit Diagnoses Not on filedocumented in this encounter Care Teams Doctor Naturopathic Relationship Specialty [place] [address] [address] [facility] [address] [place] [address] PCP - General Gastroenterology 10/12/22 04/16/24 documented as of this encounter
--- OUTSIDE RECORDS SUMMARY | 2025-04-07 15:35 | XMS_ITS | Encounter Summary ---
Author Organization [facility] [employer] [facility] [employer] [facility] Address [address] [facility] [place] [address] Phone Care Team Providers Care Biophysics Teacher Name Role Phone Lashon Carrion MD Primary Care Provider +1- [phone] Reason for Visit * Reason Comments Med Refill Encounter Details Date Type Department Care Team (Late st Contact Info) Description 08/25/2022 [facility]ill [facility] 20[address] [facility] 15 [place] [address] Lisandro Mathis DO [address] [facility] 1 [place] [address] Social History Tobacco Use Types [...] Description 04/23/2025 4:15 PM CDT Office [facility] [address] [facility] [address] [place] [address] Lisandro Mathis DO [address] [facility] 1 [place] [address] documented as of this encounter Visit Diagnoses Not on filedocumented in this encounter Care Teams Biophysics Teacher Relationship Specialty [place] [address] [address] PCP - General Gastroenterology 10/12/22 04/16/24 documented as of this encounter
--- OUTSIDE RECORDS SUMMARY | 2025-04-07 15:35 | XMS_ITS | Clinical Summary ---
Author Organization [facility] Facility Address [address] [place] [address] Care Team Providers Care Showcase Maker Name Role Phone Unavailable Primary Care Provider [...] in the evening. Take with meals. 03/26/20 25 Discontinu ed(Reorder (does not appear on AVS)) Semaglutide,0.2 5 or 0.5MG/DOS, (Ozempic, 0.25 or 0.5 MG/DOSE,) 2 MG/1.5ML solution pen-injector Inject 0.25 mg under the skin per week 03/26/20 25 Discontinu ed(Reorder (does not appear on AVS)) hydrOXYzine (ATARAX) 25 MG tablet Take 25 mg by mouth 3 (three) times a day if needed for itching 03/26/20 25 Discontinu ed(Reorder (does not appear on AVS)) Encounters Date Type Department Care Team Description 04/05/2025 Documentation Only [address] [phone] Lisandro Mathis DO 03/26/2025 3:15 PM CDT Office Visit [facility] [address] [address] Lisandro Mathis DO Stage 1 chronic kidney disease (Primary Dx); Interstitial nephritis; Persistent proteinuria; Nephrolithiasis; Obstructive sleep apnea syndrome; H/O: anemia - iron deficient; Gastritis 03/26/[address] [facility] [address] [phone] Domonique Campbell CMA 03/04/2025 Documentation Only [address] [phone] Lisandro Mathis DO 03/04/2025 Documentation Only [facility], [address] [address] Lisandro Mathis DO 01/11/2025 Office Communication [facility], [address] [address] Lisandro Mathis DO from Last 3 [...] 2:47 PM CDT Height 170.2 cm (5' 7) 10/12/2022 3:05 PM CLASSIFIER TENDER Body Mass Index 36.81 10/12/2022 3:05 PM CLASSIFIER TENDER Plan of Treatment Upcoming Encounters Date Type Department Care Team (Late st Contact Info) Description 04/23/2025 4:15 PM CDT Office Visit [facility], [facility] 20[address] [facility] 15 [place] [address] Lisandro Mathis DO [address] [place] [phone] Health Maintenance Due Date Last Done Comments Hepatitis B Vaccine (1 of 3 - 19+ 3-dose series) 05/20 Pneumococcal Vaccine: Peds ( 0 to 5 Years) and At-Risk Patients (6 to 49 Years) (1 of 2 - PCV) 1998 Influenza Vaccine (Season Ended) 2025 Insurance [facility] [place] Address: [facility] [address] [place] [address]
--- OUTSIDE RECORDS SUMMARY | 2025-04-07 15:35 | XMS_ITS | Referral Summary ---
Author Organization [facility] Address [address] [place] [address] Care Team Providers Care Shop Router Name Role Phone Lisandro Mathis DO Primary Care Provider [phone] Encounters Date Type Department Care Team Description 03/28/[address] [place] [address] Katt Swanson, CARSON 03/28/[address] [place] [address] Katt Swanson, CARSON 03/27/2025 Orders Only [address] [place] [address] Oleg Euceda MD 03/05/2025 Telephone [facility] Gasteroenterology [address] [place] [address] Advanced Medicine 12th [place] [address] [place] [address] Narcisa Quinones NP 03/05/2025 Documentation [facility] Gastroenterology [address] [facility] Medicine 12th [place] [address] [place] [address] Wai Walton, CARSON 03/04/2025 Telephone [facility] Gasteroenterology [facility] Medicine 12th [place] [address] [place] [address] Narcisa Quinones, KENDRA 03/01/2025 Orders Only [facility] Scanning, Provider 02/14/2025 Telephone [facility] Gastroenterology [address] [facility] 12th [place] [address] [place] [phone] Wai Walton, CARSON from Last 3 Months [...] total) by mouth daily 60 capsule 11 5 Active Active Problems Problem Noted Date Diagnosed Date Hepatic steatosis 10/18/2024 Assessment & Plan (10/18/2024 4:38 PM INVENTORY CLERK): Patient with hepatic steatosis and liver [...] 10/18/2024 Assessment & Plan (10/18/2024 4:39 PM INVENTORY CLERK): Referral to GI placed. Pain appears to be more pelvic related, recommend she see STRATEGIC MANAGER. Due to dysuria, will obtain UA and [...] Comments Blood Pressure 131/88 10/18/2024 1:55 PM INVENTORY CLERK Pulse 115 10/18/2024 1:55 PM INVENTORY CLERK Temperature 36.1 C (97 F) 10/18/2024 1:55 PM INVENTORY CLERK Respiratory Rate 20 01/09/2024 2:15 PM INVENTORY CLERK Oxygen Saturation 98% 10/18/2024 1:55 PM INVENTORY CLERK Inhaled Oxygen Concentration - - Weight 108.9 kg (240 lb) 10/18/2024 1:55 PM INVENTORY CLERK Height 170.2 cm (5' 7) 10/18/2024 1:55 PM INVENTORY CLERK Body Mass Index 37.59 10/18/2024 1:55 PM INVENTORY CLERK Plan of Treatment Not on file Procedures Procedure Name Priority Date/Time Associated Diagnosis Comments SCAN - LABS 03/01/2025 HEPATITIS C ANTIBODY Routine 10/18/2024 3:05 PM INVENTORY CLERK Hepatic steatosis from Last 3 Months or Most Recently Relevant to Health Maintenance Results * SCAN - LABS (03/01/2025) us Provider Scanning Final Result * Hepatitis C antibody Blood (10/18/2024 3:05 PM INVENTORY CLERK) Hep C Ab Nonreactive Nonreactive Comment:Antibodies to HCV no t detected. Does NOT exclude the possibility of recent exposure to HCV. Current interpretive data was last revised on 22 Blood 10/18/2024 3:05 PM INVENTORY CLERK 10/18/2024 3:41 PM INVENTORY CLERK Narcisa Quinones NP LAB MICROBIOLOGY - GENER AL ORDERABLES Final Result [facility] [place] [address] from Last 3 Months or Most Recently Relevant to Health Maintenance Insurance [facility] CHOICE [place] [id number] [facility] CHOICE [place] [address] Care Teams Shop Router Relationship Specialty Start Date End Date Lisandro Mathis DO [address] [place] [address] PCP - General Nephrology 10/18/24
--- OUTSIDE RECORDS SUMMARY | 2025-04-07 15:35 | XMS_ITS | Encounter Summary ---
Author Organization [facility] [facility] , [facility] Address [address] [place] [phone] Phone Care Team Providers Care Center Consultant Name Role Phone Unavailable Primary Care Provider Unavailabl e Encounter Details Date Type Department Care Team (Late st Contact Info) Description 04/05/2025 Documentation Only [place] [email or web address] [facility], [address] [place] [address] Lisanrdo Mathis DO 12[address] [facility] 1 [place] [address] Social History Tobacco Use Types [...] Description 04/23/2025 4:15 PM CDT Office Visit [place] [email or web address] [facility], [facility] 2043 [facility] 15 [place] [phone] Lisandro Mathis DO 1266 [facility] 1 [place] [address] documented as of this encounter Visit Diagnoses Not on filedocumented in this encounter
--- OUTSIDE RECORDS SUMMARY | 2025-04-07 15:35 | XMS_ITS | Clinical Summary ---
Author Organization [facility] Address [address] [place] [address] Care Team Providers Care Associate Agent Insurance Sales Name Role Phone Lashon Carrion MD Primary Care Provider +1- [phone] Source Comments [facility],non-owned Affiliates and Associated Physician Practices is amultiple site organization consisting of ambulatory clinics and hospital sitesin [place], [place] and [place]. This disclosure is being madepursuant to the Care Everywhere program and may not contain all information available regarding this patient. Last updated 18.[facility] Allergies Active Allergy Reactions Criticality Noted Date [...] on file Legal Sex Female 8:53 AM SPOOLER Gender Identity Not on file Sexual Orientation [...] 8:51 AM CDT Height 170.2 cm (5' 7) 04/02/2010 8:51 AM CDT Body Mass Index [...] patient's age to complete this topic Insurance [facility] * Guarantor: ROSENDO COELHO Account Type Relation to Patient Date of Phone Billing Address Personal/Family [address] [place] [address] Care Teams Associate Agent Insurance Sales Relationship Specialty Start Date End Date Lashon Carrion MD [address] [place] [address] PCP - General 04/02/10
--- OUTSIDE RECORDS SUMMARY | 2025-04-07 15:35 | XMS_ITS | Clinical Summary ---
Author Organization [facility] Address [address] [place] [address] Care Team Providers Care Car Trimmer Name Role Phone Lisandro Mathis DO Primary [...] 10/18/2024 Assessment & Plan (10/18/2024 4:38 PM QUILL LAYER): Patient with hepatic steatosis and liver cyst [...] 10/18/2024 Assessment & Plan (10/18/2024 4:39 PM QUILL LAYER): Referral to GI placed. Pain appears to be more pelvic related, recommend she see DIRECTOR BIOMEDICAL ENGINEERING. Due to dysuria, will obtain UA and [...] Type Department Care Team Description 03/28/[address] [place] [address] Katt Swanson RN 03/28/[address] [place] [address] Katt Swanson, CARSON 03/27/2025 Orders Only [facility] [address] [facility] [address] [place] [address] Oleg Euceda MD 03/05/2025 Telephone [facility] Gasteroenterology [address] [facility] Advanced Medicine 12th [place] [address] [place] [address] Narcisa Quinones, KENDRA 03/05/2025 Documentation [facility] Gastroenterology [address] [facility] Advanced [address] [place] [address] [place] [address] Wai Walton, CARSON 03/04/2025 Telephone [facility]asteroenterology [address] [place] [address] [place] [address] Narcisa Quinones, KENDRA 03/01/2025 Orders Only [facility] Scanning, Provider 02/14/2025 Telephone [facility] Gastroenterology [facility] 12th [place] [address] [place] [address] Wai Walton, RN from Last 3 Months [...] Comments Blood Pressure 131/88 10/18/2024 1:55 PM QUILL LAYER Pulse 115 10/18/2024 1:55 PM QUILL LAYER Temperature 36.1 C (97 F) 10/18/2024 1:55 PM QUILL LAYER Respiratory Rate 20 01/09/2024 2:15 PM QUILL LAYER Oxygen Saturation 98% 10/18/2024 1:55 PM QUILL LAYER Inhaled Oxygen Concentration - - Weight 108.9 kg (240 lb) 10/18/2024 1:55 PM QUILL LAYER Height 170.2 cm (5' 7) 10/18/2024 1:55 PM QUILL LAYER Body Mass Index 37.59 10/18/2024 1:55 PM QUILL LAYER Plan of Treatment Health Maintenance Due Date [...] HEPATITIS C ANTIBODY Routine 10/18/2024 3:05 PM QUILL LAYER Hepatic steatosis from Last 3 Months or Most Recently Relevant to Health Maintenance Results * SCAN - LABS (03/01/2025) us Provider Scanning Final Result * Hepatitis C antibody Blood (10/18/2024 3:05 PM QUILL LAYER) Hep C Ab Nonreactive Nonreactive Comment:Antibodies to HCV no t detected. Does NOT exclude the possibility of recent exposure to HCV. Current interpretive data was last revised on 22 Blood 10/18/2024 3:05 PM QUILL LAYER 10/18/2024 3:41 PM QUILL LAYER Narcisa Quinones NP LAB MICROBIOLOGY - GENER AL ORDERABLES Final Result [facility] One [facility] Department [place] [address] from Last 3 Months or Most Recently Relevant to Health Maintenance Insurance [facility] HMO/PPO Address: [address] [address] [place] [address] [facility] HMO/PPO Address: [address] [address] [place] [address] Care Teams Car Trimmer Relationship Specialty Start Date End Date Lisandro Mathis DO [address] [place] [address] PCP - General Nephrology 10/18/24
--- OUTSIDE RECORDS SUMMARY | 2025-04-07 15:55 | XMS_ITS | Referral Summary ---
Author Organization [facility] Address [address] [place] [address] Care Team Providers Care Cherry Cutter Name Role Phone Lisandro Mathis DO Primary Care Provider Encounters Date Type Department Care Team Description 03/28/[address] [place] [phone] Katt Swanson, CARSON 03/28/[address] [place] [address] Katt Swanson, CARSON 03/27/2025 Orders Only [address] [place] [phone] Oleg Euceda MD 03/05/2025 Telephone [facility] Gasteroenterology [address] [place] [address] Advanced Medicine [address]th [place] [address] [place] [address] Narcisa Quinones NP 03/05/2025 Documentation [facility] Gastroenterology [address] [facility] Medicine 12th [place] [address] [place] [address] Wai Walton, CARSON 03/04/2025 Telephone [facility] Medicine 12th [place] [address] [place] [address] Narcisa Quinones, KENDRA 03/01/2025 Orders Only [facility] Scanning, Provider 02/14/2025 Telephone [facility] Gastroenterology [address] [facility] 12th [place] [address] [place] [phone] Wai Walton, CARSON from Last 3 Months [...] 10/18/2024 Assessment & Plan (10/18/2024 4:38 PM MEDICAL CASE WORKER): Patient with hepatic steatosis and liver cyst [...] 10/18/2024 Assessment & Plan (10/18/2024 4:39 PM MEDICAL CASE WORKER): Referral to GI placed. Pain appears to be more pelvic related, recommend she see VINYL DIPPER. Due to dysuria, will obtain UA and [...] Comments Blood Pressure 131/88 10/18/2024 1:55 PM MEDICAL CASE WORKER Pulse 115 10/18/2024 1:55 PM MEDICAL CASE WORKER Temperature 36.1 C (97 F) 10/18/2024 1:55 PM MEDICAL CASE WORKER Respiratory Rate 20 01/09/2024 2:15 PM MEDICAL CASE WORKER Oxygen Saturation 98% 10/18/2024 1:55 PM MEDICAL CASE WORKER Inhaled Oxygen Concentration - - Weight 108.9 kg (240 lb) 10/18/2024 1:55 PM MEDICAL CASE WORKER Height 170.2 cm (5' 7) 10/18/2024 1:55 PM MEDICAL CASE WORKER Body Mass Index 37.59 10/18/2024 1:55 PM MEDICAL CASE WORKER Plan of Treatment Not on file Procedures Procedure Name Priority Date/Time Associated Diagnosis Comments SCAN - LABS 03/01/2025 HEPATITIS C ANTIBODY Routine 10/18/2024 3:05 PM MEDICAL CASE WORKER Hepatic steatosis from Last 3 Months or Most Recently Relevant to Health Maintenance Results * SCAN - LABS (03/01/2025) us Provider Scanning Final Result * Hepatitis C antibody Blood (10/18/2024 3:05 PM MEDICAL CASE WORKER) Hep C Ab Nonreactive Nonreactive Comment:Antibodies to HCV no t detected. Does NOT exclude the possibility of recent exposure to HCV. Current interpretive data was last revised on 22 Blood 10/18/2024 3:05 PM MEDICAL CASE WORKER 10/18/2024 3:41 PM MEDICAL CASE WORKER Narcisa Quinones NP LAB MICROBIOLOGY - GENER AL ORDERABLES Final Result [facility] One [facility] [place] [address] from Last 3 Months or Most Recently Relevant to Health Maintenance Insurance [facility] CHO[facility] H[facility]/PPO Address: [facility] [address] [place] [address] [facility] CHOICE [facility] H[facility]/PPO Address: [address] [address] [place] [address] Care Teams Cherry Cutter Relationship Specialty Start Date End Date Lisandro Mathis DO [address] [place] [address] PCP - General Nephrology 10/18/24
--- OUTSIDE RECORDS SUMMARY | 2025-04-07 15:55 | XMS_ITS | Clinical Summary ---
Author Organization [facility] [employer] Address [address] [place] [address] Care Team Providers Care Cushion Worker Name Role Phone Lashon Carrion MD Primary Care Provider +1- [phone] Source Comments [facility],non-owned Affiliates and Associated Physician Practices is amultiple site organization consisting of ambulatory clinics and hospital sitesin [place], [place], [place] and [place]. This disclosure is being madepursuant to the Care Everywhere program and may not contain all information available regarding this patient. 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
--- OUTSIDE RECORDS SUMMARY | 2025-04-07 15:55 | XMS_ITS | Encounter Summary ---
Author Organization [facility] [employer] [facility] [employer] [facility] Address [address] [facility] [place] [address] Phone Care Team Providers Care Machine Carton Marker Name Role Phone Lashon Carrion MD Primary Care Provider +1- [phone] Reason for Visit * Reason Comments Med Refill Encounter Details Date Type Department Care Team (Late st Contact Info) Description 08/25/2022 Refill [place] [employer] [facility] [address] [facility] [address] [place] [address] Lisandro Mathis DO [address] [facility] 1 [place] [address] Social History Tobacco Use Types [...] Description 04/23/2025 4:15 PM CDT Office Visit [place] [employer] [facility] [address] [facility] [address] [place] [address] Lisandro Mathis DO [address] [facility] 1 [place] [address] documented as of this encounter Visit Diagnoses Not on filedocumented in this encounter Care Teams Machine Carton Marker Relationship Specialty [place] [address] [address] PCP - General Gastroenterology 10/12/22 04/16/24 documented as of this encounter
--- OUTSIDE RECORDS SUMMARY | 2025-04-07 15:55 | XMS_ITS | Encounter Summary ---
Author Organization [facility] [employer] [facility] , [facility] Address [address] [place] [phone] Phone Care Team Providers Care Surveillance Specialist Name Role Phone Unavailable Primary Care Provider Unavailabl e Encounter Details Date Type Department Care Team (Late st Contact Info) Description 04/05/2025 Documentation Only [place] [employer] [facility], [address] [place] [address] Lisandro Mathis DO 1260 [facility] 1 [place] [address] Social History Tobacco Use Types [...] Description 04/23/2025 4:15 PM CDT Office Visit [place] [employer] [facility], [facility] 20[address] [facility] 15 [place] [address] Lisandro Mathis DO 1268 [facility] 1 [place] [address] documented as of this encounter Visit Diagnoses Not on filedocumented in this encounter
--- OUTSIDE RECORDS SUMMARY | 2025-04-07 15:55 | XMS_ITS | Clinical Summary ---
Author Organization [facility] Address [address] [place] [address] Care Team Providers Care Outside Laborer Name Role Phone Unavailable Primary Care Provider [...] Department Care Team Description 04/05/2025 Documentation Only [address] [phone] Lisandro Mathis DO 03/26/2025 3:15 PM CDT Office Visit [facility] [address] [address] iLsandro Mathis DO Stage 1 chronic kidney disease (Primary Dx); Interstitial nephritis; Persistent proteinuria; Nephrolithiasis; Obstructive sleep apnea syndrome; H/O: anemia - iron deficient; Gastritis 03/26/[address] [facility] [address] [phone] Domonique Campbell CMA 03/04/2025 Documentation Only [address] [phone] Lisandro Mathis DO 03/04/2025 Documentation Only [facility], [address] [address] Lisandro Mathis DO 01/11/2025 Office Communication [facility], [address] [address] Lisandro Mathis DO from Last [...] 170.2 cm (5' 7) 10/12/2022 3:05 PM HAT AND CAP SEWER Body Mass Index 36.81 10/12/2022 3:05 PM HAT AND CAP SEWER Plan of Treatment Upcoming Encounters Date Type Department Care Team (Late st Contact Info) Description 04/23/2025 4:15 PM CDT Office Visit [facility], [facility] 2043 [facility] 15 [place] [address] Lisandro Mathis DO [address] [place] [address] Health Maintenance Due Date Last Done Comments Hepatitis B Vaccine (1 of 3 - 19+ 3-dose series) 05/20 Pneumococcal Vaccine: Peds ( 0 to 5 Years) and At-Risk Patients (6 to 49 Years) (1 of 2 - PCV) 1998 Influenza Vaccine (Season Ended) 2025 Insurance [facility]
--- OUTSIDE RECORDS SUMMARY | 2025-04-07 15:55 | XMS_ITS | Clinical Summary ---
Author Organization [facility] Address [address] [place] [address] Care Team Providers Care Lithographic Photographer Name Role Phone Lisandro Mathis DO Primary Care Provider [phone] Allergies Active Allergy Reactions Criticality Noted Date [...] 10/18/2024 Assessment & Plan (10/18/2024 4:38 PM SIGNAL SYSTEM TESTING MAINTAINER): Patient with hepatic steatosis and liver cyst [...] 10/18/2024 Assessment & Plan (10/18/2024 4:39 PM SIGNAL SYSTEM TESTING MAINTAINER): Referral to GI placed. Pain appears to be more pelvic related, recommend she see LIBRARY SERIALS ASSISTANT. Due to dysuria, will obtain UA and [...] Type Department Care Team Description 03/28/[address] [place] [address] Katt Swanson RN 03/28/[address] [place] [address] Katt Swanson, CARSON 03/27/2025 Orders Only [facility] [address] [facility] [address] [place] [address] Oleg Euceda MD 03/05/2025 Telephone [facility] Gasteroenterology [address] [facility] Advanced Medicine 12th [place] [address] [place] [address] Narcisa Quinones, KENDRA 03/05/2025 Documentation [facility] Gastroenterology [address] [facility] Advanced [address] [place] [address] Wai Walton, CARSON 03/04/2025 Telephone [facility] Gasteroenterology [address] [place] [address] [place] [address] Narcisa Quinones, KENDRA 03/01/2025 Orders Only [facility] GA[facility]OLOGY Scanning, Provider 02/14/2025 Telephone [facility] Gastroenterology [facility] 12th [place] [address] [place] [address] Wai Walton, RN from Last 3 Months [...] Comments Blood Pressure 131/88 10/18/2024 1:55 PM SIGNAL SYSTEM TESTING MAINTAINER Pulse 115 10/18/2024 1:55 PM SIGNAL SYSTEM TESTING MAINTAINER Temperature 36.1 C (97 F) 10/18/2024 1:55 PM SIGNAL SYSTEM TESTING MAINTAINER Respiratory Rate 20 01/09/2024 2:15 PM SIGNAL SYSTEM TESTING MAINTAINER Oxygen Saturation 98% 10/18/2024 1:55 PM SIGNAL SYSTEM TESTING MAINTAINER Inhaled Oxygen Concentration - - Weight 108.9 kg (240 lb) 10/18/2024 1:55 PM SIGNAL SYSTEM TESTING MAINTAINER Height 170.2 cm (5' 7) 10/18/2024 1:55 PM SIGNAL SYSTEM TESTING MAINTAINER Body Mass Index 37.59 10/18/2024 1:55 PM SIGNAL SYSTEM TESTING MAINTAINER Plan of Treatment Health Maintenance Due Date [...] HEPATITIS C ANTIBODY Routine 10/18/2024 3:05 PM SIGNAL SYSTEM TESTING MAINTAINER Hepatic steatosis from Last 3 Months or Most Recently Relevant to Health Maintenance Results * SCAN - LABS (03/01/2025) us Provider Scanning Final Result * Hepatitis C antibody Blood (10/18/2024 3:05 PM SIGNAL SYSTEM TESTING MAINTAINER) Hep C Ab Nonreactive Nonreactive Comment:Antibodies to HCV no t detected. Does NOT exclude the possibility of recent exposure to HCV. Current interpretive data was last revised on 22 Blood 10/18/2024 3:05 PM SIGNAL SYSTEM TESTING MAINTAINER 10/18/2024 3:41 PM SIGNAL SYSTEM TESTING MAINTAINER Narcisa Quinones NP LAB MICROBIOLOGY - GENER AL ORDERABLES Final Result [facility] [place] [address] from Last 3 Months or Most Recently Relevant to Health Maintenance Insurance [facility] CHOICE PLUS [place] [address] [facility] HMO/PPO Address: [facility] [id number] [place] [address] [facility] CHOICE PLUS [place] [address] Care Teams Lithographic Photographer Relationship Specialty Start Date End Date Lisandro Mathis DO [address] [place] [address] PCP - General Nephrology 10/18/24
--- OUTSIDE RECORDS SUMMARY | 2025-04-07 15:55 | XMS_ITS | Clinical Summary ---
Author Organization [facility] Address [address], [address] [address] Phone Care Team Providers Care Director Drug Name Role Phone Unavailable Primary Care Provider [...]
--- OUTSIDE RECORDS SUMMARY | 2025-04-07 15:55 | XMS_ITS | Encounter Summary ---
Author Organization [facility] [employer] [facility] , [facility] Address [address] [facility] [place] [address] Phone Care Team Providers Care Medical Assistant Name Role Phone Lashon Carrion MD Primary Care Provider +1- [phone] Reason for Visit * Reason Comments Med Refill Encounter Details Date Type Department Care Team (Late st Contact Info) Description 08/04/2022 Refill [place] [employer] [facility], [facility] 2043 [facility] 15 [place] [phone] Lisandro Mathis DO 12[address] [facility] 1 [place] [address] Social History Tobacco Use Types [...] Description 04/23/2025 4:15 PM CDT Office Visit [facility] Care, [facility] [address] [facility] [address] [place] [phone] Lisandro Mathis DO [address] [facility] 1 [place] [address] documented as of this encounter Visit Diagnoses Not on filedocumented in this encounter Care Teams Medical Assistant Relationship Specialty [place] [address] [address] [facility] [address] [place] [address] PCP - General Gastroenterology 10/12/22 04/16/24 documented as of this encounter
[2025-04-07 15:58] VITALS: BP 150/89; PULSE 100; RESP 18; O2SAT 99
[2025-04-07 16:00] LABS: BEDSIDEPREGUCG Negative (Negative)
[2025-04-07 16:07] LABS: Basophils Absolute Auto 0.1 K/mm3 (0.0-0.1); Basophils Percent Auto 0.6 % (0.2-1.2); Eosinophils Absolute Auto 0.1 K/mm3 (0-0.3); Eosinophils Percent Auto 1.4 % (0-4.4); Hematocrit 30.8 % (37.0-47.0); Hemoglobin 8.6 g/dL (12.0-15.0); Immature Granulocyte Absolute 0.04 K/mm3 (0.00-0.031); Immature Granulocyte Percent A 0.5 % (0-0.5); Immature Platelet Fraction Pct 3.4 % (0.9-11.2); Lymphocytes Absolute Auto 1.83 K/mm3 (0.9-3.2); Mean Corpuscular HGB Conc 27.9 g/dl (32-36); Mean Corpuscular Hemoglobin 16.9 pg (26-34); Mean Corpuscular Volume 60.4 fl (80-100); Monocytes Absolute Auto 0.6 K/mm3 (0.1-0.6); Monocytes Percent Auto 6.9 % (2.6-8.5); Neutrophils Absolute Auto 6.1 K/mm3 (1.3-6.7); Neutrophils Percent Auto 69.6 % (45.5-73.1); Platelet Count Result 398 k/mm3 (150-375); Red Cell Distribution Width 19.3 % (11.5-14.5); White Blood Count 8.7 K/mm3 (4.5-10.0)
[2025-04-07 16:12] LABS: Add Urine Microscopic? YES; Appearance Urine Clear (Clear); Bacteria Urine Rare /hpf; Bilirubin Urine Negative (Negative); Blood Urine Negative (Negative); Color Urine Yellow (Yellow); Glucose Urine UA 1+ mg/dL (Negative); Ketones Urine Negative (Negative); Leukocyte Esterase Ur 2+ LEU/UL (Negative); Nitrate Urine Negative (Negative); Non Pathogenic Casts 0-2; Protein Urine Negative (Negative); RBC Urine 0-2 /hpf (0-2); Squamous Epithelial Cell Urine Few /hpf (Few); Urobilinogen Urine 0.2 mg/dL (<2.0)
[2025-04-07 16:15] LABS: Alanine Aminotransferase 25 U/L (6-35); Albumin Level 4.3 g/dL (3.5-5.1); Alkaline Phosphatase 86 U/L (38-126); Anion Gap 12 mmol/L (4-12); Aspartate Amino Transferase 32 U/L (14-36); Bilirubin,Total 0.2 mg/dL (0.2-1.3); Blood Urea Nitrogen 8 mg/dL (7-17); Calcium 9.5 mg/dL (8.4-10.2); Carbon Dioxide 23 mmol/L (22-30); Chloride 100 mmol/L (98-107); Estimated CRCL calculation 147 ml/min; Estimated Glomerular Filt Rate > 60; Glucose 256 mg/dL (65-110); Lipase 139 U/L (23-300); Sodium 135 mmol/L (137-145)
--- NOTE | 2025-04-07 16:18 | ED_ITS ---
HPI - Abdominal Pain General Chief Complaint: Abdominal Pain Stated Complaint: pelvic pain Time Seen by Provider: 04/07/25 15:34 History of Present Illness HPI narrative: Patient is a 44-year-old female presents to the ER with a 1 1/2 week history right lower quadrant abdominal pain. She reports she went to her OBGYN who checked her urine and cleared her for women's health reasons. Patient's OBGYN advised her to take Tylenol and ibuprofen for pain control. She reports she spoke with her primary care provider who advised her to come to the ER for further evaluation. Patient endorses a history of constipation, kidney stones, POTS, and diabetes. She reports she started Ozempic on Tuesday, 2 days ago. Related Data Home Medications ?Medication ?Instructions ?Recorded ?Confirmed ?Last Taken ?Type polyethylene glycol 3350 17 17 g PO DAILY 12/10/23 04/03/25 Unknown History gram/dose oral powder Allergies Allergy/AdvReac Type Severity Reaction Status Date / Time meperidine Allergy Mild Hives Verified 04/07/25 15:56 Sulfa (Sulfonamide Allergy Mild Hives Verified 04/07/25 15:56 Antibiotics) metoclopramide (From Reglan) AdvReac Severe Hallucinati Verified 04/07/25 15:59 ng ondansetron (From Zofran) AdvReac Mild Vomiting Verified 04/07/25 15:56 Review of Systems 2 Review of Systems: All systems reviewed & are unremarkable except as noted in HPI and below PMFSH Past Medical History Medical History Bloating Irritable bowel syndrome with constipation Obesity Loose stools Dyspepsia Family history of colon cancer in father History of kidney stones History of gastric ulcer Polyp of gallbladder Biliary colic Screening mammogram, encounter for [place] infusions when needed / Taking iron POTS (postural orthostatic tachycardia syndrome) Surgical History Surgical History S/P laparoscopic cholecystectomy (01/12/23) 01/12/23 History of thyroid surgery Mass removed from thyroid History of ureter stent Family History Family History Father Family history of primary malignant neoplasm of liver Carcinoma of colon Malignant tumor of stomach Mother Diabetes mellitus Family history of cardiovascular disease Hypertension Renal failure syndrome Other Malignant neoplasm of prostate Pulmonary emboli Social History Social History Social History: Caffeine-coffee Smoking status: Never smoker Second hand tobacco smoke exposure: No Alcohol intake: current Alcohol use details: occasionally Substance use: never Substance use type: does not use Do You Feel Safe in your Home?: Yes Lack of Transportation: No Lack of Food: Never True Current Housing: I Have Housing Concerned About Future Housing: No Difficulty Paying Gas/Electric Bills: No Difficulty Paying for Meds: No Currently Unemployed: No Education: Master's Degree or Higher Difficulty w/ Childcare or Family Care: No Living arrangements: with family Additional living arrangements comments: 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 HEAD: Normocephalic, atraumatic. NECK: Supple. No adenopathy, no masses. RESPIRATORY: Airway patent, respirations nonlabored. Clear to auscultation bilaterally, no rales, rhonchi, wheezing. CARDIOVASCULAR: Regular rate and rhythm without murmurs, rubs, or gallops. Peripheral pulses 2+ and equal bilaterally. ABDOMINAL: Soft, RLQ tenderness, nondistended, no hepatosplenomegaly. Normoactive BS. MUSCULOSKELETAL: Moves all extremities. Strength/ROM intact without gross deformities. SKIN: Warm, dry, normal color. No rashes. NEURO: A&O X3. Speech clear. Cranial nerves II-XII intact. No ataxic movements. PSYCHIATRIC: Appropriate mood and affect. Normal interaction. Course Vital Signs Vital signs: Vital Signs Pulse Rate 100 04/07/25 15:58 Respiratory Rate 18 04/07/25 15:58 Blood Pressure 150/89 H 04/07/25 15:58 Pulse Oximetry 99 04/07/25 15:58 Pulse Rate 100 04/07/25 15:58 Respiratory Rate 18 04/07/25 15:58 Blood Pressure 150/89 H 04/07/25 15:58 Pulse Oximetry 99 04/07/25 15:58 MDM - Abdominal Pain MDM Narrative Medical decision making narrative: Patient is a 44-year-old female presents to the ER with a 1 1/2 week history right lower quadrant abdominal pain. She reports she went to her OBGYN who checked her urine and cleared her for women's health reasons. Patient's OBGYN advised her to take Tylenol and ibuprofen for pain control. She reports she spoke with her primary care provider who advised her to come to the ER for further evaluation. Patient endorses a history of constipation, kidney stones, POTS, and diabetes. She reports she started Ozempic on Tuesday, 2 days ago. Labs Ordered: CBC, CMP, UA, lipase Imaging Ordered: CT abdomen pelvis Medications Ordered: Toradol 15 mg IV, morphine 4 mg IV, magnesium citrate, Keflex p.o. Results: CT abdomen pelvis indicates 1. No evidence of appendicitis, diverticulitis or intestinal obstruction. 2. Hemangiomas in the liver unchanged from previous examination. 3. Hepatomegaly with fat infiltration. Diagnosis: Urinary tract infection, constipation, hyperglycemia (pt just started Ozempic and is followed for this her PCP) Patient Education/Shared MDM: Results of lab work and imaging shared with patient. She endorses mild improvement of symptoms following medication administration, but would like to receive a dose of Toradol prior to discharge. Patient is also requesting she receives something here in the ER to treat her constipation. Patient strongly advised to maintain hydration status upon discharge and follow-up with her PCP as soon as possible. She will be discharged home with a prescription for Keflex and magnesium citrate. Strict return precautions provided. Patient verbalized understanding and is in agreement with plan. Vital signs stable at time of discharge. All questions answered. Differential Diagnosis Differential diagnosis: Likely abdominal pain, calculus of kidney, constipation and gastroenteritis Lab Data Attestation: I reviewed the patient's lab results. 04/07/25 15:53 04/07/25 15:53 Labs: Lab Results 04/07/25 04/07/25 Range/Units 15:53 15:58 WBC 8.7 (4.5-10.0) K/mm3 RBC 5.10 (4.2-5.4) M/mm3 Hgb 8.6 L (12.0-15.0) g/dL Hct 30.8 L (37.0-47.0) % MCV 60.4 L (80-100) fl MCH 16.9 L (26-34) pg MCHC 27.9 L (32-36) g/dl RDW 19.3 H (11.5-14.5) % Plt Count 398 H (150-375) k/mm3 MPV 10.0 (7.4-10.4) fl Immature Gran % (Auto) 0.5 (0-0.5) % Neut % (Auto) 69.6 (45.5-73.1) % Lymph % (Auto) 21.0 (18.3-44.2) % Becker % (Auto) 6.9 (2.6-8.5) % Eos % (Auto) 1.4 (0-4.4) % Baso % (Auto) 0.6 (0.2-1.2) % Lymph # (Auto) 1.83 (0.9-3.2) K/mm3 Becker # (Auto) 0.6 (0.1-0.6) K/mm3 Eos # (Auto) 0.1 (0-0.3) K/mm3 Baso # (Auto) 0.1 (0.0-0.1) K/mm3 Abs Immat Gran (auto) 0.04 H (0.00-0.031) K/mm3 Absolute Neuts (auto) 6.1 (1.3-6.7) K/mm3 Absolute Nucleated RBC 0.000 (0.0-0.012) K/mm3 Band Neutrophils % Not Reportable Nucleated RBC % 0.0 (0.0-0.2) % Platelet Estimate Adequate (Adequate) % Immature Plt Fraction 3.4 (0.9-11.2) % Hypochromasia 1+ Anisocytosis 1+ Schistocytes None seen Sodium 135 L (137-145) mmol/L Potassium 4.0 (3.4-5.0) mmol/L Chloride 100 (98-107) mmol/L Carbon Dioxide 23 (22-30) mmol/L Anion Gap 12 (4-12) mmol/L BUN 8 D (7-17) mg/dL Creatinine 0.51 L (0.7-1.0) mg/dL Estim Creat Clear Calc 147 ml/min Estimated GFR > 60 (59 - ) Glucose 256 H (65-110) mg/dL Calcium 9.5 (8.4-10.2) mg/dL Total Bilirubin 0.2 (0.2-1.3) mg/dL AST 32 (14-36) U/L ALT 25 (6-35) U/L Alkaline Phosphatase 86 (38-126) U/L Total Protein 8.0 (6.3-8.2) g/dL Albumin 4.3 (3.5-5.1) g/dL Lipase 139 (23-300) U/L Urine Color Yellow (Yellow) Urine Appearance Clear (Clear) Urine pH 6.0 (5.0-9.0) Ur Specific [place] 1.010 (1.001-1.035) Urine Protein Negative (Negative) mg/dL Urine Glucose (UA) 1+ H (Negative) mg/dL Urine Ketones Negative (Negative) mg/dL Ur Blood (Man) Negative (Negative) Urine Nitrate Negative (Negative) Urine Bilirubin Negative (Negative) Urine Urobilinogen 0.2 (<2.0) mg/dL Leukocyte Esterase Rfl 2+ H (Negative) DAPHNEY/UL Urine RBC 0-2 (0-2) /hpf Urine WBC 11-20 H (0-3) /hpf Ur Squamous Epith Cells Few (Few) /hpf Urine Bacteria Rare /hpf Urine Casts 0-2 POC Urine HCG, Qual Negative (Negative) Imaging Data Attestation: I personally reviewed and interpreted this imaging study as follows: Radiologist's impression: ITS Impressions Abdomen/Pelvis CT 04/07/25 17:15 IMPRESSION: 1. No evidence of appendicitis, diverticulitis or intestinal obstruction. 2. Hemangiomas in the liver unchanged from previous examination. 3. Hepatomegaly with fat infiltration. Discharge Plan Discharge Clinical Impression: Urinary tract infection, Constipation, Dehydration, mild Patient Disposition: Home Condition: Stable Instructions: Antibiotic Form Additional Instructions: Please return to the ER with any worsening symptoms. Follow-up with primary care provider as soon as possible. Take all medications as prescribed, including regularly scheduled medications. Complete your full dose of antibiotics. Please drink lots of water. Patient Language: Czech Prescriptions: New cephalexin 500 mg capsule 500 mg PO Q8H Qty: 21 0RF magnesium citrate [Citrate of Magnesia] Solution 150 ml PO DAILY PRN (Reason: constipation) Qty: 296 0RF fluconazole [Diflucan] 100 mg tablet 200 mg PO .q72 Qty: 1 0RF No Action polyethylene glycol 3350 17 gram/dose powder 17 g PO DAILY naproxen 375 mg tablet 375 mg PO BID Qty: 14 0RF omeprazole 40 mg capsule,delayed release(DR/EC) See Rx Instructions .ROUTE .COMPLEX Qty: 30 5RF Dose Instruction: TAKE 1 CAPSULE BY MOUTH EVERY DAY Rx Instructions: TAKE 1 CAPSULE BY MOUTH EVERY DAY dicyclomine 10 mg capsule 10 mg PO QID PRN (Reason: abdominal pain) Qty: 120 2RF norgestimate-ethinyl estradiol [Estarylla] 0.25-0.035 mg tablet 1 tablet PO DAILY Qty: 84 2RF sennosides-docusate sodium [Senexon-S] 8.6-50 mg tablet 1 tab-cap PO QHS PRN (Reason: constipation) Qty: 30 1RF Follow-up/Referrals: Del,Lisandro Jha DO [Primary Care Provider] - Time of Disposition: 19:41
[2025-04-07 16:26] LABS: Anisocytosis 1+; Hypochromasia 1+; Platelet Estimate Adequate (Adequate)
[2025-04-07 16:27] LABS: Schistocytes None Seen
[2025-04-07] MEDS: MORPHINE SULFATE (*CRX) 4 MG/ML INJ IV PUSH (16:43)
[2025-04-07] MEDS: KETOROLAC 15 MG/ML VIAL (*BKC) IV PUSH (19:19)
[2025-04-07] MEDS: CEPHALEXIN 500 MG CAPSULE PO (19:20)
[2025-04-07] MEDS: MAGNESIUM CITRATE 300 ML BTL 150 ML PO (19:20)
[2025-04-07 20:15] VITALS: BP 150/75; PULSE 88; RESP 18; O2SAT 99
== END 2025-04-07 20:16 | disposition home or self-care (01) ==
PROVIDERS: Emergency Provider Registered Nurse; PCP Internal Medicine Nephrology
DX: N39.0 Urinary tract infection, site not specified (principal); K58.1 Irritable bowel syndrome with constipation; E86.0 Dehydration; E11.9 Type 2 diabetes mellitus without complications; G90.A Postural orthostatic tachycardia syndrome [POTS]; Z87.442 Personal history of urinary calculi; Z90.49 Acquired absence of other specified parts of digestive tract; K76.0 Fatty (change of) liver, not elsewhere classified; D18.09 Hemangioma of other sites; Z79.3 Long term (current) use of hormonal contraceptives; Z79.85 Long-term (current) use of injectable non-insulin antidiabetic drugs
CPT/HCPCS: 36415; 74177; 80053; 81001; 81025; 83690; 85025; 85055; 87086; 96374; 96375; 99284; A9270; J1885; J2270; Q9967

== ENCOUNTER 2025-04-22 10:16 | Outpatient (CLI) | payer OTHER, SELFPAY ==
[2025-04-22 11:16] LABS: Albumin Level 4.3 g/dL (3.5-5.1); Anion Gap 11 mmol/L (4-12); Blood Urea Nitrogen 10 mg/dL (7-17); Calcium 9.2 mg/dL (8.4-10.2); Carbon Dioxide 24 mmol/L (22-30); Chloride 101 mmol/L (98-107); Estimated Glomerular Filt Rate > 60; Glucose 178 mg/dL (65-110); Magnesium 1.8 mg/dL (1.6-2.3); Potassium 4.2 mmol/L (3.4-5.0); Sodium 136 mmol/L (137-145)
[2025-04-22 11:18] LABS: Creatinine Urine 35.5 mg/dL; Total Protein Urine Random 15 mg/dL; Ur Ttl Prot Creatinine Ratio 0.42 mg/mg (0-0.20)
[2025-04-22 11:22] LABS: Iron 37 ug/dL (37-170)
[2025-04-22 11:24] LABS: Add Urine Microscopic? YES; Appearance Urine Clear (Clear); Bacteria Urine None Seen /hpf; Bilirubin Urine Negative (Negative); Blood Urine 3+ (Negative); Color Urine Yellow (Yellow); Glucose Urine UA Negative (Negative); Ketones Urine Negative (Negative); Leukocyte Esterase Ur 1+ LEU/UL (Negative); Need Manual Microscopic Reviewed; Nitrate Urine Negative (Negative); Non Pathogenic Casts 0-2; Protein Urine Negative (Negative); RBC Urine 51-100 /hpf (0-2); Specific Grav Ur 1.008 (1.001-1.035); Squamous Epithelial Cell Urine Occasional /hpf (Few); Urobilinogen Urine 0.2 mg/dL (<2.0); WBC Urine 0-5 /hpf (0-3); pH Urine 7.5 (5.0-9.0)
[2025-04-22 11:25] LABS: Creatinine Urine 35.4 mg/dL
[2025-04-22 11:30] LABS: MALB Creatinine Ratio 84.7 mg/g (0-30)
[2025-04-22 11:32] LABS: Hematocrit 34.2 % (37.0-47.0); Hemoglobin 9.4 g/dL (12.0-15.0); Immature Platelet Fraction Pct 3.9 % (0.9-11.2); Mean Corpuscular HGB Conc 27.5 g/dl (32-36); Mean Corpuscular Hemoglobin 17.6 pg (26-34); Mean Corpuscular Volume 63.9 fl (80-100); Mean Platelet Volume 10.5 fl (7.4-10.4); Platelet Count Result 363 k/mm3 (150-375); Red Blood Count 5.35 M/mm3 (4.2-5.4); Red Cell Distribution Width 24.8 % (11.5-14.5); White Blood Count 7.7 K/mm3 (4.5-10.0)
[2025-04-22 11:32] LABS: Percent Iron Saturation 8 % (20-50)
--- OUTSIDE RECORDS SUMMARY | 2025-04-22 11:32 | XMS_ITS | Clinical Summary ---
Author Organization [facility] Address [address] [place] [address] Care Team Providers Care Tire Maintenance Technician Name Role Phone Lisandro Mathis DO [...] 10/18/2024 Assessment & Plan (10/18/2024 4:38 PM RETORT FIREMAN): Patient with hepatic steatosis and liver cyst [...] 10/18/2024 Assessment & Plan (10/18/2024 4:39 PM RETORT FIREMAN): Referral to GI placed. Pain appears to be more pelvic related, recommend she see SHOP SERVICE TECHNICIAN. Due to dysuria, will obtain UA and urine culture to r/o UTI. In the meantime, she is to f/u with local GI. Recommended she work on stress management, try OTC medications like lidocaine patches, and to not exceed the recommended maximum amount of ibuprofen. Chronic kidney disease, stage I 12/21/2023 Iron deficiency anemia, unspecified 12/21/2023 Encounters Date Type Department Care Team Description 04/11/2025 2:30 PM CDT Infusion [address] [address] Chronic kidney disease, stage I (Primary Dx); Iron deficiency anemia, unspecified iron deficiency anemia type 03/28/2025 Telephone [facility] [address] [facility] [address] [place] [address] Katt Swanson, CARSON 03/28/2025 Telephone [facility] [address] [facility] [address] [place] [address] Katt Swanson RN 03/27/2025 Orders Only [address] [place] [address] Oleg Euceda MD 03/05/2025 Telephone [facility] Gasteroenterology [facility] Advanced [facility] [place] [address] [place] [address] Narcisa Quinones NP 03/05/2025 Documentation [facility] Gastroenterology [address] [place] [address] [place] [address] Wai Walton, CRASON 03/04/2025 Telephone [facility] Gasteroenterology [address] [place] [address] [place] [address] Narcisa Quinones, KENDRA 03/01/2025 Orders Only [facility] GASTROENTEROLOGY Scanning, Provider 02/14/2025 Telephone [facility] Gastroenterology [address] [facility] 12th [place] [address] [place] [address] Wai Walton, RN from Last 3 Months [...] Sign Reading Time Taken Comments Blood Pressure 135/72 04/11/2025 2:10 PM CDT Pulse 101 04/11/2025 2:10 PM CDT Temperature 36.4 C (97.5 F) 04/11/2025 2:10 PM CDT Respiratory Rate 20 01/09/2024 2:15 PM RETORT FIREMAN Oxygen Saturation 100% 04/11/2025 2:10 PM CDT Inhaled Oxygen Concentration - - Weight 108.9 kg (240 lb) 10/18/2024 1:55 PM RETORT FIREMAN Height 170.2 cm (5' 7) 10/18/2024 1:55 PM RETORT FIREMAN Body Mass Index 37.59 10/18/2024 1:55 PM RETORT FIREMAN Plan of Treatment Health Maintenance Due Date [...] HEPATITIS C ANTIBODY Routine 10/18/2024 3:05 PM RETORT FIREMAN Hepatic steatosis from Last 3 Months or Most Recently Relevant to Health Maintenance Results * SCAN - LABS (03/01/2025) us Provider Scanning Final Result * Hepatitis C antibody Blood (10/18/2024 3:05 PM RETORT FIREMAN) Hep C Ab Nonreactive Nonreactive Comment:Antibodies to HCV no t detected. Does NOT exclude the possibility of recent exposure to HCV. Current interpretive data was last revised on 22 Blood 10/18/2024 3:05 PM RETORT FIREMAN 10/18/2024 3:41 PM RETORT FIREMAN Narcisa Quinones NP LAB MICROBIOLOGY - GENER AL ORDERABLES Final Result [facility] Department [place] [address] from Last 3 Months or Most Recently Relevant to Health Maintenance Insurance [facility] CHOICE PLUS [facility] CHOICE PLUS Care Teams Tire Maintenance Technician Relationship Specialty Start Date End Date Lisandro Mathis DO [address] [facility] 1 [place] [address] PCP - General Nephrology 10/18/24
--- OUTSIDE RECORDS SUMMARY | 2025-04-22 11:32 | XMS_ITS | Clinical Summary ---
Author Organization [facility] Facility Address [address] [place] [address] Care Team Providers Care Program Professional Name Role Phone Unavailable Primary Care Provider [...] Encounters Date Type Department Care Team Description 04/18/2025 Office Communication [facility], [address] [phone] Lisandro Mathis, DO 04/10/2025 Documentation Only [facility], [address] [phone] Lisandro Mathis, DO 04/10/2025 Documentation Only [facility], [address] [phone] Lisandro Mathis, DO 04/10/2025 Documentation Only [facility], [address] [phone] Lisandro Mathis, DO 04/10/2025 Documentation Only [facility], [address] [phone] MathisLisandro gaxiola DO 04/10/2025 Documentation Only [facility], [address] [phone] Lisandro Mathis DO 04/05/2025 Documentation Only [facility], [address] [address] Lisandro Mathis DO 03/26/2025 3:15 PM CDT Office Visit [facility] [address] [facility] [address] [place] [address] Lisandro Mathis DO Stage 1 chronic kidney disease (Primary Dx); Interstitial nephritis; Persistent proteinuria; Nephrolithiasis; Obstructive sleep apnea syndrome; H/O: anemia - iron deficient; Gastritis 03/26/2025 Refill [facility], [facility] [address] [address] Domonique Campbell CMA 03/04/2025 Documentation Only [facility], [address] [phone] Lisandro Mathis DO 03/04/2025 Documentation Only [address] [phone] Lisandro Mathis DO from Last 3 Months [...] 170.2 cm (5' 7) 10/12/2022 3:05 PM SUPERVISOR SOLDERING Body Mass Index 36.81 10/12/2022 3:05 PM SUPERVISOR SOLDERING Plan of Treatment Upcoming Encounters Date Type Department Care Team (Late st Contact Info) Description 04/23/2025 4:15 PM CDT Office Visit [facility], [facility] [address] [facility] [address] [place] [address] Lisandro Mathis DO [address] [facility] [address] [place] [address] Health Maintenance Due Date Last Done Comments Hepatitis B Vaccine (1 of 3 - 19+ 3-dose series) 05/20 Pneumococcal Vaccine: Peds ( 0 to 5 Years) and At-Risk Patients (6 to 49 Years) (1 of 2 - PCV) 1998 Influenza Vaccine (Season Ended) 2025 Insurance [id number] (Home) [address] [place] [address] [facility] [place] [address]
--- OUTSIDE RECORDS SUMMARY | 2025-04-22 11:33 | XMS_ITS | Encounter Summary ---
Author Organization [facility] , [facility] Address [address] [facility] [place] [address] Phone Care Team Providers Care Sex Therapist Name Role Phone Lashon Carrion MD Primary Care Provider [phone]- [phone] Reason for Visit * Reason Comments Med Refill Encounter Details Date Type Department Care Team (Late st Contact Info) Description 08/04/2022 Refill [place] [facility], [facility] [address] [facility] [address] [place] [address] Lisandro Mathis DO [address] [facility] 1 [place] [address] Social History Tobacco Use Types [...] Description 04/23/2025 4:15 PM CDT Office Visit [facility] Care, [facility] [address] [facility] [address] [place] [address] Lisandro Mathis DO [address] [facility] 1 [place] [address] documented as of this encounter Visit Diagnoses Not on filedocumented in this encounter Care Teams Sex Therapist Relationship Specialty [place] [address] [facility] [address] [place] [address] PCP - General Gastroenterology 10/12/22 04/16/24 documented as of this encounter
--- OUTSIDE RECORDS SUMMARY | 2025-04-22 11:33 | XMS_ITS | Encounter Summary ---
Author Organization [facility] [email or web address] [facility] [employer] [facility] [facility] Address [address] [facility] [place] [address] Phone Care Team Providers Care Metal Rolling Mill Operator Name Role Phone Lashon Carrion MD Primary Care Provider [phone]- [phone] Reason for Visit * Reason Comments Med Refill Encounter Details Date Type Department Care Team (Late st Contact Info) Description 08/25/2022 [facility] [place] [facility] [address] [facility] [address] [place] [address] Lisandro Mathis DO [address] [facility] 1 [place] [address] Social History Tobacco Use Types [...] Description 04/23/2025 4:15 PM CDT Office [facility] [place] [facility] [address] [facility] [address] [place] [address] Lisandro Mathis DO [address] [facility] 1 [place] [address] documented as of this encounter Visit Diagnoses Not on filedocumented in this encounter Care Teams Metal Rolling Mill Operator Relationship Specialty [place] [id number] [address] PCP - General Gastroenterology 10/12/22 04/16/24 documented as of this encounter
--- OUTSIDE RECORDS SUMMARY | 2025-04-22 11:33 | XMS_ITS | Clinical Summary ---
Author Organization [facility] [employer] Address [address] [place] [address] Care Team Providers Care Tram Driver Name Role Phone Lashon Carrion MD Primary Care Provider +1- [phone] Source Comments [facility],non-owned Affiliates and Associated Physician Practices is amultiple site organization consisting of ambulatory clinics and hospital sitesin [place], [place], [place] and [place]. This disclosure is being madepursuant to the Care Everywhere program and may not contain all information available regarding this patient. Last updated 18.[facility] [employer] Allergies Active Allergy Reactions Criticality Noted Date [...] on file Legal Sex Female 8:53 AM BUSINESS PROGRAMMER Gender Identity Not on file Sexual Orientation [...] patient's age to complete this topic Insurance [facility] [place] [id number] [facility] Care Teams Tram Driver Relationship Specialty Start Date End Date Lashon Carrion MD [address] [place] [address] PCP - General 04/02/10
--- OUTSIDE RECORDS SUMMARY | 2025-04-22 11:33 | XMS_ITS | Clinical Summary ---
Author Organization [facility] Address [address], [address] [address] Phone Care Team Providers Care Software Engineer Advisor Name Role Phone Unavailable Primary Care Provider [...]
--- OUTSIDE RECORDS SUMMARY | 2025-04-22 11:33 | XMS_ITS | Referral Summary ---
Author Organization [facility] Address [address] [place] [address] Care Team Providers Care Putty Patcher Name Role Phone Lisandro Mathis DO Primary Care Provider Encounters Date Type Department Care Team Description 04/11/2025 2:30 PM CDT Infusion [address] [place] [phone] Chronic kidney disease, stage I (Primary Dx); Iron deficiency anemia, unspecified iron deficiency anemia type 03/28/[address] [place] [phone] Katt Swanson RN 03/28/[address] [place] [phone] Katt Swanson, CARSON 03/27/2025 Orders Only [address] [place] [phone] Oleg Euceda MD 03/05/2025 Telephone [facility] [address] [place] [address] [place] [phone] Narcisa Quinones NP 03/05/2025 Documentation [facility] [address] [facility] [address] [place] [address] [place] [phone] Wai Walton RN 03/04/2025 Telephone [facility] [address] [facility] [address] [place] [address] [place] [phone] Narcisa Quinones NP 03/01/2025 Orders Only [facility] Scanning, Provider 02/14/2025 Telephone [facility] [address] [facility] [address] [place] [address] [place] [phone] Wai Walton, RN from Last 3 Months Allergies Active Allergy [...] total) by mouth daily 60 capsule 11 Active Active Problems Problem Noted Date Diagnosed Date Hepatic steatosis 10/18/2024 Assessment & Plan (10/18/2024 4:38 PM ALODIZE MACHINE OPERATOR): Patient with hepatic steatosis and liver [...] 10/18/2024 Assessment & Plan (10/18/2024 4:39 PM ALODIZE MACHINE OPERATOR): Referral to GI placed. Pain appears to be more pelvic related, recommend she see [facility] REPAIRER. Due to dysuria, will obtain UA and [...] CDT Respiratory Rate 20 01/09/2024 2:15 PM ALODIZE MACHINE OPERATOR Oxygen Saturation 100% 04/11/2025 2:10 PM CDT Inhaled Oxygen Concentration - - Weight 108.9 kg (240 lb) 10/18/2024 1:55 PM ALODIZE MACHINE OPERATOR Height 170.2 cm (5' 7) 10/18/2024 1:55 PM ALODIZE MACHINE OPERATOR Body Mass Index 37.59 10/18/2024 1:55 PM ALODIZE MACHINE OPERATOR Plan of Treatment Not on file Procedures Procedure Name Priority Date/Time Associated Diagnosis Comments SCAN - LABS 03/01/2025 HEPATITIS C ANTIBODY Routine 10/18/2024 3:05 PM ALODIZE MACHINE OPERATOR Hepatic steatosis from Last 3 Months or Most Recently Relevant to Health Maintenance Results * SCAN - LABS (03/01/2025) us Provider Scanning Final Result * Hepatitis C antibody Blood (10/18/2024 3:05 PM ALODIZE MACHINE OPERATOR) Hep C Ab Nonreactive Nonreactive Comment:Antibodies to HCV no t detected. Does NOT exclude the possibility of recent exposure to HCV. Current interpretive data was last revised on 22 Blood 10/18/2024 3:05 PM ALODIZE MACHINE OPERATOR 10/18/2024 3:41 PM ALODIZE MACHINE OPERATOR Narcisa Quinones SALES BRANCH MANAGER LAB MICROBIOLOGY - GENER AL ORDERABLES Final Result [facility] [place] [address] from Last 3 Months or Most Recently Relevant to Health Maintenance Insurance [facility] [employer] [place] [id number] [facility] [employer] [place] [id number] Care Teams Putty Patcher Relationship Specialty Start Date End Date Lisandro Mathis DO [address] [place] [place] [address] PCP - General Nephrology 10/18/24
[2025-04-24 11:54] LABS: Cystatin C 0.89 mg/L (0.52-1.21); eGFR 90 (> OR = 60)
== END 2025-04-22 10:17 | disposition home or self-care (01) ==
LOC: ANHLAB 10:19
PROVIDERS: PCP Internal Medicine Nephrology; Visit Provider Internal Medicine Nephrology
DX: N20.0 Calculus of kidney (principal); N18.1 Chronic kidney disease, stage 1; N12 Tubulo-interstitial nephritis, not specified as acute or chronic; R80.1 Persistent proteinuria, unspecified; G47.33 Obstructive sleep apnea (adult) (pediatric); K29.70 Gastritis, unspecified, without bleeding; Z86.2 Personal history of diseases of the blood and blood-forming organs and certain disorders involving the immune mechanism
CPT/HCPCS: 36415; 80069; 81001; 82043; 82570; 82610; 82728; 83540; 83550; 83735; 84156; 85027; 85055

== ENCOUNTER 2025-04-24 17:27 | Emergency (ER) | payer OTHER, SELFPAY ==
--- NOTE | ~2025-04-24 | CT_ITS ---
CT abdomen pelvis w con Ordering provider: Grisel Paul History: 44 years Female with . n/v/d, r abd pain . Comparison: April 07, 2025 Technique: CT abdomen and pelvis with IV and without oral contrast. Automated exposure control and it erative reconstruction technique were employed. The dose-length product was 1472.24 mGy-cm. Findings: VISUALIZED LOWER CHEST: Normal. UPPER ABDOMINAL ORGANS: Liver: Fat infiltration. Hepatomegaly. Hemangioma previously seen is unchanged. Enhancing area in the liver segment #6 also unchanged. Hypodensity is seen which is most likely a cyst also unchanged. Gallbladder: Status post cholecystectomy. Spleen: Normal. Stomach/duodenum: Normal. Pancreas: Normal. Adrenals: Normal. Kidneys: Hypodensity in the left kidney lower pole unchanged. PELVIC ORGANS: The bladder is normal. Uterus: Small enhancing area measuring 1.3 cm seen anteriorly most likely fibroid unchanged. Retrover meggan uterus. BOWEL AND MESENTERY: Colon: No evidence of diverticulitis.. Appendix is not demonstrated. Small Bowel: Normal. No obstruction. Peritoneum/mesentery: No free air or free fluid. No mesenteric lymphadenopathy. RETROPERITONEUM: Normal aorta. No retroperitoneal lymphadenopathy. MUSCULOSKELETAL: Superficial soft tissues: The superficial soft tissues are normal. Bones: Normal spine. Small sclerotic lesion in the right iliac bone unchanged. IMPRESSION: 1. No evidence of appendicitis, diverticulitis or intestinal obstruction. 2. Fat infiltration with hepatomegaly. 3. Hemangioma in the liver unchanged from previous examination. Enhancing lesion in the liver segmen t #6 also unchanged and most likely hemangioma. MRI evaluation advised. Hypodensity seen in the liver most likely a cyst also unchanged. 4. Enhancing lesion in the uterus most likely fibroid is unchanged. Ultrasound evaluation advised. Reviewed, dictated and finalized at location A. IMPRESSION: 1. No evidence of appendicitis, diverticulitis or intestinal obstruction. 2. Fat infiltration with hepatomegaly. 3. Hemangioma in the liver unchanged from previous examination. Enhancing lesi on in the liver segment #6 also unchanged and most likely hemangioma. MRI evalu ation advised. Hypodensity seen in the liver most likely a cyst also unchanged. 4. Enhancing lesion in the uterus most likely fibroid is unchanged. Ultrasoun d evaluation advised.
[2025-04-24 17:36] VITALS: BP 185/103; PULSE 107; RESP 16; TEMP 36.9; O2SAT 100
--- NOTE | 2025-04-24 17:55 | ED_ITS ---
HPI - Nausea/Vomiting/Diarrhea General Chief complaint: Nausea/Vomiting/Diarrhea <STEPHEN Buitrago Last Filed: 04/24/25 19:00> Stated complaint: nausea, wiggins <STEPHEN Buitrago Last Filed: 04/24/25 19:00> Time Seen by Provider: 04/24/25 17:56 <STEPHEN Buitrago Last Filed: 04/24/25 19:00> Focused HPI: Patient is a 44 y/o female who presents to the ED with c/o N/V. Patient reports having persistent nausea/vomiting for the past 3 days. Reports difficulty keeping down PO intake. Is able to keep down some fluids, but will then have dry heaving. Reports decreased appetite, increased thirst, oliguria, WIGGINS, pain in her R abdomen radiating to her R lower back, diarrhea, fever of 101.3F on Tuesday. Denies rectal bleeding, melena. Has been on Ozempic and metformin for the past 3 weeks (0.25mg). She also started Ciprofloxacin today for a possible UTI. Hx of cholecystectomy. Patient reports allergies to reglan and zofran. Does not want anything for nausea currently. GENERAL: Well-appearing, well-nourished, and in no acute distress. HEAD: Normocephalic, atraumatic. CHEST: Clear to auscultation. ?No respiratory distress. HEART: Regular rate and rhythm.? ABD: Mild diffuse tenderness, worst in R lower abd, periumbilical region, epigastric region. NEURO: ?Alert and oriented x3. Patient screened in triage and initial orders placed.? ?Additional care and disposition to be based upon?diagnostic testing and treatment. <STEPHEN Buitrago Last Filed: 04/24/25 19:00> Focused HPI: Patient is a 44 y/o female who presents to the ED with c/o N/V. Patient reports having persistent nausea/vomiting for the past 3 days. Reports difficulty keeping down PO intake. Is able to keep down some fluids, but will then have dry heaving. Reports decreased appetite, increased thirst, oliguria, WIGGINS, pain in her R abdomen radiating to her R lower back, diarrhea, fever of 101.3F on Tuesday. Denies rectal bleeding, melena. Has been on Ozempic and metformin for the past 3 weeks (0.25mg). She also started Ciprofloxacin today for a possible UTI. Patient reports allergies to reglan and zofran. Does not want anything for nausea currently. GENERAL: Well-appearing, well-nourished, and in no acute distress. HEAD: Normocephalic, atraumatic. CHEST: Clear to auscultation. ?No respiratory distress. HEART: Regular rate and rhythm.? ABD: Mild diffuse tenderness, worst in R lower abd, periumbilical region, epigastric region. NEURO: ?Alert and oriented x3. Patient screened in triage and initial orders placed.? ?Additional care and disposition to be based upon?diagnostic testing and treatment. <Zackary Carmona MD - Last Filed: 04/24/25 21:55> Source: patient <Grisel Paul PA-C - Last Filed: 04/24/25 19:00> Mode of arrival: ambulatory <Grisel Palu PA-C - Last Filed: 04/24/25 19:00> Limitations: no limitations <Grisel Paul PA-C - Last Filed: 04/24/25 19:00> History of Present Illness HPI Narrative: Agree with the HPI above. Patient states that her primary doctor thinks it could be related to the Ozempic and metformin and told her to discontinue them today. Refer to the ER for evaluation of pancreatitis which she has a history of from gallstone pancreatitis status post cholecystectomy. <Zackary Carmona MD - Last Filed: 04/24/25 21:55> Related Data Home medications: Home Medications ?Medication ?Instructions ?Recorded ?Confirmed ?Last Taken ?Type polyethylene glycol 3350 17 17 g PO DAILY 12/10/23 04/03/25 Unknown History gram/dose oral powder <Grisel Paul PA-C - Last Filed: 04/24/25 19:00> Allergies/Adverse reactions: Allergies Allergy/AdvReac Type Severity Reaction Status Date / Time meperidine Allergy Mild Hives Verified 04/07/25 15:56 Sulfa (Sulfonamide Allergy Mild Hives Verified 04/07/25 15:56 Antibiotics) metoclopramide (From Reglan) AdvReac Severe Hallucinati Verified 04/07/25 15:59 ng ondansetron (From Zofran) AdvReac Mild Vomiting Verified 04/07/25 15:56 <Grisel Paul PA-C - Last Filed: 04/24/25 19:00> Review of Systems 2 Review of Systems: As reviewed above in HPI <Zackary Carmona MD - Last Filed: 04/24/25 21:55> [facility] Past Medical History Medical History: Medical History Bloating Irritable bowel syndrome with constipation Obesity Loose stools Dyspepsia Family history of colon cancer in father History of kidney stones History of gastric ulcer Polyp of gallbladder Biliary colic Screening mammogram, encounter for Nancy Iron infusions when needed / Taking iron POTS (postural orthostatic tachycardia syndrome) <STEPHEN Buitrago Last Filed: 04/24/25 19:00> Surgical History Surgical History: Surgical History S/P laparoscopic cholecystectomy (01/12/23) 01/12/23 History of thyroid surgery Mass removed from thyroid History of ureter stent <Grisel Paul PA-C - Last Filed: 04/24/25 19:00> Family History Family History: Family History Father Family history of primary malignant neoplasm of liver Carcinoma of colon Malignant tumor of stomach Mother Diabetes mellitus Family history of cardiovascular disease Hypertension Renal failure syndrome Other Malignant neoplasm of prostate Pulmonary emboli <Grisel Paul PA-C - Last Filed: 04/24/25 19:00> Social History Social History: Social History Social History: Caffeine-coffee Smoking status: Never smoker Second hand tobacco smoke exposure: No Alcohol intake: current Alcohol use details: occasionally Substance use: never Substance use type: does not use Do You Feel Safe in your Home?: Yes Lack of Transportation: No Lack of Food: Never True Current Housing: I Have Housing Concerned About Future Housing: No Difficulty Paying Gas/Electric Bills: No Difficulty Paying for Meds: No Currently Unemployed: No Education: Master's Degree or Higher Difficulty w/ Childcare or Family Care: No Living arrangements: with family Additional living arrangements comments: 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 HEAD: [Normocephalic, atraumatic.] EYES: [PERRLA and EOMI.] ENT: Nares clear, no rhinorrhea or epistaxis. Mucous membranes moist. NECK: Supple. CHEST: [Clear to auscultation. No respiratory distress.] HEART: [Regular rate and rhythm]. No murmur heard. [Normal peripheral pulses.] ABDOMEN: [Soft, nondistended], [nontender], [No rigidity or guarding] EXTREMITIES: Normal range of motion. [No edema.] SKIN: Warm, dry, no rash. NEURO: [No focal deficits]. Alert and oriented [x3.] PSYCH: [Normal mood and affect.] <Zackary Carmona MD - Last Filed: 04/24/25 21:55> Course Vital Signs Vital signs: Vital Signs Temperature 36.9 C 04/24/25 17:36 Pulse Rate 107 H 04/24/25 17:36 Respiratory Rate 16 04/24/25 17:36 Blood Pressure 185/103 H 04/24/25 17:36 Pulse Oximetry 100 04/24/25 17:36 Oxygen Delivery Room Air 04/24/25 17:36 Temperature 36.9 C 04/24/25 17:36 Pulse Rate 107 H 04/24/25 17:36 Respiratory Rate 16 04/24/25 17:36 Blood Pressure 185/103 H 04/24/25 17:36 Pulse Oximetry 100 04/24/25 17:36 Oxygen Delivery Room Air 04/24/25 17:36 <Grisel Paul PA-C - Last Filed: 04/24/25 19:00> Vital Signs Temperature 36.9 C 04/24/25 17:36 Pulse Rate 107 H 04/24/25 17:36 Respiratory Rate 16 04/24/25 17:36 Blood Pressure 185/103 H 04/24/25 17:36 Pulse Oximetry 100 04/24/25 17:36 Oxygen Delivery Room Air 04/24/25 17:36 Temperature 36.9 C 04/24/25 17:36 Pulse Rate 107 H 04/24/25 17:36 Respiratory Rate 16 04/24/25 17:36 Blood Pressure 185/103 H 04/24/25 17:36 Pulse Oximetry 100 04/24/25 17:36 Oxygen Delivery Room Air 04/24/25 17:36 <Zackary Carmona MD - Last Filed: 04/24/25 21:55> MDM - Nausea/Vomiting/Diarrhea MDM Narrative Medical decision making narrative: MSE by SIMA in triage. <Grisel Paul PA-C - Last Filed: 04/24/25 19:00> MSE by SIMA in triage. 44-year-old female presenting with nausea, vomiting, diarrhea. Symptoms going on for several days. States that she feels bloated and was recently started on Ozempic and metformin 3 weeks ago. She has also been taking ciprofloxacin for urinary tract infection 2 days ago. Patient called her primary doctor and thinks that they medications are likely the cause of her symptoms and was told to discontinue the Ozempic and metformin but referred her to the ER for evaluation. She has a history of gallstone pancreatitis status post cholecystectomy. Triage vital signs show some mild tachycardia and hypertension but no fever, hypoxia. She has a reassuring examination with soft nontender nondistended abdomen. She endorses feeling nausea but has not on taking antiemetics given her allergy to Reglan and Zofran. Considerations presently are for pancreatitis, as medication side effects secondary to Ozempic or metformin, gastroenteritis, intra-abdominal infection such as diverticulitis, colitis, perforated viscus felt less likely. Laboratory studies were obtained including CBC, CMP, lipase, urinalysis. A CT scan with IV contrast ordered the abdomen pelvis. She is given a GI cocktail and fluids and re-evaluated. Patient's laboratory studies are reassuring. No signs of leukocytosis or anemia worse than her baseline. Normal platelet count. Electrolytes are within normal limits, normal creatinine, normal glucose, normal LFTs. Negative lipase. Urine test negative. Patient currently on antibiotics for UTI so UA makes no contributing changes at this time. Viral panel negative. CT scan shows no acute emergencies, no evidence of appendicitis, diverticulitis or intestinal obstruction. There is hepatomegaly with fatty infiltration and hemangioma which is unchanged from previous examination. Enhancing uterine fibroid also unchanged. Patient made aware of the CT findings and her workup. Patient is otherwise well-appearing and offered antiemetic medications which she declined. Patient can be safely discharged home at this time given her unremarkable workup and will be given p.r.n. Compazine and Bentyl upon discharge if she wishes to take them. Encouraged to call her primary care provider for close follow-up appointment and to maintain the recommendations of stopping Ozempic and metformin at this time. <Zackary Carmona MD - Last Filed: 04/24/25 21:55> Medical Records Attestation: I reviewed the patient's medical records. <Zackary Carmona MD - Last Filed: 04/24/25 21:55> Lab Data Attestation: I reviewed the patient's lab results. <Zackary Carmona MD - Last Filed: 04/24/25 21:55> Result diagrams: 04/24/25 18:43 04/24/25 18:43 <Grisel Paul PA-C - Last Filed: 04/24/25 19:00> Labs: Lab Results 04/24/25 04/24/25 04/24/25 Range/Units 18:43 18:57 19:41 WBC 8.8 (4.5-10.0) K/mm3 RBC 5.08 (4.2-5.4) M/mm3 Hgb 9.0 L (12.0-15.0) g/dL Hct 31.9 L (37.0-47.0) % MCV 62.8 L (80-100) fl MCH 17.7 L (26-34) pg MCHC 28.2 L (32-36) g/dl RDW 24.9 H (11.5-14.5) % Plt Count 369 (150-375) k/mm3 MPV 9.5 (7.4-10.4) fl Immature Gran % (Auto) 0.6 H (0-0.5) % Neut % (Auto) 66.9 (45.5-73.1) % Lymph % (Auto) 22.2 (18.3-44.2) % [place] % (Auto) 8.9 H (2.6-8.5) % Eos % (Auto) 0.9 (0-4.4) % Baso % (Auto) 0.5 (0.2-1.2) % Lymph # (Auto) 1.96 (0.9-3.2) K/mm3 [place] # (Auto) 0.8 H (0.1-0.6) K/mm3 Eos # (Auto) 0.1 (0-0.3) K/mm3 Baso # (Auto) 0.0 (0.0-0.1) K/mm3 Abs Immat Gran (auto) 0.05 H (0.00-0.031) K/mm3 Absolute Neuts (auto) 5.9 (1.3-6.7) K/mm3 Absolute Nucleated RBC 0.000 (0.0-0.012) K/mm3 Band Neutrophils % Not Reportable Nucleated RBC % 0.0 (0.0-0.2) % Platelet Estimate Adequate (Adequate) Hypochromasia 1+ Anisocytosis 1+ Schistocytes None seen Sodium 133 L (137-145) mmol/L Potassium 3.6 (3.4-5.0) mmol/L Chloride 99 (98-107) mmol/L Carbon Dioxide 22 (22-30) mmol/L Anion Gap 12 (4-12) mmol/L BUN 11 (7-17) mg/dL Creatinine 0.88 (0.7-1.0) mg/dL Estim Creat Clear Calc 87 ml/min Estimated GFR > 60 (59 - ) Glucose 138 H (65-110) mg/dL Calcium 9.3 (8.4-10.2) mg/dL Total Bilirubin 0.4 (0.2-1.3) mg/dL AST 35 (14-36) U/L ALT 30 (6-35) U/L Alkaline Phosphatase 85 (38-126) U/L Total Protein 7.8 (6.3-8.2) g/dL Albumin 4.6 (3.5-5.1) g/dL Lipase 99 (23-300) U/L Urine Color Yellow (Yellow) Urine Appearance Cloudy H (Clear) Urine pH 6.0 (5.0-9.0) Ur Specific Gilbert 1.003 (1.001-1.035) Urine Protein Negative (Negative) mg/dL Urine Glucose (UA) Negative (Negative) mg/dL Urine Ketones Negative (Negative) mg/dL Ur Blood (Man) 1+ H (Negative) Urine Nitrate Negative (Negative) Urine Bilirubin Negative (Negative) Urine Urobilinogen 0.2 (<2.0) mg/dL Add Ur Microanalysis Reviewed Leukocyte Esterase Rfl 3+ H (Negative) DAPHNEY/UL Urine RBC 0-2 (0-2) /hpf Urine WBC >100 H (0-3) /hpf Ur Squamous Epith Cells Many H (Few) /hpf Urine Bacteria 1+ H /hpf Urine Casts 0-2 Urine Yeast (Budding) Present H (None) /hpf POC Urine HCG, Qual (Negative) Influenza A (RT-PCR) Negative (Negative) Influenza B (RT-PCR) Negative (Negative) RSV (RT-PCR) Negative (Negative) SARS-CoV-2 RNA (RT-PCR) Negative (Negative) 04/24/25 Range/Units 19:43 WBC (4.5-10.0) K/mm3 RBC (4.2-5.4) M/mm3 Hgb (12.0-15.0) g/dL Hct (37.0-47.0) % MCV (80-100) fl MCH (26-34) pg MCHC (32-36) g/dl RDW (11.5-14.5) % Plt Count (150-375) k/mm3 MPV (7.4-10.4) fl Immature Gran % (Auto) (0-0.5) % Neut % (Auto) (45.5-73.1) % Lymph % (Auto) (18.3-44.2) % [place] % (Auto) (2.6-8.5) % Eos % (Auto) (0-4.4) % Baso % (Auto) (0.2-1.2) % Lymph # (Auto) (0.9-3.2) K/mm3 [place] # (Auto) (0.1-0.6) K/mm3 Eos # (Auto) (0-0.3) K/mm3 Baso # (Auto) (0.0-0.1) K/mm3 Abs Immat Gran (auto) (0.00-0.031) K/mm3 Absolute Neuts (auto) (1.3-6.7) K/mm3 Absolute Nucleated RBC (0.0-0.012) K/mm3 Band Neutrophils % Nucleated RBC % (0.0-0.2) % Platelet Estimate (Adequate) Hypochromasia Anisocytosis Schistocytes Sodium (137-145) mmol/L Potassium (3.4-5.0) mmol/L Chloride (98-107) mmol/L Carbon Dioxide (22-30) mmol/L Anion Gap (4-12) mmol/L BUN (7-17) mg/dL Creatinine (0.7-1.0) mg/dL Estim Creat Clear Calc ml/min Estimated GFR (59 - ) Glucose (65-110) mg/dL Calcium (8.4-10.2) mg/dL Total Bilirubin (0.2-1.3) mg/dL AST (14-36) U/L ALT (6-35) U/L Alkaline Phosphatase (38-126) U/L Total Protein (6.3-8.2) g/dL Albumin (3.5-5.1) g/dL Lipase (23-300) U/L Urine Color (Yellow) Urine Appearance (Clear) Urine pH (5.0-9.0) Ur Specific Gilbert (1.001-1.035) Urine Protein (Negative) mg/dL Urine Glucose (UA) (Negative) mg/dL Urine Ketones (Negative) mg/dL Ur Blood (Man) (Negative) Urine Nitrate (Negative) Urine Bilirubin (Negative) Urine Urobilinogen (<2.0) mg/dL Add Ur Microanalysis Leukocyte Esterase Rfl (Negative) DAPHNEY/UL Urine RBC (0-2) /hpf Urine WBC (0-3) /hpf Ur Squamous Epith Cells (Few) /hpf Urine Bacteria /hpf Urine Casts Urine Yeast (Budding) (None) /hpf POC Urine HCG, Qual Negative (Negative) Influenza A (RT-PCR) (Negative) Influenza B (RT-PCR) (Negative) RSV (RT-PCR) (Negative) SARS-CoV-2 RNA (RT-PCR) (Negative) <Grisel Paul PA-C - Last Filed: 04/24/25 19:00> Lab Results 04/24/25 04/24/25 04/24/25 Range/Units 18:43 18:57 19:41 WBC 8.8 (4.5-10.0) K/mm3 RBC 5.08 (4.2-5.4) M/mm3 Hgb 9.0 L (12.0-15.0) g/dL Hct 31.9 L (37.0-47.0) % MCV 62.8 L (80-100) fl MCH 17.7 L (26-34) pg MCHC 28.2 L (32-36) g/dl RDW 24.9 H (11.5-14.5) % Plt Count 369 (150-375) k/mm3 MPV 9.5 (7.4-10.4) fl Immature Gran % (Auto) 0.6 H (0-0.5) % Neut % (Auto) 66.9 (45.5-73.1) % Lymph % (Auto) 22.2 (18.3-44.2) % [place] % (Auto) 8.9 H (2.6-8.5) % Eos % (Auto) 0.9 (0-4.4) % Baso % (Auto) 0.5 (0.2-1.2) % Lymph # (Auto) 1.96 (0.9-3.2) K/mm3 [place] # (Auto) 0.8 H (0.1-0.6) K/mm3 Eos # (Auto) 0.1 (0-0.3) K/mm3 Baso # (Auto) 0.0 (0.0-0.1) K/mm3 Abs Immat Gran (auto) 0.05 H (0.00-0.031) K/mm3 Absolute Neuts (auto) 5.9 (1.3-6.7) K/mm3 Absolute Nucleated RBC 0.000 (0.0-0.012) K/mm3 Band Neutrophils % Not Reportable Nucleated RBC % 0.0 (0.0-0.2) % Platelet Estimate Adequate (Adequate) Hypochromasia 1+ Anisocytosis 1+ Schistocytes None seen Sodium 133 L (137-145) mmol/L Potassium 3.6 (3.4-5.0) mmol/L Chloride 99 (98-107) mmol/L Carbon Dioxide 22 (22-30) mmol/L Anion Gap 12 (4-12) mmol/L BUN 11 (7-17) mg/dL Creatinine 0.88 (0.7-1.0) mg/dL Estim Creat Clear Calc 87 ml/min Estimated GFR > 60 (59 - ) Glucose 138 H (65-110) mg/dL Calcium 9.3 (8.4-10.2) mg/dL Total Bilirubin 0.4 (0.2-1.3) mg/dL AST 35 (14-36) U/L ALT 30 (6-35) U/L Alkaline Phosphatase 85 (38-126) U/L Total Protein 7.8 (6.3-8.2) g/dL Albumin 4.6 (3.5-5.1) g/dL Lipase 99 (23-300) U/L Urine Color Yellow (Yellow) Urine Appearance Cloudy H (Clear) Urine pH 6.0 (5.0-9.0) Ur Specific [place] 1.003 (1.001-1.035) Urine Protein Negative (Negative) mg/dL Urine Glucose (UA) Negative (Negative) mg/dL Urine Ketones Negative (Negative) mg/dL Ur Blood (Man) 1+ H (Negative) Urine Nitrate Negative (Negative) Urine Bilirubin Negative (Negative) Urine Urobilinogen 0.2 (<2.0) mg/dL Add Ur Microanalysis Reviewed Leukocyte Esterase Rfl 3+ H (Negative) DAPHNEY/UL Urine RBC 0-2 (0-2) /hpf Urine WBC >100 H (0-3) /hpf Ur Squamous Epith Cells Many H (Few) /hpf Urine Bacteria 1+ H /hpf Urine Casts 0-2 Urine Yeast (Budding) Present H (None) /hpf POC Urine HCG, Qual (Negative) Influenza A (RT-PCR) Negative (Negative) Influenza B (RT-PCR) Negative (Negative) RSV (RT-PCR) Negative (Negative) SARS-CoV-2 RNA (RT-PCR) Negative (Negative) 04/24/25 Range/Units 19:43 WBC (4.5-10.0) K/mm3 RBC (4.2-5.4) M/mm3 Hgb (12.0-15.0) g/dL Hct (37.0-47.0) % MCV (80-100) fl MCH (26-34) pg MCHC (32-36) g/dl RDW (11.5-14.5) % Plt Count (150-375) k/mm3 MPV (7.4-10.4) fl Immature Gran % (Auto) (0-0.5) % Neut % (Auto) (45.5-73.1) % Lymph % (Auto) (18.3-44.2) % [place] % (Auto) (2.6-8.5) % Eos % (Auto) (0-4.4) % Baso % (Auto) (0.2-1.2) % Lymph # (Auto) (0.9-3.2) K/mm3 [place] # (Auto) (0.1-0.6) K/mm3 Eos # (Auto) (0-0.3) K/mm3 Baso # (Auto) (0.0-0.1) K/mm3 Abs Immat Gran (auto) (0.00-0.031) K/mm3 Absolute Neuts (auto) (1.3-6.7) K/mm3 Absolute Nucleated RBC (0.0-0.012) K/mm3 Band Neutrophils % Nucleated RBC % (0.0-0.2) % Platelet Estimate (Adequate) Hypochromasia Anisocytosis Schistocytes Sodium (137-145) mmol/L Potassium (3.4-5.0) mmol/L Chloride (98-107) mmol/L Carbon Dioxide (22-30) mmol/L Anion Gap (4-12) mmol/L BUN (7-17) mg/dL Creatinine (0.7-1.0) mg/dL Estim Creat Clear Calc ml/min Estimated GFR (59 - ) Glucose (65-110) mg/dL Calcium (8.4-10.2) mg/dL Total Bilirubin (0.2-1.3) mg/dL AST (14-36) U/L ALT (6-35) U/L Alkaline Phosphatase (38-126) U/L Total Protein (6.3-8.2) g/dL Albumin (3.5-5.1) g/dL Lipase (23-300) U/L Urine Color (Yellow) Urine Appearance (Clear) Urine pH (5.0-9.0) Ur Specific Gilbert (1.001-1.035) Urine Protein (Negative) mg/dL Urine Glucose (UA) (Negative) mg/dL Urine Ketones (Negative) mg/dL Ur Blood (Man) (Negative) Urine Nitrate (Negative) Urine Bilirubin (Negative) Urine Urobilinogen (<2.0) mg/dL Add Ur Microanalysis Leukocyte Esterase Rfl (Negative) DAPHNEY/UL Urine RBC (0-2) /hpf Urine WBC (0-3) /hpf Ur Squamous Epith Cells (Few) /hpf Urine Bacteria /hpf Urine Casts Urine Yeast (Budding) (None) /hpf POC Urine HCG, Qual Negative (Negative) Influenza A (RT-PCR) (Negative) Influenza B (RT-PCR) (Negative) RSV (RT-PCR) (Negative) SARS-CoV-2 RNA (RT-PCR) (Negative) <Zackary Carmona MD - Last Filed: 04/24/25 21:55> Imaging Data Attestation: I personally reviewed and interpreted this imaging study as follows: < Zackary Carmona MD - Last Filed: 04/24/25 21:55> My impression: Impressions Abdomen/Pelvis CT 04/24/25 20:10 IMPRESSION: 1. No evidence of appendicitis, diverticulitis or intestinal obstruction. 2. Fat infiltration with hepatomegaly. 3. Hemangioma in the liver unchanged from previous examination. Enhancing lesion in the liver segment #6 also unchanged and most likely hemangioma. MRI evaluation advised. Hypodensity seen in the liver most likely a cyst also unchanged. 4. Enhancing lesion in the uterus most likely fibroid is unchanged. Ultrasound evaluation advised. <Zackary Carmona MD - Last Filed: 04/24/25 21:55> Discharge Plan Discharge Clinical Impression: Nausea & vomiting, Abdominal pain, Medication side effect <Grisel Paul PA-C - Last Filed: 04/24/25 19:00> Patient Disposition: Home <Grisel Paul PA-C - Last Filed: 04/24/25 19:00> Condition: Stable <Grisel Paul PA-C - Last Filed: 04/24/25 19:00> Instructions: Antibiotic Form, Clear Liquid Diet (ED), Acute Nausea and Vomiting (ED) <Grisel Paul PA-C - Last Filed: 04/24/25 19:00> Additional Instructions: All of your laboratory studies and CT scans are reassuring, no signs of any urgent or emergent concerns and your symptoms are very likely secondary to the Ozempic and metformin which your primary care provider has correctly stopped. You also have some chronic findings in your CT scan that are unchanged from previous examinations but you do need to be aware of them. There is a hemangioma or liver cyst as well as a uterine fibroid. Follow-up with your primary doctor about these but they are not causing her symptoms today. We will send you home with as needed Compazine and Bentyl if he wished to take them to try and control your symptoms. Return with any emergent concerns such as persistent nausea and not able to tolerate any oral intake to the point it is causing dehydration, persistent fevers, intractable pain or any other concerns. <Grisel Paul PA-C - Last Filed: 04/24/25 19:00> Patient Language: Thai <Grisel Paul PA-C - Last Filed: 04/24/25 19:00> Prescriptions: New dicyclomine 20 mg tablet 20 mg PO TID PRN (Reason: abdominal pain) Qty: 20 0RF prochlorperazine maleate [Compazine] 5 mg tablet 5 mg PO Q8H PRN (Reason: nausea and vomiting) Qty: 10 0RF No Action polyethylene glycol 3350 17 gram/dose powder 17 g PO DAILY naproxen 375 mg tablet 375 mg PO BID Qty: 14 0RF cephalexin 500 mg capsule 500 mg PO Q8H Qty: 21 0RF magnesium citrate [Citrate of Magnesia] Solution 150 ml PO DAILY PRN (Reason: constipation) Qty: 296 0RF omeprazole 40 mg capsule,delayed release(DR/EC) See Rx Instructions .ROUTE .COMPLEX Qty: 30 5RF Dose Instruction: TAKE 1 CAPSULE BY MOUTH EVERY DAY Rx Instructions: TAKE 1 CAPSULE BY MOUTH EVERY DAY dicyclomine 10 mg capsule 10 mg PO QID PRN (Reason: abdominal pain) Qty: 120 2RF norgestimate-ethinyl estradiol [Estarylla] 0.25-0.035 mg tablet 1 tablet PO DAILY Qty: 84 2RF sennosides-docusate sodium [Senexon-S] 8.6-50 mg tablet 1 tab-cap PO QHS PRN (Reason: constipation) Qty: 30 1RF fluconazole 150 mg tablet 150 mg PO Q72H Qty: 2 0RF Rx Instructions: as a single dose <Grisel Paul PA-C - Last Filed: 04/24/25 19:00> Follow-up/Referrals: Del,Lisandro Jha DO [Primary Care Provider] - <Grisel Paul PA-C - Last Filed: 04/24/25 19:00> Stand Alone Forms: Work/School Release IP <Grisel Paul PA-C - Last Filed: 04/24/25 19:00> Time of Disposition: 20:56 <Grisel Paul PA-C - Last Filed: 04/24/25 19:00> 20:56 <Zackary Carmona MD - Last Filed: 04/24/25 21:55>
--- OUTSIDE RECORDS SUMMARY | 2025-04-24 18:19 | XMS_ITS | Encounter Summary ---
Author Organization [facility] [employer] [facility] , [facility] Address [address] [facility] [place] [address] Phone Care Team Providers Care Certified Hyperbaric Technologist Name Role Phone Unavailable Primary Care Provider Unavailabl e Reason for Visit * Reason Comments Med Change Request Encounter Details Date Type Department Care Team (Late st Contact Info) Description 04/23/2025 Refill [facility], [facility] [address] [place] [address] Lisandro Mathis DO [address] [facility] [address] [place] [address] Social History Tobacco Use Types [...] Care Team (Late st Contact Info) Description 07/30/2025 3:30 PM CDT Office [facility] [address] [place] [address] Lisandro Mathis DO [address] [place] [address] documented as of this encounter Visit Diagnoses Not on filedocumented in this encounter
--- OUTSIDE RECORDS SUMMARY | 2025-04-24 18:19 | XMS_ITS | Clinical Summary ---
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
--- OUTSIDE RECORDS SUMMARY | 2025-04-24 18:19 | XMS_ITS | Clinical Summary ---
Author Organization [facility] [employer] Address [address] [place] [address] Care Team Providers Care Drum Saw Operator Name Role Phone Lashon Carrion MD Primary Care Provider +1- [phone] Source Comments [facility],non-owned Affiliates and Associated Physician Practices is amultiple site organization consisting of ambulatory clinics and hospital sitesin [place] and [place]. This disclosure is being madepursuant to the Care Everywhere program and may not contain all information available regarding this patient. 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
--- OUTSIDE RECORDS SUMMARY | 2025-04-24 18:19 | XMS_ITS | Encounter Summary ---
Author Organization [facility] [employer] [facility] [employer] [facility] Address [address] [facility] [place] [address] Phone Care Team Providers Care Skydiving Instructor Name Role Phone Lashon Carrion MD Primary Care Provider +1- [phone] Reason for Visit * Reason Comments Med Refill Encounter Details Date Type Department Care Team (Late st Contact Info) Description 08/25/2022 Refill [facility] [place] [facility] [address] [facility] [address] [place] [address] Lisandro Mathis DO [address] [facility] 1 [place] [address] Social History Tobacco Use Types [...] Description 07/30/2025 3:30 PM CDT Office Visit [facility] [place] [address] [facility] [address] [address] [place] [address] Lisandro Mathis DO [address] [facility] 1 [place] [address] documented as of this encounter Visit Diagnoses Not on filedocumented in this encounter Care Teams Skydiving Instructor Relationship Specialty [place] [id number] [address] PCP - General Gastroenterology 10/12/22 04/16/24 documented as of this encounter
--- OUTSIDE RECORDS SUMMARY | 2025-04-24 18:19 | XMS_ITS | Clinical Summary ---
Author Organization [facility] Address [address] [place] [address] Care Team Providers Care Chief Knowledge Officer Name Role Phone Unavailable Primary Care Provider Unavailabl e Medications cholestyramine (QUESTRAN) 4 GM/DOSE powder Take 1 packet (4 g total) by mouth in the morning and 1 packet (4 g total) at noon and 1 packet (4 g total) in the evening. Take with meals. 270 packet 1 05/24/20 23 Active B Complex-C (B complex-vitami n C) tablet Take 1 tablet by mouth 1 (one) time each day 90 tablet 3 05/24/20 23 Active gabapentin (NEURONTIN) 100 MG capsule Take 1 capsule (100 mg total) by mouth 1 (one) time each day 30 capsule 12/20/19 24 Active sucralfate (CARAFATE) 1 g tablet Take 1 tablet (1 g total) by mouth in the morning and 1 tablet (1 g total) at noon and 1 tablet (1 g total) in the evening. 270 tablet 1 01/13/20 24 Active ferrous sulfate 325 (65 Fe) MG tablet Take 1 tablet (325 mg total) by mouth every afternoon 90 tablet 1 04/17/20 24 Active famotidine (PEPCID) 20 MG tablet Take 1 tablet (20 mg total) by mouth every night 90 tablet 1 04/17/20 24 Active metFORMIN (GLUCOPHAGE) 500 MG tablet Take 1 tablet (500 mg total) by mouth 1 (one) time each day in the morning 90 tablet 1 03/26/20 25 Active hydrOXYzine (ATARAX) 25 MG tablet TAKE 1 TABLET (25 MG TOTAL) BY MOUTH 3 TIMES A DAY NEEDED FOR ITCHING 270 tablet 1 04/23/20 25 Active ciprofloxacin (CIPRO) 500 MG tablet Take 2 tablets (1,000 mg total) by mouth 1 (one) time each day for 7 days 14 tablet 04/23/20 25 025 Active fluconazole (Diflucan) 150 MG tablet Take 1 tablet (150 mg total) by mouth per week for 2 days 2 tablet 04/23/20 25 025 Active Semaglutide,0. 25 or 0.5MG/DOS, (Ozempic, 0.25 or 0.5 MG/DOSE,) 2 MG/1.5ML solution pen-injector Inject 0.5 mg under the skin per week 6 mL 1 04/23/20 25 026 Active metFORMIN (GLUCOPHAGE) 500 MG tablet Take 500 mg by mouth in the morning and 500 mg in the evening. Take with meals. 025 Discontinued(Re order (does not appear on AVS)) Semaglutide,0. 25 or 0.5MG/DOS, (Ozempic, 0.25 or 0.5 MG/DOSE,) 2 MG/1.5ML solution pen-injector Inject 0.25 mg under the skin per week 025 Discontinued(Re order (does not appear on AVS)) hydrOXYzine (ATARAX) 25 MG tablet Take 25 mg by mouth 3 (three) times a day if needed for itching 025 Discontinued(Re order (does not appear on AVS)) Semaglutide,0. 25 or 0.5MG/DOS, (Ozempic, 0.25 or 0.5 MG/DOSE,) 2 MG/1.5ML solution pen-injector Inject 0.25 mg under the skin per week 6 mL 1 03/26/20 25 025 Discontinued(Re order (does not appear on AVS)) hydrOXYzine (ATARAX) 25 MG tablet Take 1 tablet (25 mg total) by mouth 3 (three) times a day if needed for itching 90 tablet 1 03/26/20 25 025 Discontinued Encounters Date Type Department Care Team Description 04/24/2025 Documentation Only [facility] [address] [place] [address] Lisandro Mathis, DO 04/23/2025 4:15 PM CDT Office Visit [facility], [facility] [address] [phone] Lisandro Mathis, DO Stage 1 chronic kidney disease (Primary Dx); Pyelonephritis; Interstitial nephritis; Persistent proteinuria; Nephrolithiasis; Obstructive sleep apnea syndrome; H/O: anemia - iron deficient; Gastritis; Epigastric pain 04/23/2025 Documentation Only [facility], [address] [address] Lisandro Mathis, DO 04/23/2025 Documentation Only [facility], [address] [address] Lisandro Mathsi, DO 04/23/2025 Refill [facility], [facility] [address] [address] Lisandro Mathis, DO 04/18/2025 Office Communication [facility], [address] [address] Lisandro Mathis, DO 04/10/2025 Documentation Only [facility], [address] [address] Lisandro Mathis, DO 04/10/2025 Documentation Only [facility], [address] [address] Lisandro Mathis, DO 04/10/2025 Documentation Only [facility], [address] [address] Lisandro Mathis, DO 04/10/2025 Documentation Only [facility], [address] [address] Lisandro Mathis, DO 04/10/2025 Documentation Only [facility], [address] [address] Lisandro Mathis DO 04/05/2025 Documentation Only [facility], [address] [address] Lisandro Mathis DO 03/26/2025 3:15 PM CDT Office Visit [facility] [address] [address] Lisandro Mathis DO Stage 1 chronic kidney disease (Primary Dx); Interstitial nephritis; Persistent proteinuria; Nephrolithiasis; Obstructive sleep apnea syndrome; H/O: anemia - iron deficient; Gastritis 03/26/2025 Refill [facility] [address] [address] Domonique Campbell CMA 03/04/2025 Documentation Only [facility], [address] [phone] Lisandro Mathis DO 03/04/2025 Documentation Only [address] [phone] Lisandro Mathis DO from Last 3 Months [...] Sign Reading Time Taken Comments Blood Pressure 150/80 04/23/2025 3:28 PM CDT Pulse 100 04/23/2025 3:28 PM CDT Temperature 36.7 C (98 F) 03/26/2025 2:47 PM CDT Respiratory Rate 20 04/23/2025 3:28 PM CDT Oxygen Saturation 95% 04/23/2025 3:28 PM CDT Inhaled Oxygen Concentration - - Weight 103 kg (228 lb) 04/23/2025 3:28 PM CDT Height 170.2 cm (5' 7) 04/23/2025 3:28 PM CDT Body Mass Index 35.71 04/23/2025 3:28 PM CDT Plan of Treatment Upcoming Encounters Date Type Department Care Team (Late st Contact Info) Description 07/30/2025 3:30 PM CDT Office Visit [facility], [facility] [address] [facility] [address] [place] [address] Lisandro Mathis DO [address] [place] [address] Health Maintenance Due Date Last Done Comments Hepatitis B Vaccine (1 of 3 - 19+ 3-dose series) 05/20 Pneumococcal Vaccine: Peds ( 0 to 5 Years) and At-Risk Patients (6 to 49 Years) (1 of 2 - PCV) 1998 Influenza Vaccine (Season Ended) 2025 Insurance [id number] (Home) [address] [place] [id number] [facility]
--- OUTSIDE RECORDS SUMMARY | 2025-04-24 18:19 | XMS_ITS | Encounter Summary ---
Author Organization [facility] [employer] [facility] , [facility] Address [address] [facility] [place] [address] Phone Care Team Providers Care Tax Economist Name Role Phone Lashon Carrion MD Primary Care Provider +1- [phone] Reason for Visit * Reason Comments Med Refill Encounter Details Date Type Department Care Team (Late st Contact Info) Description 08/04/2022 Refill [facility] [employer] [facility], [facility] [address] [facility] 15 [place] [phone] Lisandro Mathis DO [address] [facility] 1 [place] [address] Social History Tobacco Use Types [...] Description 07/30/2025 3:30 PM CDT Office Visit [facility] Care, [facility] [address] [facility] [address] [address] [place] [address] Lisandro Mathis DO [address] [facility] 1 [place] [address] documented as of this encounter Visit Diagnoses Not on filedocumented in this encounter Care Teams Tax Economist Relationship Specialty [place] [address] [address] [address] [place] [address] PCP - General Gastroenterology 10/12/22 04/16/24 documented as of this encounter
--- OUTSIDE RECORDS SUMMARY | 2025-04-24 18:19 | XMS_ITS | Clinical Summary ---
Author Organization [facility] Address [address] [place] [address] Care Team Providers Care Grain Mill Worker Name Role Phone Lisandro Mathis DO Primary [...] 10/18/2024 Assessment & Plan (10/18/2024 4:38 PM MEN'S DESIGNER): Patient with hepatic steatosis and liver cyst [...] 10/18/2024 Assessment & Plan (10/18/2024 4:39 PM MEN'S DESIGNER): Referral to GI placed. Pain appears to be more pelvic related, recommend she see AIRPORT RAMP SUPERVISOR. Due to dysuria, will obtain UA and [...] Team Description 04/11/2025 2:30 PM CDT Infusion [address] [address] Chronic kidney disease, stage I (Primary Dx); Iron deficiency anemia, unspecified iron deficiency anemia type 03/28/2025 Telephone [facility] [address] [facility] [address] [place] [address] Katt Swanson, CARSON 03/28/2025 Telephone [facility] [address] [facility] [address] [place] [address] Katt Swanson RN 03/27/2025 Orders Only [address] [place] [address] Oleg Euceda MD 03/05/2025 Telephone [facility] Gasteroenterology [facility] Advanced [facility] [place] [address] [place] [address] Narcisa Quinones NP 03/05/2025 Documentation [facility] [address] [place] [address] [place] [address] Wai Walton, CARSON 03/04/2025 Telephone [facility] [address] [place] [address] [place] [address] Narcisa Quinones, KENDRA 03/01/2025 Orders Only [facility] Scanning, Provider 02/14/2025 Telephone [facility] Gastroenterology [address] [facility] 12th [place] [address] [place] [address] Wai Walton, RN from Last 3 Months [...] CDT Respiratory Rate 20 01/09/2024 2:15 PM MEN'S DESIGNER Oxygen Saturation 100% 04/11/2025 2:10 PM CDT Inhaled Oxygen Concentration - - Weight 108.9 kg (240 lb) 10/18/2024 1:55 PM MEN'S DESIGNER Height 170.2 cm (5' 7) 10/18/2024 1:55 PM MEN'S DESIGNER Body Mass Index 37.59 10/18/2024 1:55 PM MEN'S DESIGNER Plan of Treatment Health Maintenance Due Date [...] HEPATITIS C ANTIBODY Routine 10/18/2024 3:05 PM MEN'S DESIGNER Hepatic steatosis from Last 3 Months or Most Recently Relevant to Health Maintenance Results * SCAN - LABS (03/01/2025) us Provider Scanning Final Result * Hepatitis C antibody Blood (10/18/2024 3:05 PM MEN'S DESIGNER) Hep C Ab Nonreactive Nonreactive Comment:Antibodies to HCV no t detected. Does NOT exclude the possibility of recent exposure to HCV. Current interpretive data was last revised on 22 Blood 10/18/2024 3:05 PM MEN'S DESIGNER 10/18/2024 3:41 PM MEN'S DESIGNER Narcisa Quinones NP LAB MICROBIOLOGY - GENER AL ORDERABLES Final Result [facility] One [facility] Department [place] [address] from Last 3 Months or Most Recently Relevant to Health Maintenance Insurance [facility] H[facility]/PPO Address: [address] [place] [address] [facility] H[facility]/PPO Address: [place] [address] Care Teams Grain Mill Worker Relationship Specialty Start Date End Date Lisandro Mathis DO [address] [facility] 1 [place] [address] PCP - General Nephrology 10/18/24
--- OUTSIDE RECORDS SUMMARY | 2025-04-24 18:19 | XMS_ITS | Encounter Summary ---
Author Organization [facility] [employer] [facility] , [facility] Address [address] [place] [phone] Phone Care Team Providers Care Risk Developer Name Role Phone Unavailable Primary Care Provider Unavailabl e Encounter Details Date Type Department Care Team (Late st Contact Info) Description 04/23/2025 Documentation Only [facility], [address] [place] [address] Lisandro Mathis DO [address] [facility] 1 [place] [address] Social History Tobacco Use Types [...] Description 07/30/2025 3:30 PM CDT Office Visit [facility], [facility] [address] [facility] 15 [place] [phone] Lisandro Mathis DO [address] [facility] 1 [place] [address] documented as of this encounter Visit Diagnoses Not on filedocumented in this encounter
--- OUTSIDE RECORDS SUMMARY | 2025-04-24 18:19 | XMS_ITS | Encounter Summary ---
Author Organization [facility] [employer] [facility] , [facility] Address [address] [place] [address] Phone Care Team Providers Care Tree Marker Name Role Phone Unavailable Primary Care Provider Unavailabl e Encounter Details Date Type Department Care Team (Late st Contact Info) Description 04/24/2025 Documentation Only [place] [employer] [facility], [address] [place] [address] Lisandro Mathis DO [address] [facility] 1 [place] [address] Social History Tobacco Use Types [...] Description 07/30/2025 3:30 PM CDT Office Visit [place] [employer] [facility], [facility] [address] [facility] 15 [place] [phone] Lisandro Mathis DO [address] [facility] 1 [place] [address] documented as of this encounter Visit Diagnoses Not on filedocumented in this encounter
--- OUTSIDE RECORDS SUMMARY | 2025-04-24 18:19 | XMS_ITS | Referral Summary ---
Author Organization [facility] Address [address] [place] [address] Care Team Providers Care Roll Wrapper Name Role Phone Lisandro Mathis DO Primary Care Provider Encounters Date Type Department Care Team Description 04/11/2025 2:30 PM CDT Infusion [address] [place] [address] Chronic kidney disease, stage I (Primary Dx); Iron deficiency anemia, unspecified iron deficiency anemia type 03/28/[address] [place] [address] Katt Swanson RN 03/28/[address] [place] [address] Katt Swanson, CARSON 03/27/2025 Orders Only [address] [place] [address] Oleg Euceda MD 03/05/2025 Telephone [facility] G[facility] 12th [place] [address] [place] [phone] Narcisa Quinones NP 03/05/2025 Documentation [facility] Gastroenterology [address] [facility] 12th [place] [address] [place] [address] Wai Walton RN 03/04/2025 Telephone [facility] Gastero[facility]ology [address] [facility] 12th [place] [address] [place] [phone] Narcisa Quinones NP 03/01/2025 Orders Only [facility] Scanning, Provider 02/14/2025 Telephone [facility] Gastroenterology [address] [facility] 12th [place] [address] [place] [address] Wai Walton, RN from Last 3 Months [...] 10/18/2024 Assessment & Plan (10/18/2024 4:38 PM COMMODITY BROKER): Patient with hepatic steatosis and liver cyst [...] 10/18/2024 Assessment & Plan (10/18/2024 4:39 PM COMMODITY BROKER): Referral to GI placed. Pain appears to be more pelvic related, recommend she see PIPE CHIPPER. Due to dysuria, will obtain UA and [...] CDT Respiratory Rate 20 01/09/2024 2:15 PM COMMODITY BROKER Oxygen Saturation 100% 04/11/2025 2:10 PM CDT Inhaled Oxygen Concentration - - Weight 108.9 kg (240 lb) 10/18/2024 1:55 PM COMMODITY BROKER Height 170.2 cm (5' 7) 10/18/2024 1:55 PM COMMODITY BROKER Body Mass Index 37.59 10/18/2024 1:55 PM COMMODITY BROKER Plan of Treatment Not on file Procedures Procedure Name Priority Date/Time Associated Diagnosis Comments SCAN - LABS 03/01/2025 HEPATITIS C ANTIBODY Routine 10/18/2024 3:05 PM COMMODITY BROKER Hepatic steatosis from Last 3 Months or Most Recently Relevant to Health Maintenance Results * SCAN - LABS (03/01/2025) us Provider Scanning Final Result * Hepatitis C antibody Blood (10/18/2024 3:05 PM COMMODITY BROKER) Hep C Ab Nonreactive Nonreactive Comment:Antibodies to HCV no t detected. Does NOT exclude the possibility of recent exposure to HCV. Current interpretive data was last revised on 22 Blood 10/18/2024 3:05 PM COMMODITY BROKER 10/18/2024 3:41 PM COMMODITY BROKER Narcisa Quinones FASHION DESIGN PROFESSOR LAB MICROBIOLOGY - GENER AL ORDERABLES Final Result [facility] One [facility] Department [place] [address] from Last 3 Months or Most Recently Relevant to Health Maintenance Insurance [facility] CHOICE PLUS [place] [id number] [facility] CHOICE PLUS [place] [id number] Care Teams Roll Wrapper Relationship Specialty Start Date End Date Lisandro Mathis DO [address] [place] [address] PCP - General Nephrology 10/18/24
--- OUTSIDE RECORDS SUMMARY | 2025-04-24 18:19 | XMS_ITS | Encounter Summary ---
Author Organization [facility] [employer] [facility] , [facility] Address [address] [facility] [place] [address] Phone Care Team Providers Care Accounting Software Specialist Name Role Phone Unavailable Primary Care Provider Unavailabl e Encounter Details Date Type Department Care Team (Late st Contact Info) Description 04/23/2025 4:15 PM CDT Office Visit [place] [facility] 20[address] [facility] 15 [place] [phone] Lisandro Mathis DO [address] [facility] 1 [place] [address] Stage 1 chronic kidney disease (Primary Dx); Pyelonephritis; Interstitial nephritis; Persistent proteinuria; Nephrolithiasis; Obstructive sleep apnea syndrome; H/O: anemia - iron deficient; Gastritis; Epigastric pain Social History Tobacco Use Types Packs/Day Years [...] on file documented as of this encounter Last Filed Vital Signs Vital Sign Reading Time Taken Comments Blood Pressure 150/80 04/23/2025 3:28 PM CDT Pulse 100 04/23/2025 3:28 PM CDT Temperature - - Respiratory Rate 20 04/23/2025 3:28 PM CDT Oxygen Saturation 95% 04/23/2025 3:28 PM CDT Inhaled Oxygen Concentration - - Weight 103 kg (228 lb) 04/23/2025 3:28 PM CDT Height 170.2 cm (5' 7) 04/23/2025 3:28 PM CDT Body Mass Index 35.71 04/23/2025 3:28 PM CDT documented in this encounter Progress Notes * Lisandro Mathis DO - 04/23/2025 4:15 PM CDT Images from the original note were not included. CC: Dr. Bolanos (Pulmonary) Dr. Wright (Cardiology [facility]) Bashir Restrepo PHYSICAL SCIENCE TECHNICIAN Dr. 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 Obesity with successful weight loss. Stage 1 CKD with proteinuria concerning for hyper filtration related to obesity and hyperglycemia, and previously with sterile pyuria concerning for interstitial nephritis presumably due to chronic PPI use. Nephrolithiasis history NAFLD without fibrosis or cirrhosis, on [place], followed by hepatology Neuropathy left leg presumably due to a transiently herniated disc. Moderate osteoarthritis of the large joints. Anemia of iron deficiency related to gastritis. Gastritis on PPI IBS controlled by diet changes DM2, newly diagnosed, uncontrolled on no medication Obesity PLAN: - Ciprofloxacin ER 1000 mg PO Qday #7 with no refills - Fluconizole 150 mg PO Qweek #2 no refills - Ozempic 0.5 mg SQ Qweek #12 with 1 refill - encourage 5-10% weight loss to address NAFLD, chronic pain and RAIN. - IV Iron at [facility]: Venofer 300 mg IV x2 more doses - Mammogram with insert molding operator every 1 - 2 years. - return in 3 month with labs to follow diabetic management SUBJECTIVE: Mrs. Maribell Leach is a 44 y.o. WF with a PMHx of Obesity complicated by moderate RAIN, and thyroid cancer s/p resection, DM2, and stage 1 CKD who presents for an overall review. Last visit we observed the development of significant diabetes and albuminuria with an ACR of 32 mg/g, and started on medical management plan that included metformin and Ozempic. She presented to the emergency room on April 07 with a 1-2 week history of a right lower quadrant pain. She was given Keflex for urinary tract infection. She continues to demonstrate hematuria and she has burning with urination still. She has received the 1st of 3 iron infusions at [facility]'s infusion center. She is going on some trips soon. A 12 point review of systems is otherwise negative. 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 Allergies to Demerol, PCN, Sulfa Medications: Metformin SR 500 mg PO QAM Ozempic 0.25 mg SQ Qweek Estarylla 0.25-35 mg-mCg PO Qday Cholestyramine 4 g PO TID AC Ferrous sulfate 325 mg PO Qday in afternoon by itself Vitamin-B and C complex 1 tablet PO Qday Vitamin E Omeprazole 20 mg PO Qday Gabapentin 100 mg PO Qhs PRN neuropathy pain Hydroxyzine 25 mg PO Qhs Family History: CAD & ESRD in mom, Cancer in dad. Social History: reports that she has never smoked. She does not have any smokeless tobacco history on file. She reports that she does not drink alcohol and does not use drugs. EXAM: BP 150/80 (BP Location: Right upper arm, Patient Position: Sitting) Pulse 100 Resp 20 Ht 5' 7 (1.702 m) Wt 228 lb (103 kg) SpO2 95% BMI 35.71 kg/m?? NAD, alert and appropriate No JVD, moist oropharynx HRRR without murmur Lungs B CTA without expiratory wheezes Abdomen benign, nontender LE without edema Skin without petechae, purpura or livido Gait normal No focal neurologic deficits RESULTS: Labs 04/22/25: Cr 0.57, Gluc 178, Hgb 9.4, Ferr 35, Tsat 8%, ACR 84 mg/g, UPC 420 mg/g, Labs 04/07/25: Cr 0.51, BUN 8, K 4.0, Gluc 256, Ca 9.5, Alb 4.3, Lipase nl, Alt 25, Bili 0.2, Labs 04/07/25: UA +LE +wbc 0rbc Labs 03/01/25: Cr 0.53, BUN 13, K 4.4, Na 134, Bicarb 23, Ca 8.9, Bili 0.3, Alt 25, Labs 03/01/25: Hgb 8.8, TSH 3.2, Ferr 4.5, Tsat 5%, B12 367, LDL 55, TG 349, A1c 9.2%, Labs 03/01/25: UA +gluc +ket +LE +wbc 0rbc; ACR 32 mg/g, UPC nl, Labs 10/18/24: Cr 0.57, BUN 8, K 4.1, Bili < 0.2, Alt 21, Alb 4.0, Labs 10/18/24: Hgb 10.1, Ferr 43, hep panel nr, UA +gluc; Labs 04/16/24: VitD 29, Labs 04/16/24: Hgb 12.6, Tsat 10%, Ferr 7, B12 499, Folate 13, TSH 2.0, Labs 12/10/23: Cr 0.60, BUN 17, K 4.0, Na 136, Bicarb 26, Ca 9.1, Alt 20, Labs 12/10/23: Hgb 7.8, mcv 65, wbc 8.8, plt 367, Tsat 5%, Ferr 4, A1c 6.1%, LDL 78, Labs 12/10/23: UA +LE +wbc 0rbc; ACR nl, Labs 07/23/23: Cr 0.60, K 4.3, Bicarb 29, Ca 9.6, Alt 16, Bili 0.2, Labs 07/23/23: UA +tr LE 0wbc 0rbc; Labs 05/06/23: Cr 0.50, BUN 15, K 4.0, Bicarb 28, Ca 9.3, Alb 4.6, Alt 21, Bili 0.3, Gluc 116, Labs 05/06/23: Hgb 12.6, wbc 11.3, plt 373, B12 267, Folate 7.3, Tsat 10%, Ferr 9.5, TSH 1.3, Labs 05/06/23: UA +tr LE, 0wbc 0rbc; Ucx -ve, Labs 02/12/23: Cr 0.60, BUN 11, K 4.5, Na 137, Bicarb 26, Ca 9.3, LFT nl, VitD 50, PTH 16, Labs 02/12/23: Hgb 10.3, wbc 8.8, Ferr 6, Tsat 4%, A1c 5.3%, ACR nl, Labs 01/13/23: Cr 0.6, BUN 4, K 3.8, Na 135. Ca 8.8, Bili 0.4, Alt 35, Alb 4.4, Hgb 12.3, Labs 10/11/22: Cr 0.68, BUN 13, K 3.9, Na 140, Bicarb 25, Ca 8.9, Alb 4.4, Bili 0.3, Labs 10/11/22: Hgb 12.9, wbc 9.8, plt 304, Labs 10/11/22: Urine -ve, UA ++wbc ++rbc +LE +prot Labs 02/13/22: Cr 0.60, K 4.0, Na 138, Bicarb 28, Ca 8.9, Mg 2.0, Alt 27, Alb 4.6, VitD 49, Labs 02/13/22: Hgb 12.3, Emir 18, Tsat 16%, B12 899, HDL 37, LDL 52, TC 126, Labs 02/13/22: A1c 5.7%, TSH 1.5, Labs 07/18/21: Cr 0.60, BUN 12, K 4.0, Na 138, Bicarb 26, Ca 9.2, Alb 4.4, Alt 20, Labs 07/18/21: Hgb 9.7, TSat 5%, Ferr 6, A1c 6.0%, Labs 12/20/20: Cr 0.70, BUN 16, K 4.5, Na 142, Bicarb 28, Ca 9.1, Alt 20, VitD 43, Labs 12/20/20: Ferr 7, Tsat 7%, B12 & Folate nl, LDL 60, TC 125, TSH 0.78, A1c 5.7%, Labs 12/20/20: ACR nl, Labs 03/26/20: Hgb 12.1, wbc 9.3, plt 321, VitD 28, FT4 0.79, A1c 6.2%, UA +tr LE Labs 08/02/19: LDL 68, TG 146, TC 136, TSH 3.3, FT4 0.77 (0.78 - 2.19), Labs 05/04/19: Cr 0.70, BUN 13, K 4.1, Na 138, Bicarb 28, Mg 1.8, Ca 9.5, Alb 4.5, VitD 33, Labs 05/04/19: Hgb 12.6, UA +tr LE, UPC nl, Labs 05/18/16: TSH 1.4, TPO Ab -ve, . . CT A/P W 04/07/25: No evidence of appendicitis, diverticulitis, or intestinal obstruction. Hemangiomas of the liver unchanged from prior exams. Hepatomegaly with fatty infiltration. MRI body 10/23/24: Benign hemangioma within the right roly liver. Other punctate enhancing lesions may represent benign flash filling hemangiomas. Diffuse hepatic steatosis without cirrhosis. Normal adrenal glands. Gallbladder absent. Kidneys normal. Vasculature patent. Fibroscan 10/18/24: Low probability of advanced liver fibrosis. Significant probability of hepatic steatosis. Mammogram 02/17/24: no evidence of malignancy. XR right knee 12/21/23: mild OA. Abd XR 12/07/23: no visible urolithiasis. CT A/P W 07/23/23: Esophagitis, gastritis, pancreas normal, adrenal glands normal, kidneys normal without stone or hydronephrosis, liver unchanged. Gallbladder absent. EGD 05/26/23: normal. Colonoscopy 05/26/23: normal. Next in 2025. Sleep study 05/13/23: Moderate sleep apnea with an AHI of 18.9. Recommending an auto CPAP with a pressure range of 6-[address] A/P W 04/12/23: Normal. Hemangioma noted. Cholecystectomy noted normal pancreas, spleen, and adrenal glands. Right kidney normal with a 1 cm left kidney cyst. No kidney stones noted. MRI Abdomen W 02/02/23: Three hepatic lesions, 2 of them likely hemangiomas and a 3rd more inferiorly positioned consistent with assist. The spleen, adrenal, kidneys, and pancreas are all unremarkable. Cholecystectomy changes are noted without biliary dilatation. MRI WWO 02/01/23: three hepatic lesions, two likely hemangiomas and the third consistant with a cyst. CT A/P WO 10/12/22: Hypodense 2.2 cm & 1.6 cm liver lesions c/w cyst. No nephrolithiasis no hydronephrosis. Stress echo 11/04/21: normal Venous Doppler left LE 05/08/20: no DVT left lower extremity Sleep study 2019: -ve Thank you for allowing me to participate in the care of your patient. Sincerely, Lisandro Mathis DO documented in this encounter Miscellaneous Notes * Addendum Note - Sunita Parrish CMA - 04/23/2025 4:15 PM CDTAddended by: SUNITA PARRISH on: 04/23/2025 04:47 PM Modules accepted: Orders documented in this encounter Plan of Treatment Upcoming Encounters Date Type Department Care Team (Late st Contact Info) Description 07/30/2025 3:30 PM CDT Office Visit [facility], [facility] [address] [facility] 15 [place] [id number] Lisandro Mathis DO [address] [address] Scheduled Orders Name Type Priority Associated Diagnoses Orde r Schedule Urinalysis with microscopic Lab Routine Stage 1 chronic kidney disease Pyelonephritis Interstitial nephritis Persistent proteinuria Nephrolithiasis Obstructive sleep apnea syndrome H/O: anemia - iron deficient Gastritis Epigastric pain Expected: 04/23/2025, Expires: 05/23/2026 Urine culture Lab Routine Stage 1 chronic kidney disease Pyelonephritis Interstitial nephritis Persistent proteinuria Nephrolithiasis Obstructive sleep apnea syndrome H/O: anemia - iron deficient Gastritis Epigastric pain Expected: 04/23/2025, Expires: 05/23/2026 Urine Albumin / Creatinine Ratio Lab Routine Stage 1 chronic kidney disease Pyelonephritis Interstitial nephritis Persistent proteinuria Nephrolithiasis Obstructive sleep apnea syndrome H/O: anemia - iron deficient Gastritis Epigastric pain Expected: 04/23/2025, Expires: 05/23/2026 Urine Protein / creatinine ratio Lab Routine Stage 1 chronic kidney disease Pyelonephritis Interstitial nephritis Persistent proteinuria Nephrolithiasis Obstructive sleep apnea syndrome H/O: anemia - iron deficient Gastritis Epigastric pain Expected: 04/23/2025, Expires: 05/23/2026 Vitamin D 25 hydroxy Lab Routine Stage 1 chronic kidney disease Pyelonephritis Interstitial nephritis Persistent proteinuria Nephrolithiasis Obstructive sleep apnea syndrome H/O: anemia - iron deficient Gastritis Epigastric pain Expected: 04/23/2025, Expires: 05/23/2026 Renal function panel Lab Routine Stage 1 chronic kidney disease Pyelonephritis Interstitial nephritis Persistent proteinuria Nephrolithiasis Obstructive sleep apnea syndrome H/O: anemia - iron deficient Gastritis Epigastric pain Expected: 04/23/2025, Expires: 05/23/2026 Magnesium Lab Routine Stage 1 chronic kidney disease Pyelonephritis Interstitial nephritis Persistent proteinuria Nephrolithiasis Obstructive sleep apnea syndrome H/O: anemia - iron deficient Gastritis Epigastric pain Expected: 04/23/2025, Expires: 05/23/2026 Hemoglobin A1c Lab Routine Stage 1 chronic kidney disease Pyelonephritis Interstitial nephritis Persistent proteinuria Nephrolithiasis Obstructive sleep apnea syndrome H/O: anemia - iron deficient Gastritis Epigastric pain Expected: 04/23/2025, Expires: 05/23/2026 CBC Lab Routine Stage 1 chronic kidney disease Pyelonephritis Interstitial nephritis Persistent proteinuria Nephrolithiasis Obstructive sleep apnea syndrome H/O: anemia - iron deficient Gastritis Epigastric pain Expected: 04/23/2025, Expires: 05/23/2026 Ferritin Lab Routine Stage 1 chronic kidney disease Pyelonephritis Interstitial nephritis Persistent proteinuria Nephrolithiasis Obstructive sleep apnea syndrome H/O: anemia - iron deficient Gastritis Epigastric pain Expected: 04/23/2025, Expires: 05/23/2026 Iron Panel (Fe, TIBC, TSAT) Lab Routine Stage 1 chronic kidney disease Pyelonephritis Interstitial nephritis Persistent proteinuria Nephrolithiasis Obstructive sleep apnea syndrome H/O: anemia - iron deficient Gastritis Epigastric pain Expected: 04/23/2025, Expires: 05/23/2026 Cystatin C w/GFR Lab Routine Stage 1 chronic kidney disease Pyelonephritis Interstitial nephritis Persistent proteinuria Nephrolithiasis Obstructive sleep apnea syndrome H/O: anemia - iron deficient Gastritis Epigastric pain Expected: 04/23/2025, Expires: 05/23/2026 documented as of this encounter Visit Diagnoses Diagnosis Stage 1 chronic kidney disease- Primary Pyelonephritis Interstitial nephritis Persistent proteinuria Nephrolithiasis Obstructive sleep apnea syndrome H/O: anemia - iron deficient Gastritis Epigastric pain documented in this encounter
--- OUTSIDE RECORDS SUMMARY | 2025-04-24 18:19 | XMS_ITS | Encounter Summary ---
Author Organization [facility] [employer] [facility] , [facility] Address [address] [place] [phone] Phone Care Team Providers Care Plastic Parts Fabricator Name Role Phone Unavailable Primary Care Provider Unavailabl e Encounter Details Date Type Department Care Team (Late st Contact Info) Description 04/23/2025 Documentation Only [employer] [facility], [address] [place] [address] Lisandro Mathis DO [address] [facility] 1 [place] [address] Social History Tobacco Use Types [...] Description 07/30/2025 3:30 PM CDT Office Visit [employer] [facility], [facility] [address] [facility] 15 [place] [phone] Lisandro Mathis DO 12[address] [facility] 1 [place] [address] documented as of this encounter Visit Diagnoses Not on filedocumented in this encounter
--- OUTSIDE RECORDS SUMMARY | 2025-04-24 18:45 | XMS_ITS | Clinical Summary ---
Author Organization [facility] Address [address] [facility] [address], [address] [address] Phone Care Team Providers Care Airway Traffic Controller Name Role Phone Unavailable Primary Care Provider [...]
--- OUTSIDE RECORDS SUMMARY | 2025-04-24 18:45 | XMS_ITS | Encounter Summary ---
Author Organization [facility] [employer] , [facility] Address [address] [place] [address] Phone Care Team Providers Care Broodmare Barn Groom Name Role Phone Unavailable Primary Care Provider Unavailabl e Encounter Details Date Type Department Care Team (Late st Contact Info) Description 04/23/2025 Documentation Only [employer] [facility], [address] [place] [address] Lisandro Mathis DO 126 [facility] 1 [place] [address] Social History Tobacco Use Types [...] Description 07/30/2025 3:30 PM CDT Office Visit [facility] [employer], [facility] [address] [facility] 15 [place] [phone] Lisandro Mathis DO 126 [facility] 1 [place] [address] documented as of this encounter Visit Diagnoses Not on filedocumented in this encounter
--- OUTSIDE RECORDS SUMMARY | 2025-04-24 18:45 | XMS_ITS | Clinical Summary ---
Author Organization [facility] Address [address] [place] [address] Care Team Providers Care Spinner Cap Frame Name Role Phone Unavailable Primary Care Provider [...] Department Care Team Description 04/24/[address] [facility] [address] [place] [phone] Lisandro Mathis, DO 04/23/2025 4:15 PM CDT Office Visit [facility], [facility] [address] [phone] Lisandro Mathis, DO Stage 1 chronic kidney disease (Primary Dx); Pyelonephritis; Interstitial nephritis; Persistent proteinuria; Nephrolithiasis; Obstructive sleep apnea syndrome; H/O: anemia - iron deficient; Gastritis; Epigastric pain 04/23/2025 Documentation Only [facility], [address] [address] Lisandro Mathis, DO 04/23/2025 Documentation Only [facility], [address] [address] Lisandro Mathis, DO 04/23/2025 Refill [facility], [facility] [address] [phone] Lisandro Mathis, DO 04/18/2025 Office Communication [facility], [address] [address] Lisandro Mathis, DO 04/10/2025 Documentation Only [facility], [address] [address] Lisandro Mathis, DO 04/10/2025 Documentation Only [facility], [address] [address] Lisandro Mathis, DO 04/10/2025 Documentation Only [facility], [address] [address] Lisandro Mathis, DO 04/10/2025 Documentation Only [facility], [address] [address] Lisandro Mathis, DO 04/10/[address] [facility], [address] [address] Lisandro Mathis DO 04/05/[address] [facility], [address] [address] Lisandro Mathis DO 03/26/2025 3:15 PM CDT Office Visit [facility] [address] [address] Lisandro Mathis DO Stage 1 chronic kidney disease (Primary Dx); Interstitial nephritis; Persistent proteinuria; Nephrolithiasis; Obstructive sleep apnea syndrome; H/O: anemia - iron deficient; Gastritis 03/26/2025 Refill [facility] [address] [address] Domonique Campbell CMA 03/04/[address] [facility], [address] [phone] Lisandro Mathis DO 03/04/2025 Documentation Only [address] [phone] Lisandro Mathis DO from Last 3 Months [...] Description 07/30/2025 3:30 PM CDT Office Visit [facility], [facility] [address] [facility] [address] [place] [phone] Lisandro Mathis DO [address] [place] [address] Health Maintenance Due Date Last Done Comments Hepatitis B Vaccine (1 of 3 - 19+ 3-dose series) 05/20 Pneumococcal Vaccine: Peds ( 0 to 5 Years) and At-Risk Patients (6 to 49 Years) (1 of 2 - PCV) 1998 Influenza Vaccine (Season Ended) 2025 Insurance [id number] (Home) [address] [place] [address] [facility]
--- OUTSIDE RECORDS SUMMARY | 2025-04-24 18:45 | XMS_ITS | Clinical Summary ---
Author Organization [email or web address] Address [address] [place] [address] Care Team Providers Care Reroller Hand Name Role Phone Lisandro Mathis DO Primary [...] 10/18/2024 Assessment & Plan (10/18/2024 4:38 PM TECHNICAL DATA ANALYST): Patient with hepatic steatosis and liver cyst [...] 10/18/2024 Assessment & Plan (10/18/2024 4:39 PM TECHNICAL DATA ANALYST): Referral to GI placed. Pain appears to be more pelvic related, recommend she see GREETING CARD MAKER. Due to dysuria, will obtain UA and [...] Team Description 04/11/2025 2:30 PM CDT Infusion [address] [address] Chronic kidney disease, stage I (Primary Dx); Iron deficiency anemia, unspecified iron deficiency anemia type 03/28/2025 Telephone [facility] [address] [facility] [address] [place] [address] Katt Swanson, CARSON 03/28/2025 Telephone [facility] [address] [facility] [address] [place] [address] Katt Swanson RN 03/27/2025 Orders Only [address] [place] [address] Olge Euceda MD 03/05/2025 Telephone [facility] Advanced [facility] [place] [address] [place] [address] Narcisa Quinones NP 03/05/2025 Documentation [facility] [address] [place] [address] [place] [address] Wai Walton, CARSON 03/04/2025 Telephone [facility] [address] [place] [address] [place] [address] Narcisa Quinones, KENDRA 03/01/2025 Orders Only [facility] Scanning, Provider 02/14/2025 Telephone [facility] [address] [facility] 12th [place] [address] [place] [address] Wai Walton, RN from Last 3 Months [...] CDT Respiratory Rate 20 01/09/2024 2:15 PM TECHNICAL DATA ANALYST Oxygen Saturation 100% 04/11/2025 2:10 PM CDT Inhaled Oxygen Concentration - - Weight 108.9 kg (240 lb) 10/18/2024 1:55 PM TECHNICAL DATA ANALYST Height 170.2 cm (5' 7) 10/18/2024 1:55 PM TECHNICAL DATA ANALYST Body Mass Index 37.59 10/18/2024 1:55 PM TECHNICAL DATA ANALYST Plan of Treatment Health Maintenance Due Date [...] HEPATITIS C ANTIBODY Routine 10/18/2024 3:05 PM TECHNICAL DATA ANALYST Hepatic steatosis from Last 3 Months or Most Recently Relevant to Health Maintenance Results * SCAN - LABS (03/01/2025) us Provider Scanning Final Result * Hepatitis C antibody Blood (10/18/2024 3:05 PM TECHNICAL DATA ANALYST) Hep C Ab Nonreactive Nonreactive Comment:Antibodies to HCV no t detected. Does NOT exclude the possibility of recent exposure to HCV. Current interpretive data was last revised on 22 Blood 10/18/2024 3:05 PM TECHNICAL DATA ANALYST 10/18/2024 3:41 PM TECHNICAL DATA ANALYST Narcisa Quinones NP LAB MICROBIOLOGY - GENER AL ORDERABLES Final Result [facility] Department [place] [address] from Last 3 Months or Most Recently Relevant to Health Maintenance Insurance [facility] Address[address] [place] [address] [facility] [employer] [facility] [employer] Address: [place] [address] Care Teams Reroller Hand Relationship Specialty Start Date End Date Lisandro Mathis DO [address] [facility] 1 [place] [address] PCP - General Nephrology 10/18/24
--- OUTSIDE RECORDS SUMMARY | 2025-04-24 18:45 | XMS_ITS | Referral Summary ---
Author Organization [facility] Address [address] [place] [address] Care Team Providers Care Lump Roller Name Role Phone Lisandro Mathis DO Primary Care Provider Encounters Date Type Department Care Team Description 04/11/2025 2:30 PM CDT Infusion [address] [place] [phone] Chronic kidney disease, stage I (Primary Dx); Iron deficiency anemia, unspecified iron deficiency anemia type 03/28/[address] [place] [phone] Katt Swanson RN 03/28/[address] [place] [phone] Katt Swanson, CARSON 03/27/2025 Orders Only [address] [place] [phone] Oleg Euceda MD 03/05/[address] [facility] 12th [place] [address] [place] [phone] Narcisa Quinones NP 03/05/[address] [facility] [address] [facility] 12th [place] [address] [place] [address] Wai Walton RN 03/04/[address] [facility] 4921 [facility] 12th [place] [address] [place] [phone] Narcisa Quinones NP 03/01/2025 Orders Only [facility] Scanning, Provider 02/14/[address] [facility] [address] [facility] 12th [place] [address] [place] [phone] Wai Walton, RN from Last 3 Months [...] 10/18/2024 Assessment & Plan (10/18/2024 4:38 PM ATTIC BLOWER): Patient with hepatic steatosis and liver cyst [...] 10/18/2024 Assessment & Plan (10/18/2024 4:39 PM ATTIC BLOWER): Referral to GI placed. Pain appears to be more pelvic related, recommend she see [facility]. Due to dysuria, will obtain UA and [...] CDT Respiratory Rate 20 01/09/2024 2:15 PM ATTIC BLOWER Oxygen Saturation 100% 04/11/2025 2:10 PM CDT Inhaled Oxygen Concentration - - Weight 108.9 kg (240 lb) 10/18/2024 1:55 PM ATTIC BLOWER Height 170.2 cm (5' 7) 10/18/2024 1:55 PM ATTIC BLOWER Body Mass Index 37.59 10/18/2024 1:55 PM ATTIC BLOWER Plan of Treatment Not on file Procedures Procedure Name Priority Date/Time Associated Diagnosis Comments SCAN - LABS 03/01/2025 HEPATITIS C ANTIBODY Routine 10/18/2024 3:05 PM ATTIC BLOWER Hepatic steatosis from Last 3 Months or Most Recently Relevant to Health Maintenance Results * SCAN - LABS (03/01/2025) us Provider Scanning Final Result * Hepatitis C antibody Blood (10/18/2024 3:05 PM ATTIC BLOWER) Hep C Ab Nonreactive Nonreactive Comment:Antibodies to HCV no t detected. Does NOT exclude the possibility of recent exposure to HCV. Current interpretive data was last revised on 22 Blood 10/18/2024 3:05 PM ATTIC BLOWER 10/18/2024 3:41 PM ATTIC BLOWER Narcisa Quinones SERVICE AIDE LAB MICROBIOLOGY - GENER AL ORDERABLES Final Result [facility] Department [place] [address] from Last 3 Months or Most Recently Relevant to Health Maintenance Insurance [facility] [place] [id number] [facility] [place] [place] [id number] Care Teams Lump Roller Relationship Specialty Start Date End Date Lisandro Mathis DO [address] [place] [address] PCP - General Nephrology 10/18/24
--- OUTSIDE RECORDS SUMMARY | 2025-04-24 18:45 | XMS_ITS | Encounter Summary ---
Author Organization [facility] [facility] , [facility] Address [address] [place] [address] Phone Care Team Providers Care Oil Change Technician Name Role Phone Unavailable Primary Care Provider Unavailabl e Encounter Details Date Type Department Care Team (Late st Contact Info) Description 04/23/2025 Documentation Only [employer] [facility], [address] [place] [address] Lisandro Mathis DO 1260 [facility] 1 [place] [address] Social History Tobacco Use Types [...] Description 07/30/2025 3:30 PM CDT Office Visit [employer] [facility], [facility] 20[address] [facility] 15 [place] [phone] Lisandro Mathis DO 1260 [facility] 1 [place] [address] documented as of this encounter Visit Diagnoses Not on filedocumented in this encounter
--- OUTSIDE RECORDS SUMMARY | 2025-04-24 18:45 | XMS_ITS | Encounter Summary ---
Author Organization [facility] [employer] [facility] Address [address] [facility] [place] [address] Phone Care Team Providers Care Registered Private Duty Nurse Name Role Phone Unavailable Primary Care Provider Unavailabl e Reason for Visit * Reason Comments Med Change Request Encounter Details Date Type Department Care Team (Late st Contact Info) Description 04/23/2025 Refill [place] [employer] [facility], [facility] [address] [facility] [address] [address] [place] [address] Lisandro Mathis DO 1263 [facility] [address] 1 [place] [address] Social History Tobacco Use Types [...] Description 07/30/2025 3:30 PM CDT Office Visit [place] [employer] [facility] [address] [facility] [address] [place] [address] Lisandro Mathis DO [address] [place] [address] documented as of this encounter Visit Diagnoses Not on filedocumented in this encounter
--- OUTSIDE RECORDS SUMMARY | 2025-04-24 18:45 | XMS_ITS | Encounter Summary ---
Author Organization [facility] [employer] [facility] , [facility] Address [address] [place] [address] Phone Care Team Providers Care Automatic Profile Shaper Operator Name Role Phone Unavailable Primary Care Provider Unavailabl e Encounter Details Date Type Department Care Team (Late st Contact Info) Description 04/24/2025 Documentation Only [employer] [facility], [address] [place] [address] Lisandro Mathis DO 1267 [facility] 1 [place] [address] Social History Tobacco Use Types [...] Description 07/30/2025 3:30 PM CDT Office Visit [employer] [facility], [facility] 20[address] [facility] 15 [place] [phone] Lisandro Mathis DO 1262 [facility] 1 [place] [address] documented as of this encounter Visit Diagnoses Not on filedocumented in this encounter
--- OUTSIDE RECORDS SUMMARY | 2025-04-24 18:45 | XMS_ITS | Encounter Summary ---
Author Organization [facility] [employer] [facility] , [facility] Address [address] [facility] [place] [address] Phone Care Team Providers Care End Polisher Name Role Phone Unavailable Primary Care Provider Unavailabl e Encounter Details Date Type Department Care Team (Late st Contact Info) Description 04/23/2025 4:15 PM CDT Office Visit [facility] [address] [facility] 15 [place] [phone] Lisandro Mathis DO [address] [facility] 1 [place] [address] Stage 1 chronic kidney disease [...] CC: Dr. Bolanos (Pulmonary) Dr. Wright (Cardiology [facility]) Bashir Restrepo MANAGER WATER WASTEWATER Dr. Stephania Rogel (GI) ASSESSMENT: Cystitis & [...] pain and RAIN. - IV Iron at [facility]: Venofer 300 mg IV x2 more doses - Mammogram with pot tender every 1 - 2 years. - return [...] the 1st of 3 iron infusions at [facility] infusion center. She is going on some [...] Description 07/30/2025 3:30 PM CDT Office Visit [facility], [facility] [address] [facility] 15 [place] [address] Lisandro Mathis DO [address] [address] Scheduled Orders Name Type Priority [...]
--- OUTSIDE RECORDS SUMMARY | 2025-04-24 18:45 | XMS_ITS | Clinical Summary ---
Author Organization [facility] [employer] Address [address] [place] [address] Care Team Providers Care Line Walker Name Role Phone Lashon Carrion MD Primary Care Provider +1- [phone] Source Comments [facility],non-owned Affiliates and Associated Physician Practices is amultiple site organization consisting of ambulatory clinics and hospital sitesin [place], [place], [place] and [place]. This disclosure is being madepursuant to the Care Everywhere program and may not contain all information available regarding this patient. 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
--- OUTSIDE RECORDS SUMMARY | 2025-04-24 18:45 | XMS_ITS | Encounter Summary ---
Author Organization [facility] [facility] , [facility] Address [address] [facility] [place] [address] Phone Care Team Providers Care Hides Inspector Name Role Phone Lashon Carrion MD Primary Care Provider +1- [phone] Reason for Visit * Reason Comments Med Refill Encounter Details Date Type Department Care Team (Late st Contact Info) Description 08/04/[address] [place] [facility], [facility] 20[address] [facility] 15 [place] [phone] Lisandro Mathis DO 1265 [facility] 1 [place] [address] Social History Tobacco Use Types [...] Description 07/30/2025 3:30 PM CDT Office Visit [facility], [facility] [address] [facility] [address] [place] [address] Lisandro Mathis DO [address] [facility] 1 [place] [address] documented as of this encounter Visit Diagnoses Not on filedocumented in this encounter Care Teams Hides Inspector Relationship Specialty [place] [address] [address] [facility] [address] [place] [address] PCP - General Gastroenterology 10/12/22 04/16/24 documented as of this encounter
--- OUTSIDE RECORDS SUMMARY | 2025-04-24 18:45 | XMS_ITS | Encounter Summary ---
Author Organization [facility] [employer] [facility] [employer] Address [address] [facility] [facility] [place] [address] Phone Care Team Providers Care Buildings And Grounds Director Name Role Phone Lashon Carrion MD Primary Care Provider +1- [phone] Reason for Visit * Reason Comments Med Refill Encounter Details Date Type Department Care Team (Late st Contact Info) Description 08/25/2022 Refill [place] [employer] [facility] [employer] [facility] [address] [facility] 15 [place] [address] Lisandro Mathis DO 1266 [facility] 1 [place] [address] Social History Tobacco Use Types [...] Description 07/30/2025 3:30 PM CDT Office Visit [place] [employer] [facility] [employer] [address] [facility] [address] [place] [address] Lisandro Mathis DO 84[address] [facility] 1 [place] [address] documented as of this encounter Visit Diagnoses Not on filedocumented in this encounter Care Teams Buildings And Grounds Director Relationship Specialty [place] [id number] [address] PCP - General Gastroenterology 10/12/22 04/16/24 documented as of this encounter
[2025-04-24 18:51] LABS: Basophils Percent Auto 0.5 % (0.2-1.2); Eosinophils Absolute Auto 0.1 K/mm3 (0-0.3); Eosinophils Percent Auto 0.9 % (0-4.4); Hematocrit 31.9 % (37.0-47.0); Immature Granulocyte Absolute 0.05 K/mm3 (0.00-0.031); Immature Granulocyte Percent A 0.6 % (0-0.5); Lymphocytes Absolute Auto 1.96 K/mm3 (0.9-3.2); Lymphocytes Percent Auto 22.2 % (18.3-44.2); Mean Corpuscular HGB Conc 28.2 g/dl (32-36); Mean Corpuscular Hemoglobin 17.7 pg (26-34); Mean Corpuscular Volume 62.8 fl (80-100); Mean Platelet Volume 9.5 fl (7.4-10.4); Monocytes Absolute Auto 0.8 K/mm3 (0.1-0.6); Monocytes Percent Auto 8.9 % (2.6-8.5); Neutrophils Absolute Auto 5.9 K/mm3 (1.3-6.7); Neutrophils Percent Auto 66.9 % (45.5-73.1); Platelet Count Result 369 k/mm3 (150-375); Red Blood Count 5.08 M/mm3 (4.2-5.4); Red Cell Distribution Width 24.9 % (11.5-14.5); White Blood Count 8.8 K/mm3 (4.5-10.0)
[2025-04-24] MEDS: BELLADONNA ALK/PHENOB ELIX 10 ML, MAG HYDROX/ALUMINUM HYD/SIMETH 30 ML, LIDOCAINE 2% VI... PO (19:07)
[2025-04-24] MEDS: FAMOTIDINE 20 MG/2 ML VIAL IV PUSH (19:07)
[2025-04-24] MEDS: LACTATED RINGERS 1,000 ML 999 ML IV CONT (19:07)
[2025-04-24 19:10] LABS: Alanine Aminotransferase 30 U/L (6-35); Albumin Level 4.6 g/dL (3.5-5.1); Alkaline Phosphatase 85 U/L (38-126); Anion Gap 12 mmol/L (4-12); Aspartate Amino Transferase 35 U/L (14-36); Bilirubin,Total 0.4 mg/dL (0.2-1.3); Blood Urea Nitrogen 11 mg/dL (7-17); Calcium 9.3 mg/dL (8.4-10.2); Carbon Dioxide 22 mmol/L (22-30); Chloride 99 mmol/L (98-107); Estimated CRCL calculation 87 ml/min; Estimated Glomerular Filt Rate > 60; Glucose 138 mg/dL (65-110); Lipase 99 U/L (23-300); Potassium 3.6 mmol/L (3.4-5.0); Sodium 133 mmol/L (137-145); Total Protein 7.8 g/dL (6.3-8.2)
[2025-04-24 19:33] LABS: Hypochromasia 1+; Platelet Estimate Adequate (Adequate)
[2025-04-24 19:34] LABS: Anisocytosis 1+; Schistocytes None Seen
[2025-04-24 19:45] LABS: BEDSIDEPREGUCG Negative (Negative)
[2025-04-24 20:04] LABS: Influenza A QL RT-PCR Negative (Negative); Influenza B QL RT-PCR Negative (Negative); RSV RNA, RT-PCR Negative (Negative); SARS-CoV-2 RNA PCR Negative (Negative)
[2025-04-24 21:07] LABS: Add Urine Microscopic? YES; Appearance Urine Cloudy (Clear); Bacteria Urine 1+ /hpf; Bilirubin Urine Negative (Negative); Blood Urine 1+ (Negative); Budding Yeast Urine Present /hpf; Color Urine Yellow (Yellow); Glucose Urine UA Negative (Negative); Ketones Urine Negative (Negative); Leukocyte Esterase Ur 3+ LEU/UL (Negative); Need Manual Microscopic Reviewed; Nitrate Urine Negative (Negative); Non Pathogenic Casts 0-2; Protein Urine Negative (Negative); RBC Urine 0-2 /hpf (0-2); Specific Grav Ur 1.003 (1.001-1.035); Squamous Epithelial Cell Urine Many /hpf (Few); Urobilinogen Urine 0.2 mg/dL (<2.0); WBC Urine >100 /hpf (0-3)
== END 2025-04-24 21:18 | disposition home or self-care (01) ==
PROVIDERS: Physician Assistant; Emergency Provider Student in an Organized Health Care Education/Training Program; PCP Internal Medicine Nephrology
DX: R11.2 Nausea with vomiting, unspecified (principal); R10.9 Unspecified abdominal pain; T50.995A Adverse effect of other drugs, medicaments and biological substances, initial encounter; Z20.822 Contact with and (suspected) exposure to COVID-19
CPT/HCPCS: 36415; 74177; 80053; 81001; 81025; 83690; 85025; 87637; 96361; 96374; 99284; A9270; J7120; Q9967

== ENCOUNTER 2025-04-30 12:59 | Outpatient (CLI) | payer OTHER, SELFPAY ==
--- OUTSIDE RECORDS SUMMARY | 2025-04-30 13:36 | XMS_ITS | Referral Summary ---
Author Organization [facility] Address [address] [place] [address] Care Team Providers Care Spiritual Care Coordinator Name Role Phone Lisandro Mathis DO Primary Care Provider Encounters Date Type Department Care Team Description 04/30/2025 10:00 AM CDT Infusion [address] [place] [phone] Chronic kidney disease, stage I (Primary Dx); Iron deficiency anemia, unspecified iron deficiency anemia type 04/25/[address] [place] [phone] Brittany Jarrett 04/11/2025 2:30 PM CDT Infusion [address] [place] [address] Chronic kidney disease, stage I (Primary Dx); Iron deficiency anemia, unspecified iron deficiency anemia type 03/28/[address] [place] [phone] Katt Swanson RN 03/28/[address] [place] [phone] Katt Swanson RN 03/27/2025 Orders Only [address] [place] [phone] Oleg Euceda MD 03/05/[address] [facility] [address] [facility] 12th [place] [address] [place] [address] Narcisa Quinones NP 03/05/[address] [facility] [address] [place] [place] [address] [place] [address] Wai Walton, CARSON 03/04/[address] [facility] [address] [place] [address] [place] [address] Narcisa Quinones NP 03/01/2025 Orders Only [facility] Scanning, Provider 02/14/[address] [facility] [address] [place] [address] [place] [address] Wai Walton, RN from Last 3 Months [...] 10/18/2024 Assessment & Plan (10/18/2024 4:38 PM VEGETABLE WORKER): Patient with hepatic steatosis and liver [...] 10/18/2024 Assessment & Plan (10/18/2024 4:39 PM VEGETABLE WORKER): Referral to GI placed. Pain appears to be more pelvic related, recommend she see HUMANITIES AND LANGUAGES PROFESSOR. Due to dysuria, will obtain UA and [...] Sign Reading Time Taken Comments Blood Pressure 154/95 04/30/2025 9:51 AM CDT Pulse 90 04/30/2025 9:51 AM CDT Temperature 36.2 C (97.2 F) 04/30/2025 9:51 AM CDT Respiratory Rate 18 04/30/2025 9:51 AM CDT Oxygen Saturation 100% 04/30/2025 9:51 AM CDT Inhaled Oxygen Concentration - - Weight 108.9 kg (240 lb) 10/18/2024 1:55 PM VEGETABLE WORKER Height 170.2 cm (5' 7) 10/18/2024 1:55 PM VEGETABLE WORKER Body Mass Index 37.59 10/18/2024 1:55 PM VEGETABLE WORKER Plan of Treatment Not on file Procedures Procedure Name Priority Date/Time Associated Diagnosis Comments SCAN - LABS 03/01/2025 HEPATITIS C ANTIBODY Routine 10/18/2024 3:05 PM VEGETABLE WORKER Hepatic steatosis from Last 3 Months or Most Recently Relevant to Health Maintenance Results * SCAN - LABS (03/01/2025) us Provider Scanning Final Result * Hepatitis C antibody Blood (10/18/2024 3:05 PM VEGETABLE WORKER) Hep C Ab Nonreactive Nonreactive Comment:Antibodies to HCV no t detected. Does NOT exclude the possibility of recent exposure to HCV. Current interpretive data was last revised on 22 Blood 10/18/2024 3:05 PM VEGETABLE WORKER 10/18/2024 3:41 PM VEGETABLE WORKER Narcisa Quinones NP LAB MICROBIOLOGY - GENER AL ORDERABLES Final Result [facility] [place] [address] from Last 3 Months or Most Recently Relevant to Health Maintenance Insurance [facility] PLUS [facility] H[facility]/PPO Address: [place] [address] [facility] CHOICE PLUS [facility] H[facility]PPO Address: [place] [address] Care Teams Spiritual Care Coordinator Relationship Specialty Start Date End Date Lisandro Mathis DO [address] [place] [address] PCP - General Nephrology 10/18/24
--- OUTSIDE RECORDS SUMMARY | 2025-04-30 13:36 | XMS_ITS | Encounter Summary ---
Author Organization [employer] [facility] Address [address] [place], [place] [address] Phone Care Team Providers Care Manufacturing Systems Engineer Name Role Phone Unavailable Primary Care Provider Unavailabl e Encounter Details Date Type Department Care Team (Latest Contact Info) Description 04/29/2025 Office Communication [facility] [address] [address] [place] [address] [place] [address] Pyelonephritis (Primary Dx) Social History Tobacco Use Types Packs/Day Years [...] encounter Miscellaneous Notes * Telephone Encounter - Lorri Parrish CMA - 04/29/2025 4:20 PM CDT DONE. * Telephone Encounter - Lisandro Mathis DO - 04/29/2025 10:35 AM CDT Please send a repeat urinalysis and urine culture lab form to MrsJeferson Leach. Also please scan in the Ucx results from the labs done at the ER on 04/25. Thanks! documented in this encounter Plan of Treatment Upcoming Encounters Date Type Department Care Team (Late st Contact Info) Description 07/30/2025 3:30 PM CDT Office Visit [facility], [facility] [address] [facility] 15 [place] [phone] Lisandro Mathis DO 1265 [facility] 1 [place] [address] Scheduled Orders Name Type Priority Associated Diagnoses Orde r Schedule Urine culture Lab Routine Pyelonephritis Expected: 04/29/2025, Expires: 05/29/2026 Urinalysis with microscopic Lab Routine Pyelonephritis Expected: 04/29/2025, Expires: 05/29/2026 documented as of this encounter Visit Diagnoses Diagnosis Pyelonephritis- Primary documented in this encounter
--- OUTSIDE RECORDS SUMMARY | 2025-04-30 13:36 | XMS_ITS | Clinical Summary ---
Author Organization [facility] Address [address], [address] [address] Phone Care Team Providers Care Elevator Installer Apprentice Name Role Phone Unavailable Primary Care Provider [...]
--- OUTSIDE RECORDS SUMMARY | 2025-04-30 13:36 | XMS_ITS | Encounter Summary ---
Author Organization [facility] [employer] [facility] [employer] [facility] Address [address] [facility] [place] [address] Phone Care Team Providers Care Licensed Life And Health Agent Name Role Phone Lashon Carrion MD Primary Care Provider +1- [phone] Reason for Visit * Reason Comments Med Refill Encounter Details Date Type Department Care Team (Late st Contact Info) Description 08/25/2022 Refill [place] [facility] [address] [facility] 15 [place] [address] Lisandro Mathis DO 1262 [facility] 1 [place] [address] Social History Tobacco Use Types [...] Description 07/30/2025 3:30 PM CDT Office Visit [place] [facility] [address] [facility] [address] [place] [address] Lisandro Mathis DO 97[address] [facility] 1 [place] [address] documented as of this encounter Visit Diagnoses Not on filedocumented in this encounter Care Teams Licensed Life And Health Agent Relationship Specialty [place] [address] [address] PCP - General Gastroenterology 10/12/22 04/16/24 documented as of this encounter
--- OUTSIDE RECORDS SUMMARY | 2025-04-30 13:36 | XMS_ITS | Clinical Summary ---
Author Organization [facility] Address [address] [place] [address] Care Team Providers Care Branch Director Name Role Phone Lisandro Mathis DO Primary [...] 10/18/2024 Assessment & Plan (10/18/2024 4:38 PM PLUGMAN): Patient with hepatic steatosis and liver cyst [...] 10/18/2024 Assessment & Plan (10/18/2024 4:39 PM PLUGMAN): Referral to GI placed. Pain appears to be more pelvic related, recommend she see CRITICAL CARE TRANSPORT NURSE. Due to dysuria, will obtain UA and [...] Team Description 04/30/2025 10:00 AM CDT Infusion [address] [address] Chronic kidney disease, stage I (Primary Dx); Iron deficiency anemia, unspecified iron deficiency anemia type 04/25/[address] [place] [phone] Plmary Brittany 04/11/2025 2:30 PM CDT Infusion [address] [place] [phone] Chronic kidney disease, stage I (Primary Dx); Iron deficiency anemia, unspecified iron deficiency anemia type 03/28/[address] [place] [phone] Katt Swanson, CARSON 03/28/[address] [place] [phone] Katt Swanson RN 03/27/2025 Orders Only [address] [place] [phone] Oleg Euceda MD 03/05/2025 Telephone [facility] G[facility]enterology Formerly [facility] Medicine [facility] [place] [address] [place] [address] Narcisa Quinones NP 03/05/2025 Documentation [facility] Gastroenterology [facility] Medicine [facility] [place] [place] [address] [place] [address] Wai Walton, RN 03/04/2025 Telephone [facility]ology [facility] Medicine [facility] [place] [address] [place] [address] Narcisa Quinones NP 03/01/2025 Orders Only [facility] GASTROENTEROLOGY Scanning, Provider 02/14/2025 Telephone [facility] Gastroenterology [facility] Medicine [facility] [place] [place] [address] [place] [address] Wai Walton, RN from Last 3 Months [...] 108.9 kg (240 lb) 10/18/2024 1:55 PM PLUGMAN Height 170.2 cm (5' 7) 10/18/2024 1:55 PM PLUGMAN Body Mass Index 37.59 10/18/2024 1:55 PM PLUGMAN Plan of Treatment Health Maintenance Due Date [...] HEPATITIS C ANTIBODY Routine 10/18/2024 3:05 PM PLUGMAN Hepatic steatosis from Last 3 Months or Most Recently Relevant to Health Maintenance Results * SCAN - LABS (03/01/2025) us Provider Scanning Final Result * Hepatitis C antibody Blood (10/18/2024 3:05 PM PLUGMAN) Hep C Ab Nonreactive Nonreactive Comment:Antibodies to HCV no t detected. Does NOT exclude the possibility of recent exposure to HCV. Current interpretive data was last revised on 22 Blood 10/18/2024 3:05 PM PLUGMAN 10/18/2024 3:41 PM PLUGMAN Narcisa Quinones CIVIL ENGINEERING PROFESSIONAL LAB MICROBIOLOGY - GENER AL ORDERABLES Final Result [facility] Department [place] [address] from Last 3 Months or Most Recently Relevant to Health Maintenance Insurance [facility] Address: [address] [address] [place] [address] [facility]O Address: [facility] [address] [place] [address] Care Teams Branch Director Relationship Specialty Start Date End Date Lisandro Mathis DO [address] [place] [address] PCP - General Nephrology 10/18/24
--- OUTSIDE RECORDS SUMMARY | 2025-04-30 13:36 | XMS_ITS | Encounter Summary ---
Author Organization [facility] Address [address] [place] [address] Care Team Providers Care Meat Boner Name Role Phone Lisandro Mathis DO Primary Care Provider [phone] Reason for Visit * Reason Comments OP Infusion * Episode Based Medications (Routine) - Authorized Specialty Diagnoses / Procedures Referred By Contac t Referred To Contact Diagnoses Chronic kidney disease, stage I Iron deficiency anemia, unspecified iron deficiency anemia type Oleg Euceda MD [facility] [place] [address] Phone: tel: fax: Oleg Euceda MD [address] [place], [place] [address] [address] Phone: tel: fax: Referral ID Status Reason Start Date Expiration Date V isits Requested Visits Authorized [id number] Authorized 03/28/2025 03/28/2026 3 3 Encounter Details Date Type Department Care Team (Late st Contact Info) Description 04/30/2025 10:00 AM CDT Infusion [address] [address] Chronic kidney disease, stage I (Primary Dx); Iron deficiency anemia, unspecified iron deficiency anemia type Social History Tobacco Use Types Packs/Day Years [...] CDT Inhaled Oxygen Concentration - - Weight - - Height - - Body Mass Index - - documented in this encounter Nursing Notes * Grisel Blank RN - 04/30/2025 10:00 AM CDT The patient presented to the infusion center per Dr. Euceda for Venofer. The patients vital signs are stable and she has no questions or concerns. Her IV was started in the left ac, blood return was noted and it flushed without resistance. Pt received the Venofer as per the mar and tolerated it well. Infusion completed and the patients IV was then flushed with NS and discontinued she was given her discharge instructions and left in stable condition. documented in this encounter Plan of Treatment Not on file documented as of this encounter Visit Diagnoses Diagnosis Chronic kidney disease, stage I- Primary Chronic kidney disease, Stage I Iron deficiency anemia, unspecified iron deficiency anemia type documented in this encounter Administered Medications Active Administered Medications - up to 3 most recent administrations Medication Order MAR Action Action Date Dose Rate Site sodium chloride 0.9% flush 10 mL 10 mL, intravenous, As needed, line care, Starting on Tue04/30/25 at 0958, Flush pre and post IV catheter use.Indications:Chronic kidney disease, stage I,Iron deficiency anemia, unspecified iron deficiency anemia type Given 04/30/2025 11:37 AM CDT 10 mL Inactive Administered Medications - up to 3 most recent administrations Medication Order [facility] Action Action Date Dose Rate Site iron sucrose (VENOFER) 300 mg in sodium chloride 0.9% 250 mL IVPB 300 mg, intravenous, at 193 mL/hr, Administer over 90 Minutes, Once, On Tue04/30/25 at 1030, For 1 doseIndications:Chronic kidney disease, stage I,Iron deficiency anemia, unspecified iron deficiency anemia type New Bag 04/30/2025 9:59 AM CDT 300 mg 193 mL/hr documented in this encounter Orders Medications Ordered That Moe ht Not Have Been Administered Count Last Ordered Date First Ordered Date iron sucrose (VENOFER) 300 m g in sodium chloride 0.9% 250 mL IVPB 1 04/30/2025 IV Count Last Ordered Date First Orde red Date DISCONTINUE IV 1 04/30/2025 INSERT PERIPHERAL IV 1 04/30/2025 documented in this encounter Care Teams Meat Boner Relationship Specialty Start Date End Date Lisandro Mathis DO [address] [address] PCP - General Nephrology 10/18/24 documented as of this encounter
--- OUTSIDE RECORDS SUMMARY | 2025-04-30 13:36 | XMS_ITS | Encounter Summary ---
Author Organization [facility] [employer] CARE , [facility] Address [address] [facility] [place] [address] Phone Care Team Providers Care Brainer Name Role Phone Lashon Carrion MD Primary Care Provider [phone] Reason for Visit * Reason Comments Med Refill Encounter Details Date Type Department Care Team (Late st Contact Info) Description 08/04/2022 Refill [facility], [facility] [address] [facility] 15 [place] [phone] Lisandro Mathis DO [address] [facility] 1 [place] [address] Social History Tobacco Use Types [...] Description 07/30/2025 3:30 PM CDT Office Visit [facility] Care, [facility] [address] [facility] [address] [place] [address] Lisandro Mathis DO [address] [facility] 1 [place] [address] documented as of this encounter Visit Diagnoses Not on filedocumented in this encounter Care Teams Brainer Relationship Specialty [place] [address] [address] [facility] [address] [place] [address] PCP - General Gastroenterology 10/12/22 04/16/24 documented as of this encounter
--- OUTSIDE RECORDS SUMMARY | 2025-04-30 13:36 | XMS_ITS | Clinical Summary ---
Author Organization [facility] Address [address] [place] [address] Care Team Providers Care Filler Block Inserter Remover Name Role Phone Unavailable Primary Care Provider [...] days 14 tablet 04/23/20 25 025 Active Semaglutide,0. 25 or 0.5MG/DOS, (Ozempic, 0.25 or 0.5 MG/DOSE,) 2 MG/1.5ML solution pen-injector Inject 0.5 mg under the skin per week 6 mL 1 04/23/20 25 026 Active Semaglutide,0. 25 or 0.5MG/DOS, (Ozempic, 0.25 [...] 90 tablet 1 03/26/20 25 025 Discontinued fluconazole (Diflucan) 150 MG tablet Take 1 tablet (150 mg total) by mouth per week for 2 days 2 tablet 04/23/20 25 025 Encounters Date Type Department Care Team Description 04/29/2025 Office Communication [address] [phone] Lisandro Mathis DO Pyelonephritis (Primary Dx) 04/29/2025 Documentation Only [address] [phone] Lisandro Mathis DO 04/25/2025 Documentation Only [address] [phone] Lisandro Mathis DO 04/25/2025 Documentation Only [address] [phone] Lisandro Mathis, DO 04/25/2025 Documentation Only [facility], [address] [phone] Lisandro Mathis, DO 04/25/2025 Documentation Only [facility], [address] [address] Lisandro Mathis, DO 04/24/2025 Documentation Only [facility], [address] [address] Lisandro Mathis, DO 04/23/2025 4:15 PM CDT Office Visit [facility], [facility] [address] [phone] Lisandro Mathis, DO Stage 1 chronic kidney disease (Primary Dx); Pyelonephritis; Interstitial nephritis; Persistent proteinuria; Nephrolithiasis; Obstructive sleep apnea syndrome; H/O: anemia - iron deficient; Gastritis; Epigastric pain 04/23/2025 Documentation Only [facility], [address] [phone] Lisandro Mathis, DO 04/23/2025 Documentation Only [facility], [address] [address] Lisandro Mathis, DO 04/23/2025 Refill [facility], [facility] [address] [phone] Lisandro Mathis, DO 04/18/2025 Office Communication [facility], [address] [address] Lisandro Mathis, DO 04/10/2025 Documentation Only [facility], [address] [address] Lisandro Mathis, DO 04/10/2025 Documentation Only [facility] [address] Lisandro Mathis, 04/10/2025 Documentation Only [facility], [address] [phone] Lisandro Mathis, DO 04/10/2025 Documentation Only [facility], [address] [phone] Lisandro Mathis, DO 04/10/2025 Documentation Only [facility], [address] [phone] Lisandro Mathis, DO 04/05/2025 Documentation Only [facility], [address] [phone] Lisandro Mathis, 03/26/2025 3:15 PM CDT Office Visit [facility] [address] [phone] Lisandro Mathis DO Stage 1 chronic kidney disease (Primary Dx); Interstitial nephritis; Persistent proteinuria; Nephrolithiasis; Obstructive sleep apnea syndrome; H/O: anemia - iron deficient; Gastritis 03/26/[address] [facility] [address] [phone] Domonique Campbell CMA 03/04/2025 Documentation Only [address] [phone] Lisandro Mathis, 03/04/2025 Documentation Only [address] [phone] Lisandro Mathis DO from Last 3 Months [...] Description 07/30/2025 3:30 PM CDT Office Visit [facility], [facility] [address] [facility] 15 [place] [address] Lisandro Mathis DO [address] [facility] 1 [place] [address] Health Maintenance Due Date Last Done Comments Hepatitis B Vaccine (1 of 3 - 19+ 3-dose series) 05/20 Pneumococcal Vaccine: Peds ( 0 to 5 Years) and At-Risk Patients (6 to 49 Years) (1 of 2 - PCV) 1998 Influenza Vaccine (Season Ended) 2025 Insurance [facility]
--- OUTSIDE RECORDS SUMMARY | 2025-04-30 13:36 | XMS_ITS | Encounter Summary ---
Author Organization [facility] [employer] CARE , [facility] Address [address] [place] [phone] Phone Care Team Providers Care Inside Plant Supervisor Name Role Phone Unavailable Primary Care Provider Unavailabl e Encounter Details Date Type Department Care Team (Late st Contact Info) Description 04/29/2025 Documentation Only [facility], [address] [place] [address] Lisandro Mathis DO [address] [facility] 1 [place] [address] Social History Tobacco Use Types [...] Description 07/30/2025 3:30 PM CDT Office Visit [facility], [facility] [address] [facility] 15 [place] [phone] Lisandro Mathis DO [address] [facility] 1 [place] [address] documented as of this encounter Visit Diagnoses Not on filedocumented in this encounter
--- OUTSIDE RECORDS SUMMARY | 2025-04-30 13:36 | XMS_ITS | Clinical Summary ---
Author Organization [facility] [employer] Address [address] [place] [address] Care Team Providers Care Corporate Strategy Associate Name Role Phone Lashon Carrion MD Primary Care Provider [phone]- [phone] Source Comments [facility],non-owned Affiliates and Associated Physician Practices is amultiple site organization consisting of ambulatory clinics and hospital sitesin [place], [place], [place] and [place]. This disclosure is being madepursuant to the Care Everywhere program and may not contain all information available regarding this patient. Last updated 18.[facility] [employer] Allergies Active Allergy Reactions Criticality Noted Date [...] on file Legal Sex Female 8:53 AM PROGRAMMING EQUIPMENT OPERATOR Gender Identity Not on file Sexual [...] SCREENING 1979 LIPID TESTING 1979 MAMMOGRAM 1979 HIV SCREENING 1994 HEPATITIS C SCREENING 05/15/1997 DTAP/TDAP/TD VACCINES (1 - Tdap) 1998 HEPATITIS B VACCINE (1 of 3 - 19+ 3-dose series) 1998 PAP SMEAR 2000 COVID-19 VACCINE ( - 2023-2 5 season) [...] age to complete this topic Insurance [facility] [place] [id number] [facility] Care Teams Corporate Strategy Associate Relationship Specialty Start Date End Date Lashon Carrion MD [address] [place] [address] PCP - General 04/02/10
[2025-04-30 13:57] LABS: Add Urine Microscopic? YES; Appearance Urine Clear (Clear); Bacteria Urine Rare /hpf; Bilirubin Urine Negative (Negative); Blood Urine 1+ (Negative); Color Urine Yellow (Yellow); Glucose Urine UA Negative (Negative); Ketones Urine Negative (Negative); Leukocyte Esterase Ur 2+ LEU/UL (Negative); Nitrate Urine Negative (Negative); Non Pathogenic Casts 0-2; Protein Urine Negative (Negative); RBC Urine 0-2 /hpf (0-2); Specific Grav Ur 1.011 (1.001-1.035); Squamous Epithelial Cell Urine Moderate /hpf (Few); Urobilinogen Urine 0.2 mg/dL (<2.0); WBC Urine 21-50 /hpf (0-3)
== END 2025-04-30 13:00 | disposition home or self-care (01) ==
PROVIDERS: PCP Internal Medicine Nephrology; Visit Provider Internal Medicine Nephrology
DX: N12 Tubulo-interstitial nephritis, not specified as acute or chronic (principal)
CPT/HCPCS: 81001; 87086

== ENCOUNTER 2025-07-16 13:43 | Outpatient (CLI) | payer OTHER, SELFPAY ==
--- NOTE | ~2025-07-16 | MM_ITS ---
EXAMINATION: MM screening zoltan BI w nilo HISTORY: Screening mammogram TECHNIQUE: Craniocaudal and mediolateral oblique 3-D tomosynthesis images were obtained and synthetic 2-D images were generated. CAD analysis was submitted and interpreted. COMPARISON: No prior mammogram is available for comparison at this institution. BREAST PARENCHYMAL COMPOSITION: The breasts are heterogeneously dense, which may obscure small masses. FINDINGS: RIGHT BREAST: There is no evidence of suspicious mass, calcification, or architectural distortion to suggest malignancy. There has been no significant interval change. LEFT BREAST: No suspicious mass or architectural distortion. Indeterminant calcifications in the upper left breast from the 11 to 1:00 position middle to posterior depth. IMPRESSION: 1. Indeterminate calcifications in the upper left breast from the 11 to 1:00 position, middle to posterior depth. This study is incomplete. A diagnostic left breast mammogram is recommended. 2. No mammographic evidence for malignancy in the right breast. BI-RADS Category 0: Incomplete: Needs additional imaging evaluation. Reviewed, dictated and finalized at location Q. IMPRESSION: 1. Indeterminate calcifications in the upper left breast from the 11 to 1:00 po sition, middle to posterior depth. This study is incomplete. A diagnostic left breast mammogram is recommended. 2. No mammographic evidence for malignancy in the right breast. BI-RADS Category 0: Incomplete: Needs additional imaging evaluation.
--- OUTSIDE RECORDS SUMMARY | 2025-07-16 14:02 | XMS_ITS | Encounter Summary ---
Author Organization [facility] [employer] [facility] [employer] [facility] Address [address] [facility] [place] [address] Phone Care Team Providers Care Manager Graphic Name Role Phone Lashon Carrion MD Primary Care Provider +1- [phone] Reason for Visit * Reason Comments Med Refill Encounter Details Date Type Department Care Team (Late st Contact Info) Description 08/25/2022 Refill [place] [facility] [address] [facility] [address] [place] [address] Lisandro Mathis DO [address] [facility] 1 [place] [address] Social History Tobacco Use Types [...] Description 07/30/2025 3:30 PM CDT Office Visit [place] [facility] [address] [facility] [address] [place] [address] Lisandro Mathis DO [address] [facility] 1 [place] [address] documented as of this encounter Visit Diagnoses Not on filedocumented in this encounter Care Teams Manager Graphic Relationship Specialty [place] [address] [address] PCP - General Gastroenterology 10/12/22 04/16/24 documented as of this encounter
--- OUTSIDE RECORDS SUMMARY | 2025-07-16 14:02 | XMS_ITS | Encounter Summary ---
Author Organization [facility] [employer] [facility] , [facility] Address [address] [facility] [place] [address] Phone Care Team Providers Care Plow Shaker Name Role Phone Lashon Carrion MD Primary Care Provider [phone]- [phone] Reason for Visit * Reason Comments Med Refill Encounter Details Date Type Department Care Team (Late st Contact Info) Description 08/04/2022 Refill [place] [facility], [facility] [address] [facility] 15 [place] [phone] Lisandro Mathis DO [address] [facility] 1 [place] [address] Social History Tobacco Use Types [...] Office Visit [facility] Care, [facility] [address] [facility] [address] [place] [address] Lisandro Mathis DO [address] [facility] 1 [place] [address] documented as of this encounter Visit Diagnoses Not on filedocumented in this encounter Care Teams Plow Shaker Relationship Specialty [place] [address] [facility] [address] [place] [address] PCP - General Gastroenterology 10/12/22 04/16/24 documented as of this encounter
--- OUTSIDE RECORDS SUMMARY | 2025-07-16 14:02 | XMS_ITS | Clinical Summary ---
Author Organization [facility] Address [address] [place] [address] Care Team Providers Care Spinning Operator Name Role Phone Lisandro Mathis DO Primary [...] 10/18/2024 Assessment & Plan (10/18/2024 4:38 PM GRINDING MACHINE OPERATOR): Patient with hepatic steatosis and [...] 10/18/2024 Assessment & Plan (10/18/2024 4:39 PM GRINDING MACHINE OPERATOR): Referral to GI placed. Pain appears to be more pelvic related, recommend she see CATEGORY SPECIALIST. Due to dysuria, will obtain UA and urine culture to r/o UTI. In the meantime, she is to f/u with local GI. Recommended she work on stress management, try OTC medications like lidocaine patches, and to not exceed the recommended maximum amount of ibuprofen. Chronic kidney disease, stage I 12/21/2023 Iron deficiency anemia, unspecified 12/21/2023 Encounters Date Type Department Care Team Description 05/23/2025 8:30 AM CDT [address] [address] Chronic kidney disease, stage I (Primary Dx); Iron deficiency anemia, unspecified iron deficiency anemia type 05/22/2025 Telephone [facility] [address] [facility] 12th [place] [address] [place] [address] Kindra Gallagher CNA 04/30/2025 10:00 AM CDT Infusion [facility] [address] [place] [address] Chronic kidney disease, stage I (Primary Dx); Iron deficiency anemia, unspecified iron deficiency anemia type 04/25/2025 Telephone [facility] [address] [place] [address] Brittany Jarrett from Last 3 Months Social History Tobacco Use Types Packs/Day Years Used Date Smoking Tobacco: Never Assessed Comments Unknown Sex and Gender Information Value Date Recorded Sex Assigned at Not on file Legal Sex Female 9:08 AM CDT Gender Identity Not on file Sexual Orientation Not on file Obstetrics History Last Filed Vital Signs Vital Sign Reading Time Taken Comments Blood Pressure 145/85 05/23/2025 8:13 AM CDT Pulse 88 05/23/2025 8:13 AM CDT Temperature 36.6 C (97.9 F) 05/23/2025 8:13 AM CDT Respiratory Rate 16 05/23/2025 8:13 AM CDT Oxygen Saturation 99% 05/23/2025 8:13 AM CDT Inhaled Oxygen Concentration - - Weight 108.9 kg (240 lb) 10/18/2024 1:55 PM GRINDING MACHINE OPERATOR Height 170.2 cm (5' 7) 10/18/2024 1:55 PM GRINDING MACHINE OPERATOR Body Mass Index 37.59 10/18/2024 1:55 PM GRINDING MACHINE OPERATOR Plan of Treatment Health Maintenance Due Date Last Done Comments Breast Cancer Screening-Mammogram 1979 Cervical Cancer Screening 1979 Colon Cancer Screening-Colonoscopy 1979 Depression Screening 1979 DTaP/Tdap/Td Vaccine (1 - Tdap) 1990 Regular Well Visit/Exam 18-64 1997 Pneumococcal vaccine <65 (1 of 2 - PCV) 1998 Influenza Vaccine (#1) 2025 Hepatitis B Screening Completed 10/18/2024 Hepatitis C Screening Completed 10/18/2024 HPV Vaccines Aged Out No longer eligi ble based on patient's age to complete this topic Procedures Procedure Name Priority Date/Time Associated Diagnosis Comments HEPATITIS C ANTIBODY Routine 10/18/2024 3:05 PM GRINDING MACHINE OPERATOR Hepatic steatosis from Last 3 Months or Most Recently Relevant to Health Maintenance Results * Hepatitis C antibody Blood (10/18/2024 3:05 PM GRINDING MACHINE OPERATOR) Hep C Ab Nonreactive Nonreactive Comment:Antibodies to HCV no t detected. Does NOT exclude the possibility of recent exposure to HCV. Current interpretive data was last revised on 22 Blood 10/18/2024 3:05 PM GRINDING MACHINE OPERATOR 10/18/2024 3:41 PM GRINDING MACHINE OPERATOR Narcisa Quinones INTERACTIVE ART DIRECTOR LAB MICROBIOLOGY - GENER AL ORDERABLES Final Result Performing Organization Address City/State/[facility] Co ca Phone Number [facility] One [facility] Department [place] [address] from Last 3 Months or Most Recently Relevant to Health Maintenance Insurance [facility] CHOICE PLUS [place] [id number] [facility] CHOICE PLUS [place] [id number] Care Teams Spinning Operator Relationship Specialty Start Date End Date Lisandro Mathis DO [address] [place] [address] PCP - General Nephrology 10/18/24
--- OUTSIDE RECORDS SUMMARY | 2025-07-16 14:02 | XMS_ITS | Clinical Summary ---
Author Organization [facility] Facility Address [address] [place] [address] Care Team Providers Care Credit Union Field Examiner Name Role Phone Unavailable Primary Care Provider [...] the morning 90 tablet 1 5 Active hydrOXYzine (ATARAX) 25 MG tablet TAKE 1 TABLET (25 MG TOTAL) BY MOUTH 3 TIMES A DAY NEEDED FOR ITCHING 270 tablet 1 5 Active Semaglutide,0.2 5 or 0.5MG/DOS, (Ozempic, 0.25 or 0.5 MG/DOSE,) 2 MG/1.5ML solution pen-injector Inject 0.5 mg under the skin per week 6 mL 1 5 04/23/20 26 Active Encounters Date Type Department Care Team Description 05/06/2025 Documentation Only [facility], [address] [address] Lisandro Mathis, DO 05/06/2025 Documentation Only [facility] [place], [address] [address] Lisandro Mathis, DO 05/02/2025 Documentation Only [facility] [place], [address] [address] Lisandro Mathis, DO 04/30/2025 Documentation Only [facility], [address] [address] Lisandro Mathis, DO 04/29/2025 Office Communication [facility] [place], [address] [address] Lisandro Mathis, DO Pyelonephritis (Primary Dx) 04/29/2025 Documentation Only [facility], [address] [address] Lisandro Mathis, DO 04/25/2025 Documentation Only [facility], [address] [address] Lisandro Mathis, DO 04/25/2025 Documentation Only [facility], [address] [address] Lisandro Mathis, DO 04/25/2025 Documentation Only [facility], [address] [address] Lisandro Mathis, DO 04/25/2025 Documentation Only [address] [address] Lisandro Mathis, DO 04/24/2025 Documentation Only [address] [address] Lisandro Mathis, DO 04/23/2025 4:15 PM CDT [facility] [address] [facility] [address] [place] [address] Lisandro Mathis, Stage 1 chronic kidney disease (Primary Dx); Pyelonephritis; Interstitial nephritis; Persistent proteinuria; Nephrolithiasis; Obstructive sleep apnea syndrome; H/O: anemia - iron deficient; Gastritis; Epigastric pain 04/23/2025 Documentation Only [facility], [address] [address] Lisandro Mathis, DO 04/23/2025 Documentation Only [address] [address] Lisandro Mathis, DO 04/23/2025 Refill [facility], [facility] [address] [facility] [address] [place] [address] Lisandro Mathis, 04/18/2025 Office Communication [address] [address] Lisandro Mathis, DO from Last 3 Months Social History [...] Description 07/30/2025 3:30 PM CDT Office Visit [facility], [facility] [address] [facility] [address] [place] [address] Lisandro Mathis DO [address] [facility] 1 [place] [address] Health Maintenance Due Date Last Done Comments Hepatitis B Vaccine (1 of 3 - 19+ 3-dose series) 05/20 Pneumococcal Vaccine: Peds ( 0 to 5 Years) and At-Risk Patients (6 to 49 Years) (1 of 2 - PCV) 1998 Influenza Vaccine (#1) 2025 Insurance [id number] (Home) [address] [place] [address] [facility]
--- OUTSIDE RECORDS SUMMARY | 2025-07-16 14:02 | XMS_ITS | Clinical Summary ---
Author Organization [facility] Address [address], [address] [address] Phone Care Team Providers Care Shoe Polisher Name Role Phone Unavailable Primary Care [...] Cervical Cancer Screening (CCS) 2009 HPV/Cotest 2009 Cologuard 2024 Colonoscopy 2024 Colorectal Cancer Screening 2024 Immunochemical Fecal Occult Blood 2024 SARS-COV-2 Immunization ( season) 2024 Influenza Immunization (#1) 2025 Respiratory Syncytial Virus (RSV) Immunization (Adult) (1 - 1-dose 75+ series) 2054 Human Papillomavirus (HPV) Immunization Aged Out No longer eligible b ased on patient's age to complete this topic Meningococcal Immunization (ACWY) Aged Out No longer eligible based on patient's age to complete this topic Pneumococcal Immunization Combined Aged Out No longer eligible based on patient's age to complete this topic Rotavirus Immunization Aged Out No lo nger eligible based on patient's age to complete this topic
--- OUTSIDE RECORDS SUMMARY | 2025-07-16 14:02 | XMS_ITS | Clinical Summary ---
Author Organization [facility] Address [address] [place] [address] Care Team Providers Care Imaging Science Professor Name Role Phone Lashon Carrion MD Primary Care Provider +1- [phone] Source Comments [facility],non-owned Affiliates and Associated Physician Practices is amultiple site organization consisting of ambulatory clinics and hospital sitesin [place], [place] and [place]. This disclosure is being madepursuant to the Care Everywhere program and may not contain all information available regarding this patient. Last updated 18.[facility] Allergies Active Allergy Reactions Criticality Noted Date [...] on file Legal Sex Female 8:53 AM AMBULATORY CARE COORDINATOR Gender Identity Not on file Sexual Orientation [...] series) 1998 PAP SMEAR 2000 COVID-19 VACCINE (1 - 2023-2 5 season) 2024 DEPRESSION SCREENING 11/14/2024 05/24/2022 INFLUENZA VACCINE (#1) 2025 ZOSTER VACCINE (1 of 2) 2029 [...] age to complete this topic Insurance [facility] [place] [id number] Care Teams Imaging Science Professor Relationship Specialty Start Date End Date Lashon Carrion MD [address] [place] [address] PCP - General 04/02/10
== END 2025-07-16 13:44 | disposition home or self-care (01) ==
LOC: ANHFOHIMG 13:48
PROVIDERS: PCP Internal Medicine Nephrology; Visit Provider Student in an Organized Health Care Education/Training Program
DX: Z12.31 Encounter for screening mammogram for malignant neoplasm of breast (principal); R23.2 Flushing; R92.8 Other abnormal and inconclusive findings on diagnostic imaging of breast
CPT/HCPCS: 77063; 77067

== ENCOUNTER 2025-07-27 08:48 | Outpatient (CLI) | payer OTHER, SELFPAY ==
--- OUTSIDE RECORDS SUMMARY | 2025-07-27 08:57 | XMS_ITS | Encounter Summary ---
Author Organization [facility] [employer] [facility] Assignment Editor [facility] Address [address] [facility] [place] [address] Phone Care Team Providers Care Swimming Pool Salesperson Name Role Phone Lashon Carrion MD Primary Care Provider +1- [phone] Reason for Visit * Reason Comments Med Refill Encounter Details Date Type Department Care Team (Late st Contact Info) Description 08/25/2022 Refill [place] [address] [facility] [address] [place] [address] Lisandro Mathis DO [address] [facility] 1 [place] [address] Social History Tobacco Use Types [...] Description 07/30/2025 3:30 PM CDT Office Visit [facility] [address] [facility] [address] [place] [address] Lisandro Mathis DO [address] [facility] 1 [place] [address] documented as of this encounter Visit Diagnoses Not on filedocumented in this encounter Care Teams Swimming Pool Salesperson Relationship Specialty [place] [id number] [address] PCP - General Gastroenterology 10/12/22 04/16/24 documented as of this encounter
--- OUTSIDE RECORDS SUMMARY | 2025-07-27 08:57 | XMS_ITS | Clinical Summary ---
Author Organization [facility] [employer] Address [address] [place] [address] Care Team Providers Care Monogram Machine Operator Name Role Phone Lashon Carrion MD Primary Care Provider +1- [phone] Source Comments [facility],non-owned Affiliates and Associated Physician Practices is amultiple site organization consisting of ambulatory clinics and hospital sitesin [place], [place], [place] and [place]. This disclosure is being madepursuant to the Care Everywhere program and may not contain all information available regarding this patient. 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 [place] [id number] [facility] Care Teams Monogram Machine Operator Relationship Specialty Start Date End Date Lashon Carrion MD [address] [place] [address] PCP - General 04/02/10
--- OUTSIDE RECORDS SUMMARY | 2025-07-27 08:57 | XMS_ITS | Clinical Summary ---
Author Organization [facility] Facility Address [address] [place] [address] Care Team Providers Care Shuttle Hand Name Role Phone Unavailable Primary Care Provider [...] Encounters Date Type Department Care Team Description 07/17/2025 Documentation Only [facility], [place] [address] Lisandro Mathis, DO 05/06/2025 Documentation Only [facility], [address] [address] Lisandro Mathis, 05/06/2025 Documentation Only [facility], [address] [address] Lisandro Mathis, 05/02/2025 Documentation Only [facility], [address] [address] Lisandro Mathis, 04/30/2025 Documentation Only [facility], [address] [address] Lisandro Mathis, 04/29/2025 Office Communication [address] [address] Lisandro Mathis DO Pyelonephritis (Primary Dx) 04/29/2025 Documentation Only [address] [address] Lisandro Mathis DO from Last 3 Months [...] 07/30/2025 3:30 PM CDT Office Visit [facility], [facility] [address] [facility] 15 [place] [address] Lisandro Mathis DO [address] [facility] 1 [place] [address] Health Maintenance Due Date Last Done Comments Hepatitis B Vaccine (1 of 3 - 19+ 3-dose series) 05/20 Pneumococcal Vaccine: Peds ( 0 to 5 Years) and At-Risk Patients (6 to 49 Years) (1 of 2 - PCV) 1998 Influenza Vaccine (#1) 2025 Insurance [id number] (Home) [address] [place] [address] [facility]
--- OUTSIDE RECORDS SUMMARY | 2025-07-27 08:57 | XMS_ITS | Clinical Summary ---
Author Organization [facility] Address [address] [place] [address] Care Team Providers Care Or Director Name Role Phone Lisandro Mathis DO [...] 10/18/2024 Assessment & Plan (10/18/2024 4:38 PM INFORMATION SYSTEMS AUDIT MANAGER): Patient with hepatic steatosis and liver cyst [...] 10/18/2024 Assessment & Plan (10/18/2024 4:39 PM INFORMATION SYSTEMS AUDIT MANAGER): Referral to GI placed. Pain appears to be more pelvic related, recommend she see AUTOMOTIVE ELECTRICIAN. Due to dysuria, will obtain UA and [...] Care Team Description 05/23/2025 8:30 AM CDT [address] [address] Chronic kidney disease, stage I (Primary Dx); Iron deficiency anemia, unspecified iron deficiency anemia type 05/22/2025 Telephone [facility] [address] [facility] Advanced Medicine 12th [place] [address] [place] [address] Kindra Gallagher CNA 04/30/2025 10:00 AM CDT Infusion [facility] [address] [place] [address] Chronic kidney disease, stage I (Primary Dx); Iron deficiency anemia, unspecified iron deficiency anemia type from Last 3 Months Social History Tobacco [...] 108.9 kg (240 lb) 10/18/2024 1:55 PM INFORMATION SYSTEMS AUDIT MANAGER Height 170.2 cm (5' 7) 10/18/2024 1:55 PM INFORMATION SYSTEMS AUDIT MANAGER Body Mass Index 37.59 10/18/2024 1:55 PM INFORMATION SYSTEMS AUDIT MANAGER Plan of Treatment Health Maintenance Due Date [...] HEPATITIS C ANTIBODY Routine 10/18/2024 3:05 PM INFORMATION SYSTEMS AUDIT MANAGER Hepatic steatosis from Last 3 Months or Most Recently Relevant to Health Maintenance Results * Hepatitis C antibody Blood (10/18/2024 3:05 PM INFORMATION SYSTEMS AUDIT MANAGER) Hep C Ab Nonreactive Nonreactive Comment:Antibodies to HCV no t detected. Does NOT exclude the possibility of recent exposure to HCV. Current interpretive data was last revised on 22 Blood 10/18/2024 3:05 PM INFORMATION SYSTEMS AUDIT MANAGER 10/18/2024 3:41 PM INFORMATION SYSTEMS AUDIT MANAGER us Narcisa Quinones NP LAB MICROBIOLOGY - GENER AL ORDERABLES Final Result [facility] Department [place] [address] from Last 3 Months or Most Recently Relevant to Health Maintenance Insurance [facility] [place] [id number] [facility] [place] [address] Care Teams Or Director Relationship Specialty Start Date End Date Lisandro Mathis DO [address] [place] [address] PCP - General Nephrology 10/18/24
--- OUTSIDE RECORDS SUMMARY | 2025-07-27 08:57 | XMS_ITS | Encounter Summary ---
Author Organization [facility] Address [address] [facility] [place] [address] Phone Care Team Providers Care Forklift Truck Mechanic Name Role Phone Lashon Carrion MD Primary Care Provider +1- [phone] Reason for Visit * Reason Comments Med Refill Encounter Details Date Type Department Care Team (Late st Contact Info) Description 08/04/2022 Refill [place] [facility], [facility] [address] [facility] 15 [place] [address] Lisandro Mathis DO [address] [facility] 1 [place] [address] Social History Tobacco Use Types [...] Description 07/30/2025 3:30 PM CDT Office Visit [facility] Care, [facility] [address] [facility] [address] [place] [address] Lisandro Mathis DO [address] [facility] 1 [place] [address] documented as of this encounter Visit Diagnoses Not on filedocumented in this encounter Care Teams Forklift Truck Mechanic Relationship Specialty [place] [address] [facility] [address] [place] [address] PCP - General Gastroenterology 10/12/22 04/16/24 documented as of this encounter
--- OUTSIDE RECORDS SUMMARY | 2025-07-27 08:57 | XMS_ITS | Clinical Summary ---
Author Organization [facility] Address [address], [address] [address] Phone Care Team Providers Care Linen Room Houseperson Name Role Phone Unavailable Primary Care Provider [...]
[2025-07-27 10:20] LABS: Hematocrit 36.9 % (37.0-47.0); Hemoglobin 11.6 g/dL (12.0-15.0); Mean Corpuscular HGB Conc 31.4 g/dl (32-36); Mean Corpuscular Hemoglobin 22.9 pg (26-34); Mean Corpuscular Volume 72.8 fl (80-100); Platelet Count Result 364 k/mm3 (150-375); Red Blood Count 5.07 M/mm3 (4.2-5.4); White Blood Count 7.7 K/mm3 (4.5-10.0)
[2025-07-27 10:30] LABS: Hemoglobin A1C 7.9 % (<5.7)
[2025-07-27 10:39] LABS: Albumin Level 4.3 g/dL (3.5-5.1); Anion Gap 9 mmol/L (4-12); Blood Urea Nitrogen 13 mg/dL (7-17); Calcium 8.9 mg/dL (8.4-10.2); Carbon Dioxide 24 mmol/L (22-30); Chloride 100 mmol/L (98-107); Estimated Glomerular Filt Rate > 60; Glucose 155 mg/dL (65-110); Magnesium 2.2 mg/dL (1.6-2.3); Potassium 4.5 mmol/L (3.4-5.0); Sodium 133 mmol/L (137-145)
[2025-07-27 10:42] LABS: Iron 36 ug/dL (37-170)
[2025-07-27 10:43] LABS: Total Protein Urine Random < 5 mg/dL; Ur Ttl Prot Creatinine Ratio < 0.06 mg/mg (0-0.20)
[2025-07-27 10:51] LABS: Percent Iron Saturation 7 % (20-50)
[2025-07-27 10:51] LABS: Add Urine Microscopic? YES; Appearance Urine Clear (Clear); Glucose Urine UA Negative (Negative); Leukocyte Esterase Ur 1+ LEU/UL (Negative); Need Manual Microscopic Reviewed; Nitrate Urine Negative (Negative); Non Pathogenic Casts 0-2; Specific Grav Ur 1.021 (1.001-1.035)
[2025-07-27 10:52] LABS: Alanine Aminotransferase 19 U/L (6-35); Albumin Level 4.2 g/dL (3.5-5.1); Alkaline Phosphatase 91 U/L (38-126); Aspartate Amino Transferase 30 U/L (14-36); Bilirubin,Total 0.2 mg/dL (0.2-1.3); Total Protein 7.5 g/dL (6.3-8.2)
[2025-07-27 11:24] LABS: Ferritin 6.60 ng/mL (6.24-137)
[2025-07-28 07:13] LABS: MALB Creatinine Ratio 11.1 mg/g (0-30)
[2025-07-28 08:08] LABS: eGFR 101 (>59)
== END 2025-07-27 08:49 | disposition home or self-care (01) ==
LOC: ANHIMG 09:09 → ANHLAB 10:31
PROVIDERS: Nurse Practitioner; PCP Internal Medicine Nephrology; Visit Provider Internal Medicine Nephrology
DX: N18.1 Chronic kidney disease, stage 1 (principal); R80.1 Persistent proteinuria, unspecified; N20.0 Calculus of kidney; G47.33 Obstructive sleep apnea (adult) (pediatric); K29.70 Gastritis, unspecified, without bleeding; K76.0 Fatty (change of) liver, not elsewhere classified; N12 Tubulo-interstitial nephritis, not specified as acute or chronic; R10.13 Epigastric pain; Z86.2 Personal history of diseases of the blood and blood-forming organs and certain disorders involving the immune mechanism
CPT/HCPCS: 36415; 80069; 80076; 81001; 82043; 82306; 82570; 82610; 82728; 83036; 83540; 83550; 83735; 84156; 85027; 87086

== ENCOUNTER 2025-07-29 10:11 | Outpatient (CLI) | payer OTHER, SELFPAY ==
--- NOTE | ~2025-07-29 | MM_ITS ---
EXAMINATION: MM diagnostic zoltan LT w nilo HISTORY: Indeterminate mammogram TECHNIQUE: Spot magnification images of the left breast were obtained. Left medial lateral projections were obtained. 3-D tomosynthesis images were obtained and synthetic 2-D images were generated. CAD analysis was submitted and interpreted. COMPARISON: Mammogram 07/16/2025 BREAST PARENCHYMAL COMPOSITION: The breasts are heterogeneously dense, which may obscure small masses. FINDINGS: Probably benign loose grouping of calcifications in the upper left breast from the 11:00 to 1:00 position middle to posterior depth. No suspicious mass or architectural distortion. IMPRESSION: 1. Probably benign calcifications in the left breast. A diagnostic left breast mammogram in 6 months is recommended. BI-RADS 3-Probably benign-Short interval follow-up suggested. Reviewed, dictated and finalized at location Q.
--- OUTSIDE RECORDS SUMMARY | 2025-07-29 11:29 | XMS_ITS | Clinical Summary ---
Author Organization [facility] [employer] Address [address] [place] [address] Care Team Providers Care Continuous Drier Operator Name Role Phone Lisandro Mathis DO [...] 10/18/2024 Assessment & Plan (10/18/2024 4:38 PM CAMPUS RECEPTIONIST): Patient with hepatic steatosis and liver cyst [...] 10/18/2024 Assessment & Plan (10/18/2024 4:39 PM CAMPUS RECEPTIONIST): Referral to GI placed. Pain appears to be more pelvic related, recommend she see PIPE COREMAKER. Due to dysuria, will obtain UA and urine culture to r/o UTI. In the meantime, she is to f/u with local GI. Recommended she work on stress management, try OTC medications like lidocaine patches, and to not exceed the recommended maximum amount of ibuprofen. Chronic kidney disease, stage I 12/21/2023 Iron deficiency anemia, unspecified 12/21/2023 Encounters Date Type Department Care Team Description 07/27/2025 Orders Only [facility] Scanning, Provider 05/23/2025 8:30 AM CDT [address] [address] Chronic kidney disease, stage I (Primary Dx); Iron deficiency anemia, unspecified iron deficiency anemia type 05/22/2025 Telephone [facility] Medicine Gastroenterology [address] [facility] 12th [place] [address] [place] [address] BelemsebastianKindra suggs CNA 04/30/2025 10:00 AM CDT Infusion [facility] at [facility] [address] [address] [place] [address] Chronic kidney disease, stage I (Primary Dx); [...] 108.9 kg (240 lb) 10/18/2024 1:55 PM CAMPUS RECEPTIONIST Height 170.2 cm (5' 7) 10/18/2024 1:55 PM CAMPUS RECEPTIONIST Body Mass Index 37.59 10/18/2024 1:55 PM CAMPUS RECEPTIONIST Plan of Treatment Health Maintenance Due Date [...] Date/Time Associated Diagnosis Comments SCAN - LABS 07/27/2025 HEPATITIS C ANTIBODY Routine 10/18/2024 3:05 PM CAMPUS RECEPTIONIST Hepatic steatosis from Last 3 Months or Most Recently Relevant to Health Maintenance Results * SCAN - LABS (07/27/2025) us Provider Scanning Final Result * Hepatitis C antibody Blood (10/18/2024 3:05 PM CAMPUS RECEPTIONIST) Hep C Ab Nonreactive Nonreactive Comment:Antibodies to HCV no t detected. Does NOT exclude the possibility of recent exposure to HCV. Current interpretive data was last revised on 22 Blood 10/18/2024 3:05 PM CAMPUS RECEPTIONIST 10/18/2024 3:41 PM CAMPUS RECEPTIONIST Narcisa Quinones NP LAB MICROBIOLOGY - GENER AL ORDERABLES Final Result Performing Organization Address City/State/[facility] Co va Phone Number [facility] One [facility] Department [place] [address] from Last 3 Months or Most Recently Relevant to Health Maintenance Insurance [facility] CHOICE [facility] H[facility]/PPO Address: [facility] [address] [place] [address] [facility] CHOICE PLUS [facility] H[facility]/PPO Address: [address] [address] [place] [address] Care Teams Continuous Drier Operator Relationship Specialty Start Date End Date Lisandro Mathis DO [address] [facility] 1 [place] [address] PCP - General Nephrology 10/18/24
--- OUTSIDE RECORDS SUMMARY | 2025-07-29 11:29 | XMS_ITS | Encounter Summary ---
Author Organization [facility] [employer] [facility] [employer] [facility] Address [address] [facility] [place] [address] Phone Care Team Providers Care Outbound Sales Executive Name Role Phone Lashon Carrion MD Primary Care Provider +1- [phone] Reason for Visit * Reason Comments Med Refill Encounter Details Date Type Department Care Team (Late st Contact Info) Description 08/25/2022 [facility]ill [place] [facility] [address] [facility] 15 [place] [address] Lisandro Mathis DO [address] [facility] 1 [place] [address] Social History Tobacco Use Types [...] Description 07/30/2025 3:30 PM CDT Office Visit [place] [facility] [address] [facility] [address] [place] [address] Lisandro Mathis DO [address] [facility] 1 [place] [address] documented as of this encounter Visit Diagnoses Not on filedocumented in this encounter Care Teams Outbound Sales Executive Relationship Specialty [place] [address] [address] PCP - General Gastroenterology 10/12/22 04/16/24 documented as of this encounter
--- OUTSIDE RECORDS SUMMARY | 2025-07-29 11:29 | XMS_ITS | Clinical Summary ---
Author Organization [facility] Address [address], [address] [address] Phone Care Team Providers Care Membership Administrator Name Role Phone Unavailable Primary Care Provider [...]
--- OUTSIDE RECORDS SUMMARY | 2025-07-29 11:29 | XMS_ITS | Clinical Summary ---
Author Organization [facility] Facility Address [address] [place] [address] Care Team Providers Care Waste Disposal Plant Operator Name Role Phone Unavailable Primary Care [...] Encounters Date Type Department Care Team Description 07/29/2025 Documentation Only [facility], [address] [address] Lisandro Mathis, DO 07/17/2025 Documentation Only [facility], [address] [address] Lisandro Mathis, DO 05/06/2025 Documentation Only [facility], [address] [address] Lisandro Mathis, 05/06/2025 Documentation Only [facility], [address] [address] Lisandro Mathis, DO 05/02/2025 Documentation Only [facility], [address] [address] Lisandro Mathis, DO 04/30/2025 Documentation Only [facility], [address] [address] Lisandro Mathis, 04/29/2025 Office Communication [facility], [address] [address] Lisandro Mathsi DO Pyelonephritis (Primary Dx) 04/29/2025 Documentation Only [address] [address] Lisandro Mathis DO from Last 3 Months [...] Description 07/30/2025 3:30 PM CDT Office Visit [facility], [facility] [address] [facility] 15 [place] [address] Lisandro Mathis DO [address] [facility] 1 [place] [address] Health Maintenance Due Date Last Done Comments Hepatitis B Vaccine (1 of 3 - 19+ 3-dose series) 05/20 Pneumococcal Vaccine: Peds ( 0 to 5 Years) and At-Risk Patients (6 to 49 Years) (1 of 2 - PCV) 1998 Influenza Vaccine (#1) 2025 Insurance [id number] (Home) [address] [place] [address] [facility]
--- OUTSIDE RECORDS SUMMARY | 2025-07-29 11:29 | XMS_ITS | Encounter Summary ---
Author Organization [facility] Address [address] [place] [address] Phone Care Team Providers Care Timber Management Assistant Name Role Phone Lisandro Mathis DO Primary Care Provider +1- [phone] Encounter Details Date Type Department Care Team (Late st Contact Info) Description 07/27/2025 Orders Only [facility] Scanning, Provider Social History Tobacco Use Types Packs/Day Years Used Date Smoking Tobacco: Never Assessed Comments Unknown Sex and Gender Information Value Date Recorded Sex Assigned at Not on file Legal Sex Female 9:08 AM CDT Gender Identity Not on file Sexual Orientation Not on file documented as of this encounter Plan of Treatment Not on file documented as of this encounter Procedures Procedure Name Priority Date/Time Associated Diagnosis Comments SCAN - LABS 07/27/2025 documented in this encounter Results * SCAN - LABS (07/27/2025) us Provider Scanning Final Result documented in this encounter Visit Diagnoses Not on filedocumented in this encounter Care Teams Timber Management Assistant Relationship Specialty Start Date End Date Lisandro Mathis DO [address] [place] [address] PCP - General Nephrology 10/18/24 documented as of this encounter
--- OUTSIDE RECORDS SUMMARY | 2025-07-29 11:29 | XMS_ITS | Encounter Summary ---
Author Organization [facility] , [facility] Address [address] [facility] [place] [address] Phone Care Team Providers Care Sql Database Administrator Name Role Phone Lashon Carrion MD Primary Care Provider +1- [phone] Reason for Visit * Reason Comments Med Refill Encounter Details Date Type Department Care Team (Late st Contact Info) Description 08/04/2022 Refill [place] [facility], [facility] [address] [facility] [address] [place] [phone] Lisandro Mathis DO [address] [facility] 1 [place] [address] Social History Tobacco Use Types [...] Description 07/30/2025 3:30 PM CDT Office Visit [facility], [facility] [address] [facility] [address] [place] [address] Lisandro Mathis DO [address] [facility] 1 [place] [address] documented as of this encounter Visit Diagnoses Not on filedocumented in this encounter Care Teams Sql Database Administrator Relationship Specialty [place] [address] [facility] [address] [place] [address] PCP - General Gastroenterology 10/12/22 04/16/24 documented as of this encounter
--- OUTSIDE RECORDS SUMMARY | 2025-07-29 11:29 | XMS_ITS | Encounter Summary ---
Author Organization [facility] , [facility] Address [address] [place] [address] Phone Care Team Providers Care Recyclable Materials Collector Name Role Phone Unavailable Primary Care Provider Unavailabl e Encounter Details Date Type Department Care Team (Late st Contact Info) Description 07/29/2025 Documentation Only [facility], [address] [place] [address] Lisandro Mathis DO [address] [facility] 1 [place] [address] Social History Tobacco Use Types [...] Description 07/30/2025 3:30 PM CDT Office Visit [facility], [facility] 4 [facility] [address] [place] [address] Lisandro Mathis DO [address] [facility] 1 [place] [address] documented as of this encounter Visit Diagnoses Not on filedocumented in this encounter
--- OUTSIDE RECORDS SUMMARY | 2025-07-29 11:29 | XMS_ITS | Clinical Summary ---
Author Organization [facility] Address [address] [place] [address] Care Team Providers Care Gift Manager Name Role Phone Lashon Carrion MD Primary Care Provider +1- [phone] Source Comments [facility],non-owned Affiliates and Associated Physician Practices is amultiple site organization consisting of ambulatory clinics and hospital sitesin [place], [place], [place]. This disclosure is being madepursuant to the Care Everywhere program and may not contain all information available regarding this patient. Last updated 18.[facility] Allergies Active Allergy Reactions Criticality Noted Date [...] on file Legal Sex Female 8:53 AM RENTAL CLERK TOOL AND EQUIPMENT Gender Identity Not on file Sexual Orientation [...] age to complete this topic Insurance [facility] [place] [id number] [facility] Care Teams Gift Manager Relationship Specialty Start Date End Date Lashon Carrion MD [address] [place] [address] PCP - General 04/02/10
== END 2025-07-29 10:12 | disposition home or self-care (01) ==
LOC: CHSIMG 10:12
PROVIDERS: PCP Internal Medicine Nephrology; Visit Provider Student in an Organized Health Care Education/Training Program
DX: R92.1 Mammographic calcification found on diagnostic imaging of breast (principal)
CPT/HCPCS: 77061; 77065; G0279

== ENCOUNTER 2025-09-13 13:10 | Outpatient (CLI) | payer OTHER, SELFPAY ==
--- OUTSIDE RECORDS SUMMARY | 2013-06-05 06:45 | XMS_ITS | Continuity of Care Document ---
Author Organization [id number] Address [address] [facility] [address] [place] [address] Phone Care Team Providers Care Diesel Technology Instructor Name Role Phone Arron LUCIANO, Fina Unavailable Unavai lable Medications Medication Instructions Dosage Effective Dates (start - stop) Status Comments NEXIUM (unknown strength) take 1 capsule by oral route every day Not Available - Active KARIVA (unknown strength) take 1 tablet by oral route every day Not Available - Active Procedures Procedure Date OFFICE/OUTPT EM EST EXP PROB FOCUS/LOW 1 5 MINS Echocardiography Transthoracic - Profess ional OFFICE/OUTPATIENT VISIT, EST ROUTINE VENIPUNCTURE Advance Directives Directive Yes / No Effective Date File Name No Information Encounters Encounter Description Practice Location Reason(s) For Visit Diagnoses Date Provider Providers Copied on Encounter OFFICE/OUTPT EM EST EXP PROB FOCUS/LOW 15 MINS [id number] - [employer], [address], [place], [address], [place] tel: [phone] [facility] Neurocardiogenic Syncope 3 3 Arron Harden. [address], [place], [place], [id number]. tel:[phone] Referring Provider: Murali Babcock, [address], [place], [address]. tel:[phone] [id number] - [facility], [address], [place], [address], [place] tel: [phone] [facility] No Information 3 Lucita Fink. [address] [facility], [place], [address]. [phone] Referring Provider: Fina Melo i, [address], [place], [address] . tel:[phone] OFFICE/OUTPA TIENT VISIT, EST [id number], [address], [place], [address], [place] tel: [phone] [facility] Neurocardiogenic Syncope 3 Arron Harden. [address], [place], [place], [id number]. [phone] Referring Provider: Fina Melo i, [address], [place], [address] . tel:[phone] Family History Family Member Type Diagnosis Age At Onset Father Problem (finding) hypertension Mother Problem (finding) hypertension Mother Problem (finding) Maternal history of susie betes mellitus Payers Payer name Insurance type Covered democrat ID Ayaz joyeliza(s) [facility] CI [id number] Social History Type Description Quantity Date Captured Comments Alcohol Use Details Unknown Caffeine Use Details Unknown Tobacco Use Status No Information Smoking Status Never smoker Non-Smoking Tobacco Use Details : No Details Available : No Details Available Sex Female Chief Complaint And Reason For Visit No Information Reason For Referral Reason For Referral No Information History Of Present Illness Encounter Date Complaint History Of Prese nt Illness No Information Functional Status Date Functional Assessmen t No Information Instructions Date Instruction Additional Infor mation No Information Assessments Type Assessment Date No Information Patient Care Teams Name Effective Dates (start - stop) Status Members No Information
--- OUTSIDE RECORDS SUMMARY | 2025-09-13 13:14 | XMS_ITS | Clinical Summary ---
Author Organization [facility] Address [address], [address] [address] Phone Care Team Providers Care Shoulder Puncher Name Role Phone Unavailable Primary Care Provider [...] Screening 2024 Immunochemical Fecal Occult Blood 2024 Influenza Immunization (#1) 2025 SARS-COV-2 Immunization ( season) 2025 Respiratory Syncytial Virus (RSV) Immunization (Adult) [...]
--- OUTSIDE RECORDS SUMMARY | 2025-09-13 13:14 | XMS_ITS | Clinical Summary ---
Author Organization [facility] [email or web address] Address [address] [place] [address] Care Team Providers Care Central Supply Clerk Name Role Phone Lashon Carrion MD Primary Care Provider +1- [phone] [facility],non-owned Affiliates and Associated Physician Practices is amultiple site organization consisting of ambulatory clinics and hospital sitesin [place], [place], [place] and [place]. This disclosure is being madepursuant to the Care Everywhere program and may not contain all information available regarding this patient. Last updated 18.[facility] [email or web address] Allergies Active Allergy Reactions Criticality Noted Date [...] on file Legal Sex Female 8:53 AM FIREWALL ENGINEER Gender Identity Not on file Sexual Orientation [...] to complete this topic Insurance [facility] Address: [facility] [id number] [place] [address] [facility] [place] [id number] [facility] Care Teams Central Supply Clerk Relationship Specialty Start Date End Date Lashon Carrion MD [address] [place] [address] PCP - General 04/02/10
--- OUTSIDE RECORDS SUMMARY | 2025-09-13 13:14 | XMS_ITS | Clinical Summary ---
Author Organization [facility] Address [address] [place] [address] Care Team Providers Care Compliance Advisor Name Role Phone Lisandro Mathis DO Primary [...] mouth daily 60 capsule 11 5 Active ferrous sulfate 325 mg (65 mg of elemental iron) tablet Take 1 tablet (325 mg total) by mouth 5 Active Active Problems Problem Noted Date Diagnosed Date Hepatic steatosis 10/18/2024 Assessment & Plan (10/18/2024 4:38 PM TREE TRIMMER): Patient with hepatic steatosis and liver cyst [...] 10/18/2024 Assessment & Plan (10/18/2024 4:39 PM TREE TRIMMER): Referral to GI placed. Pain appears to be more pelvic related, recommend she see SYSTEMS SOFTWARE SPECIALIST. Due to dysuria, will obtain UA and urine culture to r/o UTI. In the meantime, she is to f/u with local GI. Recommended she work on stress management, try OTC medications like lidocaine patches, and to not exceed the recommended maximum amount of ibuprofen. Chronic kidney disease, stage I 12/21/2023 Iron deficiency anemia, unspecified 12/21/2023 Encounters Date Type Department Care Team Description 08/29/2025 2:30 PM CDT [address] [address] Chronic kidney disease, stage I (Primary Dx); Iron deficiency anemia, unspecified iron deficiency anemia type 08/22/2025 2:30 PM CDT Infusion [facility] [address] [place] [address] Chronic kidney disease, stage I (Primary Dx); Iron deficiency anemia, unspecified iron deficiency anemia type 07/31/2025 Telephone [facility] [address] [place] [address] Oleg Euceda MD 07/31/2025 Orders Only [facility] [address] [facility] [address] [place] [address] Venus Hawthorne RN Iron deficiency anemia, unspecified iron deficiency anemia type (Primary Dx); Chronic kidney disease, stage I 07/29/2025 Telephone [facility] [address] [place] [address] Advanced Medicine 12th [place] [address] [place] [address] Narcisa Quinones NP 07/27/2025 Orders Only [facility] Scanning, Provider from Last 3 Months Social History Tobacco Use Types Packs/Day Years Used Date Smoking Tobacco: Never Assessed Comments Unknown Sex and Gender Information Value Date Recorded Sex Assigned at Not on file Legal Sex Female 9:08 AM CDT Gender Identity Not on file Sexual Orientation Not on file Obstetrics History Last Filed Vital Signs Vital Sign Reading Time Taken Comments Blood Pressure 159/87 08/29/2025 2:11 PM CDT Pulse 98 08/29/2025 2:11 PM CDT Temperature 36.4 C (97.5 F) 08/29/2025 2:11 PM CDT Respiratory Rate 18 08/29/2025 2:11 PM CDT Oxygen Saturation 97% 08/29/2025 2:11 PM CDT Inhaled Oxygen Concentration - - Weight 108.9 kg (240 lb) 10/18/2024 1:55 PM TREE TRIMMER Height 170.2 cm (5' 7) 10/18/2024 1:55 PM TREE TRIMMER Body Mass Index 37.59 10/18/2024 1:55 PM TREE TRIMMER Plan of Treatment Health Maintenance Due Date [...] HEPATITIS C ANTIBODY Routine 10/18/2024 3:05 PM TREE TRIMMER Hepatic steatosis from Last 3 Months or Most Recently Relevant to Health Maintenance Results * SCAN - LABS (07/27/2025) us Provider Scanning Final Result * Hepatitis C antibody Blood (10/18/2024 3:05 PM TREE TRIMMER) Hep C Ab Nonreactive Nonreactive Comment:Antibodies to HCV no t detected. Does NOT exclude the possibility of recent exposure to HCV. Current interpretive data was last revised on 22 Blood 10/18/2024 3:05 PM TREE TRIMMER 10/18/2024 3:41 PM TREE TRIMMER Narcisa Quinones MEDICAL OFFICE MANAGER LAB MICROBIOLOGY - GENER AL ORDERABLES Final Result [facility] One [facility] Department [place] [address] from Last 3 Months or Most Recently Relevant to Health Maintenance Insurance [facility] PL[facility] [place] [id number] [facility] PL[facility] Care Teams Compliance Advisor Relationship Specialty Start Date End Date Lisandro Mathis DO [address] [place] [address] PCP - General Nephrology 10/18/24
[2025-09-13 15:00] LABS: Vitamin B12 358.0 pg/mL (239-931)
== END 2025-09-13 13:11 | disposition home or self-care (01) ==
LOC: ANHLAB 13:12
PROVIDERS: PCP Internal Medicine Nephrology; Visit Provider Internal Medicine Nephrology
DX: N12 Tubulo-interstitial nephritis, not specified as acute or chronic (principal); N18.1 Chronic kidney disease, stage 1; E11.22 Type 2 diabetes mellitus with diabetic chronic kidney disease; Z86.2 Personal history of diseases of the blood and blood-forming organs and certain disorders involving the immune mechanism
CPT/HCPCS: 36415; 82306; 82607

== ENCOUNTER 2025-10-15 14:25 | Outpatient (CLI) | payer OTHER, SELFPAY ==
[2025-10-15 14:58] LABS: Hemoglobin A1C 8.2 % (<5.7)
[2025-10-15 15:31] LABS: Thyroid Stimulating Hormone 3.140 uIU/mL (0.465-4.680)
--- OUTSIDE RECORDS SUMMARY | 2025-10-15 15:44 | XMS_ITS | Encounter Summary ---
Author Organization [facility] [employer] [facility] Address [address] [facility] [place] [address] Phone Care Team Providers Care Marine Operations Coordinator Name Role Phone Lashon Carrion MD Primary Care Provider +1- [phone] Reason for Visit * Reason Comments Med Refill Encounter Details Date Type Department Care Team (Late st Contact Info) Description 08/25/2022 [facility]ill [place] [facility] [address] [facility] [address] [place] [address] Lisandro Mathis DO [address] [facility] 1 [place] [address] Social History Tobacco Use Types [...] Care Team (Late st Contact Info) Description 10/29/2025 3:30 PM BUSINESS RISK ANALYST Office Visit [place] [facility] [address] [facility] [address] [place] [address] Lisandro Mathis DO [address] [facility] 1 [place] [address] documented as of this encounter Visit Diagnoses Not on filedocumented in this encounter Care Teams Marine Operations Coordinator Relationship Specialty [place] [address] [address] PCP - General Gastroenterology 10/12/22 04/16/24 documented as of this encounter
--- OUTSIDE RECORDS SUMMARY | 2025-10-15 15:44 | XMS_ITS | Encounter Summary ---
Author Organization [facility] , [facility] Address [address] [facility] [place] [address] Phone Care Team Providers Care Security Services Manager Name Role Phone Lashon Carrion MD Primary Care Provider +1- [phone] Reason for Visit * Reason Comments Med Refill Encounter Details Date Type Department Care Team (Late st Contact Info) Description 08/04/2022 Refill [employer] [facility], [facility] [address] [facility] [address] [place] [address] Lisandro Mathis DO 12[address] [facility] 1 [place] [address] Social History Tobacco Use [...] st Contact Info) Description 10/29/2025 3:30 PM MARKETING INSTRUCTOR Office Visit [facility] Care, [facility] [address] [facility] [address] [place] [address] Lisandro Mathis DO [address] [facility] 1 [place] [address] documented as of this encounter Visit Diagnoses Not on filedocumented in this encounter Care Teams Security Services Manager Relationship Specialty [place] [address] [address] [place] [address] PCP - General Gastroenterology 10/12/22 04/16/24 documented as of this encounter
--- OUTSIDE RECORDS SUMMARY | 2025-10-15 15:44 | XMS_ITS | Clinical Summary ---
Author Organization [facility] Address [address], [address] [address] Phone Care Team Providers Care Supervisor Plastics Name Role Phone Unavailable Primary Care Provider [...]
--- OUTSIDE RECORDS SUMMARY | 2025-10-15 15:44 | XMS_ITS | Clinical Summary ---
Author Organization [facility] Address [address] [place] [address] Care Team Providers Care Examiner Of Currency Name Role Phone Unavailable Primary Care Provider [...] the evening. 270 tablet 1 4 Active famotidine (PEPCID) 20 [...] 6 mL 1 5 04/23/20 26 Active ferrous sulfate 325 (65 Fe) MG tablet Take 1 tablet (325 mg total) by mouth every afternoon 90 tablet 1 5 Active Ascorbic Acid (vitamin C) 500 MG tablet Take 1 tablet (500 mg total) by mouth 1 (one) time each day 90 tablet 3 5 Active Encounters Date Type Department Care Team Description 09/23/2025 Documentation Only [address] [place] [address] Lisandro Mathis, 09/23/2025 Documentation Only [address] [phone] Lisandro Mathis, 09/13/2025 Documentation Only [address] [phone] Viviane Bradley 07/30/2025 3:30 PM CDT Office Visit [facility] [address] [address] Lisandro Mathis, Stage 1 chronic kidney disease (Primary Dx); Interstitial nephritis; Persistent proteinuria; Nephrolithiasis; Obstructive sleep apnea syndrome; H/O: anemia - iron deficient; Gastritis 07/30/2025 Refill [facility] [address] [address] Domonique Campbell CMA 07/30/2025 Documentation [place] [address] [place] [phone] Lisandro Mathis DO 07/30/2025 Documentation Only [address] [phone] Lisandro Mathis DO 07/29/2025 Documentation Only [facility], [address] [address] Lisandro Mathis, 07/29/2025 Documentation Only [facility], [address] [address] Lisandro Mathis DO 07/17/2025 Documentation Only [facility], [address] [address] Lisandro Mathis DO from Last [...] Reading Time Taken Comments Blood Pressure 130/80 07/30/2025 4:00 PM CDT Pulse 90 07/30/2025 4:00 PM CDT Temperature 36.7 C (98 F) 07/30/2025 4:00 PM CDT Respiratory Rate 18 07/30/2025 4:00 PM CDT Oxygen Saturation 98% 07/30/2025 4:00 PM CDT Inhaled Oxygen Concentration - - Weight 104 kg (230 lb) 07/30/2025 4:00 PM CDT Height 170.2 cm (5' 7) 04/23/2025 3:28 PM CDT Body Mass Index 36.02 04/23/2025 3:28 PM CDT Plan of Treatment Upcoming Encounters Date Type Department Care Team (Late st Contact Info) Description 10/29/2025 3:30 PM EDUCATION SPEC Office Visit [facility], [facility] [address] [facility] [address] [place] [address] Lisandro Mathis DO [address] [place] [address] Health Maintenance Due Date Last Done Comments Hepatitis B Vaccine (1 of 3 - 19+ 3-dose series) 05/20 Pneumococcal Vaccine: Peds ( 0 to 5 Years) and At-Risk Patients (6 to 49 Years) (1 of 2 - PCV) 1998 Influenza Vaccine (#1) 2025 Insurance [facility]
--- OUTSIDE RECORDS SUMMARY | 2025-10-15 15:44 | XMS_ITS | Encounter Summary ---
Author Organization [facility] Address [address] [place] [address] Phone Care Team Providers Care Route Service Manager Name Role Phone Lisandro Mathis DO Primary Care Provider Reason for Visit * Reason Onset Date Comments Labs Due 10/13/2025 Encounter Details Date Type Department Care Team (Late st Contact Info) Description 10/13/2025 Telephone [facility] [address] [place] [address] [place] [address] Knidra Gallagher CNA Labs Due Social History Tobacco Use Types Packs/Day Years Used Date Smoking Tobacco: Never Assessed Comments Unknown Sex and Gender Information Value Date Recorded Sex Assigned at Not on file Legal Sex Female 9:08 AM CDT Gender Identity Not on file Sexual Orientation Not on file documented as of this encounter Miscellaneous Notes * Telephone Encounter - Kindra Gallagher CNA - 10/13/2025 4:28 PM CST Lab orders placed & mailed to patient for completion ----- Message from Nurse Anita Field sent at 07/29/2025 1:52 PM CDT ----- Regarding: CBC and CMP in 3 months (October 2025) CBC and CMP in 3 months (October 2025) 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 documented in this encounter Plan of Treatment Scheduled Orders Name Type Priority Associated Diagnoses Orde r Schedule CBC with auto differential Lab Routine Hepatic steatosis Expected: 10/16/2025, Expires: 10/13/2026 Comprehensive metabolic panel Lab Routine Hepatic steatosis Expected: 10/20/2025, Expires: 10/13/2026 documented as of this encounter Visit Diagnoses Diagnosis Hepatic steatosis- Primary Other chronic nonalcoholic liver disease documented in this encounter Care Teams Route Service Manager Relationship Specialty Start Date End Date Lisandro Mathis DO [address] [address] PCP - General Nephrology 10/18/24 documented as of this encounter
--- OUTSIDE RECORDS SUMMARY | 2025-10-15 15:44 | XMS_ITS | Clinical Summary ---
Author Organization [facility] [employer] Address [address] [place] [address] Care Team Providers Care Slumber Room Attendant Name Role Phone Lisandro Mathis DO Primary Care Provider [phone] Allergies Active Allergy Reactions Criticality Noted Date [...] 10/18/2024 Assessment & Plan (10/18/2024 4:38 PM COSTUME CUTTER): Patient with hepatic steatosis and liver cyst [...] 10/18/2024 Assessment & Plan (10/18/2024 4:39 PM COSTUME CUTTER): Referral to GI placed. Pain appears to be more pelvic related, recommend she see UNLOADER. Due to dysuria, will obtain UA and urine culture to r/o UTI. In the meantime, she is to f/u with local GI. Recommended she work on stress management, try OTC medications like lidocaine patches, and to not exceed the recommended maximum amount of ibuprofen. Chronic kidney disease, stage I 12/21/2023 Iron deficiency anemia, unspecified 12/21/2023 Encounters Date Type Department Care Team Description 10/13/2025 Telephone [facility] Gastroenterology [address] [facility] 12th [place] [address] [place] [address] Kindra Gallagher, DAVID Labs Due 08/29/2025 2:30 PM CDT Infusion [address] [place] [phone] Chronic kidney disease, stage I (Primary Dx); Iron deficiency anemia, unspecified iron deficiency anemia type 08/22/2025 2:30 PM CDT Infusion [address] [place] [phone] Chronic kidney disease, stage I (Primary Dx); Iron deficiency anemia, unspecified iron deficiency anemia type 07/31/[address] [place] [phone] Oleg Euceda MD 07/31/2025 Orders Only [address] [place] [phone] Venus Hawthorne RN Iron deficiency anemia, unspecified iron deficiency anemia type (Primary Dx); Chronic kidney disease, stage I 07/29/2025 Telephone [facility]astro[facility]ology [address] [facility] Advanced Medicine 12th [place] [address] [place] [address] Narcisa Quinones NP 07/27/2025 Orders Only [facility] Scanning, Provider from Last 3 Months [...] 108.9 kg (240 lb) 10/18/2024 1:55 PM COSTUME CUTTER Height 170.2 cm (5' 7) 10/18/2024 1:55 PM COSTUME CUTTER Body Mass Index 37.59 10/18/2024 1:55 PM COSTUME CUTTER Plan of Treatment Health Maintenance Due Date [...] HEPATITIS C ANTIBODY Routine 10/18/2024 3:05 PM COSTUME CUTTER Hepatic steatosis from Last 3 Months or Most Recently Relevant to Health Maintenance Results * SCAN - LABS (07/27/2025) us Provider Scanning Final Result * Hepatitis C antibody Blood (10/18/2024 3:05 PM COSTUME CUTTER) Hep C Ab Nonreactive Nonreactive Comment:Antibodies to HCV no t detected. Does NOT exclude the possibility of recent exposure to HCV. Current interpretive data was last revised on 22 Blood 10/18/2024 3:05 PM COSTUME CUTTER 10/18/2024 3:41 PM COSTUME CUTTER Narcisa Quinones NP LAB MICROBIOLOGY - GENER AL ORDERABLES Final Result [facility] One [facility] Department [place] [address] from Last 3 Months or Most Recently Relevant to Health Maintenance Insurance [employer] [place] [id number] Care Teams Slumber Room Attendant Relationship Specialty Start Date End Date Lisandro Mathis DO [address] [place] [address] PCP - General Nephrology 10/18/24
--- OUTSIDE RECORDS SUMMARY | 2025-10-15 15:44 | XMS_ITS | Clinical Summary ---
Author Organization [facility] [employer] Address [address] [place] [address] Care Team Providers Care Product Safety Manager Name Role Phone Lashon Carrion MD Primary Care Provider +1- [phone] Source Comments [facility],non-owned Affiliates and Associated Physician Practices is amultiple site organization consisting of ambulatory clinics and hospital sitesin [place], [place], [place] and [place]. This disclosure is being madepursuant to the Care Everywhere program and may not contain all information available regarding this patient. Last updated 18.[facility] [employer] Allergies Active Allergy Reactions Criticality Noted Date [...] on file Legal Sex Female 8:53 AM FISH HATCHERY INSPECTOR Gender Identity Not on file Sexual Orientation [...] of 3 - 19+ 3-dose series) 1998 Cervical Cancer Screening 2000 PAP SMEAR 2000 PAP with HPV 2009 DEPRESSION SCREENING 11/14/2024 05/24/2022 COVID-19 VACCINE (1 - 2024-2 6 season) 2025 INFLUENZA VACCINE (#1) 2025 ZOSTER [...] patient's age to complete this topic Insurance AET [facility] * Guarantor: ROSENDO COELHO Account Type Relation to Patient Date of Phone Billing Address Personal/Family [address] [place] [address] Care Teams Product Safety Manager Relationship Specialty Start Date End Date Lashon Carrion MD [address] [place] [id number] PCP - General 04/02/10
== END 2025-10-15 14:26 | disposition home or self-care (01) ==
PROVIDERS: PCP Internal Medicine Nephrology; Visit Provider Student in an Organized Health Care Education/Training Program
DX: R61 Generalized hyperhidrosis (principal); E66.9 Obesity, unspecified; R10.20 Pelvic and perineal pain unspecified side
CPT/HCPCS: 36415; 83036; 84443; 87086

== ENCOUNTER 2025-11-13 08:32 | Outpatient (CLI) | payer OTHER, SELFPAY ==
--- OUTSIDE RECORDS SUMMARY | 2025-11-13 08:41 | XMS_ITS | Clinical Summary ---
Author Organization [facility] Address [address] [place] [id number] Care Team Providers Care Mold Making Supervisor Name Role Phone Unavailable Primary Care [...] Encounters Date Type Department Care Team Description 10/17/2025 Documentation Only [facility] [place], [address] [address] Lisandro Mathis, DO 10/15/[address] [facility], [address] [phone] Lisandro Mathis, DO 09/23/[address] [facility], [address] [phone] Lisandro Mathis, DO 09/23/[address] [facility], [address] [address] Lisandro Mathis, DO 09/13/[address] [facility], [address] [address] Viviane Bradley from Last 3 Months Social History Tobacco [...] Care Team (Late st Contact Info) Description 11/19/2025 3:45 PM MARBLE SUPERVISOR Office Visit [facility], [facility] [address] [facility] [address] [place] [address] Lisandro Mathis DO [address] [facility] [address] [place] [address] Health Maintenance Due Date Last Done Comments Hepatitis B Vaccine (1 of 3 - 19+ 3-dose series) 05/20 Pneumococcal Vaccine: Peds ( 0 to 5 Years) and At-Risk Patients (6 to 49 Years) (1 of 2 - PCV) 1998 Influenza Vaccine (#1) 2025 Insurance [facility]
--- OUTSIDE RECORDS SUMMARY | 2025-11-13 08:41 | XMS_ITS | Encounter Summary ---
Author Organization [facility] [employer] [facility] Address [address] [facility] [facility] [place] [address] Phone Care Team Providers Care Senior Construction Project Manager Name Role Phone Lashon Carrion MD Primary Care Provider +1- [phone] Reason for Visit * Reason Comments Med Refill Encounter Details Date Type Department Care Team (Late st Contact Info) Description 08/25/2022 Refill [place] [facility] [place] [facility] [address] [facility] [address] [place] [address] Lisandro Mathis DO [address] [facility] 1 [place] [address] Social History Tobacco Use Types [...] st Contact Info) Description 11/19/2025 3:45 PM DEPARTMENT OF MATHEMATICS CHAIR Office Visit [place] [employer] [facility] [place] [address] [facility] [address] [address] [place] [address] Lisandro Mathis DO [address] [facility] 1 [place] [address] documented as of this encounter Visit Diagnoses Not on filedocumented in this encounter Care Teams Senior Construction Project Manager Relationship Specialty [place] [id number] [address] PCP - General Gastroenterology 10/12/22 04/16/24 documented as of this encounter
--- OUTSIDE RECORDS SUMMARY | 2025-11-13 08:41 | XMS_ITS | Clinical Summary ---
Author Organization [facility] Address [address] [place] [address] Care Team Providers Care Dance Coach Name Role Phone Lisandro Mathis DO Primary [...] 10/18/2024 Assessment & Plan (10/18/2024 4:38 PM WEB CONTENT SPECIALIST): Patient with hepatic steatosis and liver cyst [...] 10/18/2024 Assessment & Plan (10/18/2024 4:39 PM WEB CONTENT SPECIALIST): Referral to GI placed. Pain appears to be more pelvic related, recommend she see FERRYBOAT CAPTAIN. Due to dysuria, will obtain UA and [...] Type Department Care Team Description 10/13/2025 Telephone [facility] Medicine Gastroenterology [address] [facility] 12th [place] [address] [place] [address] Kindra Gallagher CNA Labs Due 08/29/2025 2:30 PM CDT Infusion [address] [place] [phone] Chronic kidney disease, stage I (Primary Dx); Iron deficiency anemia, unspecified iron deficiency anemia type 08/22/2025 2:30 PM CDT Infusion [address] [place] [phone] Chronic kidney disease, stage I (Primary Dx); [...] 108.9 kg (240 lb) 10/18/2024 1:55 PM WEB CONTENT SPECIALIST Height 170.2 cm (5' 7) 10/18/2024 1:55 PM WEB CONTENT SPECIALIST Body Mass Index 37.59 10/18/2024 1:55 PM WEB CONTENT SPECIALIST Plan of Treatment Health Maintenance Due Date [...] HEPATITIS C ANTIBODY Routine 10/18/2024 3:05 PM WEB CONTENT SPECIALIST Hepatic steatosis from Last 3 Months or Most Recently Relevant to Health Maintenance Results * Hepatitis C antibody Blood (10/18/2024 3:05 PM WEB CONTENT SPECIALIST) Hep C Ab Nonreactive Nonreactive Comment:Antibodies to HCV no t detected. Does NOT exclude the possibility of recent exposure to HCV. Current interpretive data was last revised on 22 Blood 10/18/2024 3:05 PM WEB CONTENT SPECIALIST 10/18/2024 3:41 PM WEB CONTENT SPECIALIST Narcisa Quinones NP LAB MICROBIOLOGY - GENER AL ORDERABLES Final Result [facility] [address] [facility] Department [place] [address] from Last 3 Months or Most Recently Relevant to Health Maintenance Insurance [facility] [place] [id number] [facility] [place] [id number] Care Teams Dance Coach Relationship Specialty Start Date End Date Lisandro Mathis DO [address] [place] [address] PCP - General Nephrology 10/18/24
--- OUTSIDE RECORDS SUMMARY | 2025-11-13 08:41 | XMS_ITS | Clinical Summary ---
Author Organization [facility] Address [address], [address] [address] Phone Care Team Providers Care Order Fulfillment Specialist Name Role Phone Unavailable Primary Care [...]
--- OUTSIDE RECORDS SUMMARY | 2025-11-13 08:42 | XMS_ITS | Encounter Summary ---
Author Organization [facility] [employer] , [facility] Address [address] [facility] [place] [address] Phone Care Team Providers Care Plate Conditioner Name Role Phone Lashon Carrion MD Primary Care Provider +1- [phone] Reason for Visit * Reason Comments Med Refill Encounter Details Date Type Department Care Team (Late st Contact Info) Description 08/04/2022 Refill [place] [facility], [facility] [address] [facility] [address] [place] [phone] Lisandro Mathis DO [address] [facility] 1 [place] [address] Social History Tobacco Use Types [...] st Contact Info) Description 11/19/2025 3:45 PM TERMINAL SYSTEM OPERATOR Office Visit [facility] Care, [facility] [address] [facility] [address] [place] [phone] Lisandro Mathis DO [address] [facility] 1 [place] [address] documented as of this encounter Visit Diagnoses Not on filedocumented in this encounter Care Teams Plate Conditioner Relationship Specialty [place] [address] [facility] [address] [place] [address] PCP - General Gastroenterology 10/12/22 04/16/24 documented as of this encounter
[2025-11-13 09:17] LABS: Hematocrit 39.3 % (37.0-47.0); Hemoglobin 13.1 g/dL (12.0-15.0); Mean Corpuscular HGB Conc 33.3 g/dl (32-36); Mean Corpuscular Hemoglobin 25.7 pg (26-34); Mean Corpuscular Volume 77.2 fl (80-100); Platelet Count Result 306 k/mm3 (150-375); Red Blood Count 5.09 M/mm3 (4.2-5.4); White Blood Count 9.3 K/mm3 (4.5-10.0)
[2025-11-13 09:32] LABS: Albumin Level 4.2 g/dL (3.5-5.1); Anion Gap 8 mmol/L (4-12); Blood Urea Nitrogen 12 mg/dL (7-17); Calcium 9.0 mg/dL (8.4-10.2); Carbon Dioxide 27 mmol/L (22-30); Chloride 97 mmol/L (98-107); Estimated Glomerular Filt Rate > 60; Glucose 290 mg/dL (65-110); Iron 49 ug/dL (37-170); Magnesium 1.7 mg/dL (1.6-2.3); Potassium 4.2 mmol/L (3.4-5.0); Sodium 132 mmol/L (137-145)
[2025-11-13 09:41] LABS: Percent Iron Saturation 11 % (20-50)
[2025-11-13 10:13] LABS: Ferritin 9.02 ng/mL (6.24-137)
[2025-11-14 10:08] LABS: eGFR 112 (>59)
[2025-11-16 02:07] LABS: Osmolality, Urine 833 mOsmol/kg (.)
[2025-11-16 07:08] LABS: Osmolality, Serum 284 mOsmol/kg (275-295)
== END 2025-11-13 08:33 | disposition home or self-care (01) ==
LOC: ANHLAB 08:34
PROVIDERS: PCP Internal Medicine Nephrology; Visit Provider Internal Medicine Nephrology
DX: N18.1 Chronic kidney disease, stage 1 (principal); N12 Tubulo-interstitial nephritis, not specified as acute or chronic; R80.1 Persistent proteinuria, unspecified; N20.0 Calculus of kidney; G47.33 Obstructive sleep apnea (adult) (pediatric); Z86.2 Personal history of diseases of the blood and blood-forming organs and certain disorders involving the immune mechanism; K29.70 Gastritis, unspecified, without bleeding
CPT/HCPCS: 36415; 80069; 82610; 82728; 83540; 83550; 83735; 83930; 83935; 84300; 85027

== ENCOUNTER 2025-11-13 08:36 | Outpatient (CLI) | payer OTHER, SELFPAY ==
[2025-11-13 09:39] LABS: Alanine Aminotransferase 24 U/L (6-35); Albumin Level 4.2 g/dL (3.5-5.1); Alkaline Phosphatase 97 U/L (38-126); Aspartate Amino Transferase 31 U/L (14-36); Bilirubin,Total 0.3 mg/dL (0.2-1.3); Total Protein 7.3 g/dL (6.3-8.2)
== END 2025-11-13 08:37 | disposition home or self-care (01) ==
PROVIDERS: PCP Internal Medicine Nephrology; Visit Provider Nurse Practitioner
DX: K76.0 Fatty (change of) liver, not elsewhere classified (principal)
CPT/HCPCS: 36415; 80076